=== PATIENT | male | born 2005 | race Caucasian/White ===

== ENCOUNTER 2023-01-12 19:23 | Emergency (ER) | payer OTHER, SELFPAY ==
[2023-01-12 19:29] VITALS: BP 109/62; PULSE 88; RESP 18; TEMP 36.7; O2SAT 98; BMI 19.2
--- NOTE | 2023-01-12 19:34 | ED_ITS ---
HPI - General Adult General Chief complaint: Headache Stated complaint: CONGESTION, HEADACHE, FEVER Time Seen by Provider: 01/12/23 19:27 Source: patient and family Mode of arrival: walk-in Limitations: no limitations History of Present Illness HPI narrative: patient is a 17-year-old male who presents to the emergency department for a three day history of cough, congestion, headache and body aches. Patient states he feels nauseous. He has had a frontal headache for the last three days but in the last hour it has gotten more severe, consistent with previous migraines. He has had no vomiting. He has not had an objective fever. He used Mucinex prior to arrival but has not had any Motrin or Tylenol for the headache. He states typically when he gets a similar headache/migraine, he takes ibuprofen but did not take any prior to coming to the Emergency Room. No sick contacts in the home. He has not had any sputum production, difficulty breathing or diarrhea. Related Data Home Medications Medication Instructions Recorded Confirmed dextroamphetamine-amphetamine 5 mg 5 mg PO DAILY 01/12/23 01/12/23 tablet (Adderall) loratadine 10 mg tablet 10 mg PO DAILY PRN allergic 01/12/23 01/12/23 (Allerclear) symptoms venlafaxine 37.5 mg 37.5 mg PO DAILY 01/12/23 01/12/23 capsule,extended release 24 hr Previous Rx's Medication Instructions Recorded mhyukhfnwjsohtl-nppfrclwihtamrf-TB 10 ml PO Q6H PRN cold symptoms 01/12/23 2 mg-30 mg-10 mg/5 mL oral syrup #200 mL (Bromfed DM) ibuprofen 600 mg tablet 600 mg PO QID PRN pain #12 tabs 01/12/23 promethazine 25 mg tablet 25 mg PO Q6H PRN nausea and 01/12/23 vomiting #12 tabs Allergies Allergy/AdvReac Type Severity Reaction Status Date / Time No Known Drug Allergies Allergy Verified 01/12/23 19:54 Review of Systems ROS Constitutional Reports: chills; Denies: fever Ears, nose, mouth, and throat Reports: nasal congestion; Denies: throat pain Cardiovascular Denies: chest pain Respiratory Reports: cough; Denies: shortness of breath Gastrointestinal Reports: nausea; Denies: vomiting or diarrhea Integumentary/Breast Denies: rash Neurological Reports: headache; Denies: dizziness Endocrine Denies: excessive urination PFSH PFS Social History Smoking status: Never smoker Exam Narrative Exam Narrative: Gen.: Awake, alert, in no distress Head: Normocephalic, atraumatic ENT: Moist mucous membranes, bilateral tympanic membranes clear, moist because membranes with no pharyngeal erythema, no nuchal rigidity or meningismus Respiratory: No respiratory distress, lungs clear bilaterally Cardio: Regular rate and rhythm Extremities: Moves extremities equally Psych: Normal mood and affect Neuro: No focal neuro deficit Skin: Warm, dry, intact Constitutional Vital Signs, click to edit/add: Last Vital Signs Temp 98.1 F 01/12/23 19:29 Pulse 88 01/12/23 19:29 Resp 18 01/12/23 19:29 BP 109/62 01/12/23 19:29 Pulse Ox 98 01/12/23 19:29 O2 Del Method Room Air 01/12/23 19:29 Course Vital Signs Vital signs: Vital Signs Temperature 98.1 F 01/12/23 19:29 Pulse Rate 88 01/12/23 19:29 Respiratory Rate 18 01/12/23 19:29 Blood Pressure 109/62 01/12/23 19:29 Pulse Oximetry 98 01/12/23 19:29 Oxygen Delivery Method Room Air 01/12/23 19:29 Temperature 98.1 F 01/12/23 19:29 Pulse Rate 88 01/12/23 19:29 Respiratory Rate 18 01/12/23 19:29 Blood Pressure 109/62 01/12/23 19:29 Pulse Oximetry 98 01/12/23 19:29 Oxygen Delivery Method Room Air 01/12/23 19:29 Medical Decision Making [facility] Narrative Medical decision making narrative: patient was stable vital signs, headache consistent with previous migraines and no nuchal rigidity on exam. Covid test and influenza screens are negative. Patient was given intramuscular Toradol and Phenergan in the Emergency Room for headache symptoms. He will be discharged home with Bromfed-DM, Zofran, ibuprofen. Follow-up with PCP and return to the Emergency Room symptoms change or worsen. after medication with Toradol, Phenergan and Decadron in the Emergency Room, patient's mother voiced concern of dehydration. Patient was reevaluated by attending physician and a lengthy discussion was had with the patient, mother and attending physician discussing the patient's normal vital signs, benign exam and his unwillingness to eat and drink at home. At this time he does not appear severely dehydrated or in stable and he was encouraged to continue to sip fluids, return to the Emergency Room if symptoms change or worsen. Medical Records Medical records reviewed: Yes I reviewed the patient's medical records Lab Data Lab results reviewed: Yes I reviewed the patient's lab results Labs: Lab Results 01/12/23 Range/Units 19:45 SARS-CoV-2 (PCR) Negative (NEGATIVE) Influenza Type A Ag Negative Influenza Type B Ag Negative Discharge Plan Discharge Chief Complaint: Headache Clinical Impression: URI (upper respiratory infection), Headache Patient Disposition: Home, Self-Care Time of Disposition Decision: 20:30 Condition: Good Mode of Transportation: Private Vehicle Prescriptions / Home Meds: New ibuprofen 600 mg tablet 600 mg PO QID PRN (Reason: pain) Qty: 12 0RF kliquezghwpaarz-[id number] [Bromfed DM] 2-30-10 mg/5 mL syrup 10 ml PO Q6H PRN (Reason: cold symptoms) Qty: 200 0RF promethazine 25 mg tablet 25 mg PO Q6H PRN (Reason: nausea and vomiting) Qty: 12 0RF No Action venlafaxine 37.5 mg capsule,extended release 24hr 37.5 mg PO DAILY dextroamphetamine-amphetamine [Adderall] 5 mg tablet 5 mg PO DAILY Rx Instructions: unsure of dose. loratadine [Allerclear] 10 mg tablet 10 mg PO DAILY PRN (Reason: allergic symptoms) Instructions: Upper Respiratory Infection (ED), Acute Headache (ED) Stand Alone Forms: Portal Instructions Referrals: DEL CORRAL [Primary Care Provider] - 1 week Discharge Date/Time: 01/12/23 20:45
[2023-01-12 20:10] LABS: SARS-CoV-2 Ag NEGATIVE (NEGATIVE)
[2023-01-12 20:11] LABS: Influenza Virus A Antigen Negative; Influenza Virus B Antigen Negative; Internal Control Within Normal Limits
[2023-01-12] MEDS: PROMETHAZINE HCL 25 MG/ML VIAL IM (20:19)
[2023-01-12] MEDS: KETOROLAC TROMETHAMINE 60 MG/2 ML VIAL IM (20:20)
[2023-01-12] MEDS: DEXAMETHASONE SOD PHOS 10 MG/ML VIAL PO (20:31)
[2023-01-14 18:45] LABS: SARS-CoV-2 NAA INVALID (NOT DETECTE)
== END 2023-01-12 20:45 | disposition home or self-care (01) ==
PROVIDERS: Physician Assistant; Emergency Provider Emergency Medicine; PCP Family Medicine
DX: R51.9 Headache, unspecified (principal); J06.9 Acute upper respiratory infection, unspecified; Z79.899 Other long term (current) drug therapy; Z20.822 Contact with and (suspected) exposure to COVID-19
CPT/HCPCS: 87635; 87804; 87811; 96372; 99284; J1100

== ENCOUNTER 2023-03-18 16:12 | Emergency (ER) | payer OTHER, SELFPAY ==
[2023-03-18 16:19] VITALS: BP 108/63; PULSE 86; RESP 18; TEMP 36.8; O2SAT 97; BMI 19.0
--- OUTSIDE RECORDS SUMMARY | 2023-03-18 16:19 | XMS_ITS | CCD ---
Author Name Unknown Address [id number] [place] [address] Organization [facility] Care Team Providers Care Violin Restorer Name Role Phone Silver, Ria Unavailable Unavailable Silver, Ria Unavailable Unavailable UNKNOWN, PCP Unavailable Unavailable Ion Aragon Unavailable DALLAS SALGUERO Attending Unavailable DALLAS SALGUERO Consulting Unavailable DALLAS SALGUERO Admitting Unavailable ELLIS, DR DEL Mayes Primary Care Unavailable LEISA DSOUZA Consulting Unavailable ELLIS, DR DEL Mayes Primary Care Unavailable MARKER, DR SHERWOOD Attending Unavailable MARKER, DR SHERWOOD Consulting Unavailable MARKER, DR SHERWOOD Admitting Unavailable BELEN COCHRAN Consulting Unavailable SANTA, DR BATSHEVA Rae Attending Unavailable SANTA, DR BATSHEVA Rae Consulting Unavailable SANTA, DR BATSHEVA Rae Admitting Unavailable ELLIS, DR DEL Mayes Primary Care Unavailable RAUL ROMERO Consulting Unavailable TREVOR PETERSEN Consulting Unavailable ELLIS, DR DEL Mayes Primary Care Unavailable MARKER, DR SHERWOOD Attending Unavailable MARKER, DR SHERWOOD Admitting Unavailable RON KUMAR Attending Unavailable RON KUMAR Consulting Unavailable RON KUMAR Admitting Unavailable ELLIS, DR DEL Mayes Primary Care Unavailable Kumar, Ron Unavailable Kumar, Ron Unavailable JOSÉ, RON Referring Unavailable SAVANNAH ANDERSEN Attending Unavailable DEL CORRAL Attending Unavailable Allergies Allergy Classification Reported Allergen(s) Allergy Type Date of Onset Reaction(s) Facility (4 sources) Codeine; Translations: [CODEINE] Drug Allergy 06-20-2008 [facility] (1 source) Amoxicillin Drug Allergy 02-16-2022 [facility] (1 source) Sulfonamides (Antibiotic) Drug allergy (disorder) 02-16-2022 [facility] Medications Current Medications Medication Drug Class(es) Dates Sig (Normalized) Sig (Original) Magnesium (2 sources) Start: 07-15-2021 Magnesium 400 MG as directed Orally July, Active omeprazole 20 mg delayed release oral capsule (2 sources) Proton Pump Inhibitor take 1 capsule by mouth once daily Omeprazole 20 MG 1 capsule 30 minutes before morning meal Orally Once a day Active venlafaxine (2 sources) Serotonin and Norepinephrine Reuptake Inhibitor Effexor Active Vitamin B Complex (2 sources) Vitamin B Complex Active vitamin B12 (2 sources) Vitamin B12 Vitamin B 12 Active Completed/Discontinued Medications Medication Drug Class(es) Dates Sig (Normalized) Sig (Original) Acetaminophen (1 source) ACETAMINOPHEN (CHILDREN'S TYLENOL ORAL) Indications: Chronic daily headache , Learning difficulty Take by mouth. 0 Active Comment on above: Take by mouth. cholecalciferol 0.025 mg oral tablet (1 source) Vitamin D cholecalciferol (VITAMIN D3) 1,000 unit tab tablet Take 1 tablet by mouth. 0 Active Comment on above: Take 1 tablet by fritz th. fluticasone (1 source) Corticosteroid FLUTICASONE PROPIONATE (FLONASE NASAL) Indications: Chronic daily headache , Learning difficulty Use in the nose. 0 Active Comment on above: Use in the nose. 30/70 release 24 hr methylphenidate hydrochloride 10 mg extended release oral capsule (5 sources) Central Nervous System Stimulant take 1 capsule by mouth once daily methylphenidate ER (METADATE CD) 10 mg CD capsule Take 10 mg by mouth once daily. 0 Active take 1 capsule by mo [facility] once daily in the morning Metadate CD 10 MG 1 capsule in the morni ng Orally Once a day Active Concerta Active Comment on above: Take 10 mg by mouth once daily. pediatric multivitamin plus minerals with iron chewable (CEROVITE JR) chewable tablet (1 source) take 1 tablet by mouth once daily pediatric multivitamin plus minerals with iron chewable (CEROVITE JR) chewable tablet Indications: Chronic daily headache , Learning difficulty Take 1 tablet by mouth once daily. 0 Active Comment on above: Take 1 tablet by fritz th once daily. Problems Active Problems Problem Classification Problem Date Documented Date Episodic/Chronic Abdominal pain (4 sources) Abdominal pain; Translations: [Unspecified abdominal pain] Onset: 07-15-2021 Resolved: 07-15-2021 Episodic Acute and chronic tonsillitis (1 source) Hypertrophy of adenoids; Translations: [Hypertrophy of adenoids] Onset: 07-23-2008 07-23-2008 Chronic Asthma (1 source) Unspecified asthma, uncomplicated; Translations: [UNSPECIFIED ASTHMA UNCOMPLICATED] Onset: 07-28-2021 Chronic Attention-deficit, conduct, and disruptive behavior disorders (1 source) Attention deficit hyperactivity disorder; Translations: [Attention deficit disorder with hyperactivity] Onset: 05-17-2011 05-17-2011 Chronic Developmental disorders (1 source) Learning difficulties; Translations: [Developmental disorder of scholastic skills, unspecified] Onset: 12-15-2010 12-15-2010 Chronic Fever of unknown origin (4 sources) Fever, unspecified; Translations: [FEVER UNSPECIFIED] Onset: 08-29-2021 Episodic Headache; including migraine (3 sources) Headache; Translations: [Nonintractable episodic headache, unspecified headache type] Onset: 04-07-2009 Episodic Malaise and fatigue (1 source) Chronic fatigue syndrome; Translations: [Chronic fatigue syndrome] Chronic Other upper respiratory disease (1 source) Chronic rhinitis; Translations: [Chronic rhinitis] Chronic Unclassified (2 sources) COUGH, UNSPECIFIED; Translations: [COUGH, UNSPECIFIED] Onset: 02-18-2022 Unclassified (4 sources) CONTACT W/AND (SUSP) EXPOS COVID-19; Translations: [CONTACT W/AND (SUSP) EXPOS COVID-19] Onset: 03-23-2021 Viral infection (1 source) Viral infection, unspecified; Translations: [VIRAL INFECTION UNSPECIFIED] Onset: 02-18-2022 Episodic Viral infection (2 sources) COVID-19; Translations: [Disease caused by 2019-nCoV] Onset: 09-01-2021 Past or Other Problems Problem Classification Problem Date Documented Da te Episodic/Chronic E Codes: Overexertion (1 source) Slipping, tripping and stumbling without falling due to stepping into hole or opening, initial encounter; Translations: [SLIP STUMBL NO FALL STEP HOLE INIT] Onset: 07-28-2021 Episodic Malaise and fatigue (1 source) Other fatigue; Translations: [OTHER FATIGUE] Onset: 03-23-2021 Episodic Other aftercare (1 source) Other snf (current) drug therapy; Translations: [OTH CUSTOMER SERVICE TELLER CURRENT DRUG THERAPY] Onset: 07-28-2021 Episodic Other ear and sense organ disorders (4 sources) Otalgia, left ear; Translations: [OTALGIA LEFT EAR] Onset: 06-01-2021 Episodic Other gastrointestinal disorders (2 sources) Diarrhea, unspecified Onset: 07-15-2021 Resolved: 07-15-2021 Episodic Other injuries and conditions due to external causes (3 sources) Unspecified injury of left ankle, initial encounter; Translations: [UNSPECIFIED INJURY LT ANKLE INITIAL] Onset: 07-27-2021 Episodic Other upper respiratory disease (1 source) Nasal congestion; Translations: [NASAL CONGESTION] Onset: 03-23-2021 Episodic Otitis media and related conditions (1 source) Unspecified perforation of tympanic membrane, left ear; Translations: [UNS PERF TYMPANIC MEMBRANE LT EAR] Onset: 06-02-2021 Episodic Sprains and strains (1 source) Sprain of unspecified ligament of left ankle, initial encounter; Translations: [SPRAIN UNS LIGAMENT LT ANKLE INIT] Onset: 07-28-2021 Episodic Unclassified (1 source) COUGH, UNSPECIFIED; Translations: [COUGH, UNSPECIFIED] Onset: 02-16-2022 Unclassified (1 source) CONTACT W/AND (SUSP) EXPOS COVID-19; Translations: [CONTACT W/AND (SUSP) EXPOS COVID-19] Onset: 03-19-2021 Results Test Name Value Interpretation Reference Range Facility [facility] 05-12-2022 [facility] Office Visit (PARAG ) ALYSSA LALA ([id number]) 1 M Date Time Provider Department 05/12/22 2:00 PM SAVANNAH ANDERSEN During your visit today, we recorded the following information about you: Temperature Pulse Weight Height 97.9 degrees 70/minute 58.5 kg 1.702 m Savannah Andersen MD 05/12/2022 4:16 PM Signed Allergy AND Clinical Immunology ROLLY Gill has requested consultation for recurrent URI. My progress note with assessment and recommendations from today's appointment will be electronically routed to the referring provider. Alyssa Lala is a 17 year old male with ADHD and anxiety, accompanied today by grandmother, mother, and great niece, seen for significant fatigue since young childhood. It has been significant enough to where he could not start high school until the afternoon. If he exerts himself he sleeps for 3 days straight . 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 He frequently suffers from headaches and stomach pains. No family history of sleep disorders. He saw an program strategist in [employer]. He had bloodwork done along with his sister who had similar issues at the time. His IgGs and IgAs were really low. IgG replacement was discussed at one point. He most recently saw Dr. Jose F Guerrero about a year ago. He was told his headaches were migraines. His immune testing was repeated and was within normal range. He has had inhalant skin testing in the past which was negative. He was told that foods may be causing his migraines. His sister's issues have since resolved and does not carry a formal diagnosis for immunodeficiency. Saw local ENT for perforation left tympanic membrane and recurrent sinusitis. He has a history of otitis media with tube placement at age of 1 and also tonsillectomy and adenoidectomy. He received treatment with oral steroids and antibiotics with improvement. CT sinus was done and was normal. He receives antibiotics about 1-2 times per month for ear or sinus infections. Had COVID in August. Denies pneumonia, bacteremia. No hospitalizations for infections. He recent saw a sleep specialist locally who recommended further testing. Has not seen a headache specialist. His psychologist has prescribed him methylphenidate which has helped but still sleeps a lot. Saw local oncology, eval unremarkable. PriorGI evaluation negative. PPV23: 05/19/2002 DTap: 10/13/2015 Current Outpatient Medications on File Prior to Visit Medication Sig Methylphenidate HCl (METADATE CD) 10 mg ORAL CD capsule Take 10 mg by mouth once daily. ACETAMINOPHEN (CHILDREN'S TYLENOL ORAL) Take by mouth. FLUTICASONE PROPIONATE (FLONASE NASAL) Use in the nose. Pediatric Multivitamins-Iron (FLINTSTONES COMPLETE) ORAL chewable tablet Take 1 tablet by mouth once daily. No current facility-administered medications on file prior to visit. ALLERGIES Allergen Reactions Codeine PAST MEDICAL HISTORY Diagnosis Date Ear infection Sinus infection PAST SURGICAL HISTORY Procedure Laterality Date PAST SURGICAL HISTORY OF 07/23/2008 Left Gelfoam myringoplasty. REMOVAL ADENOIDS,PRIMARY,<12 Y/O 2x Adenoidectomy REMOVAL OF TONSILS,<12 Y/O Tonsillectomy No family history on file. Family history of atopy: yes Denies family history of sleep disorders, recurrent infections Several members with diabetes but no other autoimmune diseases Several members with cancers-mostly breast and prostate SOCIAL HISTORY Trying to go to [employer] school Denies tobacco abuse or exposure Review of Systems: Gen: No fevers, chills, night sweats, weight changes. HEENT: No eye itching, watering. No congestion or rhinorrhea. No snoring. No recent sinus infections. Neck: No lymphadenopathy. Resp: No cough, wheezing, dyspnea. CV: No chest pain, palpitations, leg swelling. GI: No reflux, abdominal pain, vomiting, diarrhea, constipation. Musc/Skel: Positive for joint pain. No joint stiffness. Neuro: No headaches. Skin: No lesions, rashes, hives, or eczema. Psych: No depression, anxiety. All other systems reviewed, negative except as above. Physical Exam: Pulse 70 Temp 36.6 ?C (97.9 ?F) Ht 170.2 cm (5' 7 ) Wt 58.5 kg (129 lb) SpO2 100% BMI 20.20 kg/m? GEN - NAD, well appearing, cooperative with exam HEENT - No conjunctival injection, swelling or discharge. TMs clear with no effusion or bulging. Bilateral inferior turbinates hypertrophic and erythematous. MMM. Oropharynx non-erythematous with no tonsillar enlargement or exudates. NECK - supple, no cervical LAD RESP - No increased work of breathing. Clear to auscultation bilaterally, no wheeze or crackles. CV- RRR, no murmurs ABD- Soft, non-distended SKIN- Warm and well perfused, no rashes on exposed skin NEURO- cranial nerves grossly intact Diagnostic Testin (more content not included)... [facility]O DIFFon 02-16-2022 BASO # 0.0 103/ul Normal 0.0-0.1 [facility] Comment on above: Performed By: #### C BC #### [facility] [address] [place] [address] Dr. Jennifer Durant Basophils/100 WBC (Bld) 0.4 % Normal 0.2-2.0 [facility] Comment on above: Performed By: #### C BC #### [facility] [address] [place] [address] Dr. Jennifer Durant EO # 0.0 103/ul Normal 0.0-0.7 [facility] Comment on above: Performed By: #### C BC #### [facility] [address] [place] [address] Dr. Jennifer Durant Eosinophils/100 WBC (Bld) 0.1 % Critically low 0.9-7.0 [facility] Comment on above: Performed By: #### C BC #### [facility] [address] [place] [address] Dr. Jennifer Durant Erythrocyte distribution width (RBC) [Ratio] 11.6 % Normal 11.0-15.0 [facility] Comment on above: Performed By: #### C BC #### [facility] [address] [place] [address] Dr. Jennifer Durant Hematocrit (Bld) [Volume fraction] 39.8 % Critically low 42.0-54.0 [facility] Comment on above: Performed By: #### C BC #### [facility] [address] [place] [address] Dr. Jennifer Durant Hemoglobin (Bld) [Mass/Vol] 14.2 g/dL Normal 14.0-18.0 [facility] Comment on above: Performed By: #### C BC #### [facility] [address] [place] [address] Dr. Jennifer Durant IG # 0.01 10e3/ul Normal 0.00-0.03 [facility] Comment on above: Performed By: #### C BC #### [facility] [address] [place] [address] Dr. Jennifer Durant IG % 0.1 % Normal 0.0-0.5 [facility] Comment on above: Performed By: #### C BC #### [facility] [address] [address] [address] Jennifer Durant LYMPH # 0.8 103/ul Critically low 1.2-3.8 [facility] Comment on above: Performed By: #### C BC #### [facility] [address] [address] [address] Jennifer Durant Lymphocytes/100 WBC (Bld) 7.3 % Critically low 20.5-60.0 [facility] Comment on above: Performed By: #### C BC #### [facility] [address] [place] [address] Dr. Jennifer Durant MANUAL DIFF REQ NO Normal [facility] Comment on above: Performed By: #### C BC #### [facility] [address] [place] [address] Dr. Jennifer Durant MCH (RBC) [Entitic mass] 32.1 pg Normal 25.9-34.0 [facility] Comment on above: Performed By: #### C BC #### [facility] [address] [address] [address] Jennifer Durant MCHC (RBC) [Mass/Vol] 35.7 g/dL Critically high 29.9-35.2 [facility] Comment on above: Performed By: #### C BC #### [facility] [address] [place] [address] Dr. Jennifer Durant MCV (RBC) [Entitic vol] 89.8 fL Normal 80.0-94.0 [facility] Comment on above: Performed By: #### C BC #### [facility] [address] [address] [address] Jennifer Durant MONO # 1.5 103/ul Critically high 0.3-0.8 [facility] Comment on above: Performed By: #### C BC #### [facility] [address] [address] [address] Jennifer Durant Monocytes/100 WBC (Bld) 14.0 % Critically high 1.7-12.0 [facility] Comment on above: Performed By: #### C BC #### [facility] [address] [address] [address] Jennifer Durant NEUT # 8.3 103/ul Critically high 1.4-6.5 [facility] Comment on above: Performed By: #### C BC #### [facility] [address] [address] [address] Jennifer Durant Neutrophils/100 WBC (Bld) 78.1 % Critically high 43.0-75.0 [facility] Comment on above: Performed By: #### C BC #### [facility] [address] [place] [address] Dr. Jennifer Durant Platelet mean volume (Bld) [Entitic vol] 9.8 fL Normal 9.5-13.5 [facility] Comment on above: Performed By: #### C BC #### [facility] [address] [place] [address] Dr. Jennifer Durant PLT 216 103/ul Normal 150-450 [facility] Comment on above: Performed By: #### C BC #### [facility] [address] [address] [address] Jennifer Durant RBC 4.43 106/ul Critically low 4.70-6.10 [facility] Comment on above: Performed By: #### C BC #### [facility] [address] [place] [address] Dr. Jennifer Durant WBC 10.6 103/ul Normal 4.0-11.0 [facility] Comment on above: Performed By: #### C BC #### [facility] [address] [place] [address] Dr. Jennifer Durant [facility]03 SARS-CoV-2 (COVID-19) RNA NUPUR+probe Ql (Unsp spec) Not detected Normal NOT DETECTED [facility] Comment on above: Result Comment: This test is not yet approved or cleared by the [place] FDA. When there are no FDA-approved or cleared tests available, and other criteria are met, FDA can make tests available under an emergency access mechanism called an Emergency Use Authorization (EUA). The EUA for this test is supported by the Omega of Health and Human Service's (HHS's) declaration that circumstances exist to justify the emergency use of in vitro diagnostics for the detection and/or diagnosis of the virus that causes COVID-19. This EUA will remain in effect (meaning this test can be used) for the duration of the COVID-19 declaration justifying emergency of IVDs, unless it is terminated or revoked by FDA (after which the test may no longer be used). When diagnostic testing is negative, the possibility of a false negative should be considered in the context of a patient's recent exposures and the presence of clinical signs and symptoms consistent with SARS-CoV-2. Performed By: #### C VDTB #### [facility] [address] [place] [address] Dr. Jennifer Durant ER URINE PROFILEon 2 Bilirubin Ql (U) Negative Normal NEGATIVE [facility] Comment on above: Performed By: #### E RUR #### [facility] [address] [place] [address] Dr. Jennifer Durant Clarity (U) CLEAR Normal CLEAR [facility] Comment on above: Performed By: #### E RUR #### [facility] [address] [place] [address] Dr. Jennifer Durant Color (U) YELLOW Normal YELLOW [facility] Comment on above: Performed By: #### E RUR #### [facility] [address] [place] [address] Dr. Jennifer Durant ERUAHD A micrscopic examina tion will be performed if indicated. Normal [facility] Comment on above: Performed By: #### E RUR #### [facility] [address] [place] [address] Dr. Jennifer Durant Glucose Ql (U) Negative Normal NEGATIVE [facility] Comment on above: Performed By: #### E RUR #### [facility] [address] [place] [address] Dr. Jennifer Durant Hemoglobin Ql (U) Negative Normal NEGATIVE [facility] Comment on above: Performed By: #### E RUR #### [facility] [address] [place] [address] Dr. Jennifer Durant Ketones Ql (U) 15 mg/dl Abnormal NEGATIVE [facility] Comment on above: Performed By: #### E RUR #### [facility] [address] [place] [address] Dr. Jennifer Durant LEUKOCYTES Negative Normal NEGATIVE [facility] Comment on above: Performed By: #### E RUR #### [facility] [address] [place] [address] Dr. Jennifer Durant Nitrite Ql (U) Negative Normal NEGATIVE [facility] Comment on above: Performed By: #### E RUR #### [facility] [address] [place] [address] Dr. Jennifer Durant pH (U) 6.5 [pH] Normal 5-9 [facility] Comment on above: Performed By: #### E RUR #### [facility] [address] [place] [address] Dr. Jennifer Durant SPEC GRAVITY 1.020 Normal 1.005-<=1.0 25 [facility] Comment on above: Performed By: #### E RUR #### [facility] [address] [place] [address] Dr. Jennifer Durant UA PROTEIN TRACE Normal NEGATIVE/ TRACE [facility] Comment on above: Performed By: #### E RUR #### [facility] [address] [place] [address] Dr. Jennifer Durant UR MICRO IND NOT INDICATED Normal [facility] Comment on above: Performed By: #### E RUR #### [facility] [address] [place] [address] Dr. Jennifer Durant Urobilinogen Qn (U) 1.0 {Filiberto'U}/dL Normal 0.2 - 1.0 [facility] Comment on above: Performed By: #### E RUR #### [facility] [address] [place] [address] Dr. Jennifer Durant GROUP A STREP CULTUREon 02-03 S. pyogenes Ag Ql (Unsp spec) Culture Observations: NEGATIVE FOR GROUP A STREPTOCOCCUS. Normal [facility] Comment on above: Performed By: #### I NFLUAB, RSV #### [facility] [address] [place] [address] Dr. Jennifer Durant INFLUENZA A AND B AGon 02-16 INFLUENZA A AG Negative Normal NEGATIVE SEE COMMENT [facility] Comment on above: Performed By: #### I NFLUAB, RSV #### [facility] [address] [place] [address] Dr. Jennifer Durant INFLUENZA B AG Negative Normal NEGATIVE SEE COMMENT [facility] Comment on above: Performed By: #### I NFLUAB, RSV #### [facility] [address] [place] [address] Dr. Jennifer Durant INTERNAL CONTROLS Within Normal Limits Normal Wi thin Normal Limits [facility] Comment on above: Performed By: #### I NFLUAB, RSV #### [facility] [address] [place] [address] Dr. Jennifer Durant PROF CHEM 8 (BAS METB)on Anion gap [Moles/Vol] 12.1 mmol/L Normal [facility] Comment on above: Performed By: #### B MP #### [facility] [address] [place] [address] Dr. Jennifer Durant Calcium [Mass/Vol] 9.1 mg/dL Normal 8.5-10.1 [facility] Comment on above: Performed By: #### B MP #### [facility] [address] [place] [address] Dr. Jennifer uDrant Chloride [Moles/Vol] 101 mmol/L Normal 98-107 [facility] Comment on above: Performed By: #### B MP #### [facility] [address] [place] [address] Dr. Jennifer Durant CO2 [Moles/Vol] 26.5 mmol/L Normal 21.0-32.0 [facility] Comment on above: Performed By: #### B MP #### [facility] [address] [place] [address] Dr. Jennifer Durant Creatinine [Mass/Vol] 1.03 mg/dL Normal 0.70-1.30 [facility] Comment on above: Performed By: #### B MP #### [facility] [address] [address] [address] Jennifer Durant EGFR-AF NIGERIEN >60 Normal >=60 [facility] Comment on above: Performed By: #### B MP #### [facility] [address] [address] [address] Jennifer Durant EGFR-NON AF NIGERIEN >60 Normal >=60 [facility] Comment on above: Performed By: #### B MP #### [facility] [address] [address] [address] Jennifer Durant Glucose [Mass/Vol] 100 mg/dL Normal 74-106 [facility] Comment on above: Performed By: #### B MP #### [facility] [address] [place] [address] Dr. Jennifer Durant Potassium [Moles/Vol] 3.6 mmol/L Normal 3.5-5.1 [facility] Comment on above: Performed By: #### B MP #### [facility] [address] [address] [address] Jennifer Durant Sodium [Moles/Vol] 136 mmol/L Normal 136-145 [facility] Comment on above: Performed By: #### B MP #### [facility] [address] [place] [address] Dr. Jennifer Durant Urea nitrogen [Mass/Vol] 17.0 mg/dL Normal 6.4-19.3 [facility] Comment on above: Performed By: #### B MP #### [facility] [address] [place] [address] Dr. Jennifer Durant Urea nitrogen/Creatini ne [Mass ratio] 16.5 mg/mg Normal [facility] Comment on above: Performed By: #### B MP #### [facility] [address] [place] [address] Dr. Jennifer Durant RSVon 02-16-2022 RSV AG Negative Normal NEGATIVE [facility] Comment on above: Performed By: #### I NFLUAB, RSV #### [facility] [address] [place] [address] Dr. Jennifer Durant STREPT SCREENon 02-16-2022 STREP SCREEN A Negative Normal NEGATIVE [facility] Comment on above: Performed By: #### I NFLUAB, RSV #### [facility] [address] [place] [address] Dr. Jennifer Durant XR CHEST 1 Von 02-16-2022 XR CHEST 1 V EXAM: XR CHEST 1 V HISTORY: COUGH COMPARISON: None. TECHNIQUE: Chest single view. FINDINGS: Lines/tubes/devices: None. Cardiomediastinum: Cardiac silhouette appears normal in size. Unremarkable mediastinal silhouette. Vasculature: No increased pulmonary vasculature. Lungs/pleura: No consolidation, sizeable effusion, or visible pneumothorax. Bones/soft tissues: Bony thorax appears grossly intact as seen. IMPRESSION: No acute cardiopulmonary findings. Electronically authenticated by: LEISA DSOUZA Date: 2022-02-16 02:42 Normal [facility] CBC AUTO DIFFon 08-29-2021 BASO # 0.0 103/ul Normal 0.0-0.1 [facility] Comment on above: Performed By: #### I NFLUAB, RSV #### [facility] [address] [place] [address] Dr. Jennifer Durant Basophils/100 WBC (Bld) 0.4 % Normal 0.2-2.0 [facility] Comment on above: Performed By: #### I NFLUAB, RSV #### [facility] [address] [place] [address] Dr. Jennifer Durant EO # 0.0 103/ul Normal 0.0-0.7 [facility] Comment on above: Performed By: #### I NFLUAB, RSV #### [facility] [address] [place] [address] Dr. Jennifer Durant Eosinophils/100 WBC (Bld) 0.2 % Critically low 0.9-7.0 [facility] Comment on above: Performed By: #### I NFLUAB, RSV #### [facility] [address] [place] [address] Dr. Jennifer Durant Erythrocyte distribution width (RBC) [Ratio] 11.8 % Normal 11.0-15.0 [facility] Comment on above: Performed By: #### I NFLUAB, RSV #### [facility] [address] [place] [address] Dr. Jennifer Durant Hematocrit (Bld) [Volume fraction] 42.2 % Normal 42.0-54.0 [facility] Comment on above: Performed By: #### I NFLUAB, RSV #### [facility] [address] [place] [address] Dr. Jennifer Durant Hemoglobin (Bld) [Mass/Vol] 14.8 g/dL Normal 14.0-18.0 [facility] Comment on above: Performed By: #### I NFLUAB, RSV #### [facility] [address] [place] [address] Dr. Jennifer Durant IG # 0.02 10e3/ul Normal 0.00-0.03 [facility] Comment on above: Performed By: #### I NFLUAB, RSV #### [facility] [address] [place] [address] Dr. Jennifer Durant IG % 0.4 % Normal 0.0-0.5 [facility] Comment on above: Performed By: #### I NFLUAB, RSV #### [facility] [address] [place] [address] Dr. Jennifer Durant LYMPH # 1.4 103/ul Normal 1.2-3.8 [facility] Comment on above: Performed By: #### I NFLUAB, RSV #### [facility] [address] [place] [address] Dr. Jennifer Durant Lymphocytes/100 WBC (Bld) 27.8 % Normal 20.5-60.0 [facility] Comment on above: Performed By: #### I NFLUAB, RSV #### [facility] [address] [place] [address] Dr. Jennifer Durant MANUAL DIFF REQ NO Normal [facility] Comment on above: Performed By: #### I NFLUAB, RSV #### [facility] [address] [address] [address] Jennifer Durant MCH (RBC) [Entitic mass] 32.6 pg Normal 25.9-34.0 [facility] Comment on above: Performed By: #### I NFLUAB, RSV #### [facility] [address] [place] [address] Dr. Jennifer Durant MCHC (RBC) [Mass/Vol] 35.1 g/dL Normal 29.9-35.2 [facility] Comment on above: Performed By: #### I NFLUAB, RSV #### [facility] [address] [place] [address] Dr. Jennifer Durant MCV (RBC) [Entitic vol] 93.0 fL Normal 80.0-94.0 [facility] Comment on above: Performed By: #### I NFLUAB, RSV #### [facility] [address] [place] [address] Dr. Jennifer Durant MONO # 0.9 103/ul Critically high 0.3-0.8 [facility] Comment on above: Performed By: #### I NFLUAB, RSV #### [facility] [address] [place] [address] Dr. Jennifer Durant Monocytes/100 WBC (Bld) 17.5 % Critically high 1.7-12.0 [facility] Comment on above: Performed By: #### I NFLUAB, RSV #### [facility] [address] [place] [address] Dr. Jennifer Durant NEUT # 2.7 103/ul Normal 1.4-6.5 [facility] Comment on above: Performed By: #### I NFLUAB, RSV #### [facility] [address] [place] [address] Dr. Jennifer Durant Neutrophils/100 WBC (Bld) 53.7 % Normal 43.0-75.0 [facility] Comment on above: Performed By: #### I NFLUAB, RSV #### [facility] [address] [place] [address] Dr. Jennifer Durant Platelet mean volume (Bld) [Entitic vol] 10.7 fL Normal 9.5-13.5 [facility] Comment on above: Performed By: #### I NFLUAB, RSV #### [facility] [address] [address] [address] Jennifer Durant PLT 192 103/ul Normal 150-450 [facility] Comment on above: Performed By: #### I NFLUAB, RSV #### [facility] [address] [address] [address] Jennifer Durant RBC 4.54 106/ul Critically low 4.70-6.10 [facility] Comment on above: Performed By: #### I NFLUAB, RSV #### [facility] [address] [address] [address] Jennifer Durant WBC 5.1 103/ul Normal 4.0-11.0 [facility] Comment on above: Performed By: #### I NFLUAB, RSV #### [facility] [address] [place] [address] Dr. Jennifer Durant Covid-19 PCR (CVDTB)on 08-05 SARS-CoV-2 (COVID-19) RNA NUPUR+probe Ql (Unsp spec) Detected Critically abnormal NOT DETECTED [facility] Comment on above: Result Comment: This test is not yet approved or cleared by the [place] FDA. When there are no FDA-approved or cleared tests available, and other criteria are met, FDA can make tests available under an emergency access mechanism called an Emergency Use Authorization (EUA). The EUA for this test is supported by the [place] of Health and Human Service's declaration that circumstances exist to justify the emergency use of in vitro diagnostics for the detection and/or diagnosis of the virus that causes COVID-19. This EUA will remain in effect for the duration of the COVID-19 declaration justifying emergency of IVDs, unless it is terminated or revoked by the FDA (after which the test may no longer be used). Performed By: #### I NFLUAB, RSV #### [facility] [address] [place] [address] Dr. Jennifer Durant GROUP A STREP CULTUREon 08-05 S. pyogenes Ag Ql (Unsp spec) Culture Observations: NEGATIVE FOR GROUP A STREPTOCOCCUS. Normal [facility] Comment on above: Performed By: #### S SCRN, GRASTCX #### [facility] [address] [place] [address] Dr. Jennifer Durant INFLUENZA A AND B AGon 08-29 INFLUANEGH SEE BELOW Normal [facility] Comment on above: Result Comment: Nega tive for Flu A protein angiten. Infection due to Flu A cannot be ruled out. Flu A angiten in the sample may be below the detection limit of the test. Performed By: #### I NFLUAB, RSV #### [facility] [address] [place] [address] Dr. Jennifer Durant INFLUBNEGH SEE BELOW Normal [facility] Comment on above: Result Comment: Nega tive for Flu B protein antigen. Infection due to Flu B cannot be ruled out. Flu B antigen in the sample may be below the detection limit of the test. Performed By: #### I NFLUAB, RSV #### [facility] [address] [place] [address] Dr. Jennifer Durant INFLUENZA A AG Negative Normal NEGATIVE SEE COMMENT [facility] Comment on above: Performed By: #### I NFLUAB, RSV #### [facility] [address] [place] [address] Dr. Jennifer Durant INFLUENZA B AG Negative Normal NEGATIVE SEE COMMENT [facility] Comment on above: Performed By: #### I NFLUAB, RSV #### [facility] [address] [place] [address] Dr. Jennifer Durant INTERNAL CONTROLS Within Normal Limits Normal Wi thin Normal Limits [facility] Comment on above: Performed By: #### I NFLUAB, RSV #### [facility] [address] [place] [address] Dr. Jennifer Durant MONOon 08-29-2021 Monocytes (Bld) [#/Vol] Negative Normal NEGATIVE [facility] Comment on above: Performed By: #### M JEANNIE #### [facility] [address] [place] [address] Dr. Jennifer Durant PROF 14(COMP METB)on 022 Albumin [Mass/Vol] 4.0 g/dL Normal 3.4-5.0 [facility] Comment on above: Performed By: #### C MP #### [facility] [address] [place] [address] Dr. Jennifer Durant Albumin/Globulin [Mass ratio] 1.3 {ratio} Normal [facility] Comment on above: Performed By: #### C MP #### [facility] [address] [place] [address] Dr. Jennifer Durant ALP [Catalytic activity/Vol] 74 U/L Normal 46-116 [facility] Comment on above: Performed By: #### C MP #### [facility] [address] [place] [address] Dr. Jennifer Durant ALT [Catalytic activity/Vol] 16 U/L Normal 16-63 [facility] Comment on above: Performed By: #### C MP #### [facility] [address] [place] [address] Dr. Jennifer Durant Anion gap [Moles/Vol] 10.0 mmol/L Normal [facility] Comment on above: Performed By: #### C MP #### [facility] [address] [place] [address] Dr. Jennifer Durant AST [Catalytic activity/Vol] 18 U/L Normal 15-37 [facility] Comment on above: Performed By: #### C MP #### [facility] [address] [place] [address] Dr. Jennifer Durant Bilirubin [Mass/Vol] 0.4 mg/dL Normal 0.2-1.0 [facility] Comment on above: Performed By: #### C MP #### [facility] [address] [place] [address] Dr. Jennifer Durant Calcium [Mass/Vol] 8.8 mg/dL Normal 8.5-10.1 [facility] Comment on above: Performed By: #### C MP #### [facility] [address] [place] [address] Dr. Jennifer Durant Chloride [Moles/Vol] 103 mmol/L Normal 98-107 [facility] Comment on above: Performed By: #### C MP #### [facility] [address] [address] [address] Jennifer Durant CO2 [Moles/Vol] 29.1 mmol/L Normal 21.0-32.0 [facility] Comment on above: Performed By: #### C MP #### [facility] [address] [address] [address] Jennifer Durant Creatinine [Mass/Vol] 0.94 mg/dL Normal 0.70-1.30 [facility] Comment on above: Performed By: #### C MP #### [facility] [address] [address] [address] Jennifer Durant EGFR-AF NIGERIEN >60 Normal >=60 [facility] Comment on above: Performed By: #### C MP #### [facility] [address] [place] [address] Dr. Jennifer Durant EGFR-NON AF NIGERIEN >60 Normal >=60 [facility] Comment on above: Performed By: #### C MP #### [facility] [address] [place] [address] Dr. Jennifer Durant Globulin (S) [Mass/Vol] 3.0 g/dL Normal [facility] Comment on above: Performed By: #### C MP #### [facility] [address] [place] [address] Dr. Jennifer Durant Glucose [Mass/Vol] 91 mg/dL Normal 74-106 [facility] Comment on above: Performed By: #### C MP #### [facility] [address] [address] [address] Jennifer Durant Potassium [Moles/Vol] 4.1 mmol/L Normal 3.5-5.1 [facility] Comment on above: Performed By: #### C MP #### [facility] [address] [place] [address] Dr. Jennifer Durant Protein [Mass/Vol] 7.0 g/dL Normal 6.4-8.2 [facility] Comment on above: Performed By: #### C MP #### [facility] [address] [address] [address] Jennifer Durant Sodium [Moles/Vol] 138 mmol/L Normal 136-145 [facility] Comment on above: Performed By: #### C MP #### [facility] [address] [place], [place] [address] Dr. Jennifer Durant Urea nitrogen [Mass/Vol] 13.0 mg/dL Normal 6.4-19.3 [facility] Comment on above: Performed By: #### C MP #### [facility] [address] [address] [address] Jennifer Durant Urea nitrogen/Creatini ne [Mass ratio] 13.8 mg/mg Normal [facility] Comment on above: Performed By: #### C MP #### [facility] [address] [address] [address] Jennifer Durant STREPT SCREENon 08-29-2021 STREP SCREEN A Negative Normal NEGATIVE [facility] Comment on above: Performed By: #### S SCRN, GRASTCX #### [facility] [id number] Jennifer Durant XR CHEST 1 Von 08-29-2021 XR CHEST 1 V EXAM: XR CHEST 1 V COMPARISON: 01/05/2021 CLINICAL INDICATION: Fever. FINDINGS: The cardiomediastinal silhouette is within normal limits. No focal consolidation. No pleural effusion. No pneumothorax. IMPRESSION: No acute cardiopulmonary abnormality. Electronically authenticated by: BELEN COCHRAN Date: 2021-08-29 20:30 Normal [facility] Free T4on 08-06-2021 Free T4 [Mass/Vol] 1.13 ng/dL Normal 0.80-1.80 [facility] [employer] Comment on above: Performed By: #### 2 [id number], [id number], LIP, CATHY, 66612U, [id number], 16682V, [id number] #### [facility] [address] [place] [address] Q - TESTOSTERONE,TOTAL,MALES (ADULT),IMMUNOASAYon 08-06-2021 TESTOSTERONE, TOTAL, MALES (ADULT), [place] 763 ng/dL Normal 250-827 [facility] [employer] Comment on above: Order Comment: [facility] performed at: [employer], [address], [address] [place], [address], Sales Promotion Director: Vicente Dutton MD [facility] Date/Time: [facility] Results Received Date/Time: [facility] Reported Date/Time: Performed By: #### 8 [id number], [id number] #### [facility] [address] [place] [address] Q - THYROID PEROXIDASE TPO A Bon 08-06-2021 THYROID PEROXIDASE ANTIBODIES 1 IU/mL Normal <9 [facility] Comment on above: Order Comment: [facility] performed at: [employer], [address], [address] [place], [address], Sales Promotion Director: Vicente Dutton MD [facility] Date/Time: [facility] Results Received Date/Time: [facility] Reported Date/Time: Performed By: #### 8 [id number], [id number] #### [facility] [address] [place] [address] TSHon 08-06-2021 TSH 1.460 uIU/mL Normal 0.400-4.500 [facility] [employer] Comment on above: Performed By: #### 2 [id number], 79280C, LIP, CATHY, 34860J, 33117, 82832N, 54957E #### [facility] [address] [place] [address] Sigmoidoscopy or colonoscopy [PhenX]on 07-29-2021 [employer] Other MYNOR Antinuclear Antibodieson 07-27-2021 Antinuclear Abs, IFA Negative Normal . [facility] Comment on above: Order Comment: Reaso n for Exam Abdominal pain;Diarrhea Result Comment: Nega tive <1:80 Borderline 1:80 Positive >1:80 ICAP nomenclature: AC-0 For more information about Hep-2 cell patterns use ANApatterns.org, the official website for the International Consensus on Antinuclear Antibody (MYNOR) Patterns (ICAP). Performed at: [address], [place], [place] [id number] Personnel Generalist Manager: Fredy Schwab PhD, Phone: [phone] PERFORMED BY: [place] [address] PATHOLOGIST [employer] INSPECTOR ISMA VALLEJO M.D. Performed By: #### C MICHAEL, MYNOR #### [facility] , #### COVID-19 ASHELY, SOFIANEG, CRP #### [facility] [address] [place] [address] C-Reactive Proteinon 022 C-Reactive Protein 1.1 mg/dL High 0.0-1.0 mg/dL [facility] Other C-Reactive Protein 1.1 mg/dL High 0.0-1.0 [facility] Comment on above: Order Comment: Reaso n for Exam Abdominal pain;Diarrhea Result Comment: PERF ORMED BY: [place] [address] PATHOLOGIST [employer] INSPECTOR ISMA VALLEJO M.D. Performed By: #### C ELIAC, MYNOR #### [facility] , #### COVID-19 ASHELY, SOFIANEG, CRP #### [address] COVID-19 Antigenon 2 COVID-19 Antigen Reason for Exam Abdo sophie pain;Diarrhea Nasal Reason for Exam: Abdominal pain;Diarrhea Healthcare Worker?: N : Nasal Reference Range: Negative Negative results, from patients with symptom onset beyond five days, should be treated as presumptive and confirmation with a molecular assay, if necessary, for patient management, may be performed. Negative results do not rule out COVID-19 and should not be used as the sole basis for treatment or patient management decisions, including infection control decisions. Negative results should be considered in the context of a patient's recent exposures, history and the presence of clinical signs and symptoms consistent with COVID-19. The Ashely SARS Antigen GUILLERMO does not differentiate between SARS-CoV and SARS-CoV-2. This test was developed and its performance characteristic determined by [employer] and validated at [facility]. This test has not been FDA cleared or approved. This test has been authorized by FDA under an Emergency Use Authorization (EUA). This test has been validated in accordance with the FDA's Guidance Document (Policy for Diagnostics Testing in Laboratories Certified to Perform High Complexity Testing under CLIA prior to Emergency Use Authorization for Coronavirus Disease-2019 during the Public Health Emergency) issued on June 06, 2019. This test is only authorized for the duration of time the declaration that circumstances exist justifying the authorization of the emergency use of in vitro diagnostic tests for detection of SARS-CoV-2 virus and/or diagnosis of COVID-19 infection under section 564(b)(1) of the Act, 21 U.S.C. 360bbb-3(b)(1), unless the authorization is terminated or revoked sooner. SARS-CoV+SARS-CoV-2 (COVID-19) Ag [Presence] in Respiratory specimen by Rapid immunoassay Negative for SARS Antigen by GUILLERMO PERFORMED BY: [place] [address] PATHOLOGIST [employer] INSPECTOR ISMA VALLEJO M.D. [facility] Comment on above: Performed By: #### C ELIAC, MYNOR #### [facility] , #### COVID-19 ASHELY, SOFIANEG, CRP #### [address] SARS-CoV-2 (COVID-19) Ab [place] Ql [facility] Other Celiacon 07-27-2021 Celiac 6 0-19 [facility] Other Celiac 2 0-19 [facility] Other Celiac <2 0-5 [facility] Other Celiac Negative Negative [facility] Other Celiac 192 mg/dL 90-386 mg/dL [facility] Other Deamidated Gliadin Abs, IgA 6 Normal 0-19 [facility] Comment on above: Order Comment: Reaso n for Exam Abdominal pain;Diarrhea Result Comment: Nega tive 0 - 19 Weak Positive 20 - 30 Moderate to Strong Positive >30 Performed By: #### C ELIAC, MYNOR #### [facility] , #### COVID-19 ASHELY, SOFIANEG, CRP #### [facility] [address] [place] [address] [place] Deamidated Gliadin Abs, IgG 2 Normal 0-19 [facility] Comment on above: Order Comment: Reaso n for Exam Abdominal pain;Diarrhea Result Comment: Nega tive 0 - 19 Weak Positive 20 - 30 Moderate to Strong Positive >30 Performed By: #### C ELIAC, MYNOR #### [facility] , #### COVID-19 ASHELY, SOFIANEG, CRP #### [facility] [address] [place] [address] Endomysial Antibody IgA Negative Normal Negative [facility] Comment on above: Order Comment: Reaso n for Exam Abdominal pain;Diarrhea Performed By: #### C ELIAC, MYNOR #### [facility] , #### COVID-19 ASHELY, SOFIANEG, CRP #### [facility] [address] [place] [address] [place] Immunoglobulin A, Qn, Serum 192 mg/dL Normal 90-386 [facility] Comment on above: Order Comment: Reaso n for Exam Abdominal pain;Diarrhea Result Comment: Perf ormed at: - [facility] [address] [id number] Personnel Generalist Manager: Fredy Schwab PhD, Phone: [phone] Performed By: #### C ELIAC, MYNOR #### [facility] , #### COVID-19 ASHELY, SOFIANEG, CRP #### [facility] [address] [place] [address] [place] T-Transglutaminas e (tTG) IgA <2 Normal 0-3 [facility] Comment on above: Order Comment: Reaso n for Exam Abdominal pain;Diarrhea Result Comment: Nega tive 0 - 3 Weak Positive 4 - 10 Positive >10 Tissue Transglutaminase (tTG) has been identified as the endomysial antigen. Studies have demonstr- ated that endomysial IgA antibodies have over 99% specificity for gluten sensitive enteropathy. Performed By: #### C MICHAEL, MYNOR #### [facility] , #### COVID-19 ASHELY, SOFIANEG, CRP #### [address] T-Transglutaminas e (tTG) IgG <2 Normal 0-5 [facility] Comment on above: Order Comment: Reaso n for Exam Abdominal pain;Diarrhea Result Comment: Nega tive 0 - 5 Weak Positive 6 - 9 Positive >9 Performed By: #### C MICHAEL, MYNOR #### [facility] , #### COVID-19 ASHELY, SOFIANEG, CRP #### [address] Ashely Ag Negativeon 07-28-19 22 Ashely Ag Negative Negative Normal Negative [facility] Comment on above: Result Comment: This is a duplicate Ashely SARS Antigen (GUILLERMO) result to be used for statistical tracking purpose only. PERFORMED BY: [place] [address] PATHOLOGIST [employer] INSPECTOR ISMA VALLEJO M.D. Performed By: #### C MICHAEL, MYNOR #### [facility] , #### COVID-19 ASHELY, SOFIANEG, CRP #### [address] XR ANKLE LT MIN 3 Von 2021 XR ANKLE LT MIN 3 V XR ANKLE LT MIN 3 V 07/26/2021 11:14 PM EDT CLINICAL INDICATION: Ankle injury COMPARISON: None. TECHNIQUE: 3 views of the left ankle. FINDINGS: The bones are intact. The alignment is anatomic. The joints are maintained. Thel soft tissues are grossly unremarkable. IMPRESSION: No acute osseous abnormality of the left ankle. Electronically authenticated by: RAUL ROMERO Date: 2021-07-27 00:37 Normal [facility] US Abdomen Completeon 2021 US Abdomen Complete FINDINGS: Gallbladder and biliary tree are normal. No echogenic foci or dilatation is present. Common bile duct measures 2 mm in maximal dimension. No ascites is present. The liver is normal in echotexture, without worrisome mass lesions. No ascites is identified. Both kidneys are normal in appearance for this age, without collecting system dilatation or echogenic foci. The right kidney measures 9.2 x 4.8 x 4.0 cm. and the left kidney measures 9.7 x 5.0 x 4.8 cm. The spleen is not enlarged, maximum length approximately 9 cm. The pancreas is normal. Abdominal aorta is without aneurysmal dilatation. IMPRESSION: Normal complete abdominal ultrasound evaluation Report reported and signed by Parminder Burch on 05/20/2021 0942 Normal [facility] XR Abdomen 2 Viewson 022 XR Abdomen 2 Views FINDINGS: Normal volume of stool throughout the colon, reduced volume compared to the prior x-ray one month earlier, April 14, 2021. No mass effect or free air. No biliary or urinary tract stones. Normal lung bases. Unremarkable skeletal structures. IMPRESSION: Normal Report reported and signed by Parminder Burch on 05/13/2021 1502 Normal [facility] Amylaseon 05-12-2021 Amylase [Catalytic activity/Vol] 34 U/L Normal 21-101 [facility] [employer] Comment on above: Order Comment: [employer] Testing performed at: [facility] [address], [address], Sales Promotion Director: Vicente Dutton MD [facility] Date/Time: [id number] [facility] Results Received Date/Time: [id number] [facility] Reported Date/Time: [id number] FASTING: NO Performed By: #### 2 4653E, 05164E, LIP, CATHY, 54953U, 57765, 14308J, 40646A #### [facility] [address] [place] [address] Lipaseon 05-12-2021 Lipase [Catalytic activity/Vol] 26 U/L Normal 7-60 [facility] [employer] Comment on above: Order Comment: [facility] performed at: [facility], [address], [address] [facility], [place], [address], Sales Promotion Director: Vicente Dutton MD [facility] Date/Time: [facility] Results Received Date/Time: [facility] Reported Date/Time: FASTING: NO Performed By: #### 2 4653E, 56774Z, LIP, CATHY, 69024G, 73532, 44311S, 28600Z #### [facility] [address] [place] [address] Q - Diptheria/Tetanus Abon 0 05-12-2021 DIPHTHERIA ANTITOXOID 2.94 IU/mL Normal [facility] Comment on above: Order Comment: [facility] performed at: [facility], [address], [place], [place], , Sales Promotion Director: Clarence Payan M.D.,PhD [facility] Date/Time: [facility] Results Received Date/Time: [facility] Reported Date/Time: FASTING: NO Result Comment: Refe rence Range: 0.10 IU/mL or greater Interpretive Criteria: <0.10 IU/mL Nonprotective Antibody Level > Or = 0.10 IU/mL Protective Antibody Level Antibody levels >= 0.10 IU/mL are considered protective. After a primary series of three properly spaced diphtheria toxoid doses in adults or four doses in infants, a protective level of antitoxin (defined as > or = 0.10 IU of antitoxin/mL) is reached in more than 95% of immunized persons. This test was developed and its analytical performance characteristics have been determined by [facility] [place]. It has not been cleared or approved by the U.S. Food and Drug Administration. This assay has been validated pursuant to the CLIA regulations and is used for clinical purposes. Performed By: #### 2 4653E, 41862X, LIP, CATHY, 31829D, 35381, 98479C, 27118L #### [facility] [address] [place] [address] TETANUS ANTITOXOID 1.16 IU/mL Normal [facility] Comment on above: Order Comment: [facility] performed at: [facility], [facility], [address], [place], [place], , Sales Promotion Director: Clarence Payan M.D.,PhD [facility] Date/Time: [facility] Results Received Date/Time: [facility] Reported Date/Time: FASTING: NO Result Comment: Refe rence range (Healthy Immunized): 0.10 IU/mL or greater Antibody levels of >= 0.10 IU/mL are considered protective. However, tetanus can still occur in some individuals with such antibody levels. These results should not be used to determine the necessity to administer antitoxin when clinically indicated. This test was developed and its analytical performance characteristics have been determined by [facility] [place]. It has not been cleared or approved by the U.S. Food and Drug Administration. This assay has been validated pursuant to the CLIA regulations and is used for clinical purposes. Performed By: #### 2 4653E, 76773Y, LIP, CATHY, 88928N, 83147, 29447M, 56819U #### [facility] [address] [place] [address] Q - IGA,SERUMon 05-12-2021 IMMUNOGLOBULIN A 180 mg/dL Normal 47-310 [facility] Comment on above: Order Comment: [facility] performed at: [facility], [facility], [address] [place] [address], [address] [place] [address], [address], Sales Promotion Director: Vicente Dutton MD [facility] Date/Time: [facility] Results Received Date/Time: [facility] Reported Date/Time: FASTING: NO Performed By: #### 2 4653E, 13254O, LIP, CATHY, 70987P, 66294, 96835T, 88795T #### [facility] [address] [place] [address] Q - IGE,SERUMon 05-12-2021 IMMUNOGLOBULIN E 70 kU/L Normal [facility] [employer] Comment on above: Order Comment: [facility] performed at: [employer], [facility], [address] , [address] [place] [address], [address] [place] [address], Sales Promotion Director: Vicente Dutton MD [facility] Date/Time: [facility] Results Received Date/Time: [facility] Reported Date/Time: FASTING: NO Performed By: #### 2 4653E, 94497H, LIP, CATHY, 13908K, 89780, 18806J, 85182E #### [facility] [address] [place] [address] Q - IGG,SERUMon 05-12-2021 IMMUNOGLOBULIN G 827 mg/dL Normal 600-1640 [facility] [employer] Comment on above: Order Comment: [facility] performed at: [employer], [facility], [address] , [address] [place] [address], [address] [place] [address], Sales Promotion Director: Vicente Dutton MD [facility] Date/Time: [facility] Results Received Date/Time: [facility] Reported Date/Time: FASTING: NO Performed By: #### 2 4653E, 69895V, LIP, CATHY, 38253L, 22779, 65878Y, 89474O #### [facility] [address] [place] [address] Q - IGM,SERUMon 05-12-2021 IMMUNOGLOBULIN M 90 mg/dL Normal 50-300 [facility] [employer] Comment on above: Order Comment: [facility] performed at: [employer], [facility], [address], [address] [place] [address], [address] [place] [address], Sales Promotion Director: Vicente Dutton MD [facility] Date/Time: [facility] Results Received Date/Time: [facility] Reported Date/Time: FASTING: NO Performed By: #### 2 4653E, 85131W, LIP, CATHY, 45323Y, 56422, 79220O, 41788H #### [facility] [address] [place] [address] Q - Strep pneumo Ab 23 serot ypeson 05-12-2021 SEROTYPE 1 (1) 2.5 Normal [facility] Comment on above: Order Comment: [facility] performed at: [facility],, [address] [place] [address], , Sales Promotion Director: Irma Dias MD,PhD,CARRIE [facility] Date/Time: [facility] Results Received Date/Time: [facility] Reported Date/Time: FASTING: NO Performed By: #### 2 4653E, 85737B, LIP, CATHY, 64787V, 69646, 46144O, 62457A #### [facility] [address] [place] [address] SEROTYPE 12 (12F) <0.3 Normal [facility] Comment on above: Order Comment: [facility] performed at: [facility],, [address] [place] [address], , Sales Promotion Director: Irma Dias MD,PhD,CARRIE [facility] Date/Time: [facility] Results Received Date/Time: [facility] Reported Date/Time: FASTING: NO Performed By: #### 2 4653E, 87935C, LIP, CATHY, 49367F, 30953, 53258T, 08891X #### [facility] [address] [place] [address] SEROTYPE 14 (14) 6.7 Normal [facility] Comment on above: Order Comment: [facility] performed at: [facility],, [address] [place] [address], , Sales Promotion Director: Irma Dias MD,PhD,CARRIE [facility] Date/Time: [facility] Results Received Date/Time: [facility] Reported Date/Time: FASTING: NO Performed By: #### 2 4653E, 99862W, LIP, CATHY, 24587O, 51378, 49522U, 99471A #### [facility] [address] [place] [address] SEROTYPE 17 (17F) 9.0 [facility] Comment on above: Order Comment: [facility] performed at: [facility],, [address] [place] [address], , Sales Promotion Director: Irma Dias MD,PhD,CARRIE [facility] Date/Time: [facility] Results Received Date/Time: [facility] Reported Date/Time: FASTING: NO Performed By: #### 2 4653E, 37832M, LIP, CATHY, 37172J, 21806, 74276U, 79521B #### [facility] [address] [place] [address] SEROTYPE 19 (19F) 1.0 [facility] Comment on above: Order Comment: [facility] performed at: [facility],, [address] [place] [address], , Sales Promotion Director: Irma Dias MD,PhD,CARRIE [facility] Date/Time: [facility] Results Received Date/Time: [facility] Reported Date/Time: FASTING: NO Performed By: #### 2 4653E, 34805I, LIP, CATHY, 85564Z, 11363, 95051D, 72396N #### [facility] [address] [place] [address] SEROTYPE 2 (2) 1.8 [facility] Comment on above: Order Comment: [facility] performed at: [facility],, [address] [place] [address], , Sales Promotion Director: Irma Dias MD,PhD,CARRIE [facility] Date/Time: [facility] Results Received Date/Time: [facility] Reported Date/Time: FASTING: NO Performed By: #### 2 4653E, 86711E, LIP, CATHY, 37279C, 89433, 18831W, 39011B #### [facility] [address] [place] [address] SEROTYPE 20 (20) 1.7 [facility] Comment on above: Order Comment: [facility] performed at: [facility],, [address] [place] [address], , Sales Promotion Director: Irma Dias MD,PhD,CARRIE [facility] Date/Time: [facility] Results Received Date/Time: [facility] Reported Date/Time: FASTING: NO Performed By: #### 2 4653E, 31015J, LIP, CATHY, 81496V, 76304, 96012L, 41614M #### [facility] [address] [place] [address] SEROTYPE 22 (22F) 1.1 [facility] Comment on above: Order Comment: [facility] performed at: [facility],, [address] [place] [address], , Sales Promotion Director: Irma Dias MD,PhD,CARRIE [facility] Date/Time: [facility] Results Received Date/Time: [facility] Reported Date/Time: FASTING: NO Performed By: #### 2 4653E, 76347F, LIP, CATHY, 75524O, 78246, 19626I, 70027E #### [facility] [address] [place] [address] SEROTYPE 23 (23F) 0.9 [facility] Comment on above: Order Comment: [facility] performed at: [employer], [facility],, [address] [place] [address], , Sales Promotion Director: Irma Dias MD,PhD,CARRIE [facility] Date/Time: [facility] Results Received Date/Time: [facility] Reported Date/Time: FASTING: NO Performed By: #### 2 4653E, 10175K, LIP, CATHY, 79923P, 90471, 12814V, 32453F #### [facility] [address] [place] [address] SEROTYPE 26 (6B) 3.1 Normal [facility] Comment on above: Order Comment: [facility] performed at: [facility],, [address] [place] [address], , Sales Promotion Director: Irma Dias MD,PhD,CARRIE [facility] Date/Time: [facility] Results Received Date/Time: [facility] Reported Date/Time: FASTING: NO Performed By: #### 2 4653E, 59759D, LIP, CATHY, 82786F, 88875, 85986O, 15102X #### [facility] [address] [place] [address] SEROTYPE 3 (3) 0.8 Normal [facility] [employer] Comment on above: Order Comment: [facility] performed at: [facility],, [address] [place] [address], , Sales Promotion Director: Irma Dias MD,PhD,CARRIE [facility] Date/Time: [facility] Results Received Date/Time: [facility] Reported Date/Time: FASTING: NO Performed By: #### 2 4653E, 50475Z, LIP, CATHY, 83522F, 27564, 82152B, 18427F #### [facility] [address] [place] [address] SEROTYPE 34 (10A) <0.3 Normal [facility] Comment on above: Order Comment: [facility] performed at: [facility],, [address] [place] [address], , Sales Promotion Director: Irma Dias MD,PhD,CARRIE [facility] Date/Time: [facility] Results Received Date/Time: [facility] Reported Date/Time: FASTING: NO Performed By: #### 2 4653E, 92649X, LIP, CATHY, 55194M, 43355, 90092K, 19582A #### [facility] [address] [place] [address] SEROTYPE 4 (4) 1.6 Normal [facility] Comment on above: Order Comment: [facility] performed at: , [facility],, [address] [place] [address], , Sales Promotion Director: Irma Dias MD,PhD,CARRIE [facility] Date/Time: [facility] Results Received Date/Time: [facility] Reported Date/Time: FASTING: NO Performed By: #### 2 4653E, 65435T, LIP, CATHY, 16013S, 00506, 69637M, 45595Z #### [facility] [address] [place] [address] SEROTYPE 43 (11A) 0.3 Normal [facility] Comment on above: Order Comment: [facility] performed at: [facility],, [address] [place] [address], , Sales Promotion Director: Irma Dias MD,PhD,CARRIE [facility] Date/Time: [facility] Received Date/Time: [facility] Reported Date/Time: FASTING: NO Performed By: #### 2 4653E, 80026N, LIP, CATHY, 19851C, 35248, 71704A, 43044D #### [facility] [address] [place] [address] SEROTYPE 5 (5) 4.5 Normal [facility] Comment on above: Order Comment: [facility] performed at: [facility],, [facility] [place], , Sales Promotion Director: Irma Dias MD,PhD,CARRIE [facility] Date/Time: [facility] Received Date/Time: [facility] Reported Date/Time: FASTING: NO Performed By: #### 2 4653E, 48154F, LIP, CATHY, 10145Y, 55543, 30700F, 50157O #### [facility] [address] [place] [address] SEROTYPE 51 (7F) 0.5 [facility] Comment on above: Order Comment: [facility] performed at: [facility],, [facility] [place], , Sales Promotion Director: Irma Dias MD,PhD,CARRIE [facility] Date/Time: [facility] Received Date/Time: [facility] Reported Date/Time: FASTING: NO Performed By: #### 2 4653E, 88185N, LIP, CATHY, 41503F, 00920, 22511X, 67510E #### [facility] [address] [place] [address] SEROTYPE 54 (15B) 0.8 Normal [facility] Comment on above: Order Comment: [facility] performed at: [facility],, [address] [place], [place], , Sales Promotion Director: Irma Dias MD,PhD,CARRIE [facility] Date/Time: [facility] Received Date/Time: [facility] Reported Date/Time: FASTING: NO Performed By: #### 2 4653E, 64965Y, LIP, CATHY, 62469K, 32959, 84001U, 75055L #### [facility] [address] [place] [address] SEROTYPE 56 (18C) 1.4 Normal [facility] Comment on above: Order Comment: [facility] performed at: [facility],, [address] [place] [address], , Sales Promotion Director: Irma Dias MD,PhD,CARRIE [facility] Date/Time: [facility] Results Received Date/Time: [facility] Reported Date/Time: FASTING: NO Performed By: #### 2 4653E, 06735M, LIP, CATHY, 99567D, 26943, 92761T, 04803M #### [facility] [address] [place] [address] SEROTYPE 57 (19A) <0.3 Normal [facility] Comment on above: Order Comment: [facility] performed at: [facility],, [address] [place] [address], , Sales Promotion Director: Irma Dias MD,PhD,CARRIE [facility] Date/Time: [facility] Results Received Date/Time: [facility] Reported Date/Time: FASTING: NO Performed By: #### 2 4653E, 46377C, LIP, CATHY, 83026G, 79384, 62849N, 09720K #### [facility] [address] [place] [address] SEROTYPE 68 (9V) 1.9 Normal [facility] Comment on above: Order Comment: [facility] performed at: [facility],, [address] [place] [address], [place], , Sales Promotion Director: Irma Dias MD,PhD,CARRIE [facility] Date/Time: [facility] Results Received Date/Time: [facility] Reported Date/Time: FASTING: NO Performed By: #### 2 4653E, 74058S, LIP, CATHY, 68444A, 79057, 52501T, 42121O #### [facility] [address] [place] [address] SEROTYPE 70 (33F) 0.5 Normal [facility] Comment on above: Order Comment: [facility] performed at: , [facility],, [address] [place], [place], , Sales Promotion Director: Irma Dias MD,PhD,CARRIE [facility] Date/Time: [facility] Results Received Date/Time: [facility] Reported Date/Time: FASTING: NO Result Comment: Sero logic correlates of protection against pneumococcal disease have not been rigorously established for all patient populations. Published data and expert consensus (including WHO) suggest protection from invasive disease usually occurs at levels >or =0.3-0.50 mcg/mL for healthy children receiving pneumococcal conjugate vaccines. Higher titers may be necessary to protect from non-invasive infection (e.g., pneumonia, otitis, sinusitis). Expert opinion suggests that a cut-off of >= 1.3 mcg/mL may be a more relevant value to assess antibody responses after pneumococcal polysaccharide vaccines or for immunocompromised patients. In addition to antibody quantity, protection also depends on antibody avidity and opsonophagocytic activity. Some experts consider that post-vaccination (4-6 weeks) IgG seroconversion and/or 2- to 4-fold rise in IgG titers for >50% to 70% of vaccine serotypes demonstrates a normal post-vaccine serologic response. Persons with high initial serotype-specific titers may have less robust responses. [facility] uses a multi-analyte immunodetection (MAID) method. The method employs the 20x200 flow cytometric system which measures multiple analytes simultaneously. The FDA standard reference serum 89-S is used as the calibration standard. Results are reported in mcg/mL. This assay detects all of the 23 of the serotypes in the 23-valent polysaccharide vaccine and 12 of the 13 serotypes in the 13-valent conjugate vaccine. This test was developed and its analytical performance characteristics have been determined by [facility]. It has not been cleared or approved by FDA. This assay has been validated pursuant to the CLIA regulations and used for clinical purposes. For additional information, please refer to http://education.[employer]/faq/HGR612 (This link is being provided for informational/ educational purposes only.) Performed By: #### 2 4653E, 44316D, LIP, CATHY, 89050R, 03895, 37649W, 20783L #### [facility] [address] [place] [address] SEROTYPE 8 (8) 4.5 Normal [facility] Comment on above: Order Comment: [facility] performed at: [facility],, [address] [place] [address], , Sales Promotion Director: Irma Dias MD,PhD,CARRIE [facility] Date/Time: [facility] Received Date/Time: [facility] Reported Date/Time: FASTING: NO Performed By: #### 2 4653E, 91397N, LIP, CATHY, 52741M, 02166, 38441L, 40405L #### [facility] [address] [place] [address] SEROTYPE 9 (9N) 2.7 Normal [facility] Comment on above: Order Comment: [facility] performed at: [employer], [facility],, [address] [place] [address], , Sales Promotion Director: Irma Dias MD,PhD,CARRIE [facility] Date/Time: [facility] Received Date/Time: [facility] Reported Date/Time: FASTING: NO Performed By: #### 2 4653E, 68842L, LIP, CATHY, 22344E, 08873, 33900Z, 44867H #### [facility] [address] [place] [address] Complete Blood Counton 04-14 Erythrocyte distribution width (RBC) [Ratio] 11.9 % Normal 11.0-15.0 [facility] Comment on above: Performed By: #### 2 4653E, 95004K, LIP, CATHY, 94374B, 50764, 45943J, 51327L #### [facility] [address] [place] [address] Hematocrit (Bld) [Volume fraction] 44.3 % Normal 38.5-50.0 [facility] Comment on above: Performed By: #### 2 4653E, 84426J, LIP, CATHY, 93721W, 30939, 44704K, 98276E #### [facility] [address] [place] [address] Hemoglobin (Bld) [Mass/Vol] 15.4 g/dL Normal 13.0-17.1 [facility] Comment on above: Performed By: #### 2 4653E, 64050G, LIP, CATHY, 71420V, 80759, 72632Y, 38647S #### [facility] [address] [place] [address] MCH (RBC) [Entitic mass] 32.7 pg Normal 27.0-33.0 [facility] Comment on above: Performed By: #### 2 4653E, 76669D, LIP, CATHY, 56557J, 56138, 20286E, 41433I #### [facility] [address] [place] [address] MCHC (RBC) [Mass/Vol] 34.8 g/dL Normal 32.0-36.0 [facility] Comment on above: Performed By: #### 2 4653E, 18910W, LIP, CATHY, 91025A, 75441, 58241H, 58909F #### [facility] [address] [place] [address] MCV (RBC) [Entitic vol] 94 fL Normal 80-100 [facility] Comment on above: Performed By: #### 2 4653E, 79695A, LIP, CATHY, 14077J, 70053, 44155Y, 03637U #### [facility] [address] [place] [address] Platelet mean volume (Bld) [Entitic vol] 10.60 fL Normal 7.50-12.50 [facility] Comment on above: Performed By: #### 2 4653E, 06217M, LIP, CATHY, 74388C, 74625, 64954M, 27201E #### [facility] [address] [place] [address] Platelets (Bld) [#/Vol] 285 10*3/uL Normal 140-400 [facility] Comment on above: Performed By: #### 2 4653E, 34819D, LIP, CATHY, 44342P, 82708, 21837Y, 22397T #### [facility] [address] [place] [address] RBC (Bld) [#/Vol] 4.71 10*6/uL Normal 4.20-5.80 [facility] Comment on above: Performed By: #### 2 4653E, 93831M, LIP, CATHY, 88310Y, 99954, 73943J, 06672R #### [facility] [address] [place] [address] RDW-SD 41.1 fL Normal 37.0-50.0 [facility] Comment on above: Performed By: #### 2 4653E, 76395H, LIP, CATHY, 03803H, 89516, 72163N, 31981D #### [facility] [address] [place] [address] WBC (Bld) [#/Vol] 6.2 10*3/uL Normal 3.8-11.0 [facility] Comment on above: Performed By: #### 2 4653E, 56694F, LIP, CATHY, 12770N, 75079, 38073Z, 93370M #### [facility] [address] [place] [address] Comprehensive Metabolic Pane antonino 04-14-2021 Albumin [Mass/Vol] 4.9 g/dL Normal 3.6-5.1 [facility] Comment on above: Performed By: #### 2 4653E, 43795N, LIP, CATHY, 63801X, 18621, 94673I, 10918Z #### [facility] [address] [place] [address] Albumin/Globulin [Mass ratio] 3.1 {ratio} High 1.0-2.5 [facility] Comment on above: Performed By: #### 2 4653E, 50750B, LIP, CATHY, 27211Q, 18590, 70908K, 30725H #### [facility] [address] [place] [address] ALP [Catalytic activity/Vol] 73 U/L Normal 40-129 [facility] Comment on above: Performed By: #### 2 4653E, 78401E, LIP, CATHY, 18001L, 73853, 02329G, 20975U #### [facility] [address] [place] [address] ALT [Catalytic activity/Vol] 14 U/L Normal 9-46 [facility] Comment on above: Result Comment: 02/03 Female reference range changed. Performed By: #### 2 4653E, 89941D, LIP, CATHY, 93382D, 31470, 96672L, 20254N #### [facility] [address] [place] [address] Anion gap [Moles/Vol] 17 mmol/L Normal 12-20 [facility] Comment on above: Result Comment: Effe ctive 03/11/2019 reference range changed. Performed By: #### 2 4653E, 56792G, LIP, CATHY, 81433G, 74525, 04703P, 07253P #### [facility] [address] [place] [address] AST [Catalytic activity/Vol] 15 U/L Normal 10-40 [facility] Comment on above: Performed By: #### 2 4653E, 59994U, LIP, CATHY, 40360F, 47545, 07822T, 77911B #### [facility] [address] [place] [address] BUN/CREA 24 Ratio High 6-22 [facility] Comment on above: Performed By: #### 2 4653E, 73016H, LIP, CATHY, 69598N, 47634, 78240V, 26082Z #### [facility] [address] [place] [address] Calcium [Mass/Vol] 9.9 mg/dL Normal 8.6-10.2 [facility] Comment on above: Performed By: #### 2 4653E, 31872Q, LIP, CATHY, 50780R, 89003, 30047Q, 20418Q #### [facility] [address] [place] [address] Chloride [Moles/Vol] 102 mmol/L Normal 98-107 [facility] Comment on above: Performed By: #### 2 4653E, 36524E, LIP, CATHY, 84404P, 02181, 73942B, 33638U #### [facility] [address] [place] [address] CO2 [Moles/Vol] 24 mmol/L Normal 20-31 [facility] Comment on above: Performed By: #### 2 4653E, 96839G, LIP, CATHY, 17068P, 02635, 68382I, 38697Q #### [facility] [address] [place] [address] Creatinine [Mass/Vol] 0.7 mg/dL Normal 0.7-1.4 [facility] Comment on above: Performed By: #### 2 4653E, 62307N, LIP, CATHY, 77900Q, 85827, 15215X, 44228H #### [facility] [address] [place] [address] Globulin (S) [Mass/Vol] 1.6 g/dL Low 1.9-3.7 [facility] Comment on above: Performed By: #### 2 4653E, 02374U, LIP, CATHY, 48929G, 97723, 30902N, 85595B #### [facility] [address] [place] [address] Glucose [Mass/Vol] 93 mg/dL Normal 65-99 [facility] Comment on above: Result Comment: For FASTING Glucose --- ADA reference ranges: Normal 65-99 mg/dl Prediabetes 100-125 Diabetes >/= 126 Performed By: #### 2 4653E, 89824K, LIP, CATHY, 88558A, 07721, 45424V, 97591R #### [facility] [address] [place] [address] Potassium [Moles/Vol] 4.4 mmol/L Normal 3.5-5.5 [facility] Comment on above: Performed By: #### 2 4653E, 20590R, LIP, CATHY, 97416Y, 64082, 46451O, 79059D #### [facility] [address] [place] [address] Protein [Mass/Vol] 6.5 g/dL Normal 6.1-8.1 [facility] [employer] Comment on above: Performed By: #### 2 4653E, 18496S, LIP, CATHY, 76907W, 28106, 94721O, 07258X #### [facility] [address] [place] [address] Sodium [Moles/Vol] 139 mmol/L Normal 135-146 [facility] [employer] Comment on above: Performed By: #### 2 4653E, 58606Y, LIP, CATHY, 69757R, 39942, 42098D, 60183H #### [facility] [address] [place] [address] TBIL <0.3 Normal [facility] Comment on above: Performed By: #### 2 4653E, 98858E, LIP, CATHY, 22547G, 86368, 96471B, 52999G #### [facility] [address] [place] [address] Urea nitrogen [Mass/Vol] 16 mg/dL Normal 7-25 [facility] [employer] Comment on above: Performed By: #### 2 4653E, 96559I, LIP, CATHY, 38846S, 95684, 67591H, 41341K #### [facility] [address] [place] [address] Ferritinon 04-14-2021 FERR 67.1 ng/mL Normal 30.0-400.0 [facility] Comment on above: Performed By: #### 2 4653E, 00654Q, LIP, CATHY, 61273Y, 55337, 94211P, 07912U #### [facility] [address] [place] [address] Free T4on 04-14-2021 Free T4 [Mass/Vol] 0.98 ng/dL Normal 0.80-1.80 [facility] Comment on above: Performed By: #### 2 4653E, 35123W, LIP, CATHY, 58124E, 41254, 54387E, 71479C #### [facility] [address] [place] [address] Infectious Mononucleosison 0 04-14-2021 Monocytes (Bld) [#/Vol] Negative Normal Negative [facility] Comment on above: Performed By: #### 2 4653E, 96445C, LIP, CATHY, 39321X, 51140, 44914G, 01309T #### [facility] [address] [place] [address] Iron Profileon 04-14-2021 %FESAT 23 % Normal 15-60 [facility] Comment on above: Performed By: #### 2 4653E, 65703A, LIP, CATHY, 88117I, 86567, 78651J, 91351I #### [facility] [address] [place] [address] FE 67 ug/dL Normal 50-180 [facility] Comment on above: Result Comment: Refe rence range change 01/20/2017. Prior reference range F 37-145 ug/dL, M 59-158 ug/dL. Performed By: #### 2 4653E, 31058X, LIP, CATHY, 11877I, 29733, 33761L, 04264D #### [facility] [address] [place] [address] TIBC 292 ug/dL Normal 250-425 [facility] Comment on above: Performed By: #### 2 4653E, 91820W, LIP, CATHY, 92053D, 05903, 09313H, 74790I #### [facility] [address] [place] [address] UIBC 225 ug/dL Normal 112-347 [facility] Comment on above: Performed By: #### 2 4653E, 83860W, LIP, CATHY, 43136K, 83811, 44279R, 58269F #### [facility] [address] [place] [address] TSHon 04-14-2021 TSH 0.832 uIU/mL Normal 0.400-4.500 [facility] [employer] Comment on above: Performed By: #### 2 4653E, 77064S, LIP, CATHY, 60586P, 39820, 05354U, 33736R #### [facility] [address] [place] [address] Vitamin D 25-OHon 04-14-2021 VIT D 25 OH 46 ng/ml Normal >29 [facility] [employer] Comment on above: Result Comment: Cassandra min D Status Deficiency <20 ng/mL Insufficiency 20-29 ng/mL Optimal 30-100 ng/mL Possible Toxicity >=150 ng/mL Performed By: #### 2 4653E, 53479R, LIP, CATHY, 77881G, 32401, 36487E, 63661V #### [facility] [address] [place] [address] XR Abdomen 2 Viewson 022 XR Abdomen 2 Views HISTORY: Abdominal pain FINDINGS: Large volume of descending and sigmoid colon stool. No mass effect or free air. No biliary or urinary tract stones. Normal lung bases. IMPRESSION: Descending, sigmoid colon stool. No free air. If symptoms persist following appropriate medical/dietary management, CT Imaging may be of assistance. Report reported and signed by Parminder Burch on 04/14/2021 1221 Normal [facility]-06 SARS-CoV-2 (COVID-19) RNA NUPUR+probe Ql (Unsp spec) Not detected Normal NOT DETECTED [facility] Comment on above: Result Comment: This test is not yet approved or cleared by the [place] FDA. When there are no FDA-approved or cleared tests available, and other criteria are met, FDA can make tests available under an emergency access mechanism called an Emergency Use Authorization (EUA). The EUA for this test is supported by the [place] of Health and Human Service's (HHS's) declaration that circumstances exist to justify the emergency use of in vitro diagnostics for the detection and/or diagnosis of the virus that causes COVID-19. This EUA will remain in effect (meaning this test can be used) for the duration of the COVID-19 declaration justifying emergency of IVDs, unless it is terminated or revoked by FDA (after which the test may no longer be used). When diagnostic testing is negative, the possibility of a false negative should be considered in the context of a patient's recent exposures and the presence of clinical signs and symptoms consistent with SARS-CoV-2. Performed By: #### I NFLUAB, RSV #### [facility] [address] [address] [address] Jennifer Durant STREP PNEUMO IGG AB 23 SEROT YPESon 10-18-2016 SEROTYPE 1 2.1 ug/mL Normal >1.3 [facility] Comment on above: Performed By: #### P NA23 ####[id number] [place] [address] SEROTYPE 10A[34] 1.7 ug/mL Normal >1.3 [facility] Comment on above: Performed By: #### P NA23 ####[id number] [place] [address] SEROTYPE 11A[43] 4.1 ug/mL Normal >1.3 [facility] Comment on above: Performed By: #### P NA23 ####[id number] [place] [address] SEROTYPE 12F 0.5 ug/mL Low >1.3 [facility] Comment on above: Performed By: #### P NA23 ####[id number] [place] [address] SEROTYPE 14 >36.3 Normal >1.3 [facility] Comment on above: Performed By: #### P NA23 ####[id number] [place] [address] SEROTYPE 15B[54] 5.6 ug/mL Normal >1.3 [facility] Comment on above: Performed By: #### P NA23 ####[id number] [place] [address] SEROTYPE 17F >53.5 Normal >1.3 [facility] Comment on above: Performed By: #### P NA23 ####[id number] [place] [address] SEROTYPE 18C[56] 14.6 ug/mL Normal >1.3 [facility] Comment on above: Performed By: #### P NA23 ####[id number] [place] [address] SEROTYPE 19A[57] 3.1 ug/mL Normal >1.3 [facility] Comment on above: Performed By: #### P NA23 ####[id number] [place] [address] SEROTYPE 19F 4.9 ug/mL Normal >1.3 [facility] Comment on above: Performed By: #### P NA23 ####[id number] [place] [address] SEROTYPE 2 4.4 ug/mL Normal >1.3 [facility] Comment on above: Performed By: #### P NA23 ####[id number] [place] [address] SEROTYPE 20 6.5 ug/mL Normal >1.3 [facility] Comment on above: Performed By: #### P NA23 ####[id number] [place] [address] SEROTYPE 22F 10.4 ug/mL Normal >1.3 [facility] Comment on above: Performed By: #### P NA23 ####[id number] [place] [address] SEROTYPE 23F 3.1 ug/mL Normal >1.3 [facility] Comment on above: Performed By: #### P NA23 ####[id number] [place] [address] SEROTYPE 3 4.8 ug/mL Normal >1.3 [facility] Comment on above: Performed By: #### P NA23 ####[id number] [place] [address] SEROTYPE 33F[70] 2.7 ug/mL Normal >1.3 [facility] Comment on above: Result Comment: *Thi s test was developed and its performancecharacteristics determined by [facility]. It has notbeen cleared or approved by the U.S. Food and DrugAdministration. Performed At:[address] [place] [address]ErsnmuxoiBbiana Heath PhD HCLD (ABB)CLIA# [id number] Performed By: #### P NA23 ####[id number] [place] [address] SEROTYPE 4 7.1 ug/mL Normal >1.3 [facility] Comment on above: Performed By: #### P NA23 ####[id number] [place] [address] SEROTYPE 5 43.9 ug/mL Normal >1.3 [facility] Comment on above: Performed By: #### P NA23 ####[id number] [place] [address] SEROTYPE 6B[26] 37.4 ug/mL Normal >1.3 [facility] Comment on above: Performed By: #### P NA23 ####[id number] [place] [address] SEROTYPE 7F[51] 2.4 ug/mL Normal >1.3 [facility] Comment on above: Performed By: #### P NA23 ####[id number] [place] [address] SEROTYPE 8 25.5 ug/mL Normal >1.3 [facility] Comment on above: Performed By: #### P NA23 ####[id number] [place] [address] SEROTYPE 9N 19.1 ug/mL Normal >1.3 [facility] Comment on above: Performed By: #### P NA23 ####[id number] [place] [address] SEROTYPE 9V[68] 13.1 ug/mL Normal >1.3 [facility] Comment on above: Performed By: #### P NA23 ####[id number] [place] [address] CBC AND DIFFERENTIALon 08-10 -2017 % AUTOMATED IMMATURE GRAN 0.0 % Normal 0.0 - 1.0 [facility] Comment on above: Result Comment: Perc ent differential counts (%) should be interpreted in the context of the absolute cell counts (cells/L). Performed By: #### C BCDF ####[facility] [place] [address] % NEUTROPHIL 35.5 % Normal 33.0 - 69.0 [facility] Comment on above: Performed By: #### C BCDF ####[facility] [place] [address] Basophils/100 WBC Auto (Bld) 1.0 % Normal 0.0 - 1.0 [facility] Comment on above: Performed By: #### C BCDF ####[facility] [place] [address] Basophils/100 WBC Auto (Bld) 0.04 x10E9/L Normal 0.00 - 0.10 [facility] Comment on above: Performed By: #### C BCDF ####[facility] [place] [address] Eosinophils 0.07 10*3/uL Normal 0.00 - 0.70 [facility] Comment on above: Performed By: #### C BCDF ####[facility] [place] [address] Eosinophils/100 leukocytes 1.8 % Normal 0.0 - 5.0 [facility] Comment on above: Performed By: #### C BCDF ####[facility] [place] [address] Erythrocyte distribution width Auto Ratio (RBC) 11.7 % Normal 11.5 - 14.5 [facility] Comment on above: Performed By: #### C BCDF ####[facility] [place] [address] Erythrocytes (RBC) 4.32 x10E12/L Low 4.50 - 5.30 [facility] Comment on above: Performed By: #### C BCDF ####[facility] [place] [address] Hematocrit (HCT) 38.2 % Normal 37.0 - 49.0 [facility] Comment on above: Performed By: #### C BCDF ####[facility] [place] [address] Hemoglobin mass conc (Bld) 13.9 g/dL Normal 13.0 - 16.0 [facility] Comment on above: Performed By: #### C BCDF ####[facility] [place] [address] Lymphocytes 1.93 10*3/uL Normal 1.80 - 4.80 [facility] Comment on above: Performed By: #### C BCDF ####[facility] [place] [address] Lymphocytes/100 leukocytes 49.2 % High 28.0 - 48.0 [facility] Comment on above: Performed By: #### C BCDF ####[facility] [place] [address] MCHC mass conc (RBC) 36.4 g/dL Normal 31.0 - 37.0 [facility] Comment on above: Performed By: #### C BCDF ####[facility] [place] [address] MCV 88 fL Normal 78 - 102 [facility] Comment on above: Performed By: #### C BCDF ####[facility] [place] [address] Monocytes 0.49 10*3/uL Normal 0.10 - 1.00 [facility] Comment on above: Performed By: #### C BCDF ####[facility] [place] [address] Monocytes/100 leukocytes 12.5 % High 3.0 - 9.0 [facility] Comment on above: Performed By: #### C BCDF ####[facility] [place] [address] Neutrophils 1.39 10*3/uL Normal 1.20 - 7.70 [facility] Comment on above: Performed By: #### C BCDF ####[facility] [place] [address] Nucleated erythrocytes 0.0 /100 WBC Normal 0.0-0.0 [facility] Comment on above: Performed By: #### C BCDF ####[facility] [place] [address] Platelets 297 10*3/uL Normal 150 - 400 [facility] Comment on above: Performed By: #### C BCDF ####[facility] [place] [address] WBC (Leukocytes) 3.9 10*3/uL Low 4.5 - 13.5 [facility] Comment on above: Performed By: #### C BCDF ####[facility] [place] [address] IMMUNOGLOBULINS (G,A,M)on IgG 655 mg/dL Low 700 - 1600 [facility] Comment on above: Result Comment: MONO CLONAL PROTEINS MAY CAUSE FALSELY LOWRESULTS IN THIS ASSAY. SERUM PROTEINELECTROPHORESIS SHOULD BE DONE THEFIRST TEST TO EVALUATE MONOCLONAL GAMMOPATHY. Performed By: #### I GS ####[facility] [place] [address] IgA 116 mg/dL Normal 70 - 400 [facility] Comment on above: Result Comment: MONO CLONAL PROTEINS MAY CAUSE FALSELY LOWRESULTS IN THIS ASSAY. SERUM PROTEINELECTROPHORESIS SHOULD BE DONE THEFIRST TEST TO EVALUATE MONOCLONAL GAMMOPATHY. Performed By: #### I GS ####[facility] [place] [address] IgM 87 mg/dL Normal 40 - 230 [facility] Comment on above: Result Comment: MONO CLONAL PROTEINS MAY CAUSE FALSELY LOWRESULTS IN THIS ASSAY. SERUM PROTEINELECTROPHORESIS SHOULD BE DONE THEFIRST TEST TO EVALUATE MONOCLONAL GAMMOPATHY. Performed By: #### I GS ####[facility] [place] [address] Vital Signs Date Time Vital Sign Value Performing Clinician Facility 05-12-2022 14:30-0500 Body height 170.2 cm Savannah Andersen MD Work Phone: [facility] 05-12-2022 14:30-0500 Body temperature 97.9 [degF] Savannah Andersen MD Work Phone: [facility] 05-12-2022 14:30-0500 Body weight 58.51 kg Savannah Andersen MD Work Phone: [facility] 05-12-2022 14:30-0500 Heart rate 70 /min Savannah Andersen MD Work Phone: [facility] 05-12-2022 14:30-0500 SaO2% (BldA) [Mass fraction] 100 % Savannah Andersen MD Work Phone: [facility] 07-15-2021 14:30-0400 Body weight 53.07 kg Ion Aragon Other [facility] Other Encounters Encounter Date Encounter Type Care Provider Facility Start: 01-30-2023 End: 01-30-2023 ambulatory DEL CORRAL Not Available Start: 05-12-2022 End: 05-12-2022 ambulatory RON KUMAR Facility:[facility] Start: 05-12-2022 End: 05-12-2022 Patient encounter procedure Savannah Andersen MD Work Phone: [facility] Comment on above: Chronic fatigue synd ariella (Primary Dx); Nonintractable episodic headache, unspecified headache type; Chronic rhinitis Start: 02-16-2022 End: 02-16-2022 ambulatory DALLAS SALGUERO Facility:[facility] Start: 08-29-2021 End: 08-29-[address] DEL CORRAL Facility:[facility] Start: 07-27-2021 End: 07-27-[address] BATSHEVA PRATT Facility:[facility] Start: 07-15-2021 End: 07-15-2021 ambulatory Ion Aragon Other [facility] [employer] Other Start: 07-15-2021 [facility] visit new patient Ion Aragon [facility] Start: 06-01-2021 End: 06-01-2021 ambulatory TREVOR COLON MARIELENAEUNICE Facility:[facility] Start: 03-19-2021 End: 03-19-2021 ambulatory RON KUMAR Facility:[facility] Start: 01-05-2017 Ambulatory Ria Stanley Facility:9 [id number] Start: 10-13-2016 Ambulatory Ria Stanley Facility:U Plan of Treatment Date Care Activity Detail Author Start: 2022 Urine microalbumin profile DTAP,TDAP ,TD (1 - Tdap) [facility] Start: 03-06-2022 DEPRESSION ASSESSMENT DEPRESSION ASS ESSMENT [facility] Start: 2021 HEPATITIS C SCREENING HEPATITIS C SC SHREYA [facility] Start: 2021 HIV SCREENING HIV SCREENING [facility] Start: 2017 PEDS TO ADULT TRANSI TION ANNUAL ASSESSMENT PEDS TO ADULT TRANSITION ANNUAL ASSESSMENT [facility] Start: 2015 PEDS TO ADULT TRANSI TION INITIAL DISCUSSION PEDS TO ADULT TRANSITION INITIAL DISCUSSION [facility] Start: 2014 HPV VACCINE (1 - Mal e 2-dose series) HPV VACCINE (1 - Male 2-dose series) [facility] Start: 2013 MENINGOCOCCAL B: Con bait tier based on risk (1 of 2 - Risk Bexsero 2-dose series) MENINGOCOCCAL B: Consider based on risk (1 of 2 - Risk Bexsero 2-dose series) [facility] Start: 2003 COVID-19 VACCINE (#1) COVID-19 VACCI NE (#1) [facility] Start: 2003 HEPATITIS B (1 of 3 - 3-dose series) HEPATITIS B (1 of 3 - 3-dose series) [facility] Immunizations Immunization Date Immunization Notes Care Provider Deana walker 05-19-2005 pneumococcal polysaccharide vaccine, 23 valent Savannah Andersen MD Work Phone: [facility] Work Phone: Payers Date Payer Category Payer Medicaid [employer] [facility] [id number] 2022-Present [phone] [address] [place] [address] Medicaid [id number] 2022 Medicaid [id number] 2003 Unknown [id number] 2003 Unknown [id number] [id number] 2003 Unknown [id number] 593 2003 Unknown [id number] 593 2003 Unknown [id number] 1259 1967 Unknown [id number] 593 1959 Unknown [id number] Private Health Insurance [id number] Social History Date Type Detail Facility Sex Assigned At [facility] Other Start: 05-12-2022 Tobacco smoking status NHIS Never smoked tobacco [facility] Start: 05-12-2022 Tobacco use and exposure Smokeless tobacco non-user [facility] Start: 2003 Sex Assigned At Not on file [facility] Progress note 05-12-2022 Note Date & Type Note Facility 05-12-2022 Note HNO ID: [id number] Author: Savannah Andersen MD Service: ? Author Type: Physician Type: Progress Notes Filed: 05/12/2022 4:16 PM Note Text: Allergy AND Clinical Immunology ZULEIKA Gill has requested consultation for recurrent URI. My progress note with assessment and recommendations from today's appointment will be electronically routed to the referring provider. Alyssa Lala is a 17 year old male with ADHD and anxiety, accompanied today by grandmother, mother, and great niece, seen for significant fatigue since young childhood. It has been significant enough to where he could not start high school until the afternoon. If he exerts himself he sleeps for 3 days straight . 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 He frequently suffers from headaches and stomach pains. No family history of sleep disorders. He saw an program strategist in [employer]. He had bloodwork done along with his sister who had similar issues at the time. His IgGs and IgAs were really low. IgG replacement was discussed at one point. He most recently saw Dr. Jose F Guerrero about a year ago. He was told his headaches were migraines. His immune testing was repeated and was within normal range. He has had inhalant skin testing in the past which was negative. He was told that foods may be causing his migraines. His sister's issues have since resolved and does not carry a formal diagnosis for immunodeficiency. Saw local ENT for perforation left tympanic membrane and recurrent sinusitis. He has a history of otitis media with tube placement at age of 1 and also tonsillectomy and adenoidectomy. He received treatment with oral steroids and antibiotics with improvement. CT sinus was done and was normal. He receives antibiotics about 1-2 times per month for ear or sinus infections. Had COVID in August. Denies pneumonia, bacteremia. No hospitalizations for infections. He recent saw a sleep specialist locally who recommended further testing. Has not seen a headache specialist. His psychologist has prescribed him methylphenidate which has helped but still sleeps a lot. Saw local oncology, eval unremarkable. PriorGI evaluation negative. PPV23: 05/19/2002 DTap: 10/13/2015 Current Outpatient Medications on File Prior to Visit Medication Sig Methylphenidate HCl (METADATE CD) 10 mg ORAL CD capsule Take 10 mg by mouth once daily. ACETAMINOPHEN (CHILDREN'S TYLENOL ORAL) Take by mouth. FLUTICASONE PROPIONATE (FLONASE NASAL) Use in the nose. Pediatric Multivitamins-Iron (FLINTSTONES COMPLETE) ORAL chewable tablet Take 1 tablet by mouth once daily. No current facility-administered medications on file prior to visit. ALLERGIES Allergen Reactions Codeine PAST MEDICAL HISTORY Diagnosis Date Ear infection Sinus infection PAST SURGICAL HISTORY Procedure Laterality Date PAST SURGICAL HISTORY OF 07/23/2008 Left Gelfoam myringoplasty. REMOVAL ADENOIDS,PRIMARY,<12 Y/O 2x Adenoidectomy REMOVAL OF TONSILS,<12 Y/O Tonsillectomy No family history on file. Family history of atopy: yes Denies family history of sleep disorders, recurrent infections Several members with diabetes but no other autoimmune diseases Several members with cancers-mostly breast and prostate SOCIAL HISTORY Trying to go to [employer] school Denies tobacco abuse or exposure Review of Systems: Gen: No fevers, chills, night sweats, weight changes. HEENT: No eye itching, watering. No congestion or rhinorrhea. No snoring. No recent sinus infections. Neck: No lymphadenopathy. Resp: No cough, wheezing, dyspnea. CV: No chest pain, palpitations, leg swelling. GI: No reflux, abdominal pain, vomiting, diarrhea, constipation. Musc/Skel: Positive for joint pain. No joint stiffness. Neuro: No headaches. Skin: No lesions, rashes, hives, or eczema. Psych: No depression, anxiety. All other systems reviewed, negative except as above. Physical Exam: Pulse 70 Temp 36.6 ?C (97.9 ?F) Ht 170.2 cm (5' 7 ) Wt 58.5 kg (129 lb) SpO2 100% BMI 20.20 kg/m? GEN - NAD, well appearing, cooperative with exam HEENT - No conjunctival injection, swelling or discharge. TMs clear with no effusion or bulging. Bilateral inferior turbinates hypertrophic and erythematous. MMM. Oropharynx non-erythematous with no tonsillar enlargement or exudates. NECK - supple, no cervical LAD RESP - No increased work of breathing. Clear to auscultation bilaterally, no wheeze or crackles. CV- RRR, no murmurs ABD- Soft, non-distended SKIN- Warm and well perfused, no rashes on exposed skin NEURO- cranial nerves grossly intact Diagnostic Testing: OSH records reviewed: 04/06/22 Vitamin D mildly decreased Thyroid studies normal CBC normal 05/19/21 IgA 180 (normal) IgE 70 (normal) IgG 827 (normal) IgM 90 (normal) Strep pneumo, 23 serotypes: 02/25 values >1.3 mcg/mL Tetanus and diptheria tite (more content not included)... [facility] History of Present illness Narrative 05-12-2022 Savannah Andersen MD - 05/12/2022 2:00 PM EST Note Date & Type Note Facility 05-12-2022 History of Presen t illness Narrative Images from the original note were not included. Allergy & Clinical Immunology ZULEIKA Gill has requested consultation for recurrent URI. My progress note with assessment and recommendations from today's appointment will be electronically routed to the referring provider. Alyssa Lala is a 17 year old male with ADHD and anxiety, accompanied today by grandmother, mother, and great niece, seen for significant fatigue since young childhood. It has been significant enough to where he could not start high school until the afternoon. If he exerts himself he sleeps for 3 days straight . 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 He frequently suffers from headaches and stomach pains. No family history of sleep disorders. He saw an program strategist in [employer]. He had bloodwork done along with his sister who had similar issues at the time. His IgGs and IgAs were really low. IgG replacement was discussed at one point. He most recently saw Dr. Jose F Guerrero about a year ago. He was told his headaches were migraines. His immune testing was repeated and was within normal range. He has had inhalant skin testing in the past which was negative. He was told that foods may be causing his migraines. His sister's issues have since resolved and does not carry a formal diagnosis for immunodeficiency. Saw local ENT for perforation left tympanic membrane and recurrent sinusitis. He has a history of otitis media with tube placement at age of 1 and also tonsillectomy and adenoidectomy. He received treatment with oral steroids and antibiotics with improvement. CT sinus was done and was normal. He receives antibiotics about 1-2 times per month for ear or sinus infections. Had COVID in August. Denies pneumonia, bacteremia. No hospitalizations for infections. He recent saw a sleep specialist locally who recommended further testing. Has not seen a headache specialist. His psychologist has prescribed him methylphenidate which has helped but still sleeps a lot. Saw local oncology, eval unremarkable. PriorGI evaluation negative. PPV23: 05/19/2002 DTap: 10/13/2015 Current Outpatient Medications on File Prior to Visit Medication Sig Methylphenidate HCl (METADATE CD) 10 mg ORAL CD capsule Take 10 mg by mouth once daily. ACETAMINOPHEN (CHILDREN'S TYLENOL ORAL) Take by mouth. FLUTICASONE PROPIONATE (FLONASE NASAL) Use in the nose. Pediatric Multivitamins-Iron (FLINTSTONES COMPLETE) ORAL chewable tablet Take 1 tablet by mouth once daily. No current facility-administered medications on file prior to visit. ALLERGIES Allergen Reactions Codeine PAST MEDICAL HISTORY Diagnosis Date Ear infection Sinus infection PAST SURGICAL HISTORY Procedure Laterality Date PAST SURGICAL HISTORY OF 07/23/2008 Left Gelfoam myringoplasty. REMOVAL ADENOIDS,PRIMARY,<12 Y/O 2x Adenoidectomy REMOVAL OF TONSILS,<12 Y/O Tonsillectomy No family history on file. Family history of atopy: yes Denies family history of sleep disorders, recurrent infections Several members with diabetes but no other autoimmune diseases Several members with cancers-mostly breast and prostate SOCIAL HISTORY Trying to go to [employer] school Denies tobacco abuse or exposure Review of Systems: Gen: No fevers, chills, night sweats, weight changes. HEENT: No eye itching, watering. No congestion or rhinorrhea. No snoring. No recent sinus infections. Neck: No lymphadenopathy. Resp: No cough, wheezing, dyspnea. CV: No chest pain, palpitations, leg swelling. GI: No reflux, abdominal pain, vomiting, diarrhea, constipation. Musc/Skel: Positive for joint pain. No joint stiffness. Neuro: No headaches. Skin: No lesions, rashes, hives, or eczema. Psych: No depression, anxiety. All other systems reviewed, negative except as above. Physical Exam: Pulse 70 Temp 36.6 C (97.9 F) Ht 170.2 cm (5' 7 ) Wt 58.5 kg (129 lb) SpO2 100% BMI 20.20 kg/m GEN - NAD, well appearing, cooperative with exam HEENT - No conjunctival injection, swelling or discharge. TMs clear with no effusion or bulging. Bilateral inferior turbinates hypertrophic and erythematous. MMM. Oropharynx non-erythematous with no tonsillar enlargement or exudates. NECK - supple, no cervical LAD RESP - No increased work of breathing. Clear to auscultation bilaterally, no wheeze or crackles. 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 - Immune evaluation about 1 year ago unremarkable - Discussed that while fatigue can be reported in primary immunodeficiency, his degree of fatigue is not typical - Do not feel repeating immune tests at this time would be of benefit - While Alyssa reports some intermittent joint pain, his history is otherwise not suggestive of a rheumatologic condition - Recommend continued evaluation for sleep disorder - [facility] per request - Continue current management of sinusitis; follows with ENT locally Return to clinic: as needed Savannah Andersen MD, PhD Allergy & Clinical Immunology [facility] Medical Decision Making: Level: 3 - Low documented in this encounter [facility] Evaluation note 07-15-2021 Note Date & Type Note Facility 07-15-2021 Evaluation note Encounter Date Diagnosis Assessment Notes July, Abdominal pain (ICD-10 - R10.9) PAIN WILL MOVE RADIATE LOWER IN ABDOMEN. PATIENT STATES THIS HAS BEEN ONGOING FOR ABOUT 6 MONTHS. WE WILL ORDER SOME LABS AT THIS TIME. July, Diarrhea (ICD-10 - R19.7) [facility] Other Clinical Note 04-06-2021 Note Date & Type Note Facility 04-06-2021 Note PROCEDURE: [employer] VCT 64. In the coronal projection, without intravenous contrast, 5 mm contiguous intervals were performed through the paranasal sinuses. FINDINGS: Well developed, well aerated paranasal sinuses. No significant fluid collection or osteomeatal unit compromise. Minimal right anterior maxillary mucosal thickening. Minimal nasal septal deviation. No nasal mass. No significant nasal turbinate edema. Very small bilateral deanna bullosa. Normal intracranial and orbital contents. Normal mastoid air cell and tympanic cavity aeration. IMPRESSION: No evidence of acute sinusitis or osteomeatal unit compromise. Report reported and signed by Parminder Burch on 04/06/2021 [address] [facility] Evaluation note Note Date & Type Note Facility Evaluation note Diagnosis Chronic fatigue syndrome- Primary Nonintractable episodic headache, unspecified headache type Chronic rhinitis documented in this encounter [facility] History general Narrative - Reported Note Date & Type Note Facility History general Narrative - Reported Type Medical History ADHD Surgical History T&A Surgical History Myringotomy bilateral Surgical History Reconstructive ear drum Hospitalization History See past surgical histor y [facility] Other Reason for visit Narrative Note Date & Type Note Facility Reason for visit Narrative PATIENT HERE AT THE REQUEST OF RON KUMAR FOR EVALUATION & TREATMENT OF GENERALIZED ABDOMINAL PAIN, SOMETIMES IMPROVES WITH BOWEL MOVEMENT, WHEN DONE EATING WILL USE THE BATHROOM. NO PREVIOUS SCOPES. [facility] Other Summary Purpose Family History No Family History Records FoundNo Family History Records FoundNo Family History Records FoundNo Family History Records FoundNo Family History Records FoundNo Family History Records Found Advance Directives No Advanced Directives Records FoundNo Advanced Directives Records FoundNo Advanced Directives Records FoundNo Advanced Directives Records FoundNo Advanced Directives Records FoundNo Advanced Directives Records Found Reason for Referral Specialty Diagnoses / Procedures Referred By Emely brown Referred To Contact Neurology Diagnoses Chronic fatigue syndrome Nonintractable episodic headache, unspecified headache type Procedures CONSULT TO NEUROLOGY OFFICE/OUTPATIENT [facility] 60-74 MINUTES Savannah Andersen MD [facility] [place] [address] Referral ID Status Reason Start Date Expiration Date Visits Requested Visits Authorized [id number] Authorized PCP Requested Referral 05/12/2022 05/12/2023 1 1 Additional Source Comments (unrecognized sect ion and content) No Status Records FoundNo Status Records FoundNo Status Records FoundNo Status Records FoundNo Status Records FoundNo Status Records Found INFORMATION SOURCE (unrecogn ized section and content) DATE CREATED AUTHOR 08/29/2017 [facility] DATE CREATED AUTHOR AUTHOR'S ORGANIZ ATION 08/08/2021 [facility] DATE CREATED AUTHOR AUTHOR'S ORGANIZ ATION 08/10/2021 [facility] dical Specialist DATE CREATED AUTHOR AUTHOR'S ORGANIZ ATION 02/24/2022 [facility] DATE CREATED AUTHOR AUTHOR'S ORGANIZ ATION 05/14/2022 [facility] DATE CREATED AUTHOR AUTHOR'S ORGANIZ ATION 01/31/2023 [facility] dical Specialists EPIC Source Comments (unrecognize d section and content) In the event this informatio n is protected by the Federal Confidentiality of Alcohol and Drug Abuse Patient Records regulations: The Federal rules restrict any use of the information to criminally investigate or prosecute any alcohol or drug abuse patient.[facility] Reason for Visit (unrecogniz ed section and content) Reason Comments Consult Care Teams (unrecognized sec tion and content) Violin Restorer Relationship Specialty Start Date End Date Ron Kumar [address] [facility] [place] [place] [address] Referring Family Medicine 02/23/22 Ron Kumar [address] [facility] [place], [facility] [place] [address] Referring 03/11/22 FOR RECORDS PERTAINING TO PATIENTS WHO ARE OR HAVE BEEN ENROLLED IN A CHEMICAL DEPENDENCY/SUBSTANCEABUSE PROGRAM, SOME INFORMATION MAY BE OMITTED. This clinical summary was aggregated from multiple sources. Caution should be exercised in using it in the provision of clinical care. This summary normalizes information from multiple sources, and as a consequence, information in this document may materially change the coding, format and clinical context of patient data. In addition, data may be omitted in some cases. CLINICAL DECISIONS SHOULD BE BASED ON THE PRIMARY CLINICAL RECORDS. [employer] [facility]. provides no warranty or guarantee of the accuracy or completeness of information in this document.
--- NOTE | 2023-03-18 16:33 | ED_ITS ---
HPI - URI/Sore Throat General Chief Complaint: Upper Respiratory Infection Stated Complaint: CONGESTION, COUGH Time Seen by Provider: 03/18/23 16:24 Source: patient Limitations: no limitations History of Present Illness HPI Narrative: 17 year old male presents to the ED for sinus congestion/drainage, cough, body aches, headache, fatigue. Onset was 5 days ago. Denies fever, SOB, emesis, diarrhea. He saw his pcp yesterday and was placed on Z-john. Mother states he tested negative for Covid-19 and influenza yesterday at pcp office. He has also been taking Mucinex, Motrin, and Tylenol. His last dose of Motrin was 0400 this morning. He developed increased ear discomfort today. Reports drainage from the left ear today. Mother is concerned he is dehydrated. Rates his pain 08/13. Related Data Home Medications Medication Instructions Recorded Confirmed dextroamphetamine-amphetamine 5 mg 5 mg PO DAILY 01/12/23 01/12/23 tablet (Adderall) loratadine 10 mg tablet 10 mg PO DAILY PRN allergic 01/12/23 01/12/23 (Allerclear) symptoms venlafaxine 37.5 mg 37.5 mg PO DAILY 01/12/23 01/12/23 capsule,extended release 24 hr Previous Rx's Medication Instructions Recorded yyerlwaqtnwlzcb-uhaocmyuzgstgiz-HB 10 ml PO Q6H PRN cold symptoms 01/12/23 2 mg-30 mg-10 mg/5 mL oral syrup #200 mL (Bromfed DM) ibuprofen 600 mg tablet 600 mg PO QID PRN pain #12 tabs 01/12/23 promethazine 25 mg tablet 25 mg PO Q6H PRN nausea and 01/12/23 vomiting #12 tabs amoxicillin 875 mg-potassium 1 tab PO Q12H 10 days #20 tabs 03/18/23 clavulanate 125 mg tablet lbbnnbsfkj-zmsmldvywdnro-xhxiczsh 1 cap PO Q8H PRN headache, pain #8 03/18/23 50 mg-300 mg-40 mg capsule caps (Fioricet) promethazine 12.5 mg tablet 12.5 mg PO TID PRN nausea and 03/18/23 vomiting #8 tabs Allergies Allergy/AdvReac Type Severity Reaction Status Date / Time No Known Drug Allergies Allergy Verified 01/12/23 19:54 Review of Systems ROS Constitutional Reports: chills and fatigue; Denies: fever Eyes Denies: change in vision Ears, nose, mouth, and throat Reports: throat pain, neck pain, ear pain, ear discharge, nasal discharge and nasal congestion; Denies: throat swelling or difficulty swallowing Cardiovascular Denies: chest pain Respiratory Reports: cough; Denies: shortness of breath Gastrointestinal Denies: abdominal pain, nausea, vomiting or diarrhea Musculoskeletal Reports: muscle cramps Integumentary/Breast Denies: rash or itching Neurological Reports: headache; Denies: weakness in extremities or dizziness [facility] Social History Smoking status: Never smoker Exam Constitutional Vital Signs, click to edit/add: Last Vital Signs Temp 98.2 F 03/18/23 16:19 Pulse 86 03/18/23 16:19 Resp 18 03/18/23 16:19 BP 108/63 03/18/23 16:19 Pulse Ox 97 03/18/23 16:19 Common normals: no apparent distress and oriented x3 General appearance: cooperative and ill appearing [facility] Face and sinus: normal facial exam and face symmetric Nose: external nose normal and nasal discharge External ear: external ears normal Tympanic membrane: TM abnormal TM laterality: bilateral (Bilateral TMs erythematous. Perforation noted to left TM; no drainage at this time. ) Mouth: oral and palatal mucosa normal, lip normal and tongue normal; no drooling and no muffled voice Throat: posterior oropharynx normal and uvula midline Eye Common normals: conjunctivae normal and no scleral icterus Neck & C-Spine Common normals: supple General: trachea midline and lymphadenopathy Chest Chest: symmetrical chest wall rise Respiratory Common normals: normal respiratory effort Effort & inspection: able to speak in complete sentences and symmetric chest movement Auscultation: clear to auscultation bilaterally Cardio Common normals: regular rate and regular rhythm Neuro Common normals: oriented x3 and moves all extremities Sensorium/orientation: awake and alert Course Vital Signs Vital signs: Vital Signs Temperature 98.2 F 03/18/23 16:19 Pulse Rate 86 03/18/23 16:19 Respiratory Rate 18 03/18/23 16:19 Blood Pressure 108/63 03/18/23 16:19 Pulse Oximetry 97 03/18/23 16:19 Temperature 98.2 F 03/18/23 16:19 Pulse Rate 86 03/18/23 16:19 Respiratory Rate 18 03/18/23 16:19 Blood Pressure 108/63 03/18/23 16:19 Pulse Oximetry 97 03/18/23 16:19 MDM - URI/Sore Throat MDM Narrative Medical decision making narrative: His mother requested Phenergan stating that Zofran does not typically work for the patient. The patient was given IV fluids, oral Phenergan, Fioricet, and IV Toradol with improvement in his discomfort. He will be discharged home. A ruptured TM was noted on the left. He is aware to keep the left ear canal dry and to not place anything into the ear. Prescriptions were provided for Phenergan, Augmentin, and Fioricet. Follow up with pcp for a recheck, further evaluation and treatment. Return to the ED for worsening condition. Differential Diagnosis Differential diagnosis: Likely upper respiratory infection, otitis media and viral infection Medical Records Attestation: I reviewed the patient's medical records. Discharge Plan Discharge Chief Complaint: Upper Respiratory Infection Clinical Impression: Rupture of left tympanic membrane, URI (upper respiratory infection), Otitis media Patient Disposition: Home, Self-Care Time of Disposition Decision: 17:42 Condition: Good Mode of Transportation: Private Vehicle Prescriptions / Home Meds: New amoxicillin-pot clavulanate 875-125 mg tablet 1 tab PO Q12H 10 Days Qty: 20 0RF promethazine 12.5 mg tablet 12.5 mg PO TID PRN (Reason: nausea and vomiting) Qty: 8 0RF Rx Instructions: 3 doses during day; last dose no later than 4 hr before bedtime kevyrvdrzf-usfngnmaiebqp-dvcz [Fioricet] 50-300-40 mg capsule 1 cap PO Q8H PRN (Reason: headache, pain) Qty: 8 0RF No Action venlafaxine 37.5 mg capsule,extended release 24hr 37.5 mg PO DAILY dextroamphetamine-amphetamine [Adderall] 5 mg tablet 5 mg PO DAILY Rx Instructions: unsure of dose. loratadine [Allerclear] 10 mg tablet 10 mg PO DAILY PRN (Reason: allergic symptoms) ibuprofen 600 mg tablet 600 mg PO QID PRN (Reason: pain) Qty: 12 0RF [id number]-ulvfoxoxo-JI [Bromfed DM] 2-30-10 mg/5 mL syrup 10 ml PO Q6H PRN (Reason: cold symptoms) Qty: 200 0RF promethazine 25 mg tablet 25 mg PO Q6H PRN (Reason: nausea and vomiting) Qty: 12 0RF Instructions: Ruptured Eardrum (ED), Ear Infection (ED), Upper Respiratory Infection (ED) Additional Instructions: Return to the ER if your condition worsens. Stand Alone Forms: Portal Instructions Referrals: Salome Pardo MD [Physician] - 1 week [place] [Primary Care Provider] - 1 week Discharge Date/Time: 03/18/23 17:54
[2023-03-18] MEDS: 0.9 % SODIUM CHLORIDE 1,000 ML 999 ML IV (16:48)
[2023-03-18] MEDS: PROMETHAZINE HCL 25 MG TABLET PO (16:48)
[2023-03-18] MEDS: KETOROLAC TROMETHAMINE 30 MG/ML VIAL IVP (16:48)
[2023-03-18] MEDS: BUTALB/ACETAMINOPHEN/CAFFEINE 50-325-40MG TABLET 1 TAB PO (17:16)
== END 2023-03-18 17:54 | disposition home or self-care (01) ==
PROVIDERS: Emergency Provider Emergency Medicine; PCP Family Medicine
DX: J06.9 Acute upper respiratory infection, unspecified (principal); H72.92 Unspecified perforation of tympanic membrane, left ear; H66.90 Otitis media, unspecified, unspecified ear; Z79.899 Other long term (current) drug therapy
CPT/HCPCS: 96374; 99284; J1885; Q0169

== ENCOUNTER 2023-10-09 18:42 | Emergency (ER) | payer OTHER, SELFPAY ==
[2023-10-09 18:49] VITALS: BP 133/80; PULSE 97; TEMP 36.9; O2SAT 98; BMI 18.2
[2023-10-09 19:14] LABS: Internal Control Within Normal Limits; Strep A Antigen Screen Negative
[2023-10-09 19:41] VITALS: BP 118/70; PULSE 87; O2SAT 98
--- NOTE | 2023-10-09 19:50 | ED.GENADUL1 ---
HPI HPI - General Adult General Chief complaint: Upper Respiratory Infection Stated complaint: CONGESTION, MIGRAINE, NAUSEA Time Seen by Provider: 10/09/23 19:45 Source: patient Mode of arrival: walk-in Limitations: no limitations History of Present Illness HPI narrative: 18-year-old male presents to the ED for headache and sore throat. He is have a headache for few days and its bilateral frontal. No trauma fever or stiff neck. He gets frequent headaches and has to come to the ER about once every 3 months but he has a headache nearly every day. The sore throat and congestion started this morning. No vomiting or diarrhea. Related Data Home Medications ?Medication ?Instructions ?Recorded ?Confirmed dextroamphetamine-amphetamine 5 mg 5 mg PO DAILY 01/12/23 10/09/23 tablet (Adderall) loratadine 10 mg tablet 10 mg PO DAILY PRN allergic 01/12/23 10/09/23 (Allerclear) symptoms venlafaxine 37.5 mg 37.5 mg PO DAILY 01/12/23 10/09/23 capsule,extended release 24 hr Previous Rx's ?Medication ?Instructions ?Recorded promethazine 25 mg tablet 25 mg PO Q6H PRN nausea and 01/12/23 vomiting #12 tabs [id number]-yddxutbhqfybu-cxozynju 1 cap PO Q8H PRN headache, pain #8 03/18/23 50 mg-300 mg-40 mg capsule caps (Fioricet) promethazine 12.5 mg tablet 12.5 mg PO TID PRN nausea and 03/18/23 vomiting #8 tabs loratadine 5 mg-pseudoephedrine ER 1 tab PO Q12H PRN nasal congestion 10/09/23 120 mg tablet,extended #20 tabs release,12hr (Claritin-D 12 Hour) Allergies Allergy/AdvReac Type Severity Reaction Status Date / Time No Known Drug Allergies Allergy Verified 01/12/23 19:54 Opioid HPI Opioid Management Most Recent Opioid Data: Last Pain Scale 8 10/09/23 20:09 Review of Systems ROS Narrative A ten point review of systems is negative except as noted above. PFSH PFSH Social History Smoking status: Never smoker Exam Narrative Exam Narrative: Nurses note and vital signs reviewed and patient is not hypoxic. General: The patient appears uncomfortable and in no apparent distress. Skin: Warm, dry, no pallor noted. There is no rash noted. Head: Normocephalic, atraumatic; neck supple, no nuchal rigidity Eye: Normal conjunctiva, no drainage Ears, Nose, Mouth, and Throat: oral mucosa is moist. Nares patent. Cardiovascular: Regular Rate and Rhythm Respiratory: Patient is in no distress, no accessory muscle use, lungs are clear to auscultation, no wheezing, rales or rhonchi Back: non-tender GI: Soft and nontender Musculoskeletal: The patient has no evidence of calf tenderness, no pitting edema, symmetrical pulses noted bilaterally Neurological: Awake and alert, upper and lower extremity strength intact Psychiatric: Cooperative Constitutional Vital Signs, click to edit/add: Last Vital Signs Temp 98.5 F 10/09/23 18:49 Pulse 87 10/09/23 19:41 Resp 18 10/09/23 19:41 BP 118/70 10/09/23 19:41 Pulse Ox 98 10/09/23 19:41 O2 Del Method Room Air 10/09/23 19:41 Course Vital Signs Vital signs: Vital Signs Temperature 98.5 F 10/09/23 18:49 Pulse Rate 97 H 10/09/23 18:49 Respiratory Rate 18 10/09/23 18:49 Blood Pressure 133/80 10/09/23 18:49 Pulse Oximetry 98 10/09/23 18:49 Oxygen Delivery Method Room Air 10/09/23 18:49 Temperature 98.5 F 10/09/23 18:49 Pulse Rate 87 10/09/23 19:41 Respiratory Rate 18 10/09/23 19:41 Blood Pressure 118/70 10/09/23 19:41 Pulse Oximetry 98 10/09/23 19:41 Oxygen Delivery Method Room Air 10/09/23 19:41 Medical Decision Making MDM Narrative Medical decision making narrative: The patient was given IV Toradol, Solu-Medrol, and Zofran and IV fluids and he feels much better now. WBC is elevated at 17,000. I have no clinical suspicion of meningitis. He is being discharged home on a decongestant. Treatment diagnosis and follow-up were discussed with the patient. Differential Diagnosis Differential Diagnosis: Migraine headache, viral URI, strep Lab Data Lab results reviewed: Yes I reviewed the patient's lab results Labs: Lab Results 10/09/23 10/09/23 Range/Units 18:55 20:00 WBC 17.6 H (4.0-11.0) 10^3/uL RBC 4.81 (4.70-6.10) 10^6/uL Hgb 15.5 (14.0-18.0) g/dL Hct 44.3 (42.0-54.0) % MCV 92.1 (80.0-94.0) fL MCH 32.2 (25.9-34.0) pg MCHC 35.0 (29.9-35.2) g/dL RDW 11.8 (11.0-15.0) % Plt Count 265 (150-450) 10^3/uL MPV 10.4 (9.5-13.5) fL Neut % (Auto) 85.0 H (43.0-75.0) % Lymph % (Auto) 4.3 L (20.5-60.0) % [place] % (Auto) 8.3 (1.7-12.0) % Eos % (Auto) 0.3 L (0.9-7.0) % Baso % (Auto) 0.3 (0.2-2.0) % Neut # (Auto) 14.9 H (1.4-6.5) 10^3/uL Lymph # (Auto) 0.8 L (1.2-3.8) 10^3/uL [place] # (Auto) 1.5 H (0.3-0.8) 10^3/uL Eos # (Auto) 0.1 (0.0-0.7) 10^3/uL Baso # (Auto) 0.1 (0.0-0.1) 10^3/uL Abs Immat Gran (auto) 0.32 H (0.00-0.03) 10^3/uL Imm/Tot Granulo (auto) 1.8 H (0.0-0.5) % Sodium 137 (136-145) mmol/L Potassium 4.2 (3.5-5.1) mmol/L Chloride 102 (98-107) mmol/L Carbon Dioxide 27.8 (21.0-32.0) mmol/L Anion Gap 11.4 BUN 15.0 (7.0-18.0) mg/dL Creatinine 0.88 (0.70-1.30) mg/dL Est GFR ( Amer) >60 (>=60) Est GFR (Non-Af Amer) >60 (>=60) BUN/Creatinine Ratio 17.0 Glucose 91 (74-106) mg/dL Calcium 9.2 (8.5-10.1) mg/dL Streptococcus Screen Negative Discharge Plan Discharge Stand Alone Forms: Portal Instructions Chief Complaint: Upper Respiratory Infection Clinical Impression: Headache, URI (upper respiratory infection) Patient Disposition: Home, Self-Care Time of Disposition Decision: 20:47 Condition: Good Mode of Transportation: Private Vehicle Prescriptions / Home Meds: New Claritin-D 12 Hour 5-120 mg tablet extended release 12 hr 1 tab PO Q12H PRN (Reason: nasal congestion) Qty: 20 0RF No Action venlafaxine 37.5 mg capsule,extended release 24hr 37.5 mg PO DAILY dextroamphetamine-amphetamine [Adderall] 5 mg tablet 5 mg PO DAILY Rx Instructions: unsure of dose. loratadine [Allerclear] 10 mg tablet 10 mg PO DAILY PRN (Reason: allergic symptoms) promethazine 25 mg tablet 25 mg PO Q6H PRN (Reason: nausea and vomiting) Qty: 12 0RF promethazine 12.5 mg tablet 12.5 mg PO TID PRN (Reason: nausea and vomiting) Qty: 8 0RF Rx Instructions: 3 doses during day; last dose no later than 4 hr before bedtime [id number]-ciuoxmapbcehg-bxqe [Fioricet] 50-300-40 mg capsule 1 cap PO Q8H PRN (Reason: headache, pain) Qty: 8 0RF Print Language: [place] Instructions: Upper Respiratory Infection (ED), Acute Headache (ED) Referrals: [facility] [Primary Care Provider] - 1 week
[2023-10-09] MEDS: METHYLPREDNISOLONE SOD SUCC PF 125 MG/2 ML VIAL IVP (20:08)
[2023-10-09] MEDS: ONDANSETRON PF 4 MG/2 ML VIAL IV (20:08)
[2023-10-09] MEDS: KETOROLAC TROMETHAMINE 30 MG/ML VIAL IVP (20:09)
[2023-10-09] MEDS: 0.9 % SODIUM CHLORIDE 1,000 ML 1000 ML IV (20:09)
[2023-10-09 20:20] LABS: Basophils Absolute Auto 0.1 10^3/uL (0.0-0.1); Basophils Percent Auto 0.3 % (0.2-2.0); Eosinophils Absolute Auto 0.1 10^3/uL (0.0-0.7); Eosinophils Percent Auto 0.3 % (0.9-7.0); Hematocrit 44.3 % (42.0-54.0); Hemoglobin 15.5 g/dL (14.0-18.0); Immature Granulocytes Abs Auto 0.32 10^3/uL (0.00-0.03); Immature Granulocytes Pct Auto 1.8 % (0.0-0.5); Lymphocytes Absolute Auto 0.8 10^3/uL (1.2-3.8); Lymphocytes Percent Auto 4.3 % (20.5-60.0); Mean Corpuscular Hemoglobin 32.2 pg (25.9-34.0); Mean Corpuscular Volume 92.1 fL (80.0-94.0); Mean Platelet Volume 10.4 fL (9.5-13.5); Monocytes Absolute Auto 1.5 10^3/uL (0.3-0.8); Monocytes Percent Auto 8.3 % (1.7-12.0); Neutrophils Absolute Auto 14.9 10^3/uL (1.4-6.5); Platelet Count 265 10^3/uL (150-450); Red Blood Count 4.81 10^6/uL (4.70-6.10); Red Cell Distribution Width 11.8 % (11.0-15.0); White Blood Count 17.6 10^3/uL (4.0-11.0)
[2023-10-09 20:31] LABS: Anion Gap 11.4; Calcium 9.2 mg/dL (8.5-10.1); Carbon Dioxide 27.8 mmol/L (21.0-32.0); Chloride 102 mmol/L (98-107); Estimated GFR (African America >60 (>=60); Estimated GFR (Non-African Ame >60 (>=60); Glucose 91 mg/dL (74-106); Potassium 4.2 mmol/L (3.5-5.1); Sodium 137 mmol/L (136-145)
[2023-10-09] MEDS: GUAIFENESIN 200 MG/DEXTROMETHORPHAN 20 MG 10 ML UNIT DOSE CUP PO (21:06)
[2023-10-09] MEDS: GUAIFENESIN DM 600-30 MG 12 HR TAB 1 TAB PO (21:06)
[2023-10-09 21:08] VITALS: BP 114/79; PULSE 88; O2SAT 99
== END 2023-10-09 21:08 | disposition home or self-care (01) ==
PROVIDERS: Student in an Organized Health Care Education/Training Program; Emergency Provider Emergency Medicine; PCP Family Medicine
DX: R51.9 Headache, unspecified (principal); J06.9 Acute upper respiratory infection, unspecified
CPT/HCPCS: 36415; 80048; 85025; 87070; 87880; 96374; 96375; 99285; J1885; J2405; J2919

== ENCOUNTER 2024-05-22 14:35 | Emergency (ER) | payer OTHER, SELFPAY ==
[2024-05-22 14:39] VITALS: BP 111/66; PULSE 92; TEMP 36.5; O2SAT 97; BMI 18.2
--- OUTSIDE RECORDS SUMMARY | 2024-05-22 14:48 | XMS_ITS | CCD ---
Author Organization [facility] Care Team Providers Care Metal Stamper Name Role Phone Jaden, Ria Unavailable Unavailable Silver, Ria Unavailable Unavailable UNKNOWN, PCP Unavailable Unavailable Ion Aragon Unavailable DALLAS SALGUERO Attending Unavailable DALLAS SALGUERO Consulting Unavailable DALLAS SALGUERO Admitting Unavailable WONDERROGELIO, DR JANINA Mayes Primary Care Unavailable LEISA DSOUZA Consulting Unavailable WONDERROGELIO, DR JANINA Mayes Primary Care Unavailable MARKER, DR SHERWOOD Attending Unavailable MARKER, DR SHERWOOD Consulting Unavailable MARKER, DR SHERWOOD Admitting Unavailable BELEN COCHRAN Consulting Unavailable SANTA, DR BATSHEVA Rae Attending Unavailable SANTA, DR BATSHEVA Rae Consulting Unavailable SANTA, DR BATSHEVA Rae Admitting Unavailable WONDERROGELIO, DR JANINA Mayes Primary Care Unavailable RAUL ROMERO Consulting Unavailable TREVOR PETERSEN Consulting Unavailable WONDERROGELIO, DR JANINA Mayes Primary Care Unavailable MARKER, DR SHERWOOD Attending Unavailable MARKER, DR SHERWOOD Admitting Unavailable AMINA KUMAR Attending Unavailable AMINA KUMAR Consulting Unavailable AMINA KUMAR Admitting Unavailable ELLIS, DR JANINA Mayes Primary Care Unavailable Amina Kumar Unavailable Amina Kumar Unavailable Amina Kumar APRN Unavailable [phone] Skyler Kumar APRNantha Unavailable [phone] Janina Corral MD Unavailable [phone] JOSE BROWNING Attending Unavailable JANINA CORRAL Referring Unavailable AMINA KUMAR Attending Unavailable WONDERJANINA MERCADO Attending Unavailable WONDERLYJANINA Attending Unavailable AMINA KUMAR Attending Unavailable NORM HERNADEZ Attending Unavailable JANINA CORRAL Referring Unavailable JANINA CORRAL Primary Care Unavailable ELLEN HERNAEDZ Attending Unavailable WONDERROGELIO, JANINA Mayes Referring Unavailable WONDERLY, JANINA Mayes Primary Care Unavailable TRAM RODAS Attending Unavailable WONDERLY, JANINA B Referring Unavailable WONDERLY, JANINA B Primary Care Unavailable NORM HERNADEZ Attending Unavailable WONDERLY, JANINA B Referring Unavailable WONDERLY, JANINA Mayes Primary Care Unavailable ELLEN HERNADEZ Attending Unavailable WONDERLY, JANINA Mayes Referring Unavailable WONDERLY, JANINA Mayes Primary Care Unavailable Ellis RODGERS Janina Mayes Primary Care Provider Fay LOBO, Amina Mcdermott Unavailable EMILIA GILBERT Attending Unavailable WONDERLY, JANINA B Referring Unavailable WONDERLY, JANINA B Primary Care Unavailable EMILIA GILBERT E Attending Unavailable WONDERLY, JANINA B Referring Unavailable WONDERLY, JANINA B Primary Care Unavailable KUMAR, JASSON C Attending Unavailable GILBERTEMILIA E Referring Unavailable WONDERLY, JANINA B Primary Care Unavailable KUMAR, JASSON C Referring Unavailable WONDERLY, JANINA B Primary Care Unavailable KUMAR, JASSON C Referring Unavailable WONDERLY, JANINA B Primary Care Unavailable KUMAR, JASSON C Attending Unavailable WONDERLY, JANINA B Referring Unavailable WONDERLY, JANINA B Primary Care Unavailable EMILIA GILBERT Attending Unavailable WONDERLY, JANINA Mayes Referring Unavailable WONDERLY, JANINA Mayes Primary Care Unavailable Shantly MD Janina Mayes Primary Care Provider Allergies Allergy Classification Reported Allergen(s) Allergy Type Date of Onset Reaction(s) Facility (20 sources) Codeine; Translations: [CODEINE] Drug Allergy 06-21-19 09 Agatha klein [facility] (3 sources) Amoxicillin; Translations: [AMOXICILLIN] Drug Allergy 06-02-19 22 [facility] (1 source) Sulfonamides (Antibiotic) Drug allergy (disorder) 02-17-20 [facility] (18 sources) Cephalexin; Translations: [CEPHALEXIN] Drug Allergy 06-02-19 Diarrhea [facility] (15 sources) Doxycycline; Translations: [DOXYCYCLINE HYCLATE] Drug Allergy 06-02-19 Vomiting [facility] (18 sources) levoFLOXacin; Translations: [LEVOFLOXACIN] Drug Allergy 06-02-19 [facility] (15 sources) Sulfonamides (Antibiotic); Translations: [SULFA (SULFONAMIDE ANTIBIOTICS)] Propensity to adverse reactions to drug (disorder) 05-03-19 23 [facility] (18 sources) AMOXICILLIN-POT CLAVULANATE; Translations: [AMOXICILLIN-POT CLAVULANATE] Propensity to adverse reactions to drug (disorder) 06-02-19 Diarrhea [facility] (15 sources) DEXTROAMPHETAMINE-AM PHETAMINE; Translations: [DEXTROAMPHETAMINE-A MPHETAMINE] Propensity to adverse reactions to drug (disorder) 06-02-19 [facility] (16 sources) Amoxicillin Drug Allergy 06-02-19 Rash [facility] (3 sources) Amphetamine / Dextroamphetamine Drug Allergy 06-02-19 [facility] (3 sources) Doxycycline Drug Allergy 06-02-19 [facility] (3 sources) Sulfonamides (Antibiotic) Drug Intolerance 05-03-19 [facility] Medications Current Medications Medication Drug Class(es) Dates Sig (Normalized) Sig (Original) amphetamine aspartate 2.5 mg / amphetamine sulfate 2.5 mg / dextroamphetamine saccharate 2.5 mg / dextroamphetamine sulfate 2.5 mg oral tablet (3 sources) Central Nervous System Stimulant amphetamine-dextroa mphetamine (Adderall) 10 MG tablet 1 (one) time each day at the same time. Active azithromycin 250 mg oral tablet (2 sources) Macrolide Antimicrobial Start: 11-16-2023 End: 11-21-2023 take 2 tablets by mouth once daily, then take 1 tablet by mouth once daily azithromycin (Zithromax) 250 MG tablet Indications: Other non-recurrent acute nonsuppurative otitis media of left ear Take 2 tablets (500 mg) by mouth Daily for 1 day, THEN 1 tablet (250 mg) Daily for 4 days. 6 tablet 1 11/16/2023 11/21/2023 Active Ca, Mg, K, and Na Oxybates (XYWAV PO) (3 sources) Ca, Mg, K, and N a Oxybates (XYWAV PO) Take 0.5 g by mouth. 0.5 gm - ordered through pulmonology Active cholecalciferol 0.025 mg oral tablet (19 sources) Vitamin D cholecalciferol (VITAMIN D3) 1,000 units tablet 1 tablet Active take 1 tablet by mouth in the mo rning cholecalciferol (Vitamin D-3) 125 MCG (5000 UT) tablet Take 5,000 Units by mouth in the morning. Active Comment on above: Take 1 tablet by fritz th. fluticasone (3 sources) Corticosteroid FLUTICASONE PROPIONATE (FLONASE NASAL) Indications: Chronic daily headache , Learning difficulty Use in the nose. 0 Active Comment on above: Use in the nose. ibuprofen 600 mg oral tablet (5 sources) Nonsteroidal Anti-inflammatory Drug Start: take 1 tablet by mouth four times daily for pain ibuprofen 600 MG tablet take 1 tablet by mouth four times a day if needed for pain 01/13/2023 Active Magnesium (2 sources) Start: Magnesium 400 MG as directed Orally July, Active methylphenidate hydrochloride 10 mg oral tablet (20 sources) Central Nervous System Stimulant Start: End: take 1 tablet by mouth in the morning methylphenidate HCl (RITALIN) 10 mg tablet Indications: Attention deficit hyperactivity disorder (ADHD), predominantly inattentive type , Chronic fatigue take 1 tablet by mouth in the morning and 1 tablet by mouth in the afternoon 60 tablet 03/29/2023 02/16/2024 Discontinued Start: 05-18-2022 take 1 tablet by fritz th in the morning methylphenidate HCl (RITALIN) 10 mg tablet Indications: Attention deficit hyperactivity disorder (ADHD), predominantly inattentive type , Chronic fatigue take 1 tablet by mouth in the morning and 1 tablet by mouth in the afternoon 60 tablet 0 05/18/2022 Active take 1 capsule by mo uth once daily methylphenidate ER (METADATE CD) 10 mg CD capsule Take 10 mg by mouth once daily. 0 Active take 1 capsule by mo uth once daily in the morning Metadate CD 10 MG 1 capsule in the morning Orally Once a day Active Concerta Active Comment on above: Take 10 mg by mouth once daily. omeprazole 20 mg delayed release oral capsule (2 sources) Proton Pump Inhibitor take 1 capsule by mouth once daily Omeprazole 20 MG 1 capsule 30 minutes before morning meal Orally Once a day Active ondansetron 4 mg disintegrating oral tablet (6 sources) Serotonin-3 Receptor Antagonist Start: 02-16-20 ondansetron ODT (ZOFRAN ODT) 4 mg disintegrating tablet Indications: Migraine without aura and without status migrainosus, not intractable Dissolve 1 tablet (4 mg total) on tongue every 8 (eight) hours as needed for nausea or vomiting. 30 tablet 1 02/16/2024 Active Start: 02-28-2022 take 1 tablet by fritz th every six hours for nausea ondansetron (ZOFRAN) 4 mg tablet take 1 tablet by mouth every 6 hours if needed for nausea or vomiting 0 02/28/2022 Active promethazine hydrochloride 25 mg oral tablet (4 sources) Phenothiazine Start: 01-13-2023 take 1 tablet by mouth every six hours for nausea and vomiting promethazine (Phenergan) 25 MG tablet take 1 tablet by mouth every 6 hours if needed for nausea and vomiting 01/13/2023 Active End: 2023 take 25 mg rectal route every six hours as needed for nausea and vomiting promethazine (PHENERGAN) 25 mg suppository Insert 1 suppository (25 mg total) into the rectum every 6 (six) hours as needed for nausea or vomiting. 0 2023 Discontinued 24 hr propranolol hydrochloride 80 mg extended release oral capsule (3 sources) beta-Adrenergic Deedee proprano lol XL (Innopran XL) 80 MG 24 hr capsule 2 capsules 1 (one) time each day at the same time. Active rizatriptan 10 mg oral tablet (1 source) Serotonin-1b and Serotonin-1d Receptor Agonist Start: 02-16-20 take 1 tablet by mouth every two hours as needed, then take 2 tablets by mouth every twenty-four hours as needed rizatriptan (MAXALT) 10 mg tablet Indications: Migraine without aura and without status migrainosus, not intractable Take 1 tablet (10 mg total) by mouth as needed for migraine. May repeat in 2 hours if unresolved. Do not exceed 2 doses in 24 hours. 12 tablet 2 02/16/2024 Active Start: 02-16-2024 take 1 tablet by fritz th every two hours as needed, then take 2 tablets by mouth every twenty-four hours as needed rizatriptan (MAXALT) 10 mg tablet Indications: Migraine without aura and without status migrainosus, not intractable Take 1 tablet (10 mg total) by mouth as needed for migraine. May repeat in 2 hours if unresolved. Do not exceed 2 doses in 24 hours. 12 tablet 2 02/16/2024 Active sodium,calcium,mag,pot oxyba te (XYWAV ORAL) (1 source) End: 2023 sodium,calcium,mag,pot oxyba te (XYWAV ORAL) Take by mouth. 0 2023 Discontinued sodium,calcium,mag,pot oxyba te (XYWAV) 0.5 gram/mL soln oral liquid (2 sources) sodium,calcium,m ag,pot oxybate (XYWAV) 0.5 gram/mL soln oral liquid Take 0.6 g by mouth at bedtime and 4 hours after. 0 Active sodium,calcium,mag,pot oxyba te (XYWAV) 0.5 gram/mL solution (13 sources) Start: 2023 sodium,calcium ,mag,pot oxybate (XYWAV) 0.5 gram/mL solution Indications: Idiopathic hypersomnia with long sleep time Take 6 g by mouth once daily at bedtime. 2023 Active Start: 2023 sodium,calcium ,mag,pot oxybate (XYWAV) 0.5 gram/mL solution Indications: Idiopathic hypersomnia with long sleep time Take 6 g by mouth once daily at bedtime. 0 2023 Active 24 hr venlafaxine 37.5 mg extended release oral capsule (20 sources) Serotonin and Norepinephrine Reuptake Inhibitor Start: 09-27-2023 take 1 capsule by mouth once daily venlafaxine XR (EFFEXOR XR) 37.5 mg 24 hr capsule Indications: Generalized anxiety disorder take 1 capsule by mouth once daily 30 capsule 2 09/27/2023 Active Start: 08-01-2023 End: 01-28-2024 take 1 capsule by mouth once daily venlafaxine ER (EFFEXOR XR) 75 mg 24 hr capsule Take 1 capsule by mouth once daily. 30 capsule 5 08/01/2023 01/28/2024 Active Start: 03-29-2023 take 1 capsule by mo [facility] once daily venlafaxine XR (EFFEXOR XR) 37.5 mg 24 hr capsule Indications: Generalized anxiety disorder take 1 capsule by mouth once daily 30 capsule 6 03/29/2023 Active Start: 03-01-2023 take 1 capsule by mo uth once daily venlafaxine XR (EFFEXOR XR) 37.5 mg 24 hr capsule Indications: Generalized anxiety disorder take 1 capsule by mouth once daily 30 capsule 0 03/01/2023 Active Start: 02-28-2022 End: 08-01-2023 venlafaxine XR (Effexor XR) 37.5 MG 24 hr capsule 37.5 mg. 02/28/2022 Active Effexor Active Vitamin B Complex (2 sources) Vitamin B Comple x Active vitamin B12 (2 sources) Vitamin B12 Vitamin B 12 Act meme Completed/Discontinued Medications Medication Drug Class(es) Dates Sig (Normalized) Sig (Original) Acetaminophen (2 sources) End: 07-19-2023 ACETAMINOPHEN (CHILDREN'S TYLENOL ORAL) Indications: Chronic daily headache , Learning difficulty Take by mouth. 0 07/19/2023 Discontinued ACETAMINOPHEN (C HILDREN'S TYLENOL ORAL) Indications: Chronic daily headache , Learning difficulty Take by mouth. 0 Active Comment on above: Take by mouth. pediatric multivitamin plus minerals with iron chewable (CEROVITE JR) chewable tablet (2 sources) End: 07-19-2023 take 1 tablet by mouth once daily pediatric multivitamin plus minerals with iron chewable (CEROVITE JR) chewable tablet Indications: Chronic daily headache , Learning difficulty Take 1 tablet by mouth once daily. 0 07/19/2023 Discontinued take 1 tablet by mouth once vahe y pediatric multivitamin plus minerals with iron chewable [...] Resolved: 07-15-2021 Episodic Acute and chronic tonsillitis (3 sources) Hypertrophy of adenoids; Translations: [Hypertrophy of adenoids] Onset: 07-23-2008 07-23-2008 Chronic Anxiety disorders (18 sources) Generalized anxiety disorder; Translations: [Generalized anxiety disorder] Onset: 10-20-2016 08-30-2022 Chronic Asthma (1 source) Unspecified asthma, uncomplicated; Translations: [UNSPECIFIED ASTHMA UNCOMPLICATED] Onset: 07-28-2021 Chronic Attention-deficit, conduct, and disruptive behavior disorders (17 sources) Attention deficit hyperactivity disorder; Translations: [Attention deficit disorder with hyperactivity] Onset: 05-17-2011 05-17-2011 Chronic Attention-deficit, conduct, and disruptive behavior disorders (3 sources) Attention deficit hyperactivity disorder, predominantly inattentive type; Translations: [Attention-deficit hyperactivity disorder, predominantly inattentive type] Onset: 08-30-2022 08-30-2022 Chronic Attention-deficit, conduct, and disruptive behavior disorders (1 source) Attention-deficit hyperactivity disorder, unspecified type; Translations: [Attention-deficit hyperactivity disorder, unspecified type] Onset: 10-20-2016 Chronic Attention-deficit, conduct, and disruptive behavior disorders (1 source) Attention-deficit hyperactivity disorder, predominantly inattentive type; Translations: [Attention-deficit hyperactivity disorder, predominantly inattentive type] Onset: 10-20-2016 Chronic Developmental disorders (3 sources) Learning difficulties; Translations: [Developmental disorder of scholastic skills, unspecified] Onset: 12-15-2010 12-15-2010 Chronic Fever of unknown origin (4 sources) Fever, unspecified; Translations: [FEVER UNSPECIFIED] Onset: 08-29-2021 Episodic Headache; including migraine (13 sources) Migraine without aura, not refractory ; Translations: [Migraine without aura, not intractable, without status migrainosus] Onset: 08-30-2022 08-08-2023 Chronic Immunity disorders (8 sources) Hypogammaglobulinemi a; 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] Onset: 08-30-2022 08-30-2022 Chronic Malaise and fatigue (19 sources) Chronic fatigue syndrome; Translations: [Chronic fatigue syndrome] Onset: 07-15-2021 Chronic Malaise and fatigue (3 sources) Other fatigue; Translations: [Fatigue] Onset: 03-23-2021 01-10-2024 Episodic Nutritional deficiencies (3 sources) Vitamin D deficiency; Translations: [Vitamin D deficiency, unspecified] Onset: 08-30-2022 08-30-2022 Chronic Other lower respiratory disease (2 sources) Cough; Translations: [Acute cough] 11-16-2023 Episodic Other nervous system disorders (1 source) Sleep-wake schedule disorder, delayed phase type; Translations: [Circadian rhythm sleep disorder, delayed sleep phase type] 12-05-2023 Chronic Other skin disorders (1 source) Generalized hyperhidrosis; Translations: [Generalized hyperhidrosis] Onset: 01-03-2024 Episodic Other upper respiratory disease (1 source) Chronic rhinitis; Translations: [Chronic rhinitis] Chronic Other upper respiratory disease (2 sources) Other specified disorders of nose and nasal sinuses; Translations: [Other disease of nasal cavity and sinuses] 11-16-2023 Episodic Other upper respiratory infections (16 sources) Recurrent sinusitis; Translations: [Chronic sinusitis, unspecified] Onset: 06-03-2021 08-30-2022 Chronic Residual codes; unclassified (1 source) Sleep apnea Onset: 07-03-2023 Chronic Residual codes; unclassified (4 sources) Idiopathic hypersomnia with long sleep time; Translations: [Idiopathic hypersomnia associated with long sleep time] Onset: 07-03-2023 07-03-2023 Chronic Residual codes; unclassified (1 source) Idiopathic hypersomnia with long sleep time; Translations: [Idiopathic hypersomnia with long sleep time] Onset: 2023 Chronic Residual codes; unclassified (9 sources) Daytime somnolence; Translations: [Other hypersomnia] Onset: 08-30-2022 08-30-2022 Chronic Residual codes; unclassified (10 sources) Hypersomnia; Translations: [Hypersomnia, unspecified] Onset: 08-30-2022 08-30-2022 Chronic Residual codes; unclassified (11 sources) Obstructive sleep apnea syndrome; Translations: [Obstructive sleep apnea (adult) (pediatric)] Onset: 11-21-2022 11-21-2022 Chronic Residual codes; unclassified (1 source) Hypersomnia, unspecified; Translations: [Hypersomnia, unspecified] Onset: 11-09-2023 Chronic Residual codes; unclassified (1 source) Other hypersomnia; Translations: [Other hypersomnia] Onset: 11-09-2023 Chronic Unclassified (2 sources) COUGH, UNSPECIFIED; Translations: [...] FALL STEP HOLE INIT] Onset: 07-28-2021 Episodic Headache; including migraine (12 sources) Headache; Translations: [Nonintractable episodic headache, unspecified headache type] Onset: 04-07-2009 Episodic Mood disorders (1 source) Mood disorders Onset: 02-16-2024 02-16-2024 Other acquired deformities (3 sources) Acquired deformity of foot; Translations: [Unspecified acquired deformity of unspecified lower leg] Onset: 08-30-2022 08-30-2022 Episodic Other aftercare (1 source) Other custodial (current) drug therapy; Translations: [OTH WAX BLENDER CURRENT DRUG THERAPY] Onset: 07-28-2021 Episodic Other ear and sense organ disorders (4 sources) Otalgia, left ear; Translations: [OTALGIA LEFT EAR] Onset: 06-01-2021 Episodic Other ear and sense organ disorders (1 source) Ear problem Onset: 06-22-2023 Episodic Other gastrointestinal disorders (2 sources) Diarrhea, unspecified Onset: 07-15-2021 Resolved: 07-15-2021 Episodic Other injuries and conditions due to external causes (3 sources) Unspecified injury of left ankle, initial encounter; Translations: [UNSPECIFIED INJURY LT ANKLE INITIAL] Onset: 07-27-2021 Episodic Other nervous system disorders (1 source) Personal history of other diseases of the nervous system and sense organs; Translations: [Personal history of other diseases of the nervous system and sense organs] Onset: 06-22-2023 Episodic Other nervous system disorders (2 sources) History of perforated tympanic membrane; Translations: [Personal history of other diseases of the nervous system and sense organs] 06-22-2023 Episodic Other skin disorders (1 source) Night sweats; Translations: [Generalized hyperhidrosis] 01-03-2024 Episodic Other upper respiratory disease (1 source) Nasal congestion; Translations: [NASAL CONGESTION] Onset: 03-23-2021 Episodic Otitis media and related conditions (19 sources) Unspecified perforation of tympanic membrane, left ear; Translations: [Acute secretory otitis media] Onset: 06-02-2021 11-16-2023 Episodic Residual codes; unclassified (1 source) Other specified health status; Translations: [Other specified conditions influencing health status] 12-05-2023 Episodic Sprains and strains (1 source) Sprain of unspecified ligament of left ankle, initial encounter; Translations: [SPRAIN UNS LIGAMENT LT ANKLE INIT] Onset: 07-28-2021 Episodic Unclassified (1 source) COUGH, UNSPECIFIED; Translations: [COUGH, UNSPECIFIED] Onset: 02-16-2022 Unclassified (1 source) CONTACT W/AND (SUSP) EXPOS COVID-19; Translations: [CONTACT W/AND (SUSP) EXPOS COVID-19] Onset: 03-19-2021 Results Test Name Value Interpretation Reference Range Facility B. burgdorferi IgG+IgM Qn (S )on 01-24-2024 LYME TOTAL <0.2 Normal <0.9 [facility] Comment on above: Result Comment: Interpretation-------- <0.9 Negative 0.9 - 1.0 Equivocal >1.0 Positive No serological evidence of Borrelia infection.A non-reactive result does not exclude the possibility of Borrelia infection and cannot exclude early infection with B.burgdorferi. If Lyme borreliosis is suspected, a second sample should be collected and tested 2-4 weeks later. Performed By: #### 3 4148-7 #### [facility] ([id number]) [address] [place] [address], [address] [place] [address] #### 62851-1, 13319-9, 03778-4 #### [facility] ([id number]) [address] [place] [address] Lactate (P trevor) [Moles/Vol]o n 01-24-2024 Lactate [Moles/Vol] 0.7 mmol/L Normal 0.4-2.0 [facility] Comment on above: Performed By: #### 3 2133-1 #### [facility] ([id number]) [address] [place] [address] MG/LEMS Evaluation, Son 11-2 38 0.00 nmol/L Normal <=0.02 [facility] Comment on above: Result Comment: NOTE ADDITIONAL INFORMATION This test was developed and its performance characteristics determined by [facility] in a manner consistent with CLIA requirements. This test has not been cleared or approved by the U.S. Food and Drug Administration. Performed By: #### 3 4148-7 #### [facility] ([id number]) [address] [place] [address], [address] [place] [address] #### 23706-5, 58768-7, 98935-1 #### [facility] ([id number]) [address] [place] [address] MG Lambert-Eaton Interpretation See Note Normal [facility] Comment on above: Result Comment: NOTE No informative autoantibodies were detected. A negative result does not exclude the diagnosis of an autoimmune neuromuscular junction disorder. Performed By: #### 3 4148-7 #### [facility] ([id number]) [address] [place] [address], [address] [place] [address] #### 13216-3, 43979-1, 79864-8 #### [facility] ([id number]) [address] [place] [address] P/Q-Type Calcium Channel Ab 0.00 nmol/L Normal <=0.02 [facility] Comment on above: Result Comment: NOTE ADDITIONAL INFORMATION This test was developed and its performance characteristics determined by [facility] in a manner consistent with CLIA requirements. This test has not been cleared or approved by the U.S. Food and Drug Administration. Test Performed by: [address] [address] Guard Rail Installer: Jak Mercedes Ph.D.; CLIA# [id number] Performed By: #### 3 4148-7 #### [facility] ([id number]) [address] [address] [facility], [address] [place] [address] #### 10612-1, 52654-5, 64097-6 #### [facility] ([id number]) [address] [facility] [facility] [place] [address] MR BRAIN W WO CONTon 024 MR BRAIN W WO CONT MR BRAIN W WO CONT MR BRAIN W WO CONT 01/24/2024 7:32 AM INDICATION: Migraine without aura and without status migrainosus, not intractable; Chronic fatigue; Hypersomnia COMPARISON: CT sinuses 04/23/18 TECHNIQUE: Multiplanar multisequence MR images of the brain were obtained with and without intravenous contrast. FINDINGS: No acute intracranial ischemia, mass effect, shift of midline structures, or abnormal extra-axial fluid collection. No acute intracranial hemorrhage or parenchymal enhancing lesions. Brain volume is normal. Ventricular system size and morphology are normal, basal cisterns are patent. Major intracranial flow voids are preserved. Orbits are symmetric. Paranasal sinuses are well-aerated. Mastoid air cells are clear. IMPRESSION: Normal MRI of the brain. IGerard MD have personally reviewed the image(s) and agree with and/or edited the report Finalized by Gerard Dixon MD on 01/24/2024 10:41 AM Normal [facility] Muscle specific receptor tyr osine kinase Ab (S) [Moles/Vol]on 01-24-2024 MuSK Autoantibody, S 0.00 nmol/L Normal 0.00-0.02 [facility] Comment on above: Result Comment: NOTE ADDITIONAL INFORMATION This test was developed using an analyte specific reagent. Its performance characteristics were determined by [facility] in a manner consistent with CLIA requirements. This test has not been cleared or approved by the U.S. Food and Drug Administration. Test Performed by: [facility] - [address] [address] Guard Rail Installer: Jak Mercedes Ph.D.; CLIA# [id number] Performed By: #### 3 4148-7 #### [facility] ([id number]) [id number], [address] [place] [address] #### 84790-8, 31519-5, 14201-0 #### [facility] ([id number]) [address] [place] [address] Pyruvate (Bld) [Moles/Vol]on 01-24-2024 PYRUVIC ACID SEE COMMENTS 024 01:12 PM Normal [facility] Comment on above: Result Comment: NOTE Test Result Flag Unit RefValue Pyruvic Acid, B 0.10 mmol/L 0.08-0.16 Pyruvic Acid, B 0.9 mg/dL 0.7-1.4 ADDITIONAL INFORMATION This test was developed and its performance characteristics determined by [facility] in a manner consistent with CLIA requirements. This test has not been cleared or approved by the U.S. Food and Drug Administration. Test Performed by: [facility] - [address] [address] Guard Rail Installer: Jak Mercedes Ph.D.; CLIA# [id number] Performed By: #### 3 4148-7 #### [facility] ([id number]) [address] [place] [address], [address] [place] [address] #### 92713-1, 60029-9, 03885-3 #### [facility] ([id number]) [address] [facility], [place] [address] Rafael 07-25-2023 EVELYN Telephone (NIQ) SPIKESELVIN Baldemar ([id number]) 1 M Date Time Provider Department 07/25/23 JOSE BROWNING NIQ During your visit today, we recorded the following information about you: Rin Coats 07/25/2023 12:54 PM Signed Pt mother phoned following up on rx for effexor with dose change that was discussed at OV on 07/18. Rx has not been sent to pharmacy [address] in [facility]. Please advise Pt mother phone # [phone] Allergies As of Date: 07/25/2023 Noted Allergy Reaction CODEINE 06/20/2008 Date Reviewed: 07/19/2023 Reviewed by: Jacklyn Elena MA - Fully Assessed Reason for Visit: Medication Question [7098] Prescriptions as of 08/16/2023 - venlafaxine ER (EFFEXOR XR) 75 mg 24 hr capsule Take 1 capsule by mouth once daily. - ibuprofen (MOTRIN) 600 mg tablet Take 1 tablet by mouth four times a day as needed. - ondansetron (ZOFRAN) 4 mg tablet take 1 tablet by mouth every 6 hours if needed for nausea or vomiting - sodium,calcium,mag,pot oxybate (XYWAV) 0.5 gram/mL soln oral liquid Take 0.6 g by mouth at bedtime and 4 hours after. - cholecalciferol (VITAMIN D3) 1,000 unit tab tablet Take 1 tablet by mouth. - methylphenidate ER (METADATE CD) 10 mg CD capsule Take 10 mg by mouth once daily. - FLUTICASONE PROPIONATE (FLONASE NASAL) Use in the nose. Meds Comments as of 05/17/2010: Pt finished an antibiotic about two weeks ago,pt is also taking over the counter allergy medication as needed 05/17/10 Problem List As Of Date 07/25/2023 Noted Resolved HYPERTROPHY ADENOIDS [J35.2] 07/23/2008 Chronic Daily Headache [R51.9] 04/07/2009 Learning difficulty [F81.9] 12/15/2010 Headache [R51] 05/17/2011 ADD (attention deficit disorder with hyperactiv*05/17/2011 Encounter Status:Closed by RIN COATS on 08/16/23 [facility] CNOVon 07-19-2023 CNOV Office Visit (NEADFV ) YRNSELVIN Brown ([id number]) 1 Date Time Provider Department 07/19/23 11:00 AM JOSE BROWNING NEADFV During your visit today, we recorded the following information about you: Temperature Pulse Blood pressure Weight 98.5 degrees 84/minute 128/99 54.9 kg Height 1.727 m Jose Browning MD 08/08/2023 6:50 AM Signed 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 Brain imaging: none as per patient. INITIAL CONSULT - HEADACHE MEDICINE SERVICE DATE: 07/19/2023 Location: [facility] Participants: Patient, mother and Provider Requesting Provider: Member Name Role and Specialty Contact Info Address Comments Janina Corral MD Referring [address] [facility] [address] - Recommendations of care will be communicated by shared medical record. Subjective HPI: Selvin Butler is a 18 year old year old male with a chief complaint of headache. Headache Description: Associated symptoms: Prior Treatments: Fioricet Outpatient Medications as of 07/19/2023 Medication Sig ibuprofen (MOTRIN) 600 mg tablet Take 1 tablet by mouth four times a day as needed. ondansetron (ZOFRAN) 4 mg tablet take 1 tablet by mouth every 6 hours if needed for nausea or vomiting venlafaxine ER (EFFEXOR XR) 37.5 mg 24 hr capsule 37.5 mg. cholecalciferol (VITAMIN D3) 1,000 unit tab tablet Take 1 tablet by mouth. methylphenidate ER (METADATE CD) 10 mg CD capsule Take 10 mg by mouth once daily. FLUTICASONE PROPIONATE (FLONASE NASAL) Use in the nose. No current facility-administered medications on file as of 07/19/2023. Current medications review: Effexor 37.5 mg for ELIAZAR PAST MEDICAL HISTORY Diagnosis Date Ear infection Sinus infection ALLERGIES Allergen Reactions Codeine Chart/data review: Social History Tobacco Use Smoking status: Never Smokeless tobacco: Never No family history on file. Review of systems: GENERAL: no fevers or irritability. HEENT:no nose bleeds or other nasal problems. NECK: Negative for stiffness, lumps or significant neck swelling RESPIRATORY: Negative for cough, wheezing or respiratory distress. CARDIOVASCULAR: Negative for chest pain, syncope, lightheadness or heart racing. GI: Negative for abdominal discomfort, blood in stools or black stools or change in bowel habits : No history of dysuria, frequency or incontinence MUSCULOSKELETAL: Negative for joint pain or swelling, back pain or muscle pain. SKIN: Negative for lesions, rash, and itching. NEURO: See HPI PHYSICAL EXAM: Vitals: BP 128/99 Pulse 84 Temp 36.9 ?C (98.5 ?F) Ht 172.7 cm (5' 8 ) Wt 54.9 kg (121 lb) SpO2 99% BMI 18.40 kg/m? Mental Status: alert, oriented to person, place and time and follows commands. Funduscopic exam: no papilledema, flat disc Cranial Nerves: CNII: visual chao full to confrontation CNIII, IV, : Pupils equal, round and reactive to light, full extraocular movements without nystagmus CN V: Facial sensation intact bilaterally to fine touch CN VII: Facial muscles symmetric and strong CN VIII: Hears finger rub well bilaterally CN IX: Gag Reflex Intact CN X: Palate elevates symmetrically CN XI: Full strength shoulder shrug bilaterally CN XII: Tongue protrusion full and midline Motor Exam: Tone is normal throughout, normal bulk, no muscle atrophy. 5/5 strength throughout, no drift in upper and lower extremities. Reflexes: symmetric bilaterally Sensation: Intact to light touch in upper and lower extremities. Coordination: finger-to- nose intact bilaterally. Gait: Patient's gait is normal. ASSESSMENT: - 75 mg Jose Browning MD [facility] [place] Referring Provider: ELLIS BOSSMAN [[id number]] Allergies As of Date: 07/19/2023 Noted Allergy Reaction CODEINE 06/20/2008 Date Reviewed: 07/19/2023 Reviewed by: Jacklyn Elena MA - Fully Assessed Reason for Visit: New Patient [172] Headaches [3461] Cmt: 2 x 3 headaches wk Primary Visit Diagnosis:Migraine without aura and without status migrainosus, not intractable [G43.009] Order(s):venlafaxine ER (EFFEXOR XR) 75 mg 24 hr capsuleTake 1 capsule by mouth once daily.Disp: 30 capsuleRfl: 5 Prescriptions as of 08/08/2023 - venlafaxine ER (EFFEXOR XR) 75 mg 24 hr capsule Take 1 capsule by mouth once daily. - ibuprofen (MOTRIN) 600 mg tablet Take 1 tablet by mouth four times a day as needed. - ondansetron (ZOFRAN) 4 mg tablet take 1 tablet by mouth every 6 hours if needed for nausea or vomiting - sodium,calcium,mag,pot oxybate (XYWAV) 0.5 gram/mL soln oral liquid Take 0.6 g by mouth at bedtime and 4 hours after (more content not included)... Normal [facility] CBC AUTO DIFFon 02-16-2022 BASO # 0.0 103/ul Normal 0.0-0.1 [facility] Comment on above: Performed By: #### C BC #### [facility] [address] [place], [place] [address] Dr. Jennifer Durant Basophils/100 WBC (Bld) 0.4 % Normal 0.2-2.0 [facility] Comment on above: Performed By: #### C BC #### [facility] [address] [place], [place] [address] Dr. Jennifer Durant EO # 0.0 103/ul Normal 0.0-0.7 [facility] Comment on above: Performed By: #### C BC #### [facility] [address] [place] [address] Dr. Jennifer Durant Eosinophils/100 WBC (Bld) 0.1 % Critically low 0.9-7.0 [facility] Comment on above: Performed By: #### C BC #### [facility] [address] [place] [address] Dr. Jennifer Durant Erythrocyte distribution width (RBC) [Ratio] 11.6 % Normal 11.0-15.0 [facility] Comment on above: Performed By: #### C BC #### [facility] [address] [place] [address] Dr. Jennifer Durant Hematocrit (Bld) [Volume fraction] 39.8 % Critically low 42.0-54.0 [facility] Comment on above: Performed By: #### C BC #### [facility] [address] [place] [address] Dr. Jennifer Durant Hemoglobin (Bld) [Mass/Vol] 14.2 g/dL Normal 14.0-18.0 [facility] Comment on above: Performed By: #### C BC #### [facility] [address] [place] [address] Dr. Jennifer Durant IG # 0.01 10e3/ul Normal 0.00-0.03 [facility] Comment on above: Performed By: #### C BC #### [facility] [address] [place] [address] Dr. Jennifer Durant IG % 0.1 % Normal 0.0-0.5 [facility] Comment on above: Performed By: #### C BC #### [facility] [address] [place] [address] Dr. Jennifer Durant LYMPH # 0.8 103/ul Critically low 1.2-3.8 [facility] Comment on above: Performed By: #### C BC #### [facility] [address] [place] [address] Dr. Jennifer Durant Lymphocytes/100 WBC (Bld) 7.3 % Critically low 20.5-60.0 [facility] Comment on above: Performed By: #### C BC #### [facility] [address] [place] [address] Dr. Jennifer Durant MANUAL DIFF REQ NO Normal [facility] Comment on above: Performed By: #### C BC #### [facility] [address] [place] [address] Dr. Jennifer Durant MCH (RBC) [Entitic mass] 32.1 pg Normal 25.9-34.0 [facility] Comment on above: Performed By: #### C BC #### [facility] [address] [place] [address] Dr. Jennifer Durant MCHC (RBC) [Mass/Vol] 35.7 g/dL Critically high 29.9-35.2 [facility] Comment on above: Performed By: #### C BC #### [facility] [address] [place] [address] Dr. Jennifer Durant MCV (RBC) [Entitic vol] 89.8 fL Normal 80.0-94.0 [facility] Comment on above: Performed By: #### C BC #### [facility] [address] [place] [address] Dr. Jennifer Durant MONO # 1.5 103/ul Critically high 0.3-0.8 [facility] Comment on above: Performed By: #### C BC #### [facility] [address] [place] [address] Dr. Jennifer Durant Monocytes/100 WBC (Bld) 14.0 % Critically high 1.7-12.0 [facility] Comment on above: Performed By: #### C BC #### [facility] [address] [place] [address] Dr. Jennifer Durant NEUT # 8.3 103/ul Critically high 1.4-6.5 [facility] Comment on above: Performed By: #### C BC #### [facility] [address] [place] [address] Dr. Jennifer Durant Neutrophils/100 WBC (Bld) 78.1 % Critically high 43.0-75.0 [facility] Comment on above: Performed By: #### C BC #### [facility] [address] [place] [address] [address] Jennifer Durant Platelet mean volume (Bld) [Entitic vol] 9.8 fL Normal 9.5-13.5 [facility] Comment on above: Performed By: #### C BC #### [facility] [address] [place] [address] [address] Jennifer Durant PLT 216 103/ul Normal 150-450 [facility] Comment on above: Performed By: #### C BC #### [facility] [address] [address] [address] Jennifer Durant RBC 4.43 106/ul Critically low 4.70-6.10 [facility] Comment on above: Performed By: #### C BC #### [facility] [address] [place] [address] Dr. Jennifer Durant WBC 10.6 103/ul Normal 4.0-11.0 [facility] Comment on above: Performed By: #### C BC #### [facility] [address] [place] [address] Dr. Jennifer Durant Covid-19 PCR ([facility])on 02-03 SARS-CoV-2 (COVID-19) RNA NUPUR+probe Ql (Unsp spec) Not detected Normal NOT DETECTED [facility] Comment on above: Result Comment: This test is not yet approved or cleared by the [place] FDA. When there are no FDA-approved or cleared tests available, and other criteria are met, FDA can make tests available under an emergency access mechanism called an Emergency Use Authorization (EUA). The EUA for this test is supported by the [employer] of Health and Human Service's (HHS's) declaration [...] SARS-CoV-2. Performed By: #### C VDTB #### [facility] [address] [place] [address] Dr. Jennifer Durant ER URINE PROFILEon 2 Bilirubin Ql (U) Negative Normal NEGATIVE [facility] Comment on above: Performed By: #### E RUR #### [facility] [address] [place] [address] Dr. Jennifer Durant Clarity (U) CLEAR Normal CLEAR [facility] Comment on above: Performed By: #### E RUR #### [facility] [address] [place] [address] Dr. Jennifer Durant Color (U) YELLOW Normal YELLOW [facility] Comment on above: Performed By: #### E RUR #### [facility] [address] [place] [address] Dr. Jennifer Durant ERUAHD A micrscopic examina tion will be performed if indicated. Normal [facility] Comment on above: Performed By: #### E RUR #### [facility] [address] [place] [address] Dr. Jennifer Durant Glucose Ql (U) Negative Normal NEGATIVE [facility] Comment on above: Performed By: #### E RUR #### [facility] [address] [place] [address] Dr. Jennifer Durant Hemoglobin Ql (U) Negative Normal NEGATIVE [facility] Comment on above: Performed By: #### E RUR #### [facility] [address] [place] [address] Dr. Jennifer Durant Ketones Ql (U) 15 mg/dl Abnormal NEGATIVE [facility] Comment on above: Performed By: #### E RUR #### [facility] [address] [place] [address] Dr. Jennifer Durant LEUKOCYTES Negative Normal NEGATIVE [facility] Comment on above: Performed By: #### E RUR #### [facility] [address] [place] [address] Dr. Jennifer Durant Nitrite Ql (U) Negative Normal NEGATIVE [facility] Comment on above: Performed By: #### E RUR #### [facility] [address] [place] [address] Dr. Jennifer Durant pH (U) 6.5 [pH] Normal 5-9 [facility] Comment on above: Performed By: #### E RUR #### [facility] [address] [place] [address] Dr. Jennifer Durant SPEC GRAVITY 1.020 Normal 1.005-<=1.0 25 [facility] Comment on above: Performed By: #### E RUR #### [facility] [address] [place] [address] Dr. Jennifer Durant UA PROTEIN TRACE Normal NEGATIVE/ TRACE [facility] Comment on above: Performed By: #### E RUR #### [facility] [address] [place] [address] Dr. Jennifer uDrant UR MICRO IND NOT INDICATED Normal [facility] Comment on above: Performed By: #### E RUR #### [facility] [address] [place] [address] Dr. Jennifer Durant Urobilinogen Qn (U) 1.0 {Filiberto'U}/dL Normal 0.2 - 1.0 [facility] Comment on above: Performed By: #### E RUR #### [facility] [address] [place] [address] Dr. Jennifer Durant GROUP A STREP CULTUREon 02-03 S. pyogenes Ag Ql (Unsp spec) Culture Observations: NEGATIVE FOR GROUP A STREPTOCOCCUS. Normal [facility] Comment on above: Performed By: #### I NFLUAB, RSV #### [facility] [address] [place] [address] Dr. Jennifer Durant INFLUENZA A AND B AGon 02-16 INFLUENZA A AG Negative Normal NEGATIVE SEE COMMENT [facility] Comment on above: Performed By: #### I NFLUAB, RSV #### [facility] [address] [place] [address] Dr. Jennifer Durant INFLUENZA B AG Negative Normal NEGATIVE SEE COMMENT [facility] Comment on above: Performed By: #### I NFLUAB, RSV #### [facility] [address] [address] [address] Jennifer Durant INTERNAL CONTROLS Within Normal Limits Normal Wi thin Normal Limits [facility] Comment on above: Performed By: #### I NFLUAB, RSV #### [facility] [address] [address] [address] Jennifer Durant PROF CHEM 8 (BAS METB)on Anion gap [Moles/Vol] 12.1 mmol/L Normal [facility] Comment on above: Performed By: #### B MP #### [facility] [address] [place] [address] Dr. Jennifer Durant Calcium [Mass/Vol] 9.1 mg/dL Normal 8.5-10.1 [facility] Comment on above: Performed By: #### B MP #### [facility] [address] [place] [address] Dr. Jennifer Durant Chloride [Moles/Vol] 101 mmol/L Normal 98-107 [facility] Comment on above: Performed By: #### B MP #### [facility] [address] [address] [address] Jennifer Durant CO2 [Moles/Vol] 26.5 mmol/L Normal 21.0-32.0 [facility] Comment on above: Performed By: #### B MP #### [facility] [address] [address] [address] Jennifer Durant Creatinine [Mass/Vol] 1.03 mg/dL Normal 0.70-1.30 [facility] Comment on above: Performed By: #### B MP #### [facility] [address] [place] [address] Dr. Jennifer Durant EGFR-AF MACANESE >60 Normal >=60 [facility] Comment on above: Performed By: #### B MP #### [facility] [address] [address] [address] Jennifer Durant EGFR-NON AF MACANESE >60 Normal >=60 [facility] Comment on above: Performed By: #### B MP #### [facility] [address] [place] [address] [address] Jennifer Durant Glucose [Mass/Vol] 100 mg/dL Normal 74-106 [facility] Comment on above: Performed By: #### B MP #### [facility] [address] [place] [address] [address] Jennifer Durant Potassium [Moles/Vol] 3.6 mmol/L Normal 3.5-5.1 [facility] Comment on above: Performed By: #### B MP #### [facility] [address] [address] [address] Jennifer Durant Sodium [Moles/Vol] 136 mmol/L Normal 136-145 [facility] Comment on above: Performed By: #### B MP #### [facility] [address] [address] [address] Jennifer Durant Urea nitrogen [Mass/Vol] 17.0 mg/dL Normal 6.4-19.3 [facility] Comment on above: Performed By: #### B MP #### [facility] [address] [place] [address] [address] Jennifer Druant Urea nitrogen/Creatini ne [Mass ratio] 16.5 mg/mg Normal [facility] Comment on above: Performed By: #### B MP #### [facility] [address] [place] [address] [address] Jennifer Durant RSVon 02-16-2022 RSV AG Negative Normal NEGATIVE [facility] Comment on above: Performed By: #### I NFLUAB, RSV #### [facility] [address] [place] [address] [address] Jennifer Durant STREPT SCREENon 02-16-2022 STREP SCREEN A Negative Normal NEGATIVE [facility] Comment on above: Performed By: #### I NFLUAB, RSV #### [facility] [address] [place] [address] Dr. Jennifer Durant XR CHEST 1 Von [...] LEISA DSOUZA Date: 2022-02-16 02:42 Normal [facility] CBC AUTO DIFFon 08-29-2021 BASO # 0.0 103/ul Normal 0.0-0.1 [facility] Comment on above: Performed By: #### I NFLUAB, RSV #### [facility] [address] [place] [address] Dr. Jennifer Durant Basophils/100 WBC (Bld) 0.4 % Normal 0.2-2.0 [facility] Comment on above: Performed By: #### I NFLUAB, RSV #### [facility] [address] [place] [address] Dr. Jennifer Durant EO # 0.0 103/ul Normal 0.0-0.7 [facility] Comment on above: Performed By: #### I NFLUAB, RSV #### [facility] [address] [place] [address] Dr. Jennifer Durant Eosinophils/100 WBC (Bld) 0.2 % Critically low 0.9-7.0 [facility] Comment on above: Performed By: #### I NFLUAB, RSV #### [facility] [address] [place] [address] Dr. Jennifer Durant Erythrocyte distribution width (RBC) [Ratio] 11.8 % Normal 11.0-15.0 [facility] Comment on above: Performed By: #### I NFLUAB, RSV #### [facility] [address] [place] [address] Dr. Jennifer Durant Hematocrit (Bld) [Volume fraction] 42.2 % Normal 42.0-54.0 [facility] Comment on above: Performed By: #### I NFLUAB, RSV #### [facility] [address] [place] [address] [address] Jennifer Durant Hemoglobin (Bld) [Mass/Vol] 14.8 g/dL Normal 14.0-18.0 [facility] Comment on above: Performed By: #### I NFLUAB, RSV #### [facility] [address] [place] [address] Dr. Jennifer Durant IG # 0.02 10e3/ul Normal 0.00-0.03 [facility] Comment on above: Performed By: #### I NFLUAB, RSV #### [facility] [address] [place] [address] Dr. Jennifer Durant IG % 0.4 % Normal 0.0-0.5 [facility] Comment on above: Performed By: #### I NFLUAB, RSV #### [facility] [address] [place] [address] Dr. Jennifer Durant LYMPH # 1.4 103/ul Normal 1.2-3.8 [facility] Comment on above: Performed By: #### I NFLUAB, RSV #### [facility] [address] [place] [address] Dr. Jennifer Durant Lymphocytes/100 WBC (Bld) 27.8 % Normal 20.5-60.0 [facility] Comment on above: Performed By: #### I NFLUAB, RSV #### [facility] [address] [place] [address] Dr. Jennifer Durant MANUAL DIFF REQ NO Normal [facility] Comment on above: Performed By: #### I NFLUAB, RSV #### [facility] [address] [place] [address] Dr. Jennifer Durant MCH (RBC) [Entitic mass] 32.6 pg Normal 25.9-34.0 [facility] Comment on above: Performed By: #### I NFLUAB, RSV #### [facility] [address] [place] [address] Dr. Jennifer Durant MCHC (RBC) [Mass/Vol] 35.1 g/dL Normal 29.9-35.2 [facility] Comment on above: Performed By: #### I NFLUAB, RSV #### [facility] [address] [place] [address] Dr. Jennifer Durant MCV (RBC) [Entitic vol] 93.0 fL Normal 80.0-94.0 [facility] Comment on above: Performed By: #### I NFLUAB, RSV #### [facility] [address] [place] [address] Dr. Jennifer Durant MONO # 0.9 103/ul Critically high 0.3-0.8 [facility] Comment on above: Performed By: #### I NFLUAB, RSV #### [facility] [address] [place] [address] Dr. Jennifer Durant Monocytes/100 WBC (Bld) 17.5 % Critically high 1.7-12.0 [facility] Comment on above: Performed By: #### I NFLUAB, RSV #### [facility] [address] [place] [address] Dr. Jennifer Durant NEUT # 2.7 103/ul Normal 1.4-6.5 [facility] Comment on above: Performed By: #### I NFLUAB, RSV #### [facility] [address] [place] [address] Dr. Jennifer Durant Neutrophils/100 WBC (Bld) 53.7 % Normal 43.0-75.0 [facility] Comment on above: Performed By: #### I NFLUAB, RSV #### [facility] [address] [place] [address] Dr. Jennifer Durant Platelet mean volume (Bld) [Entitic vol] 10.7 fL Normal 9.5-13.5 [facility] Comment on above: Performed By: #### I NFLUAB, RSV #### [facility] [address] [place] [address] Dr. Jennifer Durant PLT 192 103/ul Normal 150-450 [facility] Comment on above: Performed By: #### I NFLUAB, RSV #### [facility] [address] [place] [address] Dr. Jennifer Durant RBC 4.54 106/ul Critically low 4.70-6.10 [facility] Comment on above: Performed By: #### I NFLUAB, RSV #### [facility] [address] [place] [address] Dr. Jennifer Durant WBC 5.1 103/ul Normal 4.0-11.0 [facility] Comment on above: Performed By: #### I NFLUAB, RSV #### [facility] [address] [address] [address] Jennifer Durant Covid-19 PCR ([facility])on 08-05 SARS-CoV-2 (COVID-19) RNA NUPUR+probe Ql (Unsp spec) Detected Critically abnormal NOT DETECTED [facility] Comment on above: Result Comment: This test is not yet approved or cleared by the [place] FDA. When there are no FDA-approved or cleared tests available, and other criteria are met, FDA can make tests available under an emergency access mechanism called an Emergency Use Authorization (EUA). The EUA for this test is supported by the [employer] of Health and Human Service's declaration that [...] Performed By: #### I NFLUAB, RSV #### [facility] [address] [address] [address] Jennifer Durant GROUP A STREP CULTUREon 08-05 S. pyogenes Ag Ql (Unsp spec) Culture Observations: NEGATIVE FOR GROUP A STREPTOCOCCUS. Normal [facility] Comment on above: Performed By: #### S SCRN, GRASTCX #### [facility] [address] [place] [address] Dr. Jennifer Durant INFLUENZA A AND B AGon 08-29 INFLUANEGH SEE BELOW Normal [facility] Comment on above: Result Comment: Nega tive for Flu A protein angiten. Infection due to Flu A cannot be ruled out. Flu A angiten in the sample may be below the detection limit of the test. Performed By: #### I NFLUAB, RSV #### [facility] [address] [place] [address] Dr. Jennifer Durant [facility] SEE BELOW Normal [facility] Comment on above: Result Comment: Nega tive for Flu B protein antigen. Infection due to Flu B cannot be ruled out. Flu B antigen in the sample may be below the detection limit of the test. Performed By: #### I NFLUAB, RSV #### [facility] [address] [place] [address] Dr. Jennifer Durant INFLUENZA A AG Negative Normal NEGATIVE SEE COMMENT [facility] Comment on above: Performed By: #### I NFLUAB, RSV #### [facility] [address] [place] [address] Dr. Jennifer Durant INFLUENZA B AG Negative Normal NEGATIVE SEE COMMENT [facility] Comment on above: Performed By: #### I NFLUAB, RSV #### [facility] [address] [place] [address] Dr. Jennifer Durant INTERNAL CONTROLS Within Normal Limits Normal Wi thin Normal Limits [facility] Comment on above: Performed By: #### I NFLUAB, RSV #### [facility] [address] [place] [address] Dr. Jennifer Durant MONOon 08-29-2021 Monocytes (Bld) [#/Vol] Negative Normal NEGATIVE [facility] Comment on above: Performed By: #### M JEANNIE #### [facility] [address] [place] [address] Dr. Jennifer Durant PROF 14(COMP METB)on 022 Albumin [Mass/Vol] 4.0 g/dL Normal 3.4-5.0 [facility] Comment on above: Performed By: #### C MP #### [facility] [address] [place] [address] Dr. Jennifer Durant Albumin/Globulin [Mass ratio] 1.3 {ratio} Normal [facility] Comment on above: Performed By: #### C MP #### [facility] [address] [place] [address] Dr. Jennifer Durant ALP [Catalytic activity/Vol] 74 U/L Normal 46-116 [facility] Comment on above: Performed By: #### C MP #### [facility] [address] [place] [address] Dr. Jennifer Durant ALT [Catalytic activity/Vol] 16 U/L Normal 16-63 [facility] Comment on above: Performed By: #### C MP #### [facility] [address] [place] [address] Dr. Jennifer Durant Anion gap [Moles/Vol] 10.0 mmol/L Normal [facility] Comment on above: Performed By: #### C MP #### [facility] [address] [place] [address] Dr. Jennifer Durant AST [Catalytic activity/Vol] 18 U/L Normal 15-37 [facility] Comment on above: Performed By: #### C MP #### [facility] [address] [place] [address] Dr. Jennifer Durant Bilirubin [Mass/Vol] 0.4 mg/dL Normal 0.2-1.0 [facility] Comment on above: Performed By: #### C MP #### [facility] [address] [place] [address] Dr. Jennifer Durant Calcium [Mass/Vol] 8.8 mg/dL Normal 8.5-10.1 [facility] Comment on above: Performed By: #### C MP #### [facility] [address] [place] [address] Dr. Jennifer Durant Chloride [Moles/Vol] 103 mmol/L Normal 98-107 [facility] Comment on above: Performed By: #### C MP #### [facility] [address] [place] [address] Dr. Jennifer Durant CO2 [Moles/Vol] 29.1 mmol/L Normal 21.0-32.0 [facility] Comment on above: Performed By: #### C MP #### [facility] [address] [place] [address] Dr. Jennifer Durant Creatinine [Mass/Vol] 0.94 mg/dL Normal 0.70-1.30 [facility] Comment on above: Performed By: #### C MP #### [facility] [address] [address] [address] Jennifer Durant EGFR-AF MACANESE >60 Normal >=60 [facility] Comment on above: Performed By: #### C MP #### [facility] [address] [address] [address] Jennifer Durant EGFR-NON AF MACANESE >60 Normal >=60 [facility] Comment on above: Performed By: #### C MP #### [facility] [address] [address] [address] Jennifer Durant Globulin (S) [Mass/Vol] 3.0 g/dL Normal [facility] Comment on above: Performed By: #### C MP #### [facility] [address] [address] [address] Jennifer Durant Glucose [Mass/Vol] 91 mg/dL Normal 74-106 [facility] Comment on above: Performed By: #### C MP #### [facility] [address] [address] [address] Jennifer Durant Potassium [Moles/Vol] 4.1 mmol/L Normal 3.5-5.1 [facility] Comment on above: Performed By: #### C MP #### [facility] [address] [address] [address] Jennifer Durant Protein [Mass/Vol] 7.0 g/dL Normal 6.4-8.2 [facility] Comment on above: Performed By: #### C MP #### [facility] [address] [address] [address] Jennifer Durant Sodium [Moles/Vol] 138 mmol/L Normal 136-145 [facility] Comment on above: Performed By: #### C MP #### [facility] [address] [address] [address] Jennifer Durant Urea nitrogen [Mass/Vol] 13.0 mg/dL Normal 6.4-19.3 [facility] Comment on above: Performed By: #### C MP #### [facility] [address] [place], [place] [address] Dr. Jennifer Durant Urea nitrogen/Creatini ne [Mass ratio] 13.8 mg/mg Normal [facility] Comment on above: Performed By: #### C MP #### [facility] [address] [place], [place] [address] Dr. Jennifer Durant STREPT SCREENon 08-29-2021 STREP SCREEN A Negative Normal NEGATIVE [facility] Comment on above: Performed By: #### S SCRN, GRASTCX #### [facility] [address] [place], [place] [address] Dr. Jennifer Durant XR CHEST 1 Von 08-29-2021 XR CHEST 1 V EXAM: XR CHEST 1 V COMPARISON: 01/05/2021 CLINICAL INDICATION: Fever. FINDINGS: The cardiomediastinal silhouette is within normal limits. No focal consolidation. No pleural effusion. No pneumothorax. IMPRESSION: No acute cardiopulmonary abnormality. Electronically authenticated by: BELEN COCHRAN Date: 2021-08-29 20:30 Normal [facility] Free T4on 08-06-2021 Free T4 [Mass/Vol] 1.13 ng/dL Normal 0.80-1.80 [facility] Comment on above: Performed By: #### 2 4653E, 52334B, LIP, CATHY, 59865V, 41837, 85380U, 13482C #### [facility] [address] [place] [address] Q - TESTOSTERONE,TOTAL,MALES (ADULT),IMMUNOASAYon 08-06-2021 TESTOSTERONE, TOTAL, MALES (ADULT), [place] 763 ng/dL Normal 250-827 [facility] Comment on above: Order Comment: [facility] performed at: QPT, [employer] [facility], [address] [facility], [address] [place] [address], [place], [address], Tallier: Vicente Dutton MD [facility] Date/Time: [id number] [facility] Results Received Date/Time: [id number] [facility] Reported Date/Time: Performed By: #### 8 [id number], 873 #### [facility] [address] [place] [address] Q - THYROID PEROXIDASE TPO A Bon 08-06-2021 THYROID PEROXIDASE ANTIBODIES 1 IU/mL Normal <9 [facility] Comment on above: Order Comment: [facility] performed at: [facility], [employer] [facility], [address], [address] [place], [address], Tallier: Vicente Dutton MD [facility] Date/Time: [id number] [facility] Results Received Date/Time: [facility] Reported Date/Time: Performed By: #### 8 0994R, 873 #### [facility] [address] [place] [address] TSHon 08-06-2021 TSH 1.460 uIU/mL Normal 0.400-4.500 [facility] Comment on above: Performed By: #### 2 4653E, 37563U, LIP, CATHY, 81803X, 50000, 50016Y, 59976N #### [facility] [address] [place] [address] Sigmoidoscopy or colonoscopy [PhenX]on 07-29-2021 [employer] Other MYNOR Antinuclear Antibodieson 07-27-2021 Antinuclear Abs, IFA Negative Normal . [facility] Comment on above: Order Comment: Reaso n for Exam Abdominal pain;Diarrhea Result Comment: Nega tive <1:80 Borderline 1:80 Positive >1:80 ICAP nomenclature: AC-0 For more information about Hep-2 cell patterns use ANApatterns.org, the official website for the International Consensus on Antinuclear Antibody (MYNOR) Patterns (ICAP). Performed at: - [facility] [address] [id number] Guard Rail Installer: Fredy Schwab PhD, Phone: [phone] PERFORMED BY: [facility] [address] [place] [address] PATHOLOGIST FRAME NAILER ISMA VALLEJO M.D. Performed By: #### C ELIAC, MYNOR #### [facility] , #### COVID-19 ASHELY, SOFIANEG, CRP #### [facility] [address] [id number] [facility] C-Reactive Proteinon 022 C-Reactive Protein 1.1 mg/dL High 0.0-1.0 mg/dL [employer] Other C-Reactive Protein 1.1 mg/dL High 0.0-1.0 [facility] Comment on above: Order Comment: Reaso n for Exam Abdominal pain;Diarrhea Result Comment: PERF ORMED BY: [facility] [address] [facility] [place] [address] PATHOLOGIST FRAME NAILER ISMA VALLEJO M.D. Performed By: #### C ELIAC, MYNOR #### [facility] , #### COVID-19 ASHELY, SOFIANEG, CRP #### [facility] [address] COVID-19 Antigenon 2 COVID-19 Antigen Reason [...] developed and its performance characteristic determined by [employer] and validated at [facility]. This test has not been FDA cleared [...] for SARS Antigen by [employer] PERFORMED BY: [place] [address] PATHOLOGIST FRAME NAILER ISMA VALLEJO M.D. [facility] Comment on above: Performed By: #### C ELIAC, MYNOR #### [facility] , #### COVID-19 ASHELY, SOFIANEG, CRP #### [facility] [address] [place] [address] SARS-CoV-2 (COVID-19) Ab IA Ql [employer] [facility] [employer] Other Celiacon 07-27-2021 Celiac 6 0-19 [facility] [employer] Other Celiac 2 0-19 [employer] [facility] [employer] Other Celiac <2 0-5 [employer] [facility] [employer] Other Celiac Negative Negative [employer] [facility] [employer] Other Celiac 192 mg/dL 90-386 mg/dL [employer] [facility] [employer] Other Deamidated Gliadin Abs, IgA 6 Normal 0-19 [facility] Comment on above: Order Comment: Reaso n for Exam Abdominal pain;Diarrhea Result Comment: Nega tive 0 - 19 Weak Positive 20 - 30 Moderate to Strong Positive >30 Performed By: #### C ELIAC, MYNOR #### [facility] , #### COVID-19 ASHELY, SOFIANEG, CRP #### [facility] [address] Deamidated Gliadin Abs, IgG 2 Normal 0-19 [facility] Comment on above: Order Comment: Reaso n for Exam Abdominal pain;Diarrhea Result Comment: Nega tive 0 - 19 Weak Positive 20 - 30 Moderate to Strong Positive >30 Performed By: #### C ELIAC, MYNOR #### [facility] , #### COVID-19 ASHELY, SOFIANEG, CRP #### [facility] [address] [place] [address] [place] Endomysial Antibody IgA Negative Normal Negative [facility] Comment on above: Order Comment: Reaso n for Exam Abdominal pain;Diarrhea Performed By: #### C ELIAC, MYNOR #### [facility] , #### COVID-19 ASHELY, SOFIANEG, CRP #### [facility] [address] [place] [address] [place] Immunoglobulin A, Qn, Serum 192 mg/dL Normal 90-386 [facility] Comment on above: Order Comment: Reaso n for Exam Abdominal pain;Diarrhea Result Comment: Perf ormed at: - [facility] [place] [address] Guard Rail Installer: Fredy Schwab PhD, Phone: [phone] Performed By: #### C ELIAC, MYNOR #### [facility] , #### COVID-19 ASHELY, SOFIANEG, CRP #### [address] T-Transglutaminas e (tTG) IgA <2 Normal 0-3 [facility] Comment on above: Order Comment: Reaso n for Exam Abdominal pain;Diarrhea Result Comment: Nega tive 0 - 3 Weak Positive 4 - 10 Positive >10 Tissue Transglutaminase (tTG) has been identified as the endomysial antigen. Studies have demonstr- ated that endomysial IgA antibodies have over 99% specificity for gluten sensitive enteropathy. Performed By: #### C ELIAC, MYNOR #### [facility] , #### COVID-19 ASHELY, SOFIANEG, CRP #### [facility] [address] [place] [address] [place] T-Transglutaminas e (tTG) IgG <2 Normal 0-5 [facility] Comment on above: Order Comment: Reaso n for Exam Abdominal pain;Diarrhea Result Comment: Nega tive 0 - 5 Weak Positive 6 - 9 Positive >9 Performed By: #### C ELIAC, MYNOR #### [facility] , #### COVID-19 ASHELY, SOFIANEG, CRP #### [facility] [address] Ashely Ag Negativeon 07-28-19 Ashely Ag Negative Negative Normal Negative [facility] Comment on above: Result Comment: This is a duplicate Ashely SARS Antigen (GUILLERMO) result to be used for statistical tracking purpose only. PERFORMED BY: [place] [address] PATHOLOGIST FRAME NAILER ISMA VALLEJO M.D. Performed By: #### C ELIAC, MYNOR #### [facility] , #### COVID-19 ASHELY, SOFIANEG, CRP #### [facility] [address] XR ANKLE LT MIN 3 Von [...] by: RAUL ROMERO Date: 2021-07-27 00:37 Normal [facility] US Abdomen Completeon 2021 US Abdomen Complete [...] Burch on 05/20/2021 0942 Normal [facility] XR Abdomen 2 Viewson 022 XR Abdomen 2 Views FINDINGS: Normal volume of stool throughout the colon, reduced volume compared to the prior x-ray one month earlier, April 14, 2021. No mass effect or free air. No biliary or urinary tract stones. Normal lung bases. Unremarkable skeletal structures. IMPRESSION: Normal Report reported and signed by Parminder Burch on 05/13/2021 1502 Normal [facility] Amylaseon 05-12-2021 Amylase [Catalytic activity/Vol] 34 U/L Normal 21-101 [facility] Comment on above: Order Comment: [facility] performed at: [facility] [employer] [facility], [address] [place] [address], [address] [place] [address], [address] [place] [address], Tallier: Vicente Dutton MD [facility] Date/Time: [id number] [facility] Results Received Date/Time: [facility] Reported Date/Time: FASTING: NO Performed By: #### 2 4653E, 97681M, LIP, CATHY, 70549P, 87117, 50047U, 05659F #### [facility] [address] [place] [address] Lipaseon 05-12-2021 Lipase [Catalytic activity/Vol] 26 U/L Normal 7-60 [facility] Comment on above: Order Comment: [facility] performed at: [employer] [facility], [address] [place] [address], [phone], Tallier: Vicente Dutton MD [facility] Date/Time: [id number] [facility] Received Date/Time: [facility] Reported Date/Time: FASTING: NO Performed By: #### 2 4653E, 39537N, LIP, CATHY, 02531K, 91072, 20893D, 54539Z #### [facility] [address] [place] [address] Q - Diptheria/Tetanus Abon 0 05-12-2021 DIPHTHERIA ANTITOXOID 2.94 IU/mL Normal [facility] Comment on above: Order Comment: [facility] performed at: [facility], [address], [place], [place], , Tallier: Clarence Payan M.D.,PhD [facility] Date/Time: [facility] [...] analytical performance characteristics have been determined by [employer] [place], [place]. It has not been cleared or approved by the U.S. Food and Drug Administration. This assay has been validated pursuant to the CLIA regulations and is used for clinical purposes. Performed By: #### 2 4653E, 52831M, LIP, CATHY, 57174U, 18313, 79776M, 95324B #### [facility] [address] [place] [address] TETANUS ANTITOXOID 1.16 IU/mL Normal [facility] Comment on above: Order Comment: [facility] performed at: [facility], [address], [place], [place], , Tallier: Clarence Payan M.D.,PhD [facility] Date/Time: [id number] [facility] Results Received Date/Time: [facility] Reported Date/Time: [...] analytical performance characteristics have been determined by [employer] [facility], [place], [place]. It has not been cleared or approved by the U.S. Food and Drug Administration. This assay has been validated pursuant to the CLIA regulations and is used for clinical purposes. Performed By: #### 2 4653E, 39984J, LIP, CATHY, 14421A, 86773, 46671K, 23632B #### [facility] [address] [place] [address] Q - IGA,SERUMon 05-12-2021 IMMUNOGLOBULIN A 180 mg/dL Normal 47-310 [facility] Comment on above: Order Comment: [facility] performed at: [employer] [facility], [address] [place] [address], [address] [place] [address], [address] [place] [address], Tallier: Vicente Dutton MD [facility] Date/Time: [facility] Results Received Date/Time: [facility] Reported Date/Time: FASTING: NO Performed By: #### 2 4653E, 03406P, LIP, CATHY, 35084V, 83449, 96583M, 75156V #### [facility] [address] [place] [address] Q - IGE,SERUMon 05-12-2021 IMMUNOGLOBULIN E 70 kU/L Normal [facility] Comment on above: Order Comment: [facility] performed at: [employer] [facility], [address] [place] [address], [address] [place] [address], [address] [place] [address], Tallier: Vicente Dutton MD [facility] Date/Time: [facility] Results Received Date/Time: [facility] Reported Date/Time: FASTING: NO Performed By: #### 2 4653E, 33794O, LIP, CATHY, 89415D, 71766, 84469D, 51152M #### [facility] [address] [place] [address] Q - IGG,SERUMon 05-12-2021 IMMUNOGLOBULIN G 827 mg/dL Normal 600-1640 [facility] Comment on above: Order Comment: [facility] performed at: [employer] [facility], [address], [address] [place] [address], [phone], Tallier: Vicente Dutton MD [facility] Date/Time: [facility] Results Received Date/Time: [facility] Reported Date/Time: FASTING: NO Performed By: #### 2 4653E, 84388M, LIP, CATHY, 91913U, 10355, 09176F, 17425A #### [facility] [address] [place] [address] Q - IGM,SERUMon 05-12-2021 IMMUNOGLOBULIN M 90 mg/dL Normal 50-300 [facility] Comment on above: Order Comment: [facility] performed at: [employer] [facility], [address], [address] [place] [address], [phone], Tallier: Vicente Dutton MD [facility] Date/Time: [facility] Results Received Date/Time: [facility] Reported Date/Time: FASTING: NO Performed By: #### 2 4653E, 14394W, LIP, CATHY, 27646S, 48167, 53037G, 54981P #### [facility] [address] [place] [address] Q - Strep pneumo Ab 23 serot ypeson 05-12-2021 SEROTYPE 1 (1) 2.5 Normal [facility] Specialist Comment on above: Order Comment: [facility] Testing performed at: [employer] [employer],, [address] [place], [address], Tallier: Irma Dias MD,PhD,CARRIE [facility] Collection Date/Time: [facility] Results Received Date/Time: [facility] Reported Date/Time: FASTING: NO Performed By: #### 2 4653E, 74813V, LIP, CATHY, 57790F, 95478, 64727R, 18682X #### [facility] [address] [place] [address] SEROTYPE 12 (12F) <0.[address] [facility] Comment on above: Order Comment: [facility] performed at: [employer], [employer],, [address] [place] [address], , Tallier: Irma Dias MD,PhD,CARRIE [facility] Collection Date/Time: [facility] Results Received Date/Time: [facility] Reported Date/Time: FASTING: NO Performed By: #### 2 4653E, 99813I, LIP, CATHY, 89303B, 90452, 26658B, 51683M #### [facility] [address] [place] [address] SEROTYPE 14 (14) 6.7 [facility] Comment on above: Order Comment: [facility] performed at: [employer], [employer],, [address] [place] [address], , Tallier: Irma Dias MD,PhD,CARRIE [facility] Collection Date/Time: [facility] Results Received Date/Time: [facility] Reported Date/Time: FASTING: NO Performed By: #### 2 4653E, 08280V, LIP, CATHY, 09455D, 09925, 09165P, 05035Y #### [facility] [address] [place] [address] SEROTYPE 17 (17F) 9.[address] [facility] Comment on above: Order Comment: [facility] performed at: [employer], [employer],, [address] [place], [place], , Tallier: Irma Dias MD,PhD,CARRIE [facility] Collection Date/Time: [facility] Results Received Date/Time: [facility] Reported Date/Time: FASTING: NO Performed By: #### 2 4653E, 79346D, LIP, CATHY, 63360I, 99509, 84938Q, 42683P #### [facility] [address] [place] [address] SEROTYPE 19 (19F) 1.[address] [facility] Comment on above: Order Comment: [facility] performed at: [employer], [employer],, [address] [place] [address], , Tallier: Irma Dias MD,PhD,CARRIE [facility] Collection Date/Time: [facility] Results Received Date/Time: [facility] Reported Date/Time: FASTING: NO Performed By: #### 2 4653E, 20041N, LIP, CATHY, 05820Y, 42949, 28046N, 48056O #### [facility] [address] [place] [address] SEROTYPE 2 (2) 1.8 Normal [facility] Comment on above: Order Comment: [facility] Testing performed at: [employer],, [address] [place], [place], , Tallier: Irma Dias MD,PhD,CARRIE [facility] Collection Date/Time: [facility] Results Received Date/Time: [facility] Reported Date/Time: FASTING: NO Performed By: #### 2 4653E, 40516N, LIP, CATHY, 74886R, 84799, 84847T, 47381U #### [facility] [address] [place] [address] SEROTYPE 20 (20) 1.7 [facility] Comment on above: Order Comment: [facility] performed at: [employer] [facility],, [facility] [place], , Tallier: Irma Dias MD,PhD,CARRIE [facility] Collection Date/Time: [facility] Results Received Date/Time: [facility] Reported Date/Time: FASTING: NO Performed By: #### 2 4653E, 75357R, LIP, CATHY, 95344D, 46629, 75678Y, 47226Y #### [facility] [address] [place] [address] SEROTYPE 22 (22F) 1.1 [facility] Comment on above: Order Comment: [facility] Testing performed at: [employer] [facility],, [address] [place], [place] [address], , Tallier: Irma Dias MD,PhD,CARRIE [facility] Collection Date/Time: [facility] Results Received Date/Time: [facility] Reported Date/Time: FASTING: NO Performed By: #### 2 4653E, 24648G, LIP, CATHY, 72765O, 14045, 11179A, 63530X #### [facility] [address] [place] [address] SEROTYPE 23 (23F) 0.9 [facility] Comment on above: Order Comment: [facility] performed at: [employer],, [address] [place], [place], , Tallier: Irma Dias MD,PhD,CARRIE [facility] Collection Date/Time: [facility] Results Received Date/Time: [facility] Reported Date/Time: FASTING: NO Performed By: #### 2 4653E, 27929V, LIP, CATHY, 25703X, 25567, 17417M, 86411C #### [facility] [address] [place] [address] SEROTYPE 26 (6B) 3.1 Normal [facility] Comment on above: Order Comment: [facility] performed at: [employer] [facility],, [address] [place] [address], , Tallier: Irma Dias MD,PhD,CARRIE [facility] Collection Date/Time: [facility] Results Received Date/Time: [facility] Reported Date/Time: FASTING: NO Performed By: #### 2 4653E, 54907Q, LIP, CATHY, 95109R, 98400, 31873E, 39598X #### [facility] [address] [place] [address] SEROTYPE 3 (3) 0.8 Normal [facility] Comment on above: Order Comment: [facility] Testing performed at: [employer],, [address] [place] [address], , Tallier: Irma Dias MD,PhD,CARRIE [facility] Collection Date/Time: [facility] Results Received Date/Time: [facility] Reported Date/Time: FASTING: NO Performed By: #### 2 4653E, 93684V, LIP, CATHY, 81747O, 27426, 55776B, 95203V #### [facility] [address] [place] [address] SEROTYPE 34 (10A) <0.[address] [facility] Comment on above: Order Comment: [facility] performed at: [employer],, [address] [place] [address], , Tallier: Irma Dias MD,PhD,CARRIE [facility] Collection Date/Time: [facility] Results Received Date/Time: [facility] Reported Date/Time: FASTING: NO Performed By: #### 2 4653E, 74768H, LIP, CATHY, 27407A, 17201, 06965V, 18768Q #### [facility] [address] [place] [address] SEROTYPE 4 (4) 1.6 Normal [facility] Specialist Comment on above: Order Comment: [facility] Testing performed at: [employer] [facility],, [address] [place] [address], , Tallier: Irma Dias MD,PhD,CARRIE [facility] Collection Date/Time: [facility] Results Received Date/Time: [facility] Reported Date/Time: FASTING: NO Performed By: #### 2 4653E, 23889P, LIP, CATHY, 05506L, 25306, 05988H, 16628N #### [facility] [address] [place] [address] SEROTYPE 43 (11A) 0.[address] [facility] Comment on above: Order Comment: [facility] performed at: [employer],, [address] [place] [address], , Tallier: Irma Dias MD,PhD,CARRIE [facility] Collection Date/Time: [facility] Results Received Date/Time: [facility] Reported Date/Time: FASTING: NO Performed By: #### 2 4653E, 44880W, LIP, CATHY, 35137Q, 32505, 39161Q, 33041A #### [facility] [address] [place] [address] SEROTYPE 5 (5) 4.5 Normal [facility] Community Specialist Comment on above: Order Comment: [facility] performed at: [employer],, [address] [place] [address], [address], Tallier: Irma Dias MD,PhD,CARRIE [facility] Collection Date/Time: [facility] Results Received Date/Time: [facility] Reported Date/Time: FASTING: NO Performed By: #### 2 4653E, 83442C, LIP, CATHY, 55564A, 99260, 03031Z, 32014Z #### [facility] Default [address] [place] [address] SEROTYPE 51 (7F) 0.5 Normal [facility] Comment on above: Order Comment: [facility] Testing performed at: [employer] [facility],, [address] [place] [address], , Tallier: Irma Dias MD,PhD,CARRIE [facility] Collection Date/Time: [facility] Results Received Date/Time: [facility] Reported Date/Time: FASTING: NO Performed By: #### 2 4653E, 10025P, LIP, CATHY, 81400I, 93498, 89378Z, 92375K #### [facility] Default [address] [place] [address] SEROTYPE 54 (15B) 0.[address] [facility] Comment on above: Order Comment: [facility] Testing performed at: [employer] [facility],, [address] [place] [address], , Tallier: Irma Dias MD,PhD,CARRIE [facility] Collection Date/Time: [facility] Results Received Date/Time: [facility] Reported Date/Time: FASTING: NO Performed By: #### 2 4653E, 75642P, LIP, CATHY, 28215O, 83294, 29647Q, 23732T #### [facility] Default [address] [place] [address] SEROTYPE 56 (18C) 1.[address] [facility] Comment on above: Order Comment: [facility] performed at: [employer] [facility],, [address] [place] [address], , Tallier: Irma Dias MD,PhD,CARRIE [facility] Collection Date/Time: [facility] Results Received Date/Time: [facility] Reported Date/Time: FASTING: NO Performed By: #### 2 4653E, 54253U, LIP, CATHY, 50389R, 09944, 28015K, 11289Z #### [facility] [address] [place] [address] SEROTYPE 57 (19A) <0.[address] [facility] Comment on above: Order Comment: [facility] performed at: [employer] [facility],, [address] [place] [address], , Tallier: Irma Dias MD,PhD,CARRIE [facility] Collection Date/Time: [facility] Results Received Date/Time: [facility] Reported Date/Time: FASTING: NO Performed By: #### 2 4653E, 96577Y, LIP, CATHY, 42580P, 50894, 38393C, 16087H #### [facility] Default [address] [place] [address] SEROTYPE 68 (9V) 1.9 Normal [facility] Comment on above: Order Comment: [facility] Testing performed at: [employer] [facility],, [address] [place] [address], , Tallier: Irma Dias MD,PhD,CARRIE [facility] Collection Date/Time: [facility] Results Received Date/Time: [facility] Reported Date/Time: FASTING: NO Performed By: #### 2 4653E, 86493D, LIP, CATHY, 87909K, 85884, 76823K, 90921G #### [facility] Default [address] [place] [address] SEROTYPE 70 (33F) 0.5 Normal [facility] Comment on above: Order Comment: [employer] Testing performed at: , [employer],, [address] [place], [address], Tallier: Irma Dias MD,PhD,CARRIE [facility] Collection Date/Time: [id number] [facility] Results Received Date/Time: [id number] [facility] Reported Date/Time: [id number] FASTING: NO Result Comment: [employer] correlates [...] serotype-specific titers may have less robust responses. [employer] uses a multi-analyte immunodetection (MAID) method. The method employs the Oneto[employer]etext flow cytometric system which measures multiple analytes [...] analytical performance characteristics have been determined by [employer]. It has not been cleared or approved by FDA. This assay has been validated pursuant to the CLIA regulations and used for clinical purposes. For additional information, please refer to http://education.[employer]/faq/EEN564 (This link is being provided for informational/ educational purposes only.) Performed By: #### 2 4653E, 37167U, LIP, CATHY, 12408X, 88142, 56209U, 94106D #### [facility] [address] [place] [address] SEROTYPE 8 (8) 4.5 Normal [facility] Comment on above: Order Comment: [facility] performed at: [employer] [facility],, [address] [place] [address], , Tallier: Irma Dias MD,PhD,CARRIE [facility] Collection Date/Time: [facility] Results Received Date/Time: [facility] Reported Date/Time: FASTING: NO Performed By: #### 2 4653E, 72596I, LIP, CATHY, 13148A, 61583, 33389B, 73035M #### [facility] Default [address] [place] [address] SEROTYPE 9 (9N) 2.7 Normal [facility] Comment on above: Order Comment: [facility] performed at: [employer] [facility],, [address] [place] [address], , Tallier: Irma Dias MD,PhD,CARRIE [facility] Collection Date/Time: [facility] Results Received Date/Time: [facility] Reported Date/Time: FASTING: NO Performed By: #### 2 4653E, 82788Q, LIP, CATHY, 99314W, 25457, 77871O, 18213Z #### [facility] Default [address] [place] [address] Complete Blood Counton 04-14 Erythrocyte distribution width (RBC) [Ratio] 11.9 % Normal 11.0-15.0 [facility] Specialist Comment on above: Performed By: #### 2 4653E, 80460G, LIP, CATHY, 06481R, 30604, 57700O, 67631P #### [facility] Default [address] [place] [address] Hematocrit (Bld) [Volume fraction] 44.3 % Normal 38.5-50.0 [facility] Specialist Comment on above: Performed By: #### 2 4653E, 15445L, LIP, CATHY, 52456M, 12514, 74271K, 58262C #### [facility] Default [address] [place] [address] Hemoglobin (Bld) [Mass/Vol] 15.4 g/dL Normal 13.0-17.1 [facility] Specialist Comment on above: Performed By: #### 2 4653E, 70937T, LIP, CATHY, 20877F, 66366, 14617I, 78119O #### [facility] [address] [place] [address] MCH (RBC) [Entitic mass] 32.7 pg Normal 27.0-33.0 [facility] Specialist Comment on above: Performed By: #### 2 4653E, 19036W, LIP, CATHY, 67837X, 83145, 78414Q, 91413Z #### [facility] Default [address] [place] [address] MCHC (RBC) [Mass/Vol] 34.8 g/dL Normal 32.0-36.0 [facility] Specialist Comment on above: Performed By: #### 2 4653E, 53817W, LIP, CATHY, 55222R, 71630, 81043Y, 61250G #### [facility] Default [address] [place] [address] MCV (RBC) [Entitic vol] 94 fL Normal 80-100 [facility] Specialist Comment on above: Performed By: #### 2 4653E, 05248C, LIP, CATHY, 94806V, 90041, 04316K, 85259R #### [facility] Default [address] [place] [address] Platelet mean volume (Bld) [Entitic vol] 10.60 fL Normal 7.50-12.50 [facility] Specialist Comment on above: Performed By: #### 2 4653E, 90444S, LIP, CATHY, 33055Z, 16889, 90709Z, 55077S #### [facility] Default [address] [place] [address] Platelets (Bld) [#/Vol] 285 10*3/uL Normal 140-400 [facility] Comment on above: Performed By: #### 2 4653E, 49542D, LIP, CATHY, 12545B, 58721, 16959M, 82575E #### [facility] Default [address] [place] [address] RBC (Bld) [#/Vol] 4.71 10*6/uL Normal 4.20-5.80 [facility] Comment on above: Performed By: #### 2 4653E, 22095V, LIP, CATHY, 53630J, 97359, 64141H, 32576F #### [facility] [address] [place] [address] RDW-SD 41.1 fL Normal 37.0-50.0 [facility] Comment on above: Performed By: #### 2 4653E, 55042K, LIP, CATHY, 18107A, 18484, 85861N, 18910D #### [facility] Default [address] [place] [address] WBC (Bld) [#/Vol] 6.2 10*3/uL Normal 3.8-11.0 [facility] Comment on above: Performed By: #### 2 4653E, 91286R, LIP, CATHY, 20029W, 29429, 90721T, 41586U #### [facility] [address] [place] [address] Comprehensive Metabolic Pane antonino 04-14-2021 Albumin [Mass/Vol] 4.9 g/dL Normal 3.6-5.1 [facility] Specialist Comment on above: Performed By: #### 2 4653E, 09659I, LIP, CATHY, 84686Z, 17074, 32815U, 68407J #### [facility] Default [address] [place] [address] Albumin/Globulin [Mass ratio] 3.1 {ratio} High 1.0-2.5 [facility] Specialist Comment on above: Performed By: #### 2 4653E, 61244S, LIP, CATHY, 68044U, 43887, 81031B, 82499L #### [facility] Default [address] [place] [address] ALP [Catalytic activity/Vol] 73 U/L Normal 40-129 [facility] Specialist Comment on above: Performed By: #### 2 4653E, 06689T, LIP, CATHY, 82080M, 59625, 85056N, 65330B #### [facility] [address] [place] [address] ALT [Catalytic activity/Vol] 14 U/L Normal 9-46 [facility] Specialist Comment on above: Result Comment: 02/03 Female reference range changed. Performed By: #### 2 4653E, 90631W, LIP, CATHY, 11680W, 89824, 75912J, 60465G #### [facility] [address] [place] [address] Anion gap [Moles/Vol] 17 mmol/L Normal 12-20 [facility] Specialist Comment on above: Result Comment: Effe ctive 03/11/2019 reference range changed. Performed By: #### 2 4653E, 83633D, LIP, CATHY, 53515J, 02705, 49279L, 52147S #### [facility] Default [address] [place] [address] AST [Catalytic activity/Vol] 15 U/L Normal 10-40 [facility] Specialist Comment on above: Performed By: #### 2 4653E, 06332L, LIP, CATHY, 95402P, 69113, 59827S, 42407F #### [facility] Default [address] [place] [address] BUN/CREA 24 Ratio High 6-22 [facility] Specialist Comment on above: Performed By: #### 2 4653E, 06024A, LIP, CATHY, 71004W, 48150, 99766I, 60675I #### [facility] [address] [place] [address] Calcium [Mass/Vol] 9.9 mg/dL Normal 8.6-10.2 [facility] Specialist Comment on above: Performed By: #### 2 4653E, 78624U, LIP, CATHY, 67536E, 93824, 75427F, 54312T #### [facility] Default [address] [place] [address] Chloride [Moles/Vol] 102 mmol/L Normal 98-107 [facility] Comment on above: Performed By: #### 2 4653E, 63369F, LIP, CATHY, 58043I, 43208, 51273D, 87973T #### [facility] Default [address] [place] [address] CO2 [Moles/Vol] 24 mmol/L Normal 20-31 [facility] Specialist Comment on above: Performed By: #### 2 4653E, 25751T, LIP, CATHY, 01228T, 45278, 00990G, 23514V #### [facility] Default [address] [place] [address] Creatinine [Mass/Vol] 0.7 mg/dL Normal 0.7-1.4 [facility] Specialist Comment on above: Performed By: #### 2 4653E, 44417I, LIP, CATHY, 08306I, 42672, 50829N, 19677Z #### [facility] Default [address] [place] [address] Globulin (S) [Mass/Vol] 1.6 g/dL Low 1.9-3.7 [facility] Specialist Comment on above: Performed By: #### 2 4653E, 78700H, LIP, CATHY, 57658V, 25495, 02441Z, 46588N #### [facility] Default [address] [place] [address] Glucose [Mass/Vol] 93 mg/dL Normal 65-99 [facility] Specialist Comment on above: Result Comment: For FASTING Glucose --- ADA reference ranges: Normal 65-99 mg/dl Prediabetes 100-125 Diabetes >/= 126 Performed By: #### 2 4653E, 62870X, LIP, CATHY, 42545L, 76739, 98080W, 00430B #### [facility] Default [address] [place] [address] Potassium [Moles/Vol] 4.4 mmol/L Normal 3.5-5.5 [facility] Specialist Comment on above: Performed By: #### 2 4653E, 55196X, LIP, CATHY, 31650G, 34990, 91827A, 99676L #### [facility] Default [address] [place] [address] Protein [Mass/Vol] 6.5 g/dL Normal 6.1-8.1 [facility] Comment on above: Performed By: #### 2 4653E, 31380O, LIP, CATHY, 49405N, 38357, 73998N, 36950R #### [facility] Default [address] [place] [address] Sodium [Moles/Vol] 139 mmol/L Normal 135-146 [facility] Specialist Comment on above: Performed By: #### 2 4653E, 17053K, LIP, CATHY, 11908K, 01027, 83195J, 51446F #### [facility] Default [address] [place] [address] TBIL <0.3 Normal [facility] Specialist Comment on above: Performed By: #### 2 4653E, 26608B, LIP, CATHY, 82078N, 57489, 63728S, 91850D #### [facility] Default [address] [place] [address] Urea nitrogen [Mass/Vol] 16 mg/dL Normal 7-25 [facility] Specialist Comment on above: Performed By: #### 2 4653E, 61166E, LIP, CATHY, 74966E, 32741, 74769K, 00728Y #### [facility] Default [address] [place] [address] Ferritinon 04-14-2021 FERR 67.1 ng/mL Normal 30.0-400.0 [facility] Specialist Comment on above: Performed By: #### 2 4653E, 19981D, LIP, CATHY, 95247V, 59383, 73628C, 88496M #### [facility] Default [address] [place] [address] Free T4on 04-14-2021 Free T4 [Mass/Vol] 0.98 ng/dL Normal 0.80-1.80 [facility] Specialist Comment on above: Performed By: #### 2 4653E, 50844K, LIP, CATHY, 35610E, 30188, 63979I, 10194N #### [facility] Default [address] [place] [address] Infectious Mononucleosison 0 04-14-2021 Monocytes (Bld) [#/Vol] Negative Normal Negative [facility] Specialist Comment on above: Performed By: #### 2 4653E, 14033F, LIP, CATHY, 96573I, 08552, 65910O, 82567C #### [facility] Default [address] [place] [address] Iron Profileon 04-14-2021 %FESAT 23 % Normal 15-60 [facility] Comment on above: Performed By: #### 2 4653E, 77423X, LIP, CATHY, 13284J, 76217, 65364P, 15480F #### [facility] Default [address] [place] [address] FE 67 ug/dL Normal 50-180 [facility] Specialist Comment on above: Result Comment: Refe rence range change 01/20/2017. Prior reference range F 37-145 ug/dL, M 59-158 ug/dL. Performed By: #### 2 4653E, 26468Z, LIP, CATHY, 73619W, 03021, 12082S, 55275C #### [facility] Default [address] [place] [address] TIBC 292 ug/dL Normal 250-425 [facility] Comment on above: Performed By: #### 2 4653E, 90376J, LIP, CATHY, 55038E, 74768, 00336W, 72147X #### [facility] Default [address] [place] [address] UIBC 225 ug/dL Normal 112-347 [facility] Comment on above: Performed By: #### 2 4653E, 10148E, LIP, CATHY, 39383K, 20092, 20838X, 37739L #### [facility] Default [address] [place] [address] TSHon 04-14-2021 TSH 0.832 uIU/mL Normal 0.400-4.500 [facility] Community Specialist Comment on above: Performed By: #### 2 4653E, 71393X, LIP, CATHY, 00425C, 98221, 87927U, 12196U #### [facility] Default [address] [place] [address] Vitamin D 25-OHon 04-14-2021 VIT D 25 OH 46 ng/ml Normal >29 [facility] Specialist Comment on above: Result Comment: Cassandra min D Status Deficiency <20 ng/mL Insufficiency 20-29 ng/mL Optimal 30-100 ng/mL Possible Toxicity >=150 ng/mL Performed By: #### 2 4653E, 95695O, LIP, CATHY, 34876C, 61451, 64481C, 42899X #### [facility] Default [address] [place] [address] XR Abdomen 2 Viewson 022 XR Abdomen [...] Burch on 04/14/2021 1221 Normal [facility] Covid-19 PCR (CVDTBH)on 03-06 SARS-CoV-2 (COVID-19) RNA NUPUR+probe Ql (Unsp spec) Not detected Normal NOT DETECTED [facility] Comment on above: Result Comment: This test is not yet approved or cleared by the [place] FDA. When there are no FDA-approved or cleared tests available, and other criteria are met, FDA can make tests available under an emergency access mechanism called an Emergency Use Authorization (EUA). The EUA for this test is supported by the [employer] of Health and Human Service's (HHS's) declaration [...] Performed By: #### I NFLUAB, RSV #### [facility] [address] [place], [place] [address] Dr. Jennfier Durant STREP PNEUMO IGG AB 23 SEROT YPESon 10-18-2016 SEROTYPE 1 2.1 ug/mL Normal >1.3 [facility] Comment on above: Performed By: #### P NA23 ####[id number] [place] [address] SEROTYPE 10A[34] 1.7 ug/mL Normal >1.3 [facility] Comment on above: Performed By: #### P NA23 ####[id number] [place] [address] SEROTYPE 11A[43] 4.1 ug/mL Normal >1.3 [facility] Comment on above: Performed By: #### P NA23 ####[id number] [place] [address] SEROTYPE 12F 0.5 ug/mL Low >1.3 [facility] Comment on above: Performed By: #### P NA23 ####[id number] [place] [address] SEROTYPE 14 >36.3 Normal >1.3 [facility] Comment on above: Performed By: #### P NA23 ####[id number] [place] [address] SEROTYPE 15B[54] 5.6 ug/mL Normal >1.3 [facility] Comment on above: Performed By: #### P NA23 ####[id number] [place] [address] SEROTYPE 17F >53.5 Normal >1.3 [facility] Comment on above: Performed By: #### P NA23 ####[id number] [place] [address] SEROTYPE 18C[56] 14.6 ug/mL Normal >1.3 [facility] Comment on above: Performed By: #### P NA23 ####[id number] [place] [address] SEROTYPE 19A[57] 3.1 ug/mL Normal >1.3 [facility] Comment on above: Performed By: #### P NA23 ####[id number] [place] [address] SEROTYPE 19F 4.9 ug/mL Normal >1.3 [facility] Comment on above: Performed By: #### P NA23 ####[id number] [place] [address] SEROTYPE 2 4.4 ug/mL Normal >1.3 [facility] Comment on above: Performed By: #### P NA23 ####[id number] [place] [address] SEROTYPE 20 6.5 ug/mL Normal >1.3 [facility] Comment on above: Performed By: #### P NA23 ####[id number] [place] [address] SEROTYPE 22F 10.4 ug/mL Normal >1.3 [facility] Comment on above: Performed By: #### P NA23 ####[id number] [place] [address] SEROTYPE 23F 3.1 ug/mL Normal >1.3 [facility] Comment on above: Performed By: #### P NA23 ####[id number] [place] [address] SEROTYPE 3 4.8 ug/mL Normal >1.3 [facility] Comment on above: Performed By: #### P NA23 ####[id number] [place] [address] SEROTYPE 33F[70] 2.7 ug/mL Normal >1.3 [facility] Comment on above: Result Comment: *Thi s test was developed and its performancecharacteristics determined by [email or web address]. It has notbeen cleared or approved by the U.S. Food and DrugAdministration. Performed At:[facility] [id number] [place] [address]LonxquedBibiana Heath PhD HCLD (ABB)CLIA# [id number] Performed By: #### P NA23 ####[id number] [place] [address] SEROTYPE 4 7.1 ug/mL Normal >1.3 [facility] Comment on above: Performed By: #### P NA23 ####[id number] [place] [address] SEROTYPE 5 43.9 ug/mL Normal >1.3 [facility] Comment on above: Performed By: #### P NA23 ####[id number] [place] [address] SEROTYPE 6B[26] 37.4 ug/mL Normal >1.3 [facility] Comment on above: Performed By: #### P NA23 ####[id number] [place] [address] SEROTYPE 7F[51] 2.4 ug/mL Normal >1.3 [facility] Comment on above: Performed By: #### P NA23 ####[id number] [place] [address] SEROTYPE 8 25.5 ug/mL Normal >1.3 [facility] Comment on above: Performed By: #### P NA23 ####[id number] [place] [address] SEROTYPE 9N 19.1 ug/mL Normal >1.3 [facility] Comment on above: Performed By: #### P NA23 ####[id number] [place] [address] SEROTYPE 9V[68] 13.1 ug/mL Normal >1.3 [facility] Comment on above: Performed By: #### P NA23 ####[id number] [place] [address] CBC AND DIFFERENTIALon 10-13 % AUTOMATED IMMATURE GRAN 0.0 % Normal 0.0 - 1.0 [facility] Comment on above: Result Comment: Perc ent differential counts (%) should be interpreted in the context of the absolute cell counts (cells/L). Performed By: #### C BCDF ####[facility] [place] [address] % NEUTROPHIL 35.5 % Normal 33.0 - 69.0 [facility] Comment on above: Performed By: #### C BCDF ####[facility] [place] [address] Basophils/100 WBC Auto (Bld) 1.0 % Normal 0.0 - 1.0 [facility] Comment on above: Performed By: #### C BCDF ####[facility] [place] [address] Basophils/100 WBC Auto (Bld) 0.04 x10E9/L Normal 0.00 - 0.10 [facility] Comment on above: Performed By: #### C BCDF ####[facility] [place] [address] Eosinophils 0.07 10*3/uL Normal 0.00 - 0.70 [facility] Comment on above: Performed By: #### C BCDF ####[facility] [place] [address] Eosinophils/100 leukocytes 1.8 % Normal 0.0 - 5.0 [facility] Comment on above: Performed By: #### C BCDF ####[facility] [place] [address] Erythrocyte distribution width Auto Ratio (RBC) 11.7 % Normal 11.5 - 14.5 [facility] Comment on above: Performed By: #### C BCDF ####[facility] [place] [address] Erythrocytes (RBC) 4.32 x10E12/L Low 4.50 - 5.30 [facility] Comment on above: Performed By: #### C BCDF ####[facility] [place] [address] Hematocrit (HCT) 38.2 % Normal 37.0 - 49.0 [facility] Comment on above: Performed By: #### C BCDF ####[facility] [place] [address] Hemoglobin mass conc (Bld) 13.9 g/dL Normal 13.0 - 16.0 [facility] Comment on above: Performed By: #### C BCDF ####[facility] [place] [address] Lymphocytes 1.93 10*3/uL Normal 1.80 - 4.80 [facility] Comment on above: Performed By: #### C BCDF ####[facility] [place] [address] Lymphocytes/100 leukocytes 49.2 % High 28.0 - 48.0 [facility] Comment on above: Performed By: #### C BCDF ####[facility] [place] [address] MCHC mass conc (RBC) 36.4 g/dL Normal 31.0 - 37.0 [facility] Comment on above: Performed By: #### C BCDF ####[facility] [place] [address] MCV 88 fL Normal 78 - 102 [facility] Comment on above: Performed By: #### C BCDF ####[facility] [place] [address] Monocytes 0.49 10*3/uL Normal 0.10 - 1.00 [facility] Comment on above: Performed By: #### C BCDF ####[facility] [place] [address] Monocytes/100 leukocytes 12.5 % High 3.0 - 9.0 [facility] Comment on above: Performed By: #### C BCDF ####[facility] [place] [address] Neutrophils 1.39 10*3/uL Normal 1.20 - 7.70 [facility] Comment on above: Performed By: #### C BCDF ####[facility] [place] [address] Nucleated erythrocytes 0.0 /100 WBC Normal 0.0-0.0 [facility] Comment on above: Performed By: #### C BCDF ####[facility] [place] [address] Platelets 297 10*3/uL Normal 150 - 400 [facility] Comment on above: Performed By: #### C BCDF ####[facility] [place] [address] WBC (Leukocytes) 3.9 10*3/uL Low 4.5 - 13.5 [facility] Comment on above: Performed By: #### C BCDF ####[facility] [place] [address] IMMUNOGLOBULINS (G,A,M)on IgG 655 mg/dL Low 700 - 1600 [facility] Comment on above: Result Comment: MONO CLONAL PROTEINS MAY CAUSE FALSELY LOWRESULTS IN THIS ASSAY. SERUM PROTEINELECTROPHORESIS SHOULD BE DONE THEFIRST TEST TO EVALUATE MONOCLONAL GAMMOPATHY. Performed By: #### I GS ####[facility] [place] [address] IgA 116 mg/dL Normal 70 - 400 [facility] Comment on above: Result Comment: MONO CLONAL PROTEINS MAY CAUSE FALSELY LOWRESULTS IN THIS ASSAY. SERUM PROTEINELECTROPHORESIS SHOULD BE DONE THEFIRST TEST TO EVALUATE MONOCLONAL GAMMOPATHY. Performed By: #### I GS ####[facility] [place] [address] IgM 87 mg/dL Normal 40 - 230 [facility] Comment on above: Result Comment: MONO CLONAL PROTEINS MAY CAUSE FALSELY LOWRESULTS IN THIS ASSAY. SERUM PROTEINELECTROPHORESIS SHOULD BE DONE THEFIRST TEST TO EVALUATE MONOCLONAL GAMMOPATHY. Performed By: #### I GS ####[facility] [place] [address] Vital Signs Date Time Vital Sign Value Performing Clinician Facility 02-16-2024 10:32-0500 Body height 172.7 cm Jasson Kumar PA-C Work Phone: [facility] 02-16-2024 10:32-0500 Body mass index (BMI) [Ratio] 18.34 kg/m2 Jasson Kumar PA-C Work Phone: [facility] 02-16-2024 10:32-0500 Body weight 54.7 kg Jasson Kumar PA-C Work Phone: [facility] 02-16-2024 10:32-0500 Diastolic blood pressure 72 mm[Hg] Jasson Kumar PA-C Work Phone: [facility] 02-16-2024 10:32-0500 Heart rate 65 /min Jasson Kumar PA-C Work Phone: [facility] 02-16-2024 10:32-0500 Systolic blood pressure 128 mm[Hg] Jasson Kumar PA-C Work Phone: [facility] 01-03-2024 14:05-0400 Body height 172.7 cm Jasson Kumar PA-C Work Phone: [facility] 01-03-2024 14:05-0400 Body mass index (BMI) [Ratio] 18.09 kg/m2 Jasson Kumar PA-C Work Phone: [facility] 01-03-2024 14:05-0400 Body weight 53.98 kg Jasson Kumar PA-C Work Phone: [facility] 01-03-2024 14:05-0400 Diastolic blood pressure 68 mm[Hg] Jasson Kumar PA-C Work Phone: [facility] 01-03-2024 14:05-0400 Heart rate 89 /min Jasson Kumar PA-C Work Phone: [facility] 01-03-2024 14:05-0400 Systolic blood pressure 127 mm[Hg] Jasson Kumar PA-C Work Phone: [facility] 12-04-2023 15:08-0400 Body height 172.7 cm Ellen Hernadez MD Work Phone: [facility] 12-04-2023 15:08-0400 Body mass index (BMI) [Ratio] 18.05 kg/m2 Ellen Hernadez MD Work Phone: [facility] 12-04-2023 15:08-0400 Body weight 53.84 kg Ellen Hernadez MD Work Phone: [facility] 12-04-2023 15:08-0400 Diastolic blood pressure 65 mm[Hg] Ellen Hernadez MD Work Phone: [facility] 12-04-2023 15:08-0400 Heart rate 76 /min Ellen Hernadez MD Work Phone: [facility] 12-04-2023 15:08-0400 SaO2% (BldA) [Mass fraction] 99 % Ellen Hernadez MD Work Phone: [facility] 12-04-2023 15:08-0400 Systolic blood pressure 122 mm[Hg] Ellen Hernadez MD Work Phone: [facility] 11-16-2023 13:12-0400 Body mass index (BMI) [Ratio] 18.43 kg/m2 Amina Kumar ACUTE CARE PHYSICIAN Work Phone: [facility] 11-16-2023 13:12-0400 Body weight 54.98 kg Amina Fay ACUTE CARE PHYSICIAN Work Phone: [facility] 11-16-2023 13:12-0400 Diastolic blood pressure 62 mm[Hg] Amina Kumar ACUTE CARE PHYSICIAN Work Phone: [facility] 11-16-2023 13:12-0400 Heart rate 72 /min Amina Kumar ACUTE CARE PHYSICIAN Work Phone: [facility] 11-16-2023 13:12-0400 Systolic blood pressure 100 mm[Hg] Amina Kumar ACUTE CARE PHYSICIAN Work Phone: [facility] 08-10-2023 14:04-0400 Body height 170.2 cm Norm Hernadez MD PhD Work Phone: [facility] 08-10-2023 14:04-0400 Body mass index (BMI) [Ratio] 18.48 kg/m2 Norm Hernadez MD PhD Work Phone: [facility] 08-10-2023 14:04-0400 Body weight 53.52 kg Norm Hernadez MD PhD Work Phone: [facility] 07-19-2023 10:44-0400 Body height 172.7 cm Jose Browning MD Work Phone: [facility] 07-19-2023 10:44-0400 Body mass index (BMI) [Ratio] 18.4 kg/m2 Jose Browning MD Work Phone: [facility] 07-19-2023 10:44-0400 Body temperature 98.49 [degF] Jose Browning MD Work Phone: [facility] 07-19-2023 10:44-0400 Body weight 54.88 kg Jose Browning MD Work Phone: [facility] 07-19-2023 10:44-0400 Diastolic blood pressure 99 mm[Hg] Jose Browning MD Work Phone: [facility] 07-19-2023 10:44-0400 Heart rate 84 /min Jose Browning MD Work Phone: [facility] 07-19-2023 10:44-0400 SaO2% (BldA) [Mass fraction] 99 % Jose Browning MD Work Phone: [facility] 07-19-2023 10:44-0400 Systolic blood pressure 128 mm[Hg] Jose Browning MD Work Phone: [facility] 07-03-2023 16:08-0400 Body height 170.2 cm Ellen Hernadez MD Work Phone: [facility] 07-03-2023 16:08-0400 Body mass index (BMI) [Ratio] 18.51 kg/m2 Ellen Hernadez MD Work Phone: [facility] 07-03-2023 16:08-0400 Body weight 53.62 kg Ellen Hernadez MD Work Phone: [facility] 07-03-2023 16:08-0400 Diastolic blood pressure 67 mm[Hg] Ellen Herndaez MD Work Phone: [facility] 07-03-2023 16:08-0400 Heart rate 78 /min Ellen Hernadez MD Work Phone: [facility] 07-03-2023 16:08-0400 SaO2% (BldA) [Mass fraction] 99 % Ellen Hernadez MD Work Phone: [facility] 07-03-2023 16:08-0400 Systolic blood pressure 112 mm[Hg] Ellen Hernadez MD Work Phone: [facility] 06-22-2023 14:02-0400 Body height 170.2 cm Norm Hernadez MD PhD Work Phone: [facility] 06-22-2023 14:02-0400 Body mass index (BMI) [Ratio] 18.64 kg/m2 Norm Hernadez MD PhD Work Phone: [facility] 06-22-2023 14:02-0400 Body weight 53.98 kg Norm Hernadez MD PhD Work Phone: [facility] 2023 08:32-0500 Body height 170.2 cm Tram Rodas MD Work Phone: [facility] 2023 08:32-0500 Body mass index (BMI) [Ratio] 18.81 kg/m2 Tram Rodas MD Work Phone: [facility] 2023 08:32-0500 Body weight 54.48 kg Tram Rodas MD Work Phone: [facility] 2023 08:32-0500 Diastolic blood pressure 65 mm[Hg] Tram Rodas MD Work Phone: [facility] 2023 08:32-0500 Heart rate 98 /min Tram Rodas MD Work Phone: [facility] 2023 08:32-0500 SaO2% (BldA) [Mass fraction] 99 % Tram Rodas MD Work Phone: [facility] 2023 08:32-0500 Systolic blood pressure 136 mm[Hg] Tram Rodas MD Work Phone: [facility] 05-12-2022 14:30-0500 Body height 170.2 cm Savannah Nixon MD Work Phone: [facility] 05-12-2022 14:30-0500 Body temperature 97.9 [degF] Savannah Nixon MD Work Phone: [facility] 05-12-2022 14:30-0500 Body weight 58.51 kg Savannah Nixon MD Work Phone: [facility] 05-12-2022 14:30-0500 Heart rate 70 /min Savannah Nixon MD Work Phone: [facility] 05-12-2022 14:30-0500 SaO2% (BldA) [Mass fraction] 100 % Savannah Nixon MD Work Phone: [facility] 07-15-2021 14:30-0400 Body weight 53.07 kg Ion Aragon Other [employer] Other Encounters Encounter Date Encounter Type Care Provider Facility Start: 02-16-2024 End: 02-16-2024 Office outpatient visit 15 minutes Jasson Kumar PA-C Work Phone: [facility] Comment on above: Migraine without aur a and without status migrainosus, not intractable (Primary Dx) Start: 02-16-2024 End: 02-16-[address] [facility] Start: 01-24-2024 End: 01-24-[address] [facility] Start: 01-03-2024 End: 01-03-2024 Office outpatient new 60 minutes Emilia Gilbert [employer] HEATER-NEUROSURGICAL NURSE Work Phone: [facility] Comment on above: Migraine without aur a and without status migrainosus, not intractable (Primary Dx); Attention deficit hyperactivity disorder (ADHD), unspecified ADHD type; Generalized anxiety disorder; Chronic fatigue; Hypersomnia; Excessive daytime sleepiness; Night sweats Start: 01-03-2024 End: 01-03-2024 ambulatory JASSON David KUMAR [facility] Start: 12-05-2023 End: 12-05-2023 Telephone encounter Ashley [facility] Start: 12-04-2023 End: 12-04-2023 Office outpatient visit 25 minutes Ellen Hernadez MD Work Phone: [facility] Comment on above: Intolerance of joseph nuous positive airway pressure (CPAP) ventilation (Primary Dx); Idiopathic hypersomnia with long sleep time; Obstructive sleep apnea; Delayed sleep phase syndrome Start: 12-04-2023 End: 12-04-2023 ambulatory ELLEN HERNADEZ [facility] Start: 11-16-2023 End: 11-16-2023 Bamboo flowsheet Amina Kumar ACUTE CARE PHYSICIAN Work Phone: [facility] Start: 11-16-2023 End: 11-16-2023 Bamboo flowsheet Amina Kumar ACUTE CARE PHYSICIAN Work Phone: [facility] Start: 11-16-2023 End: 11-16-2023 Office outpatient visit 15 minutes Amina Kumar NP Work Phone: [facility] Comment on above: Other non-recurrent acute nonsuppurative otitis media of left ear (Primary Dx); Sinus pressure; Acute cough Start: 11-16-2023 End: 11-16-2023 ambulatory AMINA KUMAR Not Available Start: 11-10-2023 End: 11-13-2023 Telephone encounter Meme Bunch [facility] Comment on above: NEW PATIENT REFERRAL Start: 11-09-2023 End: 11-09-2023 [address] [place] [facility] Start: 10-10-2023 End: 10-10-2023 ambulatory JANINA CORRAL Not Available Start: 09-27-2023 End: 09-27-2023 ambulatory EMILIA GILBERT [facility] Start: 08-10-2023 End: 08-10-2023 Office outpatient visit 15 minutes Norm Hernadez MD PhD Work Phone: [facility] Comment on above: Hx of perforation of tympanic membrane (Primary Dx) Start: 08-10-2023 End: 08-10-2023 ambulatory [facility] Start: 07-25-2023 Telephone encounter Jose haque MD Work Phone: Neurology Comment on above: Medication Question Start: 07-19-2023 End: 07-19-2023 Patient encounter procedure Jose Browning MD Work Phone: Neurology Comment on above: Migraine without aur a and without status migrainosus, not intractable (Primary Dx) Start: 07-19-2023 End: 07-19-2023 ambulatory JOSE BROWNING Facility:[facility] Start: 07-03-2023 End: 07-03-2023 ambulatory [facility] Start: 07-03-2023 End: 07-03-2023 Office outpatient visit 15 minutes Ellen Hernadez MD Work Phone: [facility] Comment on above: 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); Obstructive sleep apnea Start: 07-03-2023 End: 07-03-2023 Telephone encounter [facility] Start: 06-22-2023 End: 06-22-2023 Office outpatient visit 15 minutes Norm Hernadez MD PhD Work Phone: [facility] Comment on above: History of perforati on of tympanic membrane (Primary Dx); Perforation of left tympanic membrane Start: 06-22-2023 End: 06-22-2023 ambulatory [facility] Start: 06-21-2023 End: 06-26-2023 Telephone encounter [facility] Start: 05-16-2023 Documentation procedure Tram Rodas MD [facility] Start: 03-29-2023 End: 03-29-2023 ambulatory EMILIA De La Torre [facility] Start: 03-23-2023 Telephone encounter Lucille BURCIAGA [facility] Start: 2023 End: 2023 Office outpatient visit 25 minutes Tram Rodas MD Work Phone: [facility] Comment on above: 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); Obstructive sleep apnea; Ear infection Start: 2023 End: 2023 ambulatory TRAM RODAS [facility] Start: 03-17-2023 End: 03-17-2023 ambulatory AMINA KUMAR Not Available Start: 01-30-2023 End: 01-30-2023 ambulatory JANINA CORRAL Not Available Start: 05-12-2022 End: 05-12-2022 Patient encounter procedure Savannah Nixon MD Work Phone: Allergy Comment on above: Chronic fatigue synd ariella (Primary Dx); Nonintractable episodic headache, unspecified headache type; Chronic rhinitis Start: 02-16-2022 End: 02-16-2022 ambulatory DALLAS SALGUERO Facility:[facility] Start: 08-29-2021 End: 08-29-[address] JANINA CORRAL Facility:[facility] Start: 07-27-2021 End: 07-27-[address] BATSHEVA PRATT Facility:[facility] Start: 07-15-2021 End: 07-15-2021 ambulatory Ion Aragon Other [employer] Other Start: 07-15-2021 [facility] visit new patient Ion Aragon [facility] G[facility] Start: 06-01-2021 End: 06-01-2021 ambulatory TREVOR PETERSEN Facility:[facility] Start: 03-19-2021 End: 03-19-2021 ambulatory AMINA KUMAR Facility:[facility] Start: 01-05-2017 Ambulatory Ria Stanley Facility:9 [id number] Start: 10-13-2016 Ambulatory Ria Stanley Facility:[facility] Procedures Date Procedure Procedure Detail Performing Clinician Start: 02-16-2024 Follow-up visit Follow-up JASSON KUMAR Start: 02-16-2024 Adult depression screening assessment Jasson Kumar PA-C Work Phone: Start: 07-03-2023 Follow-up visit Follow-up ELLEN HERNADEZ Plan of Treatment Date Care Activity Detail Author Start: 10-12-2025 DTaP,Tdap and Td Vaccines (3 - Td or Tdap) DTaP,Tdap and Td Vaccines (3 - Td or Tdap) [facility] Start: 10-12-2025 Urine microalbumin profile DTaP,Tdap,Td Vaccine (3 - Td or Tdap) [facility] Start: 02-15-2025 Adult BMI Screening Adult BMI Screen ing [facility] Start: 02-15-2025 Depression Screening Depression Scre ening [facility] Start: 02-15-2025 Tobacco Screening Tobacco Screening [facility] Start: 01-02-2025 Adult BMI Screening Adult BMI Screen ing [facility] Start: 01-02-2025 Tobacco Screening Tobacco Screening [facility] Start: 12-03-2024 Adult BMI Screening Adult BMI Screen ing [facility] Start: 12-03-2024 Tobacco Screening Tobacco Screening [facility] Start: 09-26-2024 Adult BMI Screening Adult BMI Screen ing [facility] Start: 08-09-2024 Tobacco Screening Tobacco Screening [facility] Start: 07-17-2024 End: 07-17-2024 Patient encounter procedure 07/17/2024 10:30 AM EDT [facility] [address] [facility] [place] [address] Jasson Kumar PA-C [address] [facility] [place] [address] [facility] Start: 07-02-2024 Adult BMI Screening Adult BMI Screen ing [facility] Start: 07-02-2024 Tobacco Screening Tobacco Screening [facility] Start: 07-01-2024 End: 07-01-2024 Patient encounter procedure 07/01/2024 2:30 PM EDT Office Visit [facility] [address] [place] [address] Ellen Hernadez MD [address] [place] [address] [facility] Start: 06-21-2024 Adult BMI Screening Adult BMI Screen ing [facility] Start: 06-21-2024 Tobacco Screening Tobacco Screening [facility] Start: 03-29-2024 Adult BMI Screening Adult BMI Screen ing [facility] Start: 2024 Adult BMI Screening Adult BMI Screen ing [facility] Start: 2024 Tobacco Screening Tobacco Screening [facility] Start: 02-16-2024 End: 02-16-2024 Patient encounter procedure 02/16/2024 10:30 AM EST Office Visit [facility] [address] [facility] [place] [address] Jasson Kumar PA-C [address] [facility], [address] [place] [address] [facility] Start: 01-24-2024 End: 01-24-2024 Patient encounter procedure 01/24/2024 7:45 AM EST Appointment [facility] - MRI Imaging [address] [place] [phone] [facility] - MRI Imaging Start: 01-11-2024 Influenza vaccination Influenza Vacc ine (#1) [facility] Comment on above: Postponed from 11/04 (Patient Refused) Start: 01-03-2024 End: 01-02-2025 MR Brain WO and W contrast IV MR brain with and without contrast Imaging Routine Migraine without aura and without status migrainosus, not intractable Chronic fatigue Hypersomnia Expected: 01/03/2024, Expires: 01/02/2025 [facility] Comment on above: Expected: 01/03/2024 , Expires: 01/02/2025 Start: 12-04-2023 End: 12-04-2023 Patient encounter procedure 12/04/2023 3:00 PM EDT Office Visit [facility] [address] [place] [phone] Ellen Hernadez MD [address] [facility] [address] [place] [address] [facility] Start: 11-16-2023 End: 11-16-2023 Patient encounter procedure 11/16/2023 1:00 PM EDT Office Visit [facility] [address] [place] [address] Amina Kumar NP [address] [place], [place] [id number] Arrived [facility] Comment on above: Arrived Start: 11-05-2023 Influenza vaccination [facility] Start: 09-13-2023 End: 09-13-2023 Follow-up encounter 09/13/2023 4:00 PM EDT [facility] [address] [place] [address] [place] [id number] [place] [address] [facility] Comment on above: VV Follow Up Start: 08-10-2023 End: 08-10-2023 Patient encounter procedure 08/10/2023 2:00 PM EDT Office Visit [facility] [address] [place] [address] Norm Hernadez MD PhD [address] [facility] [address] [place] [address] [facility] Start: 07-03-2023 End: 07-03-2023 Patient encounter procedure 07/03/2023 2:00 PM EDT Office Visit [facility] [address] [place] [phone] Ellen Hernadez MD [address] [facility] [address] [place] [address] [facility] Start: 06-22-2023 End: 06-22-2023 Patient encounter procedure 06/22/2023 2:00 PM EDT Office Visit [facility] [address] [place] [phone] Norm Hernadez MD PhD [address] [facility] [address] [place] [address] [facility] Start: 03-06-2023 Behavioral Health Screening Behavioral Health Screening [facility] Start: 11-04-2022 Covid-19 Vaccine ( season) Covid-19 Vaccine ( season) [facility] Start: 11-04-2022 Influenza vaccination Influenza Vacc ine [facility] Start: 2022 Hepatitis B Vaccine (1 of 3 - 19+ 3-dose series) Hepatitis B Vaccine (1 of 3 - 19+ 3-dose series) [facility] Start: 2022 Urine microalbumin profile DTAP,TDAP,TD (1 - Tdap) [facility] Start: 03-06-2022 DEPRESSION ASSESSMENT DEPRESSION ASS ESSMENT [facility] Start: 2021 Adult BMI Follow Up Plan Adult BMI Follow Up Plan [facility] Start: 2021 HEPATITIS C SCREENING HEPATITIS C [facility] Start: 2021 Hepatitis C screening Hepatitis C [facility] Start: 2021 HIV SCREENING HIV SCREENING [facility] Start: 2021 HIV screening HIV Screening [facility] Start: 2019 Meningococcal B Vacc ine: Consider Based On Risk (1 of 2 - Patient Seeks Protection) Meningococcal B Vaccine: Consider Based On Risk (1 of 2 - Patient Seeks Protection) [facility] Start: 2018 HPV Vaccine (1 - Mal e 3-dose series) HPV Vaccine (1 - Male 3-dose series) [facility] Start: 2017 PEDS TO ADULT TRANSI TION ANNUAL ASSESSMENT PEDS TO ADULT TRANSITION ANNUAL ASSESSMENT [facility] Start: 2015 Depression Screening Depression Scre araceli [facility] Start: 2015 PEDS TO ADULT TRANSI TION INITIAL DISCUSSION PEDS TO ADULT TRANSITION INITIAL DISCUSSION [facility] Start: 2014 HPV VACCINE (1 - Mal e 2-dose series) HPV VACCINE (1 - Male 2-dose series) [facility] Start: 2013 MENINGOCOCCAL B: Consider based on risk (1 of 2 - Risk Bexsero 2-dose series) MENINGOCOCCAL B: Consider based on risk (1 of 2 - Risk Bexsero 2-dose series) [facility] Start: 2003 COVID-19 VACCINE (#1) COVID-19 VACCI NE (#1) [facility] Start: 2003 HEPATITIS B (1 of 3 - 3-dose series) HEPATITIS B (1 of 3 - 3-dose series) [facility] End: 01-02-2025 Lactate [Moles/volume] in Serum or Plasma Lactate Lab Routine Chronic fatigue 1 Occurrences starting 01/03/2024 until 01/02/2025 [employer] [facility] Comment on above: 1 Occurrences starti ng 01/03/2024 until 01/02/2025 End: 01-02-2025 Lyme Total Lyme Total Lab Routine Generalized anxiety disorder Chronic fatigue Hypersomnia Excessive daytime sleepiness 1 Occurrences starting 01/03/2024 until 01/02/2025 [employer] Work Phone: Comment on above: 1 Occurrences starti ng 01/03/2024 until 01/02/2025 End: 01-02-2025 MG/LEMS Evaluation, S MG/LEMS Evaluation, S Lab Routine Chronic fatigue 1 Occurrences starting 01/03/2024 until 01/02/2025 [employer] [facility] Comment on above: 1 Occurrences starti ng 01/03/2024 until 01/02/2025 End: 01-02-2025 MuSK Autoantibody, S MuSK Autoantibody, S Lab Routine Chronic fatigue 1 Occurrences starting 01/03/2024 until 01/02/2025 [facility] Comment on above: 1 Occurrences starti ng 01/03/2024 until 01/02/2025 End: 01-02-2025 Pyruvic acid Pyruvic acid Lab Routine Chronic fatigue 1 Occurrences starting 01/03/2024 until 01/02/2025 [facility] Comment on above: 1 Occurrences starti ng 01/03/2024 until 01/02/2025 Peña Shaylai david Immunizations Immunization Date Immunization Notes Care Provider Fa cili 12-03-2021 influenza, injectabl e, quadrivalent, preservative free Amina Kumar ACUTE CARE PHYSICIAN Work Phone: [facility] 12-03-2021 influenza virus vacc ine, unspecified formulation Tram Rodas MD Work Phone: [facility] 05-31-2021 pneumococcal polysaccharide vaccine, 23 valent Amina Kumar ACUTE CARE PHYSICIAN Work Phone: [facility] 12-25-2020 influenza, injectabl e, quadrivalent, contains preservative Amina Kumar ACUTE CARE PHYSICIAN Work Phone: [facility] 11-05-2020 meningococcal polysaccharide (groups A, C, Y and W-135) diphtheria toxoid conjugate vaccine (MCV4P) Amina Kumar ACUTE CARE PHYSICIAN Work Phone: [facility] 01-22-2020 influenza, injectabl e, quadrivalent, contains preservative Amina Kumar ACUTE CARE PHYSICIAN Work Phone: [facility] 03-14-2019 influenza, injectabl e, quadrivalent, preservative free Amina Kumar ACUTE CARE PHYSICIAN Work Phone: [facility] 11-16-2017 influenza, injectabl e, quadrivalent, preservative free Amina Kumar ACUTE CARE PHYSICIAN Work Phone: [facility] 11-25-2016 influenza, injectabl e, quadrivalent, preservative free Amina Kumar ACUTE CARE PHYSICIAN Work Phone: [facility] 04-14-2016 pneumococcal polysaccharide vaccine, 23 valent Amina Kumar ACUTE CARE PHYSICIAN Work Phone: [facility] 10-13-2015 meningococcal polysaccharide (groups A, C, Y and W-135) diphtheria toxoid conjugate vaccine (MCV4P) Amina Kumar ACUTE CARE PHYSICIAN Work Phone: [facility] 10-13-2015 meningococcal polysaccharide vaccine (MPSV4) Amina Kumar ACUTE CARE PHYSICIAN Work Phone: [facility] 10-13-2015 tetanus toxoid, redu jordana diphtheria toxoid, and acellular pertussis vaccine, adsorbed Amina Kumar ACUTE CARE PHYSICIAN Work Phone: [facility] 11-28-2014 seasonal influenza, intradermal, preservative free Amina Kumar ACUTE CARE PHYSICIAN Work Phone: [facility] 09-16-2008 Diphtheria, tetanus toxoids and acellular pertussis vaccine, and poliovirus vaccine, inactivated Amina Kumar ACUTE CARE PHYSICIAN Work Phone: [facility] 09-16-2008 measles, mumps and rubella virus vaccine Amina Kumar ACUTE CARE PHYSICIAN Work Phone: [facility] 05-19-2005 pneumococcal polysaccharide vaccine, 23 valent Savannah Nixon MD Work Phone: [facility] Work Phone: Payers Date Payer Category Payer Medicaid HMO [employer] [id number] 2019 Medicaid [id number] 2019 Medicaid [id number] 2003 Unknown [id number] 2.16.840.1.230659.3.579.2. 593 2003 Unknown [id number] 2.16.840.1.733105.3.579.2. 593 2003 Unknown [id number] 2.16.840.1.176894.3.579.2. 593 2003 Unknown [id number] 2.16.840.1.549549.3.579.2. 593 2003 Unknown [id number] 2.16.840.1.149130.3.579.2. 1259 2003 Unknown [id number] 2.16.840.1.999896.3.579.2. 1259 2003 Unknown [id number] 2.16.840.1.257360.3.579.2. 1259 2003 Unknown [id number] 2.16.840.1.388509.3.579.2. 1259 2003 Unknown [id number] 2.16.840.1.974066.3.579.2. 128 2003 Unknown [id number] 2.16.840.1.081059.3.579.2. 1285 2003 Unknown [id number] 2.16.840.1.609224.3.579.2. 128 2003 Unknown [id number] 2.16.840.1.365138.3.579.2. 1285 2003 Unknown [id number] 2.16.840.1.741401.3.579.2. 1285 2003 Unknown [id number] 2.16.840.1.975998.3.579.2. 1285 2003 Unknown [id number] 2.16.840.1.642205.3.579.2. 1285 2003 Unknown [id number] 2.16.840.1.584959.3.579.2. 1285 2003 Unknown [id number] 2.16.840.1.141278.3.579.2. 1286 2003 Unknown [id number] 2.16.840.1.115404.3.579.2. 1286 2003 Unknown [id number] 2.16.840.1.359542.3.579.2. 1286 2003 Unknown [id number] 2.16.840.1.121000.3.579.2. 1286 1967 Unknown [id number] 2.16.840.1.112490.3.579.2. 593 1959 Unknown [id number] 2.16.840.1.134123.19 Private Health Insurance [id number] Social History Date Type Detail Facility Start: 04-16-2020 End: 07-19-2023 Sex Assigned At [facility] [employer] User [place] Other Start: 05-03-2022 End: 05-12-2022 Tobacco smoking status TNIS Never smoked tobacco [facility] Start: 05-03-2022 End: 05-12-2022 Tobacco use and exposure Smokeless tobacco non-user [facility] Start: 2005 Sex Assigned At Not on file C [facility] Start: 04-16-2020 End: 07-19-2023 History of Social function [facility] Start: 11-16-2023 Alcoholic beverage intake Current drinker of alcohol (finding) [facility] How often to you hav e a drink containing alcohol? Monthly or less [facility] How many standard drinks containing alcohol do you have on a typical day? 1 or 2 [facility] How often do you hav e 6 or more drinks on 1 occasion? Never [facility] Childcare Unknown [facility] Start: 01-03-2024 End: 02-16-2024 Alcoholic beverage intake Lifetime non-drinker (finding) [facility] Start: 10-09-2014 Sex Male (finding) [facility] Clinical Notes 04-06-2021 to 02-16-2024 Jasson Kumar PA-C - 02/16/2024 10:30 AM Kris Kumar PA-C - 01/03/2024 2:00 PM EDTTelephone Encounter - Ashley Muñoz RN - 12/05/2023 8:51 AM EDTPatient Instructions Note Date & Type Note Facility 02-16-2024 History of Presen t illness Narrative [facility] Office Note 02/15/2024 2:49 PM Patient info: Selvin Butler is a 18 y.o. male Account No.: [id number] Acct: : 2005 PCP: Janina Corral MD Chief Complaint: Patient, 18 year old male, presents today for follow up Neurological evaluation regarding headaches. Last seen in the office on 01/03/24 Selvin is present in the office today with his mother. Interval Hx: Labs 01/24/24: Lactate and Pyruvic Acid were normal, Lyme was (-), Myasthenia Gravis Panel with MuSK autoantibody was (-)/normal Brain MRI with and without contrast was completed on 01/24/24. It was normal. Migraines have calmed down to 1 per week on average. (+) associated nausea Current preventative TREVINO/migraine medication: Preventative med/s previously tried include: Preventative med/s not indicated include: Current abortive/symptomatic relief TREVINO/migraine medication: otc analgesics Abortive/Symptomatic relief med/s previously tried include: Abortive/Symptomatic relief med/s not indicated include: Previous Studies: 02/07/14: CT Head without contrast - Normal Prior Hx: Initial Consultation 01/03/24 Selvin complains of always being tired. If he overdoes it/overexerts himself one day, he will reportedly sleep for the following 3 days and wake up with a migrainous TREVINO. Onset of sxs was during Kindergarten (age 5-6). Selvin also follows with Sleep Medicine. 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 Placed on Xywav. Headache Hx: Onset of headaches was as a child. Headache Characteristics: - Current Frequency: every other day - Timing: onset varies - Duration: at least a few hours - Location: bi-frontotemporal - Quality: pressure and pounding - Intensity: ranges from 6-10/10 - Aura: (-) - Associated sxs.: some photophobia, nausea/vomiting - Autonomic sxs.: No associated lacrimation, asymmetric pupil dilation/constriction, scleral injection, ptosis, lateralized nasal congestion, or lateralized forehead sweating - Complicated sxs.: No associated loss of consciousness, confusional episodes/delirium, dysarthria, aphasia, paresthesias, or focal/lateralized weakness Contributing Factors: (-) hx of significant head injury/trauma: (-) hx of DRY HEAT CABINET ATTENDANT infection: (-) hx of stroke or cerebrovascular malformation: (-) hx of intracranial mass/tumor/cyst/malformation: (+) hx of anxiety/depression/mood disorder: hx anxiety Caffeine Consumption: - 2 cans Mt. Dew daily Dizziness with neck flexion/extension: with flexion he feels cloudy Difficulty with gait or recurrent falls: none Selvin does not wear corrective eye lenses. Past Medical Hx: See EMR Social Hx: Tobacco: none ETOH: none Illicit substances: none Family Hx: Mother: --- Father: --- Siblings: Immunodeficiency Surgical Hx: See EMR Allergies: See EMR Review of Systems: Constitutional: Negative for fever, chills, sweats, or unintentional weight loss Eyes: Negative HENT: Negative Cardiovascular: Negative for chest pain and palpitations Respiratory: Negative for cough and shortness of breath Gastrointestinal: Negative for nausea, vomiting, abdominal pain and diarrhea Genitourinary: Negative for dysuria, urgency, frequency, or hematuria Musculoskeletal: Negative for myalgias or joint swelling Skin: Negative for skin rash Neurological: - as noted in the HPI Psychiatric/Behavioral: - anxiety, ADHD Endocrine: Negative Hem/Onc: Negative Allergy/immunology: Negative The remainder of ROS is negative Vitals: BP: 128/72 HR: 65 Weight: 54.7 kg Physical Exam: General: well groomed, appears stated age Neurological Exam: The patient is awake, alert, and attentive Speech and language are normal Normal affect, with normal orientation and cognition EOMI, PERRL, No gross visual field deficits Face is symmetric, Tongue protrudes midline Palate rises symmetrically with uvula midline Shoulder shrug is strong bilaterally Nose to finger testing is without dysmetria Upper Extremity Drift is (-) Fine motor skills are mildly reduced in the left hand Tremor: (-) Sensation is somewhat reduced along the left forearm, otherwise is intact and symmetric in the extremities bilaterally DTR's are 2+ throughout Kumar's sign (-) bilaterally Strength throughout the Upper Extremities is 5/5 Strength throughout the Lower Extremities is 5/5 Muscle Tone throughout the extremities is normal Romberg is (-) Gait is steady with normal base, normal stride and bilateral arm swing ASSESSMENT: Selvin is a 18 year old right hand dominant male with a hx of anxiety, ADHD, immunodeficiency, GERI, and 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 PLAN: Rizatriptan 10 mg +/- Zofran ODT 4 mg for abortive/symptomatic migraine relief Continue to follow up with Sleep Medicine as scheduled TREVINO log is recommended Identification and avoidance of personal TREVINO/migraine triggers discussed Trying to stay on a regular sleep and eating schedule, staying well hydrated, and working on stress management to help reduce TREVINO/migraine frequency discussed Follow up in the office in 4-6 months Electronically Signed by: Jasson Kumar PA-C 02/16/24 1057 documented in this encounter [employer] 01-03-2024 History of Presen t illness Narrative [facility] Office Note 01/02/2024 2:23 PM Patient info: Selvin Butler is a 18 y.o. male Account No.: [id number] Acct: : 2005 PCP: Janina Corral MD Chief Complaint: Patient, 18 year old male, presents today for initial Neurological evaluation regarding headaches. Referred by Emilia Gilbert APRN-BERHANE Selvin is present in the office today with his mother. HPI: Selvin complains of always being tired. If he overdoes it/overexerts himself one day, he will reportedly sleep for the following 3 days and wake up with a migrainous TREVINO. Onset of sxs was during Kindergarten (age 5-6). Selvin also follows with Sleep Medicine. 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 Placed on Xywav. Headache Hx: Onset of headaches was as a child. Headache Characteristics: - Current Frequency: every other day - Timing: onset varies - Duration: at least a few hours - Location: bi-frontotemporal - Quality: pressure and pounding - Intensity: ranges from 6-10/10 - Aura: (-) - Associated sxs.: some photophobia, nausea/vomiting - Autonomic sxs.: No associated lacrimation, asymmetric pupil dilation/constriction, scleral injection, ptosis, lateralized nasal congestion, or lateralized forehead sweating - Complicated sxs.: No associated loss of consciousness, confusional episodes/delirium, dysarthria, aphasia, paresthesias, or focal/lateralized weakness Contributing Factors: (-) hx of significant head injury/trauma: (-) hx of DRY HEAT CABINET ATTENDANT infection: (-) hx of stroke or cerebrovascular malformation: (-) hx of intracranial mass/tumor/cyst/malformation: (+) hx of anxiety/depression/mood disorder: hx anxiety Caffeine Consumption: - 2 cans Mt. Dew daily Dizziness with neck flexion/extension: with flexion he feels cloudy Difficulty with gait or recurrent falls: none Selvin does not wear corrective eye lenses. Current preventative TREVINO/migraine medication: Preventative med/s previously tried include: Preventative med/s not indicated include: Current abortive/symptomatic relief TREVINO/migraine medication: otc analgesics Abortive/Symptomatic relief med/s previously tried include: Abortive/Symptomatic relief med/s not indicated include: Previous Studies: 02/07/14: CT Head without contrast - Normal Past Medical Hx: See EMR Social Hx: Tobacco: none ETOH: none Illicit substances: none Family Hx: Mother: --- Father: --- Siblings: Immunodeficiency Surgical Hx: See EMR Allergies: See EMR Review of Systems: Constitutional: Negative for fever, chills, sweats, or unintentional weight loss Eyes: Negative HENT: Negative Cardiovascular: Negative for chest pain and palpitations Respiratory: Negative for cough and shortness of breath Gastrointestinal: Negative for nausea, vomiting, abdominal pain and diarrhea Genitourinary: Negative for dysuria, urgency, frequency, or hematuria Musculoskeletal: Negative for myalgias or joint swelling Skin: Negative for skin rash Neurological: - as noted in the HPI Psychiatric/Behavioral: - anxiety, ADHD Endocrine: Negative Hem/Onc: Negative Allergy/immunology: Negative The remainder of ROS is negative Vitals: BP: 127/68 HR: 89 Weight: 54 kg Physical Exam: General: well groomed, appears stated age Neurological Exam: The patient is awake, alert, and attentive Speech and language are normal Normal affect, with normal orientation and cognition EOMI, PERRL, No gross visual field deficits Face is symmetric, Tongue protrudes midline Palate rises symmetrically with uvula midline Shoulder shrug is strong bilaterally Nose to finger testing is without dysmetria Upper Extremity Drift is (-) Fine motor skills are mildly reduced in the left hand Tremor: (-) Sensation is somewhat reduced along the left forearm, otherwise is intact and symmetric in the extremities bilaterally DTR's are 2+ throughout Kumar's sign (-) bilaterally Strength throughout the Upper Extremities is 5/5 Strength throughout the Lower Extremities is 5/5 Muscle Tone throughout the extremities is normal Romberg is (-) Gait is steady with normal base, normal stride and bilateral arm swing ASSESSMENT: Selvin is a 18 year old right hand dominant male with a hx of anxiety, ADHD, immunodeficiency, GERI, and 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 PLAN: Will order a Brain MRI with and without contrast to assess for intracranial pathology, including potential chiari malformation Labs: Lactate, Pyruvic Acid, Lyme, Myasthenia Gravis Panel with MuSK autoantibody Follow up in the office in 6-8 weeks Electronically Signed by: Jasson Kumar PA-C 01/10/24906 documented in this encounter [facility] 12-05-2023 Miscellaneous Notes Faxed updated Xywav Rx form to [facility]2023 Telephone encounter Note Faxed updated X[facility]wav [facility] 12-04-2023 History of Presen t illness Narrative Images from the original note were not included. [address] [place] [address] Patient: Selvin Butler Date of : 2005 Encounter Date: 12/04/2023 History of Present Illness: The patient is a 18 y.o. male, is here for follow up of GERI and IH. He is here today unaccompanied. He reports that he continues to do well with xywav but has noticed that it typically wears off by about 4 hours. Mask interface: nasal (removes without remembering) [] Epistaxis [] Aerophagia [] Pressure intolerance [] Skin irritation [] Mask leak BT- 10pm (quiet and dark, fan on, no bed partner, no pets) ELIS- < 15 minutes WASO- 2a, back to sleep 15 min, 70% of nights WT- 9a Naps- none Stimulant: Ritalin - not everyday (05/10), in afternoon typically, not after 4pm Xywav - 9:30p, every night; no side effects, 6g at bedtime Cleaning machine / cleaning supplies = soap and water Nocturnal behaviors / RLS = denies cataplexy Drowsy driving = denies Physical Exam: BP 122/65 Pulse 76 Ht 172.7 cm (5' 8 ) Wt 53.8 kg (118 lb 11.2 oz) SpO2 99% BMI 18.05 kg/m General Appearance - Awake, alert, oriented, in no acute distress Compliance data: 05/03/2022 12:00 PM 12/27/2022 1:00 PM 01/31/2023 2:00 PM 2023 8:00 AM 12/04/2023 3:00 PM [place] Sleepiness Scale Sitting and Reading 0 2 2 1 2 Watching TV 3 2 2 1 2 Sitting inactive in a public place (theater, meeting) 0 0 0 0 0 As a passenger in a car for an hour without a break 0 3 3 2 1 Lying down in the afternoon to rest 3 2 2 2 2 Sitting and talking to someone 0 0 0 0 0 Sitting quietly after lunch (without alcohol) 3 2 0 1 0 In a car, while stopped for a few minutes in traffic 0 1 0 0 0 Total 9 12 9 7 7 Assessment: 1. 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 Obstructive sleep apnea (3% AHI 6.4 min O2 89%, PSG 07/26/2022) currently on auto PAP 4-11 cm of water with excellent benefit and suboptimal compliance 3. Anxiety, currently on Effexor 4. Nonsmoker Plan: 1. Sample mask today (n20). Discussed the importance of regular usage 2. Xywav, work up to 4.5 mg and 4.5mg. Patient has been educated on potential for misuse and abuse of this medication. [facility] reviewed, no concerns. 3. Follow up in 6 months Ellen Hernadez MD Pulmonary and Sleep Medicine [facility] Past Medical, Family, and Social History Update: The following portions of the patient's history were reviewed and updated as appropriate: allergies, current medications, past family history, past medical history, past social history, past surgical history and problem list. Past Medical History: Diagnosis Date ADHD Anxiety History of immunodeficiency Past Surgical History: Procedure Laterality Date ADENOIDECTOMY OTHER SURGICAL HISTORY hole in eardrum TONSILLECTOMY TYMPANOSTOMY TUBE PLACEMENT Family History Problem Relation Age of Onset Snoring Father Immunodeficiency Sister Narcolepsy Neg Hx Current Outpatient Medications Medication Sig Dispense Refill cholecalciferol (VITAMIN D3) 1,000 units tablet 1 tablet methylphenidate HCl (RITALIN) 10 mg tablet take 1 tablet by mouth in the morning and 1 tablet by mouth in the afternoon 60 tablet 0 sodium,calcium,mag,pot oxybate (XYWAV) 0.5 gram/mL solution Take 6 g by mouth once daily at bedtime. venlafaxine XR (EFFEXOR XR) 37.5 mg 24 hr capsule take 1 capsule by mouth once daily 30 capsule 2 No current facility-administered medications for this visit. (All medications reviewed and updated by provider since last office visit or hospitalization) Allergies: Amoxicillin-pot clavulanate, Cephalexin, Dextroamphetamine-amphetamine, Doxycycline hyclate, Levofloxacin, Sulfa (sulfonamide antibiotics), Amoxicillin, and Codeine Tobacco History: Social History Tobacco Use Smoking Status Never Smokeless Tobacco Never (If patient a smoker, smoking cessation counseling offered) Social History: Social History Substance and Sexual Activity Alcohol Use None documented in this encounter [facility] 12-04-2023 Instructions Ellen Hernadez MD - 12/04/2023 3:00 PM EDT 1. Sample mask today 2. Xywav, work up to 4.5 mg and 4.5mg 3. Follow up in 6 months documented in this encounter [facility] 11-16-2023 History of Presen t illness Narrative Images from the original note were not included. Selvin Butler is a 18 y.o. male presents with chief complaint of Cough and Nasal Congestion HPI: Cough Pertinent negatives include no chest pain, chills, fever, rash, rhinorrhea, sore throat, shortness of breath or wheezing. Ear pain: no ear pain but feels popping to left ear. Patient presents to the office today with acute concerns. Symptoms first started yesterday. He denies fever, body aches or chills. Denies headaches but admits sinus pressure. Denies ear pain but feels like his left ear is popping. Denies drainage to ear. Admits nasal congestion. Denies sore throat. No chest pain or dizziness. He is coughing that is dry per patient. No SOB or wheezing. No abd pain, no NVD. Appetite is unchanged. Drinking fluids. Sleeping well at night. Not currently taking anything OTC for symptoms. Denies being around others who are sick. SUBJECTIVE: MEDICATIONS: Current Outpatient Medications Medication Instructions amphetamine-dextroamphetamine (Adderall) 10 MG tablet Every 24 hours azithromycin (Zithromax) 250 MG tablet Take 2 tablets (500 mg) by mouth Daily for 1 day, THEN 1 tablet (250 mg) Daily for 4 days. Ca, Mg, K, and Na Oxybates (XYWAV PO) 0.5 g, Oral, 0.5 gm - ordered through pulmonology cholecalciferol (VITAMIN D-3) 5,000 Units, Oral, Daily ibuprofen 600 MG tablet take 1 tablet by mouth four times a day if needed for pain ondansetron (Zofran) 4 MG tablet take 1 tablet by mouth every 6 hours if needed for nausea or vomiting promethazine (Phenergan) 25 MG tablet take 1 tablet by mouth every 6 hours if needed for nausea and vomiting propranolol XL (Innopran XL) 80 MG 24 hr capsule 2 capsules, Every 24 hours venlafaxine XR (EFFEXOR XR) 37.5 mg ALLERGIES: Allergies Allergen Reactions Amoxicillin-Pot Clavulanate Diarrhea Amphetamine-Dextroamphetamine Other Reaction(s): extreme depression Other reaction(s): extreme depression Cephalexin Diarrhea Doxycycline Other Reaction(s): Vomiting Levofloxacin Other Reaction(s): joint pain Other reaction(s): joint pain Sulfa Antibiotics Amoxicillin Rash Codeine Rash Other Reaction(s): n/v History: History reviewed. No pertinent past medical history. Past Surgical History: Procedure Laterality Date ADENOIDECTOMY COLONOSCOPY 07/29/2021 TONSILLECTOMY TYMPANOSTOMY TUBE PLACEMENT Family History Problem Relation Name Age of Onset Migraines Mother Hypertension Father Hyperlipidemia Father Gout Father Heart disease Paternal Grandfather Stroke Paternal Grandfather Diabetes Paternal Grandfather Social History Socioeconomic History Marital status: Unmarried Spouse name: Not on file Number of children: Not on file Years of education: Not on file Highest education level: Not on file Occupational History Not on file Tobacco Use Smoking status: Never Smokeless tobacco: Never Vaping Use Vaping status: Never Used Substance and Sexual Activity Alcohol use: Yes Drug use: Not on file Sexual activity: Not on file Other Topics Concern Not on file Social History Narrative Not on file Social Determinants of Health Financial Resource Strain: Not on file Food Insecurity: No Food Insecurity (05/03/2022) Received from [employer] [facility], [employer] [facility], [facility] [employer] [facility] Hunger Screening Within the past 12 months we worried whether our food would run out before we got money to buy more.: Never True Within the past 12 months the food we bought just didn't last and we didn't have money to get more.: Never True Transportation Needs: Not on file Physical Activity: Not on file Stress: Not on file Social Connections: Not on file Intimate Partner Violence: Not on file Housing Stability: Not on file REVIEW OF SYMPTOMS: Review of Systems Constitutional: Negative for appetite change, chills, fatigue and fever. HENT: Positive for congestion. Negative for rhinorrhea, sinus pressure, sinus pain and sore throat. Ear pain: no ear pain but feels popping to left ear. Respiratory: Positive for cough. Negative for shortness of breath and wheezing. Cardiovascular: Negative for chest pain and palpitations. Gastrointestinal: Negative for abdominal pain, constipation, diarrhea, nausea and vomiting. Musculoskeletal: Negative. Skin: Negative for color change, rash and wound. Psychiatric/Behavioral: Negative. OBJECTIVE: 04/15/2022 12:00 PM 05/26/2022 12:00 PM 11/21/2022 12:33 PM 01/30/2023 3:21 PM 03/17/2023 1:30 PM 10/10/2023 2:07 PM 11/16/2023 1:12 PM Vitals BMI 18.76 kg/m2 19.04 kg/m2 18.34 kg/m2 18.73 kg/m2 18.43 kg/m2 BSA (m2) 1.64 m2 1.65 m2 1.62 m2 1.64 m2 1.62 m2 Systolic 104 112 108 118 108 120 100 Diastolic 54 72 72 78 62 70 62 Heart Rate 72 100 84 84 72 Temp 98.2 F 98.5 F 97.8 F Height (in) 5' 8 5' 8 Weight (lb) 123.4 125.2 120.6 123.2 121.2 Visit Report Report Report Report Report Physical Exam Constitutional: General: He is not in acute distress. Appearance: Normal appearance. He is ill-appearing (mildly). HENT: Right Ear: Tympanic membrane, ear canal and external ear normal. Left Ear: External ear normal. Ears: Comments: Difficult to see TM to left ear due to wax but erythema noted with tenderness when inserting otoscope Nose: Congestion present. No rhinorrhea. Right Sinus: Maxillary sinus tenderness present. No frontal sinus tenderness. Left Sinus: Maxillary sinus tenderness present. No frontal sinus tenderness. Mouth/Throat: Pharynx: Oropharynx is clear. No posterior oropharyngeal erythema. Eyes: Extraocular Movements: Extraocular movements intact. Conjunctiva/sclera: Conjunctivae normal. Pupils: Pupils are equal, round, and reactive to light. Neck: Vascular: No carotid bruit. Cardiovascular: Rate and Rhythm: Normal rate and regular rhythm. Heart sounds: No murmur heard. Pulmonary: Effort: No respiratory distress. Breath sounds: Normal breath sounds. No wheezing, rhonchi or rales. Comments: No cough on exam. Abdominal: General: Bowel sounds are normal. There is no distension. Palpations: Abdomen is soft. Tenderness: There is no abdominal tenderness. Musculoskeletal: Cervical back: Normal range of motion and neck supple. No tenderness. Lymphadenopathy: Cervical: No cervical adenopathy. Skin: General: Skin is warm and dry. Coloration: Skin is not pale. Findings: No erythema or rash. Neurological: Mental Status: He is alert. Psychiatric: Mood and Affect: Mood normal. Behavior: Behavior normal. ASSESSMENT AND PLAN: Assessment/Plan Diagnoses and all orders for this visit: Other non-recurrent acute nonsuppurative otitis media of left ear - azithromycin (Zithromax) 250 MG tablet; Take 2 tablets (500 mg) by mouth Daily for 1 day, THEN 1 tablet (250 mg) Daily for 4 days. -Advised patient to take antibiotic with food to avoid GI upset and encouraged fluids. Follow up if not improving. Sinus pressure -Recommend Flonase nasal spray OTC, 1 spray to each nare twice a day or 2 sprays to each nare once a day. Educated patient on importance of not overusing medication as it can cause rebound symptoms. PVU. -May take OTC claritin or zyrtec. Acute cough -May take OTC cough syrup such as Robitussin or Delsym. Encourage throat lozagenes and warm fluids like warm tea with honey. Follow up in about 10 days (around 11/26/2023) for ear recheck. documented in this encounter [facility] 11-10-2023 Miscellaneous Notes First Attempt Made from [employer]- Left Voicemail New patient referral received. Dx:Attention deficit hyperactivity disorder (ADHD), unspecified ADHD type [F90.9] Generalized anxiety disorder [F41.1] Chronic fatigue [R53.82] Hypersomnia [G47.10] Excessive daytime sleepiness [G47.19] Chronic daily headache [R51.9]/ Referred by:JOCELINE Camacho Referred to: Providers patient can see in clinic (Make sure if ADDY is listed the patient has not seen a Neurologist before): Please contact patient to schedule from referral, Thanks! PLEASE REVIEW PLAN OVER THE PHONE AND ADVISE PATIENT TO BRING UPDATED INSURANCE INFORMATION TO THEIR NEW PATIENT APPOINTMENT 2nd attempt: Left message for patient documented in this encounter [facility] 11-10-2023 Telephone encounter Note First Attempt Made from Abida Arreaga Voicemail New patient referral received. Dx:Attention deficit hyperactivity disorder (ADHD), unspecified ADHD type [F90.9] Generalized anxiety disorder [F41.1] Chronic fatigue [R53.82] Hypersomnia [G47.10] Excessive daytime sleepiness [G47.19] Chronic daily headache [R51.9]/ Referred by:JOCELINE Camacho Referred to: Providers patient can see in clinic (Make sure if ADDY is listed the patient has not seen a Neurologist before): Please contact patient to schedule from referral, Thanks! PLEASE REVIEW PLAN OVER THE PHONE AND ADVISE PATIENT TO BRING UPDATED INSURANCE INFORMATION TO THEIR NEW PATIENT APPOINTMENT [facility] 11-10-2023 Telephone encounter Note 2nd attempt: Left message for patient [facility] 08-10-2023 History of Presen t illness Narrative Summary: History of perforation [facility] [address] [id number] SUBJECTIVE: Patient ID ([id number]): Selvin Butler is a 18 y.o. male presents today for review of hearing test after being seen and evaluated for presumed tympanic membrane perforation. Chief Complaint Patient presents with Recheck Ears HPI: Selvin is seen in follow-up after having had an audiogram. He was previously seen and evaluated for presumed tympanic membrane perforation. The most recent audiogram shows normal hearing in both ears. HISTORY: Past Medical History: Diagnosis Date ADHD Anxiety History of immunodeficiency Past Surgical History: Procedure Laterality Date ADENOIDECTOMY OTHER SURGICAL HISTORY hole in eardrum TONSILLECTOMY TYMPANOSTOMY TUBE PLACEMENT Family History Problem Relation Age of Onset Snoring Father Immunodeficiency Sister Narcolepsy Neg Hx Social History Socioeconomic History Marital status: Single Spouse name: Not on file Number of children: Not on file Years of education: Not on file Highest education level: Not on file Occupational History Not on file Tobacco Use Smoking status: Never Smokeless tobacco: Never Substance and Sexual Activity Alcohol use: Not on file Drug use: Not on file Sexual activity: Not on file Other Topics Concern Not on file Social History Narrative Not on file Social Determinants of Health Financial Resource Strain: Not on file Food Insecurity: No Food Insecurity (05/03/2022) Hunger Screening Food Insecurity - Worry: Never True Food Insecurity - Inability: Never True Transportation Needs: Not on file Physical Activity: Not on file Stress: Not on file Social Connections: Not on file Interpersonal Safety: Not on file Housing Instability: Not on file Allergies Allergen Reactions Amoxicillin-Pot Clavulanate Diarrhea Cephalexin Diarrhea Dextroamphetamine-Amphetamine Other reaction(s): extreme depression Doxycycline Hyclate Vomiting Levofloxacin Other reaction(s): joint pain Sulfa (Sulfonamide Antibiotics) Amoxicillin Rash Codeine Rash Current Outpatient Medications Medication Sig Dispense Refill cholecalciferol (VITAMIN D3) 1,000 units tablet 1 tablet methylphenidate HCl (RITALIN) 10 mg tablet take 1 tablet by mouth in the morning and 1 tablet by mouth in the afternoon 60 tablet 0 sodium,calcium,mag,pot oxybate (XYWAV) 0.5 gram/mL solution Take 6 g by mouth once daily at bedtime. venlafaxine XR (EFFEXOR XR) 37.5 mg 24 hr capsule take 1 capsule by mouth once daily 30 capsule 6 No current facility-administered medications for this visit. REVIEW OF SYSTEMS: Review of Systems Constitutional: Negative for chills and fever. HENT: Negative for congestion, ear discharge, ear pain, postnasal drip, sinus pressure, sinus pain and sore throat. Eyes: Negative for redness. Respiratory: Negative for shortness of breath. Cardiovascular: Negative for chest pain. Gastrointestinal: Negative for nausea and vomiting. Musculoskeletal: Negative for neck pain. Skin: Negative for rash. Neurological: Negative for dizziness and headaches. Psychiatric/Behavioral: Negative for confusion. Data Reviewed: PHYSICAL EXAMINATION: Ht 170.2 cm (5' 7 ) Wt 53.5 kg (118 lb) BMI 18.48 kg/m Constitutional: Healthy, alert, cooperative, and in no distress and normal ablility to communicate . Voice normal quality. Head/Face: Normocephalic, without obvious abnormality, salivary glands normal, atraumatic, sinuses nontender, and facial nerve intact Eyes: No gross abnormalities., EOMI, no nystagmus, and no lid ptosis Ear: RIGHT: hearing normal, external ear normal, canal normal, and TM normal without fluid or infection LEFT: hearing normal, external ear normal, canal normal, and TM normal without fluid or infection Nose: External nose appears normal, septum midline, normal mucosa, no nasal polyps or masses, and turbinate hypertrophy Oral: normal teeth, normal lips, normal gums, normal hard palate, normal anterior tongue, and oral mucosa moist Oropharynx: normal-appearing mucosa, no pharyngitis, no exudate, tonsils surgically absent, and normal soft palate and uvula Nasopharynx: Deferred. Hypopharynx: Deferred. Larynx: Deferred. TMJ: no pain, crepitus, or trismus Neck:normal, supple, no adenopathy, thyroid normal in size, no nodules or tenderness, no neck masses palpable, and carotids normal Heart: Regular rate Respiration: No stridor, Normal respiratory effort. Neurologic: Grossly normal Alert Oriented X 3 Affect normal Cranial nerves 2 -12 grossly intact Microscopic Evaluation of the Ear(s): Pre Op Diagnosis: History of perforation Post Op Diagnosis: Same Procedure: Microscopic evaluation of ears Clinician: Norm Hernadez MD PhD Anesthesia: None Complications: none Procedure note: Patient was placed in a seated/supine position. Small amount of cerumen and distal canals bilaterally. Procedure was successful. Post operative instructions were given. ASSESSMENT/PLAN: Follow-up audiogram Normal hearing test No evidence of perforation Plan: Pro ear. Follow-up in 6 months for cerumen management. Provider Statement: Wilfrido HERNADEZ MD PhD personally performed the services described in the documentation as described by the above named scribe in my presence. It is both accurate and complete at the time of final signature. Norm Hernadez MD, PhD Counseling: The following elements of medical decision making were considered during this visit: History and physical and audiogram. The patient was counseled regarding prognosis, risks and benefits of treatment options, impressions, importance of compliance with treatment and risk factor reductions. The patient verbalized understanding and agreement to the plan. Please note that parts of this chart were generated using voice recognition [employer] dictation software. Although every effort was made to ensure the accuracy of this automated destination coordinator, some errors in destination coordinator may have occurred. documented in this encounter [facility] 07-25-2023 Telephone encounter Note Pt mother phoned following up on rx for effexor with dose change that was discussed at OV on 07/18. Rx has not been sent to pharmacy [facility] in [facility]. Please advise Pt mother phone # [phone] [facility] 07-25-2023 Miscellaneous Notes Pt mother phoned following up on rx for effexor with dose change that was discussed at OV on 07/18. Rx has not been sent to pharmacy [facility] in [facility]. Please advise Pt mother phone # [phone] documented in this encounter [facility] 07-19-2023 Note HNO ID: [id number] Author: JOSE BROWNING MD Service: ? Author Type: Physician Type: Progress Notes Filed: 08/08/2023 06:50 Note Text: 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 Brain imaging: none as per patient. INITIAL CONSULT - HEADACHE MEDICINE SERVICE DATE: 07/19/2023 Location: [facility] Participants: Patient, mother and Provider Requesting Provider: Member Name Role and Specialty Contact Info Address Comments Janina Corral MD Referring [phone] [facility] [id number] - Recommendations of care will be communicated by shared medical record. Subjective HPI: Selvin Butler is a 18 year old year old male with a chief complaint of headache. Headache Description: Associated symptoms: Prior Treatments: Fioricet Outpatient Medications as of 07/19/2023 Medication Sig ibuprofen (MOTRIN) 600 mg tablet Take 1 tablet by mouth four times a day as needed. ondansetron (ZOFRAN) 4 mg tablet take 1 tablet by mouth every 6 hours if needed for nausea or vomiting venlafaxine ER (EFFEXOR XR) 37.5 mg 24 hr capsule 37.5 mg. cholecalciferol (VITAMIN D3) 1,000 unit tab tablet Take 1 tablet by mouth. methylphenidate ER (METADATE CD) 10 mg CD capsule Take 10 mg by mouth once daily. FLUTICASONE PROPIONATE (FLONASE NASAL) Use in the nose. No current facility-administered medications on file as of 07/19/2023. Current medications review: Effexor 37.5 mg for ELIAZAR PAST MEDICAL HISTORY Diagnosis Date Ear infection Sinus infection ALLERGIES Allergen Reactions Codeine Chart/data review: Social History Tobacco Use Smoking status: Never Smokeless tobacco: Never No family history on file. Review of systems: GENERAL: no fevers or irritability. HEENT:no nose bleeds or other nasal problems. NECK: Negative for stiffness, lumps or significant neck swelling RESPIRATORY: Negative for cough, wheezing or respiratory distress. CARDIOVASCULAR: Negative for chest pain, syncope, lightheadness or heart racing. GI: Negative for abdominal discomfort, blood in stools or black stools or change in bowel habits : No history of dysuria, frequency or incontinence MUSCULOSKELETAL: Negative for joint pain or swelling, back pain or muscle pain. SKIN: Negative for lesions, rash, and itching. NEURO: See HPI PHYSICAL EXAM: Vitals: BP 128/99 Pulse 84 Temp 36.9 ?C (98.5 ?F) Ht 172.7 cm (5' 8 ) Wt 54.9 kg (121 lb) SpO2 99% BMI 18.40 kg/m? Mental Status: alert, oriented to person, place and time and follows commands. Funduscopic exam: no papilledema, flat disc Cranial Nerves: CNII: visual chao full to confrontation CNIII, IV, : Pupils equal, round and reactive to light, full extraocular movements without nystagmus CN V: Facial sensation intact bilaterally to fine touch CN VII: Facial muscles symmetric and strong CN VIII: Hears finger rub well bilaterally CN IX: Gag Reflex Intact CN X: Palate elevates symmetrically CN XI: Full strength shoulder shrug bilaterally CN XII: Tongue protrusion full and midline Motor Exam: Tone is normal throughout, normal bulk, no muscle atrophy. 5/5 strength throughout, no drift in upper and lower extremities. Reflexes: symmetric bilaterally Sensation: Intact to light touch in upper and lower extremities. Coordination: finger-to- nose intact bilaterally. Gait: Patient's gait is normal. 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 Brain imaging: none as per patient. INITIAL CONSULT - HEADACHE MEDICINE SERVICE DATE: 07/19/2023 Location: [facility] Participants: Patient, mother and Provider Requesting Provider: Member Name Role and Specialty Contact Info Address Comments Janina Corral MD Referring [phone] [facility] [id number] - Recommendations of care will be communicated by shared medical record. Subjective HPI: Selvin Butler is a 18 year old year old male with a chief complaint of headache. Headache Description: Associated symptoms: Prior Treatments: [facility] Outpatient Medications as of 07/19/2023 Medication Sig ibuprofen (MOTRIN) 600 mg tablet Take 1 tablet by mouth four times a day as needed. ondansetron (ZOFRAN) 4 mg tablet take 1 tablet by mouth every 6 hours if needed for nausea or vomiting venlafaxine ER (EFFEXOR XR) 37.5 mg 24 hr capsule 37.5 mg. cholecalciferol (VITAMIN D3) 1,000 unit tab tablet Take 1 tablet by mouth. methylphenidate ER (METADATE CD) 10 mg CD capsule Take 10 mg by mouth once daily. FLUTICASONE PROPIONATE (FLONASE NASAL) Use in the nose. No current facility-administered medications on file as of 07/19/2023. Current medications review: Effexor 37.5 mg for ELIAZAR PAST MEDICAL HISTORY Diagnosis Date Ear infection Sinus infection ALLERGIES Allergen Reactions Codeine Chart/data review: Social History Tobacco Use Smoking status: Never Smokeless tobacco: Never No family history on file. Review of systems: GENERAL: no fevers or irritability. HEENT:no nose bleeds or other nasal problems. NECK: Negative for stiffness, lumps or significant neck swelling RESPIRATORY: Negative for cough, wheezing or respiratory distress. CARDIOVASCULAR: Negative for chest pain, syncope, lightheadness or heart racing. GI: Negative for abdominal discomfort, blood in stools or black stools or change in bowel habits : No history of dysuria, frequency or incontinence MUSCULOSKELETAL: Negative for joint pain or swelling, back pain or muscle pain. SKIN: Negative for lesions, rash, and itching. NEURO: See HPI PHYSICAL EXAM: Vitals: BP 128/99 Pulse 84 Temp 36.9 C (98.5 F) Ht 172.7 cm (5' 8 ) Wt 54.9 kg (121 lb) SpO2 99% BMI 18.40 kg/m Mental Status: alert, oriented to person, place and time and follows commands. Funduscopic exam: no papilledema, flat disc Cranial Nerves: CNII: visual chao full to confrontation CNIII, IV, : Pupils equal, round and reactive to light, full extraocular movements without nystagmus CN V: Facial sensation intact bilaterally to fine touch CN VII: Facial muscles symmetric and strong CN VIII: Hears finger rub well bilaterally CN IX: Gag Reflex Intact CN X: Palate elevates symmetrically CN XI: Full strength shoulder shrug bilaterally CN XII: Tongue protrusion full and midline Motor Exam: Tone is normal throughout, normal bulk, no muscle atrophy. 5/5 strength throughout, no drift in upper and lower extremities. Reflexes: symmetric bilaterally Sensation: Intact to light touch in upper and lower extremities. Coordination: finger-to- nose intact bilaterally. Gait: Patient's gait is normal. ASSESSMENT: - 75 mg Jose Browning MD [facility] [place] documented in this encounter [facility] 07-03-2023 Instructions Ellen Hernadez MD - 07/03/2023 4:00 PM EDT 1. Continue methylphenidate and Xywav 2. Continue PAP therapy as much as possible 3. Discussed cataplexy 4. Follow up in 4 months documented in this encounter [facility] 07-03-2023 Miscellaneous Notes Pediatric Psychiatrist called patient and left voicemail, patient was to have an appointment with KW on 07/03/2023 but called to cancel. Patient needs to be seen today for his refills. Pediatric Psychiatrist also called patient's mother/HIPAA, Dian, and left voicemail for her in regard to this patient's appointment and refill of Xywav. Asked that they contact our office as soon as possible. Per KW, patient needs to be seen today. Called and spoke with mom, Dian, she said she would call Selvin and he would be on his way to be seen today at 4 pm. documented in this encounter [facility] 07-03-2023 Telephone encounter Note Pediatric Psychiatrist called patient and left voicemail, patient was to have an appointment with KW on 07/03/2023 but called to cancel. Patient needs to be seen today for his refills. Pediatric Psychiatrist also called patient's mother/HIPAA, Dian, and left voicemail for her in regard to this patient's appointment and refill of Xywav. Asked that they contact our office as soon as possible. Per KW, patient needs to be seen today. [facility] 07-03-2023 Telephone encounter Note Called and spoke with mom, Dian, she said she would call Selvin and he would be on his way to be seen today at 4 pm. T [facility] 07-03-2023 History of Presen t illness Narrative Images from the original note were not included. [address] [place] [address] Patient: Selvin Butler Date of : 2005 Encounter Date: 07/03/2023 History of Present Illness: The patient is a 18 y.o. male, is here for follow up of Idiopathic hypersomnia. Mask interface: nasal [] Epistaxis [] Aerophagia [] Pressure intolerance [] Skin irritation [] Mask leak BT- 10:30pm (quiet and dark, fan on, no bed partner, no pets) ELIS- < 15 minutes WASO-4:30a, back to sleep quickly WT- 10:30-noon Naps- none Shop day: 1-2x a week BT- 3-4a (quiet and dark, fan on, no bed partner, no pets) ELIS- < 15 minutes WASO- none WT- 2-3p Naps- none Stimulant: Ritalin - not everyday (05/10), in afternoon typically, not after 4pm Xywav - 10:30p, a couple times a week will take at 3-4a; no side effects, 6g at bedtime Cleaning machine / cleaning supplies = soap and water Nocturnal behaviors / RLS = denies cataplexy Drowsy driving = none Review of Systems: Review of Systems Physical Exam: BP 112/67 Pulse 78 Ht 170.2 cm (5' 7 ) Wt 53.6 kg (118 lb 3.2 oz) SpO2 99% BMI 18.51 kg/m General Appearance - Awake, alert, oriented, in no acute distress 05/03/2022 12:00 PM 12/27/2022 1:00 PM 01/31/2023 2:00 PM 2023 8:00 AM [place] Sleepiness Scale Sitting and Reading 0 2 2 1 Watching TV 3 2 2 1 Sitting inactive in a public place (theater, meeting) 0 0 0 0 As a passenger in a car for an hour without a break 0 3 3 2 Lying down in the afternoon to rest 3 2 2 2 Sitting and talking to someone 0 0 0 0 Sitting quietly after lunch (without alcohol) 3 2 0 1 In a car, while stopped for a few minutes in traffic 0 1 0 0 Total 9 12 9 7 Assessment: 1. 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 Obstructive sleep apnea (3% AHI 6.4 min O2 89%, PSG 07/26/2022) currently on auto PAP 4-11 cm of water with excellent benefit and suboptimal compliance 3. Anxiety, currently on Effexor 4. Nonsmoker Plan: 1. Continue methylphenidate and Xywav. OARRS reviewed. 2. Continue PAP therapy as much as possible 3. Discussed cataplexy 4. Follow up in 4 months Ellen Hernadez MD Pulmonary and Sleep Medicine [facility] Past Medical, Family, and Social History Update: The following portions of the patient's history were reviewed and updated as appropriate: allergies, current medications, past family history, past medical history, past social history, past surgical history and problem list. Past Medical History: Diagnosis Date ADHD Anxiety History of immunodeficiency Past Surgical History: Procedure Laterality Date ADENOIDECTOMY OTHER SURGICAL HISTORY hole in eardrum TONSILLECTOMY TYMPANOSTOMY TUBE PLACEMENT Family History Problem Relation Age of Onset Snoring Father Immunodeficiency Sister Narcolepsy Neg Hx Current Outpatient Medications Medication Sig Dispense Refill cholecalciferol (VITAMIN D3) 1,000 units tablet 1 tablet methylphenidate HCl (RITALIN) 10 mg tablet take 1 tablet by mouth in the morning and 1 tablet by mouth in the afternoon 60 tablet 0 sodium,calcium,mag,pot oxybate (XYWAV) 0.5 gram/mL solution Take 6 g by mouth once daily at bedtime. venlafaxine XR (EFFEXOR XR) 37.5 mg 24 hr capsule take 1 capsule by mouth once daily 30 capsule 6 No current facility-administered medications for this visit. (All medications reviewed and updated by provider since last office visit or hospitalization) Allergies: Amoxicillin-pot clavulanate, Cephalexin, Dextroamphetamine-amphetamine, Doxycycline hyclate, Levofloxacin, Sulfa (sulfonamide antibiotics), Amoxicillin, and Codeine Tobacco History: Social History Tobacco Use Smoking Status Never Smokeless Tobacco Never (If patient a smoker, smoking cessation counseling offered) Social History: Social History Substance and Sexual Activity Alcohol Use None documented in this encounter [facility] 06-22-2023 History of Presen t illness Narrative Summary: History of tympanic membrane perforation left ear [facility] [address] [place] [address] SUBJECTIVE: Patient ID ([id number]): Selvin Butler is a 18 y.o. male presents today for evaluation of tympanic membrane perforation left ear. Chief Complaint Patient presents with Ear Problem HPI: Selvin is seen Has been previously seen and evaluated. He was 1st seen in ENT in 2019 and was found have a left tympanic membrane perforation. He was treated with ear drops and did not returned for follow-up and re-evaluation. He was seen in urgent care for sinus issues and was found to have persistent tympanic membrane perforation on the left. He does not complain of any hearing loss any drainage at this time, no aural pressure fullness ringing or vertigo. HISTORY: Past Medical History: Diagnosis Date ADHD Anxiety History of immunodeficiency Past Surgical History: Procedure Laterality Date ADENOIDECTOMY OTHER SURGICAL HISTORY hole in eardrum TONSILLECTOMY TYMPANOSTOMY TUBE PLACEMENT Family History Problem Relation Age of Onset Snoring Father Immunodeficiency Sister Narcolepsy Neg Hx Social History Socioeconomic History Marital status: Single Spouse name: Not on file Number of children: Not on file Years of education: Not on file Highest education level: Not on file Occupational History Not on file Tobacco Use Smoking status: Never Smokeless tobacco: Never Substance and Sexual Activity Alcohol use: Not on file Drug use: Not on file Sexual activity: Not on file Other Topics Concern Not on file Social History Narrative Not on file Social Determinants of Health Financial Resource Strain: Not on file Food Insecurity: No Food Insecurity (05/03/2022) Hunger Screening Food Insecurity - Worry: Never True Food Insecurity - Inability: Never True Transportation Needs: Not on file Physical Activity: Not on file Stress: Not on file Social Connections: Not on file Interpersonal Safety: Not on file Housing Instability: Not on file Allergies Allergen Reactions Amoxicillin-Pot Clavulanate Diarrhea Cephalexin Diarrhea Dextroamphetamine-Amphetamine Other reaction(s): extreme depression Doxycycline Hyclate Vomiting Levofloxacin Other reaction(s): joint pain Sulfa (Sulfonamide Antibiotics) Amoxicillin Rash Codeine Rash Current Outpatient Medications Medication Sig Dispense Refill cholecalciferol (VITAMIN D3) 1,000 units tablet 1 tablet methylphenidate HCl (RITALIN) 10 mg tablet take 1 tablet by mouth in the morning and 1 tablet by mouth in the afternoon 60 tablet 0 sodium,calcium,mag,pot oxybate (XYWAV) 0.5 gram/mL solution Take 6 g by mouth once daily at bedtime. venlafaxine XR (EFFEXOR XR) 37.5 mg 24 hr capsule take 1 capsule by mouth once daily 30 capsule 6 No current facility-administered medications for this visit. REVIEW OF SYSTEMS: Review of Systems Constitutional: Negative for fever. HENT: Negative for congestion, ear discharge, ear pain, hearing loss and sore throat. Eyes: Negative for redness. Respiratory: Negative for shortness of breath. Cardiovascular: Negative for chest pain. Gastrointestinal: Negative for nausea and vomiting. Skin: Negative for rash. Neurological: Positive for dizziness and headaches. Psychiatric/Behavioral: Negative for confusion. Data Reviewed: PHYSICAL EXAMINATION: Ht 170.2 cm (5' 7 ) Wt 54 kg (119 lb) BMI 18.64 kg/m Constitutional: Healthy, alert, cooperative, and in no distress and normal ablility to communicate . Voice normal quality. Head/Face: Normocephalic, without obvious abnormality, salivary glands normal, atraumatic, sinuses nontender, and facial nerve intact Eyes: No gross abnormalities., EOMI, no nystagmus, no lid ptosis, and Canal is cerumen containing Ear: RIGHT: hearing normal, external ear normal, canal normal, and tympanic membrane . The canal is cerumen containing LEFT: hearing normal, external ear normal, canal normal, TM abnormal due to a linear area of crusty exudate beginning at the superior aspect of the tympanic membrane anteriorly and extending down to a monomeric area., and The canal is cerumen containing. Nose: External nose appears normal, septum midline, normal mucosa, normal turbinates, no nasal polyps or masses, and Mucosal membranes are moderately dry. Oral: normal teeth, normal lips, normal gums, normal hard palate, normal anterior tongue, and oral mucosa moist Oropharynx: normal-appearing mucosa, no pharyngitis, no exudate, tonsils surgically absent, and normal soft palate and uvula Nasopharynx: Deferred. Hypopharynx: deferred. Larynx: deferred. TMJ: no pain, crepitus, or trismus Neck:normal, supple, no adenopathy, thyroid normal in size, no nodules or tenderness, no neck masses palpable, and carotids normal Heart: Regular rate Respiration: No stridor, Normal respiratory effort. Neurologic: Grossly normal Alert Oriented X 3 Affect normal Cranial nerves 2 -12 grossly intact Microscopic Evaluation of the Ear(s): Pre Op Diagnosis: History of tympanic membrane perforation Post Op Diagnosis: Same Procedure: Microscopic evaluation of Clinician: Jennifer Palacios PA-C Anesthesia: Complications: none Procedure note: Patient was placed in a seated/supine position. Monomeric area anteriorly inferiorly in the left tympanic membrane Procedure was successful. Post operative instructions were given. ASSESSMENT/PLAN: History of tympanic membrane perforation. Plan: 1. Hearing evaluation. 2. Follow-up in ENT pending hearing test. Provider Statement: I NORM HERNADEZ MD PhD personally performed the services described in the documentation as described by the above named scribe in my presence. It is both accurate and complete at the time of final signature. Norm Hernadez MD, PhD Counseling: The following elements of medical decision making were considered during this visit: History and physical. The patient was counseled regarding prognosis, risks and benefits of treatment options, impressions, importance of compliance with treatment and risk factor reductions. The patient verbalized understanding and agreement to the plan. Please note that parts of this chart were generated using voice recognition [employer] dictation software. Although every effort was made to ensure the accuracy of this automated destination coordinator, some errors in destination coordinator may have occurred. documented in this encounter [facility] [employer] [facility] 06-21-2023 Miscellaneous Notes Images from the original note were not included. Received refill request for Xymav for patient, please send refill to [phone] Gali can you confirm that he's taking the medication? Pediatric Psychiatrist called patient and spoke with patient's mother/HIPAA, Dian, who confirmed patient is still taking Xywav. I will sign for 1 month Form faxed documented in this encounter [facility] 06-21-2023 Telephone encounter Note Images from the original note were not included. Received refill request for Xymav for patient, please send refill to [phone] [facility] 06-21-2023 Telephone encounter Note Gali can you confirm that he's taking the medication? [facility] Work Phone: 06-21-2023 Telephone encounter Note Pediatric Psychiatrist called patient and spoke with patient's mother/HIPAADian, who confirmed patient is still taking Xywav. [facility] 06-21-2023 Telephone encounter Note I will sign for 1 month [facility] 06-21-2023 Telephone encounter Note Form faxed [facility] 05-16-2023 History of Presen t illness Narrative Images from the original note were not included. Received refill request from patient's pharmacy for Xywav. He has one refill remaining from [facility] per OARRS though. Deferred. documented in this encounter [facility] 03-23-2023 Miscellaneous Notes Lamar a pharmacist with [facility] left a message stating patient has started taking Fioricet. She states when taking Fiorcet with Xywav is can cause excessive drowsiness. Lamar is asking for Dr. Rodas' approval. Phone number: [phone] option 3 option 4 Advise him to use a non-opioid / barbiturate for headaches. Understandably could increase risk for respiratory depression in conjunction with Xywav. I don't see that it has been filled on his OARRS? Ok to dispense Xywav. Pediatric Psychiatrist called patient and left voicemail for patient informing him of EM's message advising him to use a non-opioid / barbiturate for headaches. Understandably could increase risk for respiratory depression in conjunction with Xywav. Asked patient to call us back if he has any other questions. Pediatric Psychiatrist called [facility] and informed the pharmacist Peace of EM's approval to dispense Xywav, Peace verbalized understanding and stated that the medication would be dispensed to the patient. documented in this encounter [facility] 03-23-2023 Telephone encounter Note Lamar a pharmacist with [facility] left a message stating patient has started taking Fioricet. She states when taking Fiorcet with Xywav is can cause excessive drowsiness. Lamar is asking for Dr. Rodas' approval. Phone number: [phone] option 3 option 4 [facility] 03-23-2023 Telephone encounter Note Advise him to use a non-opioid / barbiturate for headaches. Understandably could increase risk for respiratory depression in conjunction with Xywav. I don't see that it has been filled on his OARRS? Ok to dispense Xywav. [facility] 03-23-2023 Telephone encounter Note Pediatric Psychiatrist called patient and left voicemail for patient informing him of EM's message advising him to use a non-opioid / barbiturate for headaches. Understandably could increase risk for respiratory depression in conjunction with Xywav. Asked patient to call us back if he has any other questions. Pediatric Psychiatrist called [facility] and informed the pharmacist Peace of EM's approval to dispense Xywav, Peace verbalized understanding and stated that the medication would be dispensed to the patient. [facility] 2023 History of Presen t illness Narrative Images from the original note were not included. INTERVAL HISTORY: Selvin [facility] for follow up on 2023. He is a 18 y.o. male followed at the [facility] for GERI, IH. At the time of the last visit in Jan 2023, the plan was resume PAP therapy as tolerated and start Xywav. He is accompanied by mother. Additional Interval History: He is tolerating CPAP with addition of Xywav. There were some days he didn't use it due to dealing with double ear infection and ruptured ear drum. He has a nasal mask, without a chinstrap. He also delayed starting Xywav due to being sick, but now needs a refill. He was waking up after 4 hours on 3 and 4.5 grams but with increase to 6 grams he will sleep until 7-8a. He is going to bed at 12a. He falls asleep immediately after taking Xywav. He is not taking Phenergan. He was advised not to combine with alcohol. He has not had parasomnias. He will go back to sleep 2 hours after awakening, with a final awakening of 11a-1p however this is improved from 5a prior to CPAP / Xywav. 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 [place] Sleepiness Scale: 05/03/2022 12:00 PM 12/27/2022 1:00 PM 01/31/2023 2:00 PM 2023 8:00 AM [place] Sleepiness Scale Sitting and Reading 0 2 2 1 Watching TV 3 2 2 1 Sitting inactive in a public place (theater, meeting) 0 0 0 0 As a passenger in a car for an hour without a break 0 3 3 2 Lying down in the afternoon to rest 3 2 2 2 Sitting and talking to someone 0 0 0 0 Sitting quietly after lunch (without alcohol) 3 2 0 1 In a car, while stopped for a few minutes in traffic 0 1 0 0 Total 9 12 9 7 PAST MEDICAL HISTORY: Patient Active Problem List Diagnosis Attention deficit hyperactivity disorder Generalized anxiety disorder Perforation of left tympanic membrane Sinusitis Chronic fatigue Past Medical History: Diagnosis Date ADHD Anxiety History of immunodeficiency Past Surgical History: Procedure Laterality Date ADENOIDECTOMY OTHER SURGICAL HISTORY hole in eardrum TONSILLECTOMY TYMPANOSTOMY TUBE PLACEMENT ALLERGIES: Allergies Allergen Reactions Amoxicillin-Pot Clavulanate Diarrhea Cephalexin Diarrhea Dextroamphetamine-Amphetamine Other reaction(s): extreme depression Doxycycline Hyclate Vomiting Levofloxacin Other reaction(s): joint pain Sulfa (Sulfonamide Antibiotics) Amoxicillin Rash Codeine Rash MEDICATIONS: Current Outpatient Medications on File Prior to Visit Medication Sig Dispense Refill cholecalciferol (VITAMIN D3) 1,000 units tablet 1 tablet methylphenidate HCl (RITALIN) 10 mg tablet take 1 tablet by mouth in the morning and 1 tablet by mouth in the afternoon 60 tablet 0 sodium,calcium,mag,pot oxybate (XYWAV ORAL) Take by mouth. venlafaxine XR (EFFEXOR XR) 37.5 mg 24 hr capsule take 1 capsule by mouth once daily 30 capsule 0 promethazine (PHENERGAN) 25 mg suppository Insert 1 suppository (25 mg total) into the rectum every 6 (six) hours as needed for nausea or vomiting. (Patient not taking: Reported on 2023) No current facility-administered medications on file prior to visit. FAMILY HISTORY: Family History Problem Relation Age of Onset Snoring Father Immunodeficiency Sister Narcolepsy Neg Hx SOCIAL HISTORY: Social History Socioeconomic History Marital status: Single Spouse name: Not on file Number of children: Not on file Years of education: Not on file Highest education level: Not on file Occupational History Not on file Tobacco Use Smoking status: Never Smokeless tobacco: Never Substance and Sexual Activity Alcohol use: Not on file Drug use: Not on file Sexual activity: Not on file Other Topics Concern Not on file Social History Narrative Not on file Social Determinants of Health Financial Resource Strain: Not on file Food Insecurity: No Food Insecurity (05/03/2022) Hunger Screening Food Insecurity - Worry: Never True Food Insecurity - Inability: Never True Transportation Needs: Not on file Physical Activity: Not on file Stress: Not on file Social Connections: Not on file Interpersonal Safety: Not on file REVIEW OF SYSTEMS: Cardiovascular and pulmonary systems negative. PHYSICAL EXAMINATION: BP 136/65 Pulse 98 Ht 170.2 cm (5' 7 ) Wt 54.5 kg (120 lb 1.6 oz) SpO2 99% BMI 18.81 kg/m General appearance: no acute distress. Eyes: no conjunctival erythema, no scleral icterus. Ears, Nose, Mouth and Throat: external ears unremarkable, external nose unremarkable Neck: trachea position midline. Respiratory: respiratory effort normal Musculoskeletal: normal gait and station. Extremities: No c/c/e. Skin: No rash/ lesions/ulcers/ induration/subcutaneous nodules in visible regions. Neurologic: CN II-XII grossly intact. Mental Status: Cognitive: Alert and oriented x 3. Insight good. Judgment good. DATA: Lab Results Component Value Date WBC 6.0 04/06/2022 HGB 14.4 04/06/2022 HCT 42.1 04/06/2022 MCV 94 04/06/2022 PLT 294 04/06/2022 Lab Results Component Value Date FERRITIN 37 01/19/2016 Chemistry Component Value Date/Time K 4.0 04/06/2022 1148 CL 104 04/06/2022 1148 CO2 29 04/06/2022 1148 BUN 11 04/06/2022 1148 CREATININE 1.01 04/06/2022 1148 GLU 96 04/06/2022 1148 Component Value Date/Time CALCIUM 9.7 04/06/2022 1148 ALKPHOS 69 04/06/2022 1148 AST 15 04/06/2022 1148 ALT 10 04/06/2022 1148 Lab Results Component Value Date TSH 1.87 04/06/2022 Pain Management Panel Latest Ref Rng & Units 07/27/2022 Pain Management Panel Barbiturate Screen, Ur Negative^Negative Negative Benzodiazepine Screen, Urine Negative^Negative Negative ASSESSMENT: Mr. Butler is a 18 y.o. male with medical problems as above, followed at [facility] for: Obstructive sleep apnea (3% AHI=6, Min O2=89%) currently treated with nasal CPAP 4-11 cm of water (with recent limited compliance due to ear issues) Hypersomnia, potentially also related to delayed sleep phase type and GERI vs idiopathic, currently treated with Xywav 6g nightly and Ritalin (for alternate indication) ADHD on Ritalin IR 10mg PRN cattle shows Anxiety on Effexor S/p tonsillectomy RECOMMENDATIONS: I reviewed his download. I commended his improved compliance with he attributed to Xywav. His compliance has been somewhat limited due to resolving ear issues. I encouraged him to use his current machine at his current setting all night every night. Ideally he would not take Xywav without using his CPAP. He has had marked improvement with CPAP use and Xywav. He was waking up too early with lower dose Xywav but will sleep until 7-8a at max 6g dosing. Will have him continue current therapy for now, before reassessing if we should try divided dosing instead especially if he continues to improve his CPAP use. He may wish to more regularly take his Ritalin. I encouraged regular follow up with his primary care physician and other specialists for preventative and otherwise indicated health screening as well as management of comorbid medical conditions. I advise maintenance of a normal body weight, and support annual flu and COVID vaccination. Call if problems/questions arise prior to follow up Follow up in 3 month(s) with sleep MD EDUCATION: Risks of untreated obstructive sleep apnea were reviewed. Driving precautions were reviewed. I advised the patient not to drive if sleepy, and to car repairer pullman if sleepiness occurs while driving. Above plan as discussed with the patient who acknowledged understanding and agreement. Tram Rodas MD [facility] [address] [place] [address] documented in this encounter [facility] 2023 Instructions Tram Rodas MD - 2023 8:30 AM EST documented in this encounter [facility] 05-12-2022 History of Presen t illness Narrative Images from the original note were not included. Allergy & Clinical Immunology ZULEIKA Gill has requested consultation for recurrent URI. My progress note with assessment and recommendations from today's appointment will be electronically routed to the referring provider. Selvin Butler is a 17 year old male with [...] history of sleep disorders. 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 - Immune evaluation about 1 year ago unremarkable - Discussed that while fatigue can be reported in primary immunodeficiency, his degree of fatigue is not typical - Do not feel repeating immune tests at this time would be of benefit - While Selvin reports some intermittent joint pain, his history is otherwise not suggestive of a rheumatologic condition - Recommend continued evaluation for sleep disorder - [facility] - Continue current management of sinusitis; follows with ENT locally Return to clinic: as needed Savannah Nixon MD, PhD Allergy & Clinical Immunology [facility] Medical Decision Making: Level: 3 - Low documented in this encounter [facility] 07-15-2021 Evaluation note Encounter Date Diagnosis Assessment Notes July, Abdominal pain (ICD-10 - R10.9) PAIN WILL MOVE RADIATE LOWER IN ABDOMEN. PATIENT STATES THIS HAS BEEN ONGOING FOR ABOUT 6 MONTHS. WE WILL ORDER SOME LABS AT THIS TIME. July, Diarrhea (ICD-10 - R19.7) [employer] Other 02-01-2022 NotePROCEDURE: [place] VCT 64. In the coronal projection, without [...] and signed by Parminder Burch on 04/06/2021 [id number]ist[facility]* Diagnosis Chronic fatigue syndrome- Primary Nonintractable episodic headache, unspecified headache type Chronic rhinitis [facility] Migraine without aura and without status migrainosus, not intractable- Primary Migraine without aura, without mention of intractable migraine without mention of status migrainosus [facility] Diagnosis Other non-recurrent acute nonsuppurative otitis media of left ear- Primary Sinus pressure Other diseases of nasal cavity and sinuses Acute cough documented in this encounter [facility] HealthcareEvaluation [facility]* Diagnosis History of perforation of tympanic membrane- Primary Perforation of left tympanic membrane documented in this encounter [facility]* Diagnosis Idiopathic hypersomnia with long sleep time- Primary Obstructive sleep apnea Obstructive sleep apnea (adult) (pediatric) documented in this encounter [facility]* Diagnosis Idiopathic hypersomnia with long sleep time- Primary Obstructive sleep apnea Obstructive sleep apnea (adult) (pediatric) Ear infection Unspecified otitis media documented in this encounter [facility]* Diagnosis Hx of perforation of tympanic membrane- Primary documented in this encounter [facility]* Diagnosis Intolerance of continuous positive airway pressure (CPAP) ventilation- Primary Idiopathic hypersomnia with long sleep time Obstructive sleep apnea Obstructive sleep apnea (adult) (pediatric) 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, delayed sleep phase type [facility] Diagnosis Migraine without aura and without status migrainosus, not intractable- Primary Attention deficit hyperactivity disorder (ADHD), unspecified ADHD type Generalized anxiety disorder Chronic fatigue Other malaise and fatigue Hypersomnia Hypersomnia, unspecified Excessive daytime sleepiness Night sweats Generalized hyperhidrosis [facility] Diagnosis Migraine without aura and without status migrainosus, not intractable- Primary [facility] N[facility]ative - Reported* Type Description Date Medical History ADHD Surgical History T&A Surgical History Myringotomy bilateral Surgical History Reconstructive ear drum Hospitalization History See past surgical histor y [employer] Other InstructionsNot on filedocumented in this encounter [facility] filedocumented in this encounter [facility] on filedocumented in this encounter [facility]ructionsNot on filedocumented in this encounter [facility]ructionsNot on filedocumented in this encounter [facility]ructionsNot on filedocumented in this encounter [facility]ructionsNot on filedocumented in this encounter [facility]InstructionsNot on filedocumented in this encounter [facility] SystemReason for visit NarrativePATIENT HERE AT THE REQUEST OF AMINA KUMAR FOR EVALUATION & TREATMENT OF GENERALIZED ABDOMINAL PAIN, SOMETIMES IMPROVES WITH BOWEL MOVEMENT, WHEN DONE EATING WILL USE THE BATHROOM. NO PREVIOUS SCOPES.[employer] Other Summary Purpose Family History No Family [...] Referral Specialty Diagnoses / Procedures Referred By Contac t Referred To Contact Diagnoses History of perforation of tympanic membrane Procedures Hearing Evaluation (Audiology) Norm Hernadez MD PhD [address] [address] Referral ID Status Reason Start Date Expiration Date V isits Requested Visits Authorized [id number] Pending Review 06/22/2023 06/21/2024 1 1 Specialty Diagnoses / Procedures Referred By Emely brown Referred To Contact Neurology Diagnoses Chronic fatigue syndrome Nonintractable episodic headache, unspecified headache type Procedures CONSULT TO NEUROLOGY OFFICE/OUTPATIENT [facility] 60-74 MINUTES Savannah Nixon MD [address] [place] [address] Referral ID Status Reason Start Date Expiration Date Visits Requested Visits Authorized [id number] Authorized PCP Requested Referral 05/12/2022 05/12/2023 1 1 Additional Source Comments (unrecognized sect ion and content) No Status Records FoundNo Status Records FoundNo Status Records FoundNo Status Records FoundNo Status Records FoundNo Status Records FoundNo Status Records FoundNo Status Records FoundNo Status Records Found INFORMATION SOURCE (unrecogn ized section and content) DATE CREATED AUTHOR 08/29/2017 [facility] DATE CREATED AUTHOR AUTHOR'S ORGANIZ ATION 08/08/2021 [facility] DATE CREATED AUTHOR AUTHOR'S ORGANIZ ATION 08/10/2021 [facility]ical Specialist DATE CREATED AUTHOR AUTHOR'S ORGANIZ ATION 02/24/2022 [facility] DATE CREATED AUTHOR AUTHOR'S ORGANIZ ATION 08/09/2023 [facility] DATE CREATED AUTHOR AUTHOR'S ORGANIZ ATION 08/17/2023 [facility] DATE CREATED AUTHOR AUTHOR'S ORGANIZ ATION 11/18/2023 [facility] dical Specialists [facility] DATE CREATED AUTHOR AUTHOR'S ORGANIZ ATION 12/05/2023 [facility] DATE CREATED AUTHOR AUTHOR'S ORGANIZ ATION 02/19/2024 [facility] Source Comments (unrecognize d section and content) In the event this informatio n is protected by the Federal Confidentiality of Alcohol and Drug Abuse Patient Records regulations: The Federal rules restrict any use of the information to criminally investigate or prosecute any alcohol or drug abuse patient.[facility] Center[facility] the event this information is protected by the Federal Confidentiality of Alcohol and Drug Abuse Patient Records regulations: The Federal rules restrict any use of the information to criminally investigate or prosecute any alcohol or drug abuse patient.[facility] Center[facility] the event this information is protected by the Federal Confidentiality of Alcohol and Drug Abuse Patient Records regulations: The Federal rules restrict any use of the information to criminally investigate or prosecute any alcohol or drug abuse patient.[facility] Reason for Visit (unrecogniz ed section and content) Reason Comments Consult Reason Comments New Patient Headaches 2 x 3 headaches wk Reason Comments Medication Question Reason Comments Cough Nasal Congestion Reason Comments Ear Problem Reason Comments Sleep Apnea DME: [place] Idiopathic hypersomnia with long sleep t mg On Xywav Follow-up Previous EM patient Reason Comments Idiopathic hypersomnia with long sleep t mg Xywav Patient Reason Comments Recheck Ears Reason Comments Follow-up Idiopathic hypersomn ia with long sleep time Reason Onset Date Comments NEW PATIENT REFERRAL 11/10/2023 Reason Comments Fatigue Patient is here toda y as a new patient Chronic fatigue; Hypersomnia; Excessive daytime sleepiness Specialty Diagnoses / Procedures Referred By Emely brown Referred To Contact Neurology Diagnoses Attention deficit hyperactivity disorder (ADHD), unspecified ADHD type Generalized anxiety disorder Chronic fatigue Hypersomnia Excessive daytime sleepiness Chronic daily headache Emilia Gilbert, LEADITE HEATER-NEUROSURGICAL NURSE [address] [place] [address] Phone: tel: fax: [facility] [address] [place] [address] Phone: tel: fax: Referral ID Status Reason Start Date Expiration Date Visits Requested Visits Authorized [id number] Pending Review Specialty Services Required 11/09/2023 11/08/2024 1 1 Reason Comments Follow-up Patient is here toda y for follow up on DX: Migraine without aura and without status migrainosus, not intractable Care Teams (unrecognized sec tion and content) Metal Stamper Relationship Specialty Start Date End Date Amina Kumar [address] [place] [address] Referring Family Medicine 02/23/22 Amina Kumar [address] [place] [address] Referring 03/11/22 Metal Stamper Relationship Specialty Start Date End Date Amina Kumar APRN Referring Family Medicine 02/23/22 Amina Kumar APRN Referring 03/11/22 Janina Corral MD [address] [place], [place] [id number] Referring Family Medicine 02/09/23 Metal Stamper Relationship Specialty Start Date End Date Amina Kumar APRN Referring Family Medicine 02/23/22 Amina Kumar APRN Referring 03/11/22 Janina Corral MD [address] [facility] [place] [address] Referring Family Medicine 02/09/23 Metal Stamper Relationship Specialty Start Date End Date Janina Corral MD [address] [facility] [place] [address] PCP - General Family Medicine 07/12/22 Amina Kumar, ACUTE CARE PHYSICIAN [address] [place] [address] PCP - [facility] 06/05/23 Metal Stamper Relationship Specialty Start Date End Date Janina Corral MD [address] [place] [address] PCP - General Family Medicine 07/12/22 Amina Kumar, ACUTE CARE PHYSICIAN [address] [place] [address] PCP - [facility] 06/05/23 Metal Stamper Relationship Specialty Start Date End Date Janina Corral MD [address] [facility] [place] [address] PCP - General 08/30/13 Metal Stamper Relationship Specialty Start Date End Date Janina Corral MD [address] [facility] [place] [address] PCP - General 08/30/13 Metal Stamper Relationship Specialty Start Date End Date Janina Corral MD [address] [facility] [place] [address] PCP - General 08/30/13 Metal Stamper Relationship Specialty Start Date End Date Janina Corral MD [address] [facility] [place] [address] PCP - General 08/30/13 Metal Stamper Relationship Specialty Start Date End Date Janina Corral MD [address] [place] [address] PCP - General 08/30/13 Metal Stamper Relationship Specialty Start Date End Date Janina Corral MD [address] [facility] [place] [address] PCP - General 08/30/13 Metal Stamper Relationship Specialty Start Date End Date Janina Corral MD [address] [facility] [place] [address] PCP - General 08/30/13 Metal Stamper Relationship Specialty Start Date End Date Janina Corral MD [address] [facility] [place] [address] PCP - General 08/30/13 Metal Stamper Relationship Specialty Start Date End Date Janina Corral MD [address] [facility] [place] [address] PCP - General 08/30/13 Metal Stamper Relationship Specialty Start Date End Date Janina Corral MD [address] [facility] [place] [address] PCP - General 08/30/13 FOR RECORDS PERTAINING TO PATIENTS WHO ARE [...] BE BASED ON THE PRIMARY CLINICAL RECORDS. [facility] [employer] [facility]. provides no warranty or guarantee of the accuracy or completeness of information in this document.
[2024-05-22] MEDS: ADACEL DIPH,PERTUSS(ACELL),TET VAC/PF 0.5 ML ADULT SYRINGE IM (15:21)
--- NOTE | 2024-05-22 15:33 | ED.GENADUL1 ---
HPI HPI - General Adult General Chief complaint: Wound/Laceration Stated complaint: L HAND LACERATION Time Seen by Provider: 05/22/24 14:36 Mode of arrival: walk-in History of Present Illness HPI narrative: Patient presents to ED complaining of hand laceration. 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 He has normal full range of motion no tendon involvement full strength normal distal pulses and sensation and cap refill. Patient states his tetanus shot is not up-to-date. Patient said it then hit his knee but he said that his knee is fine he does not have any pain in his knee or break to the skin. No loss of consciousness. His hand has been soaking in the ED room. No other complaints at this time Related Data Home Medications ?Medication ?Instructions ?Recorded ?Confirmed loratadine 10 mg tablet 10 mg PO DAILY PRN allergic 01/12/23 05/22/24 (Allerclear) symptoms venlafaxine 37.5 mg 37.5 mg PO DAILY 01/12/23 05/22/24 capsule,extended release 24 hr sodium, calcium, magnesium, 0.5 g PO DAILY 05/22/24 05/22/24 potassium oxybates 0.5 gram/mL oral soln (Xywav) Previous Rx's ?Medication ?Instructions ?Recorded promethazine 25 mg tablet 25 mg PO Q6H PRN nausea and 01/12/23 vomiting #12 tabs roevajddgg-tqgcfbnzmseqw-znjettxn 1 cap PO Q8H PRN headache, pain #8 03/18/23 50 mg-300 mg-40 mg capsule caps (Fioricet) loratadine 5 mg-pseudoephedrine ER 1 tab PO Q12H PRN nasal congestion 10/09/23 120 mg tablet,extended #20 tabs release,12hr (Claritin-D 12 Hour) Allergies Allergy/AdvReac Type Severity Reaction Status Date / Time No Known Drug Allergies Allergy Verified 01/12/23 19:54 Opioid HPI Opioid Management Most Recent Opioid Data: Last Pain Scale 8 10/09/23 20:09 10/09/23 Review of Systems ROS Status of ROS 10 or more systems reviewed and unremarkable except as noted in history and below PFSH PFSH Social History Smoking status: Never smoker Little interest or pleasure in doing things: not at all Feeling down, depressed, or hopeless: not at all Exam Narrative Exam Narrative: General: alert, no acute distress Cardiovascular: regular rate and rhythm, normal peripheral perfusion. Respiratory: Lungs CTA, respirations non labored. Extremities: 1.5 cm laceration across the left PIP joint on the index finger and 1 cm laceration to the medial aspect of the middle finger near the PIP joint on the left. Normal range of motion normal cap refill tendon function intact strength intact Neurological: oriented x 4, LOC appropriate for age. Constitutional Vital Signs, click to edit/add: Last Vital Signs Temp 97.7 F 05/22/24 14:39 Pulse 92 H 05/22/24 14:39 Resp 18 05/22/24 14:39 BP 111/66 05/22/24 14:39 Pulse Ox 97 05/22/24 14:39 Course Vital Signs Vital signs: Vital Signs Temperature 97.7 F 05/22/24 14:39 Pulse Rate 92 H 05/22/24 14:39 Respiratory Rate 18 05/22/24 14:39 Blood Pressure 111/66 05/22/24 14:39 Pulse Oximetry 97 05/22/24 14:39 Temperature 97.7 F 05/22/24 14:39 Pulse Rate 92 H 05/22/24 14:39 Respiratory Rate 18 05/22/24 14:39 Blood Pressure 111/66 05/22/24 14:39 Pulse Oximetry 97 05/22/24 14:39 Medical Decision Making MDM Narrative Medical decision making narrative: Lacerations were repaired without any difficulty. Patient tolerated well. Patient was placed in a splint on both fingers just to prevent him bending too much because both lacerations were over the knuckle. Watch for signs of infection and return if anything worsens. Follow-up with family doctor or return to ED in about 7 days for suture removal. Tetanus shot was updated. Patient and family comfortable with care plan for home. Differential Diagnosis Differential Diagnosis: Last patient contusion fracture Discharge Plan Discharge Chief Complaint: Wound/Laceration Clinical Impression: Laceration Patient Disposition: Home, Self-Care Time of Disposition Decision: 15:16 Condition: Good Mode of Transportation: Private Vehicle Prescriptions / Home Meds: No Action venlafaxine 37.5 mg capsule,extended release 24hr 37.5 mg PO DAILY loratadine [Allerclear] 10 mg tablet 10 mg PO DAILY PRN (Reason: allergic symptoms) promethazine 25 mg tablet 25 mg PO Q6H PRN (Reason: nausea and vomiting) Qty: 12 0RF Claritin-D 12 Hour 5-120 mg tablet extended release 12 hr 1 tab PO Q12H PRN (Reason: nasal congestion) Qty: 20 0RF Xywav 0.5 gram/mL solution 0.5 g PO DAILY fspijnpnfp-cxqthujaeggmt-zdno [Fioricet] 50-300-40 mg capsule 1 cap PO Q8H PRN (Reason: headache, pain) Qty: 8 0RF Print Language: Swedish Referrals: DLE CORRAL [Primary Care Provider] - 1 week Procedures ED Laceration Laceration Laceration 1: Site: other (Left index finger at PIP joint) Side (if applicable): left Size (cm): 1.5 Description: linear Depth: simple, single layer Anesthetic used: with epi Anesthesia technique: local infiltration Amount (ml): 1 Pre-repair: irrigated extensively and deep structures intact Skin layer closed with: other (Prolene) Size (cm): 5-0 Number of sutures: 3 Technique: simple, interrupted Additional comments: 1 cm laceration repaired in the left middle finger at the PIP joint. 2 sutures placed. 5-0 Prolene simple interrupted. Patient tolerated well
== END 2024-05-22 15:51 | disposition home or self-care (01) ==
PROVIDERS: Emergency Provider Emergency Medicine; PCP Family Medicine
DX: S61.211A Laceration without foreign body of left index finger without damage to nail, initial encounter (principal); S61.213A Laceration without foreign body of left middle finger without damage to nail, initial encounter; W29.8XXA Contact with other powered hand tools and household machinery, initial encounter; Z23 Encounter for immunization
CPT/HCPCS: 12001; 90471; 90715; 99284

== ENCOUNTER 2024-12-16 17:59 | Emergency (ER) | payer OTHER, SELFPAY ==
[2024-12-16 18:05] VITALS: BP 112/62; PULSE 75; TEMP 36.8; O2SAT 98; BMI 19.8
--- OUTSIDE RECORDS SUMMARY | 2024-12-16 18:05 | XMS_ITS | Clinical Summary ---
Author Organization [facility] Address [address] [place] [address] Care Team Providers Care Dredge Worker Name Role Phone Janina Joiner MD Primary Care Provider [phone] Amina Aponte [employer] Unavailable [phone] Allergies Active Allergy Reactions Criticality Noted Date Comments Amoxicillin Rash Low 06/01/2021 Amoxicillin-Pot Clavulanate Diarrhea 06/02/19 Amphetamine-Dextroamphetami ne 06/01/2021 Other Reaction(s): extreme depression Other reaction(s): extreme depression Cephalexin Diarrhea 06/01/2021 Codeine Rash Low 06/20/2008 Other Reaction(s): n/v Doxycycline 06/01/2021 Other Reaction(s): Vomiting Levofloxacin 06/01/2021 Other Reaction(s): joint pain Other reaction(s): joint pain Sulfa Antibiotics 05/03/2022 Medications cholecalciferol (Vitamin D-3) 125 MCG (5000 UT) tablet Take 5,000 Units by mouth in the morning. Active ibuprofen 600 MG tablet take 1 tablet by mouth four times a day if needed for pain 3 Active ondansetron (Zofran) 4 MG tablet take 1 tablet by mouth every 6 hours if needed for nausea or vomiting Active promethazine (Phenergan) 25 MG tablet take 1 tablet by mouth every 6 hours if needed for nausea and vomiting 3 Active propranolol XL (Innopran XL) 80 MG 24 hr capsule 2 capsules 1 (one) time each day at the same time. Active Ca, Mg, K, and Na Oxybates (XYWAV PO) Take 0.5 g by mouth. 0.5 gm - ordered through pulmonology Active venlafaxine XR (Effexor XR) 37.5 MG 24 hr capsuleIndicati ons:Generalized anxiety disorder Take 1 capsule (37.5 mg) by mouth Daily 90 capsule 3 5 10/12/19 26 Active Active Problems Problem Noted Date Diagnosed Date GERI (obstructive sleep apnea) 11/21/2022 ADHD (attention deficit hype ractivity disorder), inattentive type 08/30/2022 Acquired deformity of foot 08/30/2022 Recurrent sinusitis 08/30/2022 Chronic fatigue 08/30/2022 Excessive daytime sleepiness 08/30/2022 Generalized anxiety disorder 08/30/2022 Hypersomnia 08/30/2022 Hypogammaglobulinemia 08/30/2022 Migraine headache 08/30/2022 Vitamin D insufficiency 08/30/2022 Encounters Date Type Department Care Team Description 10/16/2024 Refill [facility] [address] [place] [address] Janina Joiner MD Generalized anxiety disorder (Primary Dx) 10/10/2024 8:30 AM EDT Office Visit [facility] [address] [place] [address] Amina Aponte NP Acute cough (Primary Dx); Sinus pressure; Acute non-recurrent maxillary sinusitis; Generalized anxiety disorder 10/10/2024 Bamboo flowsheet [facility] [address] [place] [address] Amina Aponte NP 10/10/2024 Travel from Last 3 Months Immunizations Immunization Administration Dates Next Due DTaP / IPV 09/16/2008 Influenza, injectable, quadrivalent 12/25/2020,1 03/23/2019 Influenza, injectable, quadr ivalent, preservative free 12/03/2021,03/14/2019,11/16/2017,11/25 Influenza, seasonal, intrade rmal, preservative free 11/28/2014 MMR 09/16/2008 Meningococcal MCV4P 11/05/2020,10/13/2015 Meningococcal MPSV4 10/13/2015 Pneumococcal Polysaccharide PPSV23 05/31/2021,,05/19/2005 Tdap 05/22/2024,10/13/2015 Family History Medical History Relation Name Comments Gout Father Hyperlipidemia Father Hypertension Father Migraines Mother Diabetes Paternal Grandfather Heart disease Paternal Grandfather Stroke Paternal Grandfather Relation Name Status Comments Father Alive Mother Alive Paternal Grandfather Social History Tobacco Use Types Packs/Day Years Used Date Smoking Tobacco: Never Smokeless Tobacco: Never Tobacco Cessation:Counseling Given: Not Answered Alcohol Use Standard Drinks/Week Comments Yes 0 (1 standard drink = 0.6 oz pur e alcohol) AUDIT-C Answer Date Recorded Q1: How often do you have a drink containing alc ohol? Monthly or less 01/30/2023 Q2: How many drinks containi ng alcohol do you have on a typical day when you are drinking? 1 or 2 01/30/2023 Q3: How often do you have si x or more drinks on one occasion? Never 01/30/2023 Sex and Gender Information Value Date Recorded Sex Assigned at Not on file Legal Sex Male 6:33 PM EDT Gender Identity Not on file Sexual Orientation Not on file Last Filed Vital Signs Vital Sign Reading Time Taken Comments Blood Pressure 112/80 10/10/2024 8:43 AM EDT Pulse 84 10/10/2024 8:43 AM EDT Temperature 36.6 C (97.8 F) 03/17/2023 1:30 PM EST Respiratory Rate - - Oxygen Saturation - - Inhaled Oxygen Concentration - - Weight 58.5 kg (129 lb) 10/10/2024 8:43 AM EDT Height 172.7 cm (5' 8 ) 05/26/2022 12:00 PM EDT Body Mass Index 19.61 05/26/2022 12:00 PM EDT Plan of Treatment Health Maintenance Due Date Last Done Comments Influenza Vaccine (#1) 2024 2, 12/25/2020, 01/22/2020, Additional history exists Procedures Procedure Name Priority Date/Time Associated Diagnosis Comments STATUS COVID-19/FLU Routine 10/10/2024 9 :15 AM EDT Acute cough Sinus pressure from Last 3 Months Results * STATUS COVID-19/FLU (10/10/2024 9:15 AM EDT) FLU A negative FLU B negative SARS COV 2 RNA negative Nasopharyngeal 10/10/2024 9: 15 AM EDT Amina Aponte NP POINT OF CARE TEST ENTER/E DIT ORDERABLES Final Result from Last 3 Months Insurance [employer] Care Teams Dredge Worker Relationship Specialty Start Date End Date Janina Joiner MD PCP - General Family Medicine 07/12/22 Amina Aponte NP [address] [place] [address] PCP - [facility] 06/05/23
--- OUTSIDE RECORDS SUMMARY | 2024-12-16 18:05 | XMS_ITS | Encounter Summary ---
Author Organization [facility] tem Address [facility]-[id number] [address] [place] [address] Care Team Providers Care Liability Claims Manager Name Role Phone Janina Joiner MD Primary Care Provider Jorge A mendoza Encounter Details Date Type Department Care Team (Late st Contact Info) Description 07/07/2021 Abstract [facility] - Medical Oncology [address] [place] [id number] Bhargav Neal MD [address] [place] [address] [address] [place] [address] Social History Tobacco Use Types Packs/Day Years Used Date Smoking Tobacco: Never Smokeless Tobacco: Never Childcare Answer Date Recorded Childcare Unknown 08/15/2018 Employment Answer Date Recorded Employment Unknown 08/15/2018 Purpose - Life Answer Date Recorded Purpose and direction in life Unknown Sex and Gender Information Value Date Recorded Sex Assigned at Not on file Legal Sex Male 12:01 PM EDT Gender Identity Not on file Sexual Orientation Not on file COVID-19 Exposure Response Date Recorded In the last 10 days, have yo u been in contact with someone who was confirmed or suspected to have Coronavirus/COVID-19? No / Unsure 06/23/2021 2:13 PM EDT documented as of this encounter Plan of Treatment Not on file documented as of this encounter Procedures Procedure Name Priority Date/Time Associated Diagnosis Comments MULTIPLE LABS Routine 05/12/2021 documented in this encounter Results * Multiple labs (05/12/2021) 05/12/2021 us Not In System Ref Prov [facility] Final Res ult documented in this encounter Visit Diagnoses Not on filedocumented in this encounter Care Teams Liability Claims Manager Relationship Specialty Start Date End Date Wonderly, Janina Mayes MD PCP - General 08/30/13 documented as of this encounter
--- OUTSIDE RECORDS SUMMARY | 2024-12-16 18:05 | XMS_ITS | Patient Health Record ---
Author Organization [facility] [place] Address [address] [place] [address] Support Name Relationship Address Phone Dian Rosariodawsonstephanie Emergency Contact Unknown Maykel Butler Guarantor Unknown [phone] Reason For Referral No Information Medications Medication SIG (Take, Route, Frequency, Duration) Notes Start Date End Date Status Gabapentin 250 mg/5 ml 3 milliliter(s) TID; Duration: 30 days Take 3 milliliters 3 times a day 11/15/2013 Active Motrin Childrens 100 mg/5 ml 2 suspension BID Active Flonase 50 mcg/inh spray PRN Active Tylenol Childrens 160 mg/5 ml suspension Q4H Active Methylphenidate HCl 10 mg 1 tablet DAILY Active Claritin PRN Active Plan Of Treatment No Information Insurance Providers Payer Name Payer Address Payer Phone Subscriber Number Group Number Insured Name Patient Relationship to Insured Coverage Start Date Coverage End Date [employer] [address] [address] [place], [place] [id number] Maykel Meade Child - Insured has Financial Responsibility 4 Medical (General) History Surgical History Surgery Date(Month/Year) History of tonsillectomy History of adenoidectomy History of ear surgery
--- OUTSIDE RECORDS SUMMARY | 2024-12-16 18:05 | XMS_ITS | Encounter Summary ---
Author Organization [facility] tem Address [facility] [facility]-[id number] [address] [place] [address] Care Team Providers Care Warm In Name Role Phone Janina Joiner MD Primary Care Provider Jorge A mendoza Encounter Details Date Type Department Care Team (Late st Contact Info) Description 06/16/2021 Orders Only [facility] [address] [place] [address] External, Scanning Provider Social History Tobacco Use Types Packs/Day Years [...] suspected to have Coronavirus/COVID-19? No / Unsure 06/03/2021 2:41 PM EDT documented as of this encounter Plan of Treatment Not on file documented as of this encounter Procedures Procedure Name Priority Date/Time Associated Diagnosis Comments CT SINUSES WO CONT Routine 04/06/2021 documented in this encounter Results * CT sinuses without contrast (04/06/2021) Anatomical Region Laterality Modality Neuro, Face, Neuro Covera N/A Comput ed Tomography us Scanning Provider External IMG CT ORDERABLES Fin al Result documented in this encounter Visit Diagnoses Not on filedocumented in this encounter Care Teams Warm In Relationship Specialty Start Date End Date Wonderly, Janina Mayes MD PCP - General 08/30/13 documented as of this encounter
--- OUTSIDE RECORDS SUMMARY | 2024-12-16 18:05 | XMS_ITS | Clinical Summary ---
Author Organization [facility] Address [address] [phone] Phone Care Team Providers Care Network Programmer Name Role Phone Unavailable Primary Care Provider Unavailabl e Social History Tobacco Use Types Packs/Day Years Used Date Smoking Tobacco: Never Assessed Sex and Gender Information Value Date Recorded Sex Assigned at Not on file Legal Sex Male 2:57 PM EST Gender Identity Not on file Sexual Orientation Not on file Plan of Treatment Not on file
--- OUTSIDE RECORDS SUMMARY | 2024-12-16 18:05 | XMS_ITS | Encounter Summary ---
Author Organization [employer] [facility] tem Address [facility]-[id number] [address] [place] [address] Care Team Providers Care Supplier Diversity Director Name Role Phone Janina Joiner MD Primary Care Provider Jorge A mendoza Encounter Details Date Type Department Care Team (Late st Contact Info) Description 07/19/2021 Orders Only [facility] [address] [place] [address] Darlin Agosto CMA Perforation of left tympanic membrane Social History Tobacco Use Types Packs/Day Years [...] suspected to have Coronavirus/COVID-19? No / Unsure 07/15/2021 11:02 AM EDT documented as of this encounter Plan of Treatment Not on file documented as of this encounter Procedures Procedure Name Priority Date/Time Associated Diagnosis Comments HEARING EVALUATION (AUDIOLOGY) Routine 07/19/2021 Perforation of left tympanic membrane TYMPANOMETRY (AUDIOLOGY) Routine 07/19/2021 documented in this encounter Results * Tympanometry (Audiology) (07/19/2021) us Scanning Provider External AUDIOLOGY SERVICES OR DERABLES Edited Result - Final MANUALLY TRANSCRIBED RESULTS * Hearing Evaluation (Audiology) (07/19/2021) us Jennifer Palacios PA-C ENT ORDERABLES Final Resu lt Performing Organization Address City/[facility]/ZIP Co de Phone Number MANUALLY TRANSCRIBED RESULTS documented in this encounter Visit Diagnoses Diagnosis Perforation of left tympanic membrane documented in this encounter Care Teams Supplier Diversity Director Relationship Specialty Start Date End Date Rhys, Janina Mayes MD PCP - General 08/30/13 documented as of this encounter
--- OUTSIDE RECORDS SUMMARY | 2024-12-16 18:05 | XMS_ITS | Encounter Summary ---
Author Organization [facility] [employer] [facility] tem Address [id number] [address] [place] [address] Care Team Providers Care Lead Investigator Name Role Phone Janina Joiner MD Primary Care Provider Jorge A mendoza Encounter Details Date Type Department Care Team (Late st Contact Info) Description 05/17/2024 Telephone [facility] Pul[facility]/Sleep Medicine [address] [place] [address] Ashley Muñoz RN Social History Tobacco Use Types Packs/Day Years Used Date Smoking Tobacco: Never Smokeless Tobacco: Never Alcohol Use Standard Drinks/Week Comments Never 0 (1 standard drink = 0.6 oz pur e alcohol) PHQ-2 Answer Date Recorded Total Score 0 02/16/2024 Childcare Answer Date Recorded Childcare Unknown 08/15/2018 Employment Answer Date Recorded Employment Unknown 08/15/2018 Hunger Screening Answer Date Recorded Within the past 12 months we worried whether our food would run out before we got money to buy more. Never True 02/16/2024 Within the past 12 months th e food we bought just didn't last and we didn't have money to get more. Never True 02/16/2024 Purpose - Life Answer Date Recorded Purpose and direction in life Unknown Sex and Gender Information Value Date Recorded Sex Assigned at Not on file Legal Sex Male 12:01 PM EDT Gender Identity Not on file Sexual Orientation Not on file documented as of this encounter Miscellaneous Notes * Telephone Encounter - Ashley Muñoz RN - 05/17/2024 8:33 AM EDT Requested PA be submitted for dose increase Xywav. documented in this encounter Plan of Treatment Not on file documented as of this encounter Visit Diagnoses Not on filedocumented in this encounter Additional Health Concerns Assessment Noted Time PHQ-9 Depression Total Score: 0 02/16/20 24 10:35 AM EST documented as of this encounter Care Teams Lead Investigator Relationship Specialty Start Date End Date Wonderly, Janina Mayes MD PCP - General 08/30/13 documented as of this encounter
--- OUTSIDE RECORDS SUMMARY | 2024-12-16 18:05 | XMS_ITS | Encounter Summary ---
Author Organization [facility] Address [facility]-[id number] [address] [place] [address] Care Team Providers Care Angledozer Operator Name Role Phone Janina Joiner MD Primary Care Provider Jorge A mendoza Encounter Details Date Type Department Care Team (Late st Contact Info) Description 01/25/2023 Telephone [facility] Pul[facility]/Sleep Medicine [address] [facility] [address] [place] [phone] Lucille Leone LPN Social History Tobacco Use Types Packs/Day Years Used Date Smoking Tobacco: Never Smokeless Tobacco: Never Childcare Answer Date Recorded Childcare Unknown 08/15/2018 Employment Answer Date Recorded Employment Unknown 08/15/2018 Hunger Screening Answer Date Recorded Within the past 12 months we worried whether our food would run out before we got money to buy more. Never True 05/03/2022 Within the past 12 months th e food we bought just didn't last and we didn't have money to get more. Never True 05/03/2022 Purpose - Life Answer Date Recorded Purpose and direction in life Unknown Sex and Gender Information Value Date Recorded Sex Assigned at Not on file Legal Sex Male 12:01 PM EDT Gender Identity Not on file Sexual Orientation Not on file documented as of this encounter Miscellaneous Notes * Telephone Encounter - Lucille Leone LPN - 01/25/2023 3:29 PM EST Francisca obando pharmacist from [facility] pharmacy is asking for a call back regarding the patients xywav script. Phone number for pharmacy is [phone] option 3 then option 4 * Telephone Encounter - JADE Mayorga - 01/25/2023 3:29 PM EST Amandeep the pharmacist from [facility] pharmacy stated that he had some questions/concerns for the provider about what the patient had reported to them and some possible contradictions: Patient is currently taking Promethazine PRN for nausea and vomiting Amandeep stated that Xywav with can decrease respiration which with PAP therapy can decrease it more Patient also reported to them that he drinks alcohol and Amandeep stated taht the patient should not bedrinking allcohol while on this medication Please review/adivse Phone number for pharmacy is [phone] option 3 then option 4 * Telephone Encounter - Tram Guillory MD - 01/25/2023 3:29 PM EST I am not aware of a contraindication with Phenergan and Xywav, but interaction tray checker suggests they shouldn't be taken together as can increase levels of the other. Phenergan was not on his medication list here. If not safe to be on both, agreed he should work with his prescriber to find an alternative antiemetic. CPAP does not cause respiratory suppression. I think what was meant to be said was that GERI is a sleep related breathing disorder and Xywav is a respiratory suppressant. Ideally, we avoid Xywav in untreated GERI due to this. His GERI is borderline / mild, and the intent is that he would use Xywav in combination with CPAP not without it. Agreed, he should not drink and take Xywav. I will try to reach out to pharmacist, and have above recommendations relayed to patient. We can always have him wait to start it until our 01/31 appt. * Telephone Encounter - Tram Guillory MD - 01/25/2023 3:29 PM EST I discussed with her. They will ship. documented in this encounter Plan of Treatment Not on file documented as of this encounter Visit Diagnoses Not on filedocumented in this encounter Care Teams Angledozer Operator Relationship Specialty Start Date End Date Wonderly, Janina Mayes MD PCP - General 08/30/13 documented as of this encounter
--- OUTSIDE RECORDS SUMMARY | 2024-12-16 18:05 | XMS_ITS | Clinical Summary ---
Author Organization [facility] Address [address] [place] [address], [address] [place] [address] Care Team Providers Care Automotive Refinisher Name Role Phone Janina Joiner MD Primary Care Provider [phone] Allergies No known active allergies Medications No known medications Active Problems No known active problems Social History Tobacco Use Types Packs/Day Years Used Date Smoking Tobacco: Never Assessed Sex and Gender Information Value Date Recorded Sex Assigned at Not on file Legal Sex Male 9:22 AM EST Gender Identity Not on file Sexual Orientation Not on file Last Filed Vital Signs Vital Sign Reading Time Taken Comments Blood Pressure - - Pulse 88 06/04/2014 12:51 PM EDT Temperature - - Respiratory Rate - - Oxygen Saturation - - Inhaled Oxygen Concentration - - Weight 29 kg (63 lb 14.9 oz) 06/04/2014 12:51 PM EDT Height 136 cm (4' 5.54 ) 06/04/2014 12:51 PM EDT Body Mass Index 15.68 06/04/2014 12:51 PM EDT Plan of Treatment Not on file Insurance [employer] Care Teams Automotive Refinisher Relationship Specialty Start Date End Date Janina Joiner MD PCP - General 05/29/14
--- OUTSIDE RECORDS SUMMARY | 2024-12-16 18:05 | XMS_ITS | Encounter Summary ---
Author Organization [facility] [employer] tem Address [facility]-[id number] [address] [place] [address] Care Team Providers Care Billet Cutter Name Role Phone Janina Joiner MD Primary Care Provider Jorge A mendoza Encounter Details Date Type Department Care Team (Late st Contact Info) Description 02/08/2023 Telephone [facility] Pul[facility]/Sleep Medicine [address] [facility] [place] [phone] Lucille Leone LPN Social History Tobacco Use [...] Telephone Encounter - Lucille Leone LPN - 02/08/2023 12:09 PM EST Marlin from [facility] left a message asking for a xywav refill. Phone number for [facility] [phone] option 3 option 4 * Telephone Encounter - JADE Mayorga - 02/08/2023 12:09 PM EST Recordings Librarian spoke with Dian HIPAA/mother, patient has not started medication yet, Dian stated that sheinformed the pharmacy that they had not started the medication due to patient being sick and still waiting on him to finish his antibiotic prior to starting xywav. documented in this encounter Plan of Treatment Not on file documented as of this encounter Visit Diagnoses Not on filedocumented in this encounter Care Teams Billet Cutter Relationship Specialty Start Date End Date Wonderly, Janina Mayes MD PCP - General 08/30/13 documented as of this encounter
--- OUTSIDE RECORDS SUMMARY | 2024-12-16 18:05 | XMS_ITS | Encounter Summary ---
Author Organization [facility] tem Address [facility][id number] [address] [place] [address] Care Team Providers Care Sustainability Project Manager Name Role Phone Janina Joiner MD Primary Care Provider Jorge A mendoza Encounter Details Date Type Department Care Team ([facility] st Contact Info) Description 07/17/2023 Orders Only [facility] [address] [place] [phone] External, Scanning Provider Social History Tobacco Use [...] on file documented as of this encounter Plan of Treatment Not on file documented as of this encounter Procedures Procedure Name Priority Date/Time Associated Diagnosis Comments HEARING EVALUATION (AUDIOLOGY) Routine 07/04/2023 documented in this encounter Results * Hearing Evaluation (Audiology) (07/04/2023) us Scanning Provider External ENT ORDERABLES Final Result MANUALLY TRANSCRIBED RESULTS documented in this encounter Visit Diagnoses Not on filedocumented in this encounter Care Teams Sustainability Project Manager Relationship Specialty Start Date End Date Wonderly, Janina Mayes MD PCP - General 08/30/13 documented as of this encounter
--- OUTSIDE RECORDS SUMMARY | 2024-12-16 18:06 | XMS_ITS | CCD ---
Author Organization [facility] Care Team Providers Care Manufacturing Weaver Name Role Phone Silver, Ria Unavailable Unavailable Silver, Ria Unavailable Unavailable UNKNOWN, PCP Unavailable Unavailable Ion Aragon Unavailable DALLAS SALGUERO Attending Unavailable DALLAS SALGUERO Consulting Unavailable DALLAS SALGUERO Admitting Unavailable ELLIS, DR JANINA Mayes Primary Care Unavailable LEISA DSOUZA Consulting Unavailable ELLIS, DR JANINA Mayes Primary Care Unavailable MARKER, DR SHERWOOD Attending Unavailable MARKER, DR SHERWOOD Consulting Unavailable MARKER, DR SHERWOOD Admitting Unavailable BELEN COCHRAN Consulting Unavailable SANTA, DR BATSHEVA Rae Attending Unavailable SANTA, DR BATSHEVA Rae Consulting Unavailable SANTA, DR BATSHEVA Rae Admitting Unavailable ELLIS, DR JANINA Mayes Primary Care Unavailable RAUL ROMERO Consulting Unavailable TREVOR PETERSEN Consulting Unavailable WONDERROGELIO, DR JANINA Mayes Primary Care Unavailable MARKER, DR SHERWOOD Attending Unavailable MARKER, DR SHERWOOD Admitting Unavailable AMINA KUMAR Attending Unavailable AMINA KUMAR Consulting Unavailable AMINA KUMAR Admitting Unavailable ELLIS, DR JANINA Mayes Primary Care Unavailable Fay, Amina Unavailable Fay, Amina Unavailable Fay SMASHER, Amina Unavailable Fay SMASHER, Amina Unavailable Janina Corral MD Unavailable [phone] JOSE BROWNING Attending Unavailable WONDERJANINA IRWIN Referring Unavailable NORM HERNADEZ Attending Unavailable WONDERLY, JANINA Mayes Referring Unavailable WONDERLY, JANINA B Primary Care Unavailable ELLEN HERNADEZ Attending Unavailable WONDERLY, JANINA Mayes Referring Unavailable WONDERLY, JANINA Mayes Primary Care Unavailable TRAM RODAS Attending Unavailable WONDERLY, JANINA Mayes Referring Unavailable WONDERLY, JANINA B Primary Care Unavailable NORM HERNADEZ Attending Unavailable WONDERLY, JANINA B Referring Unavailable WONDERLY, JANINA Mayes Primary Care Unavailable ELLEN HERNADEZ Attending Unavailable WONDERLY, JANINA Mayes Referring Unavailable WONDERLY, JANINA Mayes Primary Care Unavailable Ellis RODGERS Janina Sugey Primary Care Provider Amina Kumar NP Unavailable EMILIA GARNICA Attending Unavailable WONDERLY, JANINA B Referring Unavailable WONDERLY, JANINA B Primary Care Unavailable EMILIA GARNICA Attending Unavailable WONDERLY, JANINA B Referring Unavailable WONDERLY, JANINA B Primary Care Unavailable KUMAR, JASSON C Attending Unavailable EMILIA GARNICA E Referring Unavailable WONDERLY, JANINA B Primary Care Unavailable KUMAR, JASSON C Referring Unavailable WONDERLY, JANINA B Primary Care Unavailable KUMAR, JASSON C Referring Unavailable WONDERLY, JANINA B Primary Care Unavailable PAULETTE, JASSON C Attending Unavailable WONDERLY, JANINA B Referring Unavailable WONDERLY, JANINA Mayes Primary Care Unavailable EMILIA GARNICA Attending Unavailable WONDERLY, JANINA Mayes Referring Unavailable WONDERLY, JANINA Mayes Primary Care Unavailable Janina Corral MD Primary Care Provider Janina Corral MD Primary Care Provider Janina Corral MD Primary Care Provider Janina Corral MD Primary Care Provider AMINA KUMAR Attending Unavailable AMINA KUMAR Attending Unavailable AMINA KUMAR Attending Unavailable Janina Corral MD Primary Care Provider Allergies Allergy Classification Reported Allergen(s) Allergy Type Date of Onset Reaction(s) Facility (20 sources) Codeine; Translations: [CODEINE] Drug Allergy 06-21-19 09 hives, Rash [facility] (3 sources) Amoxicillin; Translations: [AMOXICILLIN] Drug Allergy 06-02-19 22 [facility] Repository (1 source) Sulfonamides (Antibiotic) Drug allergy (disorder) 02-17-20 [facility] (20 sources) Cephalexin; Translations: [CEPHALEXIN] Drug Allergy 06-02-19 Diarrhea [facility] Repository (17 sources) Doxycycline; Translations: [DOXYCYCLINE HYCLATE] Drug Allergy 06-02-19 Vomiting [facility] Rep[facility] (20 sources) levoFLOXacin; Translations: [LEVOFLOXACIN] Drug Allergy 06-02-19 [facility] Repository (17 sources) Sulfonamides (Antibiotic); Translations: [SULFA (SULFONAMIDE ANTIBIOTICS)] Propensity to adverse reactions to drug (disorder) 05-03-19 [facility] Repository (20 sources) AMOXICILLIN-POT CLAVULANATE; Translations: [AMOXICILLIN-POT CLAVULANATE] Propensity to adverse reactions to drug (disorder) 06-02-19 Diarrhea [facility] (17 sources) DEXTROAMPHETAMINE-AM PHETAMINE; Translations: [DEXTROAMPHETAMINE-A MPHETAMINE] Propensity to adverse reactions to drug (disorder) 06-02-19 [facility] Repository (20 sources) Amoxicillin Drug Allergy 06-02-19 Rash [facility] (10 sources) Amphetamine / Dextroamphetamine Drug Allergy 06-02-19 [facility] (10 sources) Doxycycline Drug Allergy 06-02-19 [facility] (10 sources) Sulfonamides (Antibiotic) Drug Intolerance 05-03-19 [facility] Medications Current Medications Medication Drug Class(es) Dates Sig (Normalized) Sig (Original) azithromycin 250 mg oral tablet (4 sources) Macrolide Antimicrobial Start: 10-10-2024 End: 10-15-2024 take 2 tablets by mouth once daily, then take 1 tablet by mouth once daily azithromycin (Zithromax) 250 MG tablet Indications: Acute non-recurrent maxillary sinusitis Take 2 tablets (500 mg) by mouth Daily for 1 day, THEN 1 tablet (250 mg) Daily for 4 days. 6 tablet 1 10/10/2024 10/15/2024 Active Start: 11-16-2023 End: 11-21-2023 take 2 tablets [...] Mg, K, and Na Oxybates (XYWAV PO) (10 sources) Ca, Mg, K, and N a Oxybates (XYWAV PO) Take 0.5 g by mouth. 0.5 gm - ordered through pulmonology Active cholecalciferol 0.125 mg oral tablet (20 sources) Vitamin D take 1 tablet by mouth in the morning cholecalciferol (Vitamin D-3) 125 MCG (5000 UT) tablet Take 5,000 Units by mouth in the morning. Active cholecalciferol (VITAMIN D3) 1,000 units tablet 1 tablet Active Comment on above: Take 1 tablet by fritz th. fluticasone (3 sources) Corticosteroid FLUTICASONE PROPIONATE (FLONASE NASAL) Indications: Chronic daily headache , Learning difficulty Use in the nose. 0 Active Comment on above: Use in the nose. ibuprofen 600 mg oral tablet (12 sources) Nonsteroidal Anti-inflammatory Drug Start: take 1 [...] Active ondansetron 4 mg disintegrating oral tablet (15 sources) Serotonin-3 Receptor Antagonist Start: 02-16-20 ondansetron [...] Active promethazine hydrochloride 25 mg oral tablet (11 sources) Phenothiazine Start: 01-13-2023 take 1 tablet [...] hydrochloride 80 mg extended release oral capsule (10 sources) beta-Adrenergic Deedee proprano lol XL (Innopran XL) 80 MG 24 hr capsule 2 capsules 1 (one) time each day at the same time. Active rizatriptan 10 mg oral tablet (3 sources) Serotonin-1b and Serotonin-1d Receptor Agonist Start: 02-16-20 [...] 24 hours. 12 tablet 2 02/16/2024 Active sodium,calcium,mag,po t oxybate (XYWAV ORAL) (1 source) End: 03-21-19 24 sodium,calcium,mag, pot oxybate (XYWAV ORAL) Take by mouth. 0 2023 Discontinued sodium,calcium,mag,po t oxybate (XYWAV) 0.5 gram/mL soln oral liquid (2 sources) sodium,calcium,m ag, pot oxybate (XYWAV) 0.5 gram/mL soln oral liquid Take 0.6 g by mouth at bedtime and 4 hours after. 0 Active sodium,calcium,mag,po t oxybate (XYWAV) 0.5 gram/mL solution (15 sources) Start: 03-21-19 sodium,calcium,mag, pot oxybate (XYWAV) 0.5 gram/mL solution Indications: Idiopathic [...] sources) Serotonin and Norepinephrine Reuptake Inhibitor Start: 10-16-2024 End: 10-11-2025 take 1 capsule by mouth once daily venlafaxine XR (Effexor XR) 37.5 MG 24 hr capsule Indications: Generalized anxiety disorder Take 1 capsule (37.5 mg) by mouth Daily 90 capsule 3 10/16/2024 10/11/2025 Active Start: 04-01-2024 take 1 capsule by mo ut once daily in the morning venlafaxine XR (EFFEXOR XR) 37.5 mg 24 hr capsule Indications: Generalized anxiety disorder Take 1 capsule (37.5 mg total) by mouth every morning. 30 capsule 2 04/01/2024 Active Start: 09-27-2023 take 1 capsule by mo uth once [...] Active Start: 03-29-2023 take 1 capsule by [facility] once daily venlafaxine XR (EFFEXOR XR) 37.5 [...] capsule 0 03/01/2023 Active Start: 02-28-2022 End: 10-16-2024 venlafaxine XR (Effexor XR) 37.5 MG 24 hr capsule 37.5 mg. 02/28/2022 10/16/2024 Discontinued (Reorder) Effexor Active Vitamin B Complex (2 sources) [...] Active Comment on above: Take by mouth. amphetamine aspartate 2.5 mg / amphetamine sulfate 2.5 mg / dextroamphetamine saccharate 2.5 mg / dextroamphetamine sulfate 2.5 mg oral tablet (9 sources) Central Nervous System Stimulant End: 10-11-19 amphetamine-dextroam phetamine (Adderall) 10 MG tablet 1 (one) time each day at the same time. 10/10/2024 Discontinued pediatric multivitamin plus minerals with iron chewable (CEROVITE JR) chewable tablet (2 sources) End: 07-19-19 24 take 1 tablet by mouth once daily [...] on above: Take 1 tablet by fritz once daily. Problems Active Problems Problem Classification Problem Date Documented Date Episodic/Chronic Abdominal pain (4 sources) Abdominal pain; Translations: [Unspecified abdominal pain] Onset: 07-15-2021 Resolved: 07-15-2021 Episodic Acute and chronic tonsillitis (3 sources) Hypertrophy of adenoids; Translations: [Hypertrophy of adenoids] Onset: 07-23-2008 07-23-2008 Chronic Anxiety disorders (20 sources) Generalized anxiety disorder; Translations: [Generalized anxiety disorder] Onset: 10-20-2016 08-30-2022 Chronic Asthma (1 source) Unspecified asthma, uncomplicated; Translations: [UNSPECIFIED ASTHMA UNCOMPLICATED] Onset: 07-28-2021 Chronic Attention-deficit, conduct, and disruptive behavior disorders (19 sources) Attention deficit hyperactivity disorder; Translations: [Attention deficit disorder with hyperactivity] Onset: 05-17-2011 05-17-2011 Chronic Attention-deficit, conduct, and disruptive behavior disorders (10 sources) Attention deficit hyperactivity disorder, predominantly inattentive [...] UNSPECIFIED] Onset: 08-29-2021 Episodic Headache; including migraine (20 sources) Migraine without aura, not refractory ; Translations: [Migraine without aura, not intractable, without status migrainosus] Onset: 08-30-2022 08-08-2023 Chronic Immunity disorders (17 sources) Hypogammaglobulinemi a; 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] Onset: 08-30-2022 3 Chronic Malaise and fatigue (20 sources) Chronic fatigue syndrome; Translations: [Chronic fatigue syndrome] Onset: 07-15-2021 Chronic Malaise and fatigue (3 sources) Other fatigue; Translations: [Fatigue] Onset: 03-23-2021 01-10-2024 Episodic Nutritional deficiencies (10 sources) Vitamin D deficiency; Translations: [Vitamin D deficiency, unspecified] Onset: 08-30-2022 08-30-2022 Chronic Open wounds of extremities (2 sources) Laceration of left index finger; Translations: [Laceration without foreign body of left index finger without damage to nail, subsequent encounter] 05-30-2024 Episodic Other aftercare (2 sources) Removal of sutures done; Translations: [Encounter for removal of sutures] 05-30-2024 Episodic Other lower respiratory disease (2 sources) Cough; Translations: [Acute cough] 11-16-2023 Episodic Other lower respiratory disease (2 sources) Cough; Translations: [Acute cough] 10-10-2024 Episodic Other nervous system disorders (1 source) Sleep-wake schedule disorder, delayed phase type; Translations: [Circadian rhythm sleep disorder, delayed sleep phase type] 12-05-2023 Chronic Other skin disorders (1 source) Generalized hyperhidrosis; Translations: [Generalized hyperhidrosis] Onset: 01-03-2024 Episodic Other upper respiratory disease (1 source) Chronic rhinitis; Translations: [Chronic rhinitis] Chronic Other upper respiratory disease (4 sources) Other specified disorders of nose and nasal sinuses; Translations: [Other disease of nasal cavity and sinuses] 11-16-2023 Episodic Other upper respiratory infections (20 sources) Recurrent sinusitis; Translations: [Chronic sinusitis, unspecified] Onset: 06-03-2021 08-30-2022 Chronic Other upper respiratory infections (2 sources) Acute maxillary sinusitis; Translations: [Acute maxillary sinusitis, unspecified] 10-10-2024 Episodic Residual codes; unclassified (1 source) Sleep apnea Onset: 07-03-2023 Chronic Residual codes; unclassified (4 sources) Idiopathic hypersomnia with long sleep time; Translations: [Idiopathic hypersomnia associated with long sleep time] Onset: 07-03-2023 07-03-2023 Chronic Residual codes; unclassified (1 source) Idiopathic hypersomnia with long sleep time; Translations: [Idiopathic hypersomnia with long sleep time] Onset: 2023 Chronic Residual codes; unclassified (18 sources) Daytime somnolence; Translations: [Other hypersomnia] Onset: 08-30-2022 08-30-2022 Chronic Residual codes; unclassified (19 sources) Hypersomnia; Translations: [Hypersomnia, unspecified] Onset: 08-30-2022 08-30-2022 Chronic Residual codes; unclassified (20 sources) Obstructive sleep apnea syndrome; Translations: [Obstructive [...] INIT] Onset: 07-28-2021 Episodic Headache; including migraine (14 sources) Headache; Translations: [Nonintractable episodic headache, unspecified headache type] Onset: 04-07-2009 Episodic Mood disorders (3 sources) Mood disorders Onset: 02-16-2024 02-16-2024 Other acquired deformities (10 sources) Acquired deformity of foot; Translations: [Unspecified acquired deformity of unspecified lower leg] Onset: 08-30-2022 3 Episodic Other aftercare (1 source) Other shelter (current) drug therapy; Translations: [OTH LABOR SERVICE REPRESENTATIVE CURRENT DRUG THERAPY] Onset: 07-28-2021 Episodic Other [...] 03-23-2021 Episodic Otitis media and related conditions (20 sources) Unspecified perforation of tympanic membrane, left [...] Test Name Value Interpretation Reference Range Facility Laboratory - Microbiology an d Antimicrobial susceptibilityon 10-10-2024 SARS-CoV-2 (COVID-19) RNA NUPUR+probe Ql (Unsp spec) Negative [facility] No Panel Informationon 10-10 FLU A Negative [facility] FLU B Negative [facility] Interpretation and review of laboratory results Normal [facility] No Panel Informationon 05-30 Amina Kumar NP 05/30/2024 2:55 PM Suture Removal Date/Time: 05/30/2024 2:46 PM Performed by: Aimna Kumar NP Authorized by: Amina Kumar NP Consent: Consent obtained: Verbal Consent given by: Patient Risks, benefits, and alternatives were discussed: yes Risks discussed: Bleeding, pain and wound separation Alternatives discussed: No treatment [place] protocol: Procedure explained and questions answered to patient or proxy's satisfaction: yes Relevant documents present and verified: yes Test results available: yes Patient identity confirmed: Verbally with patient Location: Location: Upper extremity Upper extremity location: left middle and index finger. Procedure details: Wound appearance: No signs of infection Number of sutures removed: 5 (3 to index finger and 2 to middle finger) Post-procedure details: Post-removal: Antibiotic ointment applied and Band-Aid applied Procedure completion: Tolerated Comments: Minimal bleeding from middle finger, likely from scab. Abx ointment and bandaid applied. Discussed with patient if bleeding worsens to go to the ER but no wound separation noted on exam. [facility] B. burgdorferi IgG+IgM Qn (S )on 01-24-2024 LYME TOTAL <0.2 Normal <0.9 [facility] Comment on above: Result Comment: Interpretation-------- <0.9 Negative 0.9 - 1.0 Equivocal >1.0 Positive No serological evidence of Borrelia infection.A non-reactive result does not exclude the possibility of Borrelia infection and cannot exclude early infection with B.burgdorferi. If Lyme borreliosis is suspected, a second sample should be collected and tested 2-4 weeks later. Performed By: #### 3 4148-7 #### [facility] ([id number]) [address] [place] [address], [address] [address] #### 59294-0, 52044-9, 40908-7 #### [facility] ([id number]) [address] [place] [address] Lactate (P trevor) [Moles/Vol]o n 01-24-2024 Lactate [Moles/Vol] 0.7 mmol/L Normal 0.4-2.0 [facility] Comment on above: Performed By: #### 3 2133-1 #### [facility] ([id number]) [address] [place] [address] MG/LEMS Evaluation, Son 01-05 8338 0.00 nmol/L Normal <=0.02 [facility] Comment on above: Result Comment: NOTE ADDITIONAL INFORMATION This test was developed and its performance characteristics determined by [facility] in a manner consistent with CLIA requirements. This test has not been cleared or approved by the U.S. Food and Drug Administration. Performed By: #### 3 4148-7 #### [facility] ([id number]) [address] [place] [address], [address] [address] #### 51800-7, 99305-3, 64742-9 #### [facility] ([id number]) [address] [place] [address] MG Lambert-Eaton Interpretation See Note Normal [facility] Comment on above: Result Comment: NOTE No informative autoantibodies were detected. A negative result does not exclude the diagnosis of an autoimmune neuromuscular junction disorder. Performed By: #### 3 4148-7 #### [facility] ([id number]) [address] [place] [address], [address] [place] [address] #### 70952-1, 05660-7, 11222-1 #### [facility] ([id number]) [address] [place] [address] P/Q-Type Calcium Channel Ab 0.00 nmol/L Normal <=0.02 [facility] Comment on above: Result Comment: NOTE ADDITIONAL INFORMATION This test was developed and its performance characteristics determined by [facility] in a manner consistent with CLIA requirements. This test has not been cleared or approved by the U.S. Food and Drug Administration. Test Performed by: [address] [address] Palliative Care Physician: Jak Mercedes Ph.D.; CLIA# [id number] Performed By: #### 3 4148-7 #### [facility] ([id number]) [address] [place] [address], [address] [place] [address] #### 03576-9, 89018-2, 87288-4 #### [facility] ([id number]) [address] [place] [address]52 MR BRAIN W WO CONTon 024 MR [...] clear. IMPRESSION: Normal MRI of the brain. Gerard Anna MD have personally reviewed the image(s) and agree with and/or edited the report Finalized by Gerard Dixon MD on 01/24/2024 10:41 AM Normal [facility] Muscle specific receptor tyr osine kinase Ab (S) [Moles/Vol]on 01-24-2024 MuSK Autoantibody, S 0.00 nmol/L Normal 0.00-0.02 [facility] Comment on above: Result Comment: NOTE ADDITIONAL INFORMATION This test was developed using an analyte specific reagent. Its performance characteristics were determined by [facility] in a manner consistent with CLIA requirements. This test has not been cleared or approved by the U.S. Food and Drug Administration. Test Performed by: [facility] [place] [address] Palliative Care Physician: Jak Mercedes Ph.D.; CLIA# [id number] Performed By: #### 3 4148-7 #### [facility] ([id number]) [address] [place] [address], [address] [place] [address] #### 47731-4, 32628-7, 88980-5 #### [facility] ([id number]) [address] [place] [address], [place] [address] Pyruvate (Bld) [Moles/Vol]on 01-24-2024 PYRUVIC ACID SEE COMMENTS 024 01:12 PM Normal [facility] Comment on above: Result Comment: NOTE Test Result Flag Unit RefValue Pyruvic Acid, B 0.10 mmol/L 0.08-0.16 Pyruvic Acid, B 0.9 mg/dL 0.7-1.4 ADDITIONAL INFORMATION This test was developed and its performance characteristics determined by [facility] in a manner consistent with CLIA requirements. This test has not been cleared or approved by the U.S. Food and Drug Administration. Test Performed by: [facility] - [facility] [address] [place] [address] Palliative Care Physician: Jak Mercedes Ph.D.; CLIA# [id number] Performed By: #### 3 4148-7 #### [facility] ([id number]) [address] [place] [address], [address] [place] [address] #### 47731-5, 55750-7, 86674-6 #### [facility] ([id number]) [address] [place] [address], [place] [address] Rafael 07-25-2023 CNPN Telephone (NIQ) SELVIN LALA ([id number]) 1 Date Time Provider Department 07/25/23 JOSE BROWNING NIJonna During your visit today, we recorded the following information about you: Rin Coats 07/25/2023 12:54 PM Signed Pt mother phoned following up on rx for effexor with dose change that was discussed at OV on 07/18. Rx has not been sent to pharmacy [facility] in [facility]. Please advise Pt mother phone # [phone] Allergies As of Date: 07/25/2023 Noted Allergy Reaction CODEINE 06/20/2008 Date Reviewed: 07/19/2023 Reviewed by: Jacklyn Elena MA - Fully Assessed Reason for Visit: Medication Question [8238] Prescriptions as of 08/16/2023 - venlafaxine ER [...] Encounter Status:Closed by RIN COATS on 08/16/23 [facility] LISAOVon 07-19-2023 CNOV Office Visit (NEADFV ) SELVIN LALA ([id number]) 1 M Date Time Provider Department 07/19/23 11:00 AM JOSE BROWNING During your visit today, we recorded the [...] - HEADACHE MEDICINE SERVICE DATE: 07/19/2023 Location: [facility] Participants: Patient, mother and Provider Requesting Provider: Member Name Role and Specialty Contact Info Address Comments Janina Corral MD Referring [address] [facility] [address] - Recommendations of care will be communicated by shared medical record. Subjective HPI: Selvin Lala is a 18 year old year old male with a chief complaint of headache. Headache Description: Associated symptoms: Prior Treatments: [facility] Outpatient Medications as of 07/19/2023 Medication [...] ASSESSMENT: - 75 mg Jose Browning MD [facility] Neurological [place] Referring Provider: JANINA CORRAL [[id number]] Allergies As of Date: 07/19/2023 Noted Allergy [...] hours after (more content not included)... Normal [facility] CBC AUTO DIFFon 02-16-2022 BASO # 0.0 103/ul Normal 0.0-0.1 [facility] Comment on above: Performed By: #### C BC #### [facility] [address] [address] [address] Jennifer Durant Basophils/100 WBC (Bld) 0.4 % Normal 0.2-2.0 [facility] Comment on above: Performed By: #### C BC #### [facility] [address] [place] [address] Dr. Jennifer Durant EO # 0.0 103/ul Normal 0.0-0.7 [facility] Comment on above: Performed By: #### C BC #### [facility] [address] [place] [address] Dr. Jennifer Durant Eosinophils/100 WBC (Bld) 0.1 % Critically low 0.9-7.0 [facility] Comment on above: Performed By: #### C BC #### [facility] [address] [place] [address] Dr. Jennifer Durant Erythrocyte distribution width (RBC) [Ratio] 11.6 % Normal 11.0-15.0 [facility] Comment on above: Performed By: #### C BC #### [facility] [address] [place] [address] Dr. Jennifer Durant Hematocrit (Bld) [Volume fraction] 39.8 % Critically low 42.0-54.0 [facility] Comment on above: Performed By: #### C BC #### [facility] [address] [place] [address] Dr. Jennifer Durant Hemoglobin (Bld) [Mass/Vol] 14.2 g/dL Normal 14.0-18.0 [facility] Comment on above: Performed By: #### C BC #### [facility] [address] [place] [address] Dr. Jennifer Durant IG # 0.01 10e3/ul Normal 0.00-0.03 [facility] Comment on above: Performed By: #### C BC #### [facility] [address] [place] [address] Dr. Jennifer Durant IG % 0.1 % Normal 0.0-0.5 [facility] Comment on above: Performed By: #### C BC #### [facility] [address] [place] [address] Dr. Jennifer Durant LYMPH # 0.8 103/ul Critically low 1.2-3.8 [facility] Comment on above: Performed By: #### C BC #### [facility] [address] [place] [address] Dr. Jennifer Durant Lymphocytes/100 WBC (Bld) 7.3 % Critically low 20.5-60.0 [facility] Comment on above: Performed By: #### C BC #### [facility] [address] [place] [address] Dr. Jennifer Durant MANUAL DIFF REQ NO Normal [facility] Comment on above: Performed By: #### C BC #### [facility] [address] [place] [address] Dr. Jennifer Durant MCH (RBC) [Entitic mass] 32.1 pg Normal 25.9-34.0 [facility] Comment on above: Performed By: #### C BC #### [facility] [address] [place] [address] Dr. Jennifer Durant MCHC (RBC) [Mass/Vol] 35.7 g/dL Critically high 29.9-35.2 [facility] Comment on above: Performed By: #### C BC #### [facility] [address] [place] [address] Dr. Jennifer Durant MCV (RBC) [Entitic vol] 89.8 fL Normal 80.0-94.0 [facility] Comment on above: Performed By: #### C BC #### [facility] [address] [place] [address] Dr. Jennifer Durant MONO # 1.5 103/ul Critically high 0.3-0.8 [facility] Comment on above: Performed By: #### C BC #### [facility] [address] [place] [address] Dr. Jennifer Durant Monocytes/100 WBC (Bld) 14.0 % Critically high 1.7-12.0 [facility] Comment on above: Performed By: #### C BC #### [facility] [address] [place] [address] Dr. Jennifer Durant NEUT # 8.3 103/ul Critically high 1.4-6.5 [facility] Comment on above: Performed By: #### C BC #### [facility] [address] [place] [address] Dr. Jennifer Durant Neutrophils/100 WBC (Bld) 78.1 % Critically high 43.0-75.0 [facility] Comment on above: Performed By: #### C BC #### [facility] [address] [place] [address] Dr. Jennifer Durant Platelet mean volume (Bld) [Entitic vol] 9.8 fL Normal 9.5-13.5 [facility] Comment on above: Performed By: #### C BC #### [facility] [address] [place] [address] Dr. Jennifer Durant PLT 216 103/ul Normal 150-450 [facility] Comment on above: Performed By: #### C BC #### [facility] [address] [place] [address] Dr. Jennifer Durant RBC 4.43 106/ul Critically low 4.70-6.10 [facility] Comment on above: Performed By: #### C BC #### [facility] [address] [place] [address] Dr. Jennifer Durant WBC 10.6 103/ul Normal 4.0-11.0 [facility] Comment on above: Performed By: #### C BC #### [facility] [address] [place] [address] Dr. Jennifer Durant Covid-19 PCR (CVDTBH)on 02-03 SARS-CoV-2 (COVID-19) RNA NUPUR+probe Ql (Unsp spec) Not detected Normal NOT DETECTED [facility] Comment on above: Result Comment: This test is not yet approved or cleared by the [place] FDA. When there are no FDA-approved or cleared tests available, and other criteria are met, FDA can make tests available under an emergency access mechanism called an Emergency Use Authorization (EUA). The EUA for this test is supported by the [place] of Health and Human Service's (HHS's) declaration [...] consistent with SARS-CoV-2. Performed By: #### C VDTBH #### [facility] [address] [place] [address] Dr. Jennifer Durant ER URINE PROFILEon 2 Bilirubin Ql (U) Negative Normal NEGATIVE [facility] Comment on above: Performed By: #### E RUR #### [facility] [address] [place] [address] Dr. Jennifer Durant Clarity (U) CLEAR Normal CLEAR [facility] Comment on above: Performed By: #### E RUR #### [facility] [address] [place] [address] Dr. Jennifer Durant Color (U) YELLOW Normal YELLOW [facility] Comment on above: Performed By: #### E RUR #### [facility] [address] [place] [address] Dr. Jennifer Durant ERUAHD A micrscopic examina tion will be performed if indicated. Normal [facility] Comment on above: Performed By: #### E RUR #### [facility] [address] [place] [address] Dr. Jennifer Durant Glucose Ql (U) Negative Normal NEGATIVE [facility] Comment on above: Performed By: #### E RUR #### [facility] [address] [place] [address] Dr. Jennifer Durant Hemoglobin Ql (U) Negative Normal NEGATIVE [facility] Comment on above: Performed By: #### E RUR #### [facility] [address] [address] [address] Jennifer Durant Ketones Ql (U) 15 mg/dl Abnormal NEGATIVE [facility] Comment on above: Performed By: #### E RUR #### [facility] [address] [place] [address] Dr. Jennifer Durant LEUKOCYTES Negative Normal NEGATIVE [facility] Comment on above: Performed By: #### E RUR #### [facility] [address] [place] [address] Dr. Jennifer Durant Nitrite Ql (U) Negative Normal NEGATIVE [facility] Comment on above: Performed By: #### E RUR #### [facility] [address] [place] [address] Dr. Jennifer Durant pH (U) 6.5 [pH] Normal 5-9 [facility] Comment on above: Performed By: #### E RUR #### [facility] [address] [place] [address] Dr. Jennifer Durant SPEC GRAVITY 1.020 Normal 1.005-<=1. 025 [facility] Comment on above: Performed By: #### E RUR #### [facility] [address] [place] [address] Dr. Jennifer Durant UA PROTEIN TRACE Normal NEGATIVE/ TRACE [facility] Comment on above: Performed By: #### E RUR #### [facility] [address] [place] [address] Dr. Jennifer Durant UR MICRO IND NOT INDICATED Normal [facility] Comment on above: Performed By: #### E RUR #### [facility] [address] [place] [address] Dr. Jennifer Durant Urobilinogen Qn (U) 1.0 {Filiberto'U}/dL Normal 0.2 - 1.0 [facility] Comment on above: Performed By: #### E RUR #### [facility] [address] [place] [address] Dr. Jennifer Durant GROUP A STREP CULTUREon 02-03 S. pyogenes Ag Ql (Unsp spec) Culture Observations: NEGATIVE FOR GROUP A STREPTOCOCCUS. Normal [facility] Comment on above: Performed By: #### I NFLUAB, RSV #### [facility] [address] [place] [address] Dr. Jennifer Durant INFLUENZA A AND B AGon 02-16 INFLUENZA A AG Negative Normal NEGATIVE SEE COMMENT [facility] Comment on above: Performed By: #### I NOÉLUAB, RSV #### [facility] [address] [place] [address] Dr. Jennifer Durant INFLUENZA B AG Negative Normal NEGATIVE SEE COMMENT [facility] Comment on above: Performed By: #### I NFLUAB, RSV #### [facility] [address] [place] [address] Dr. Jennifer Durant INTERNAL CONTROLS Within Normal Limits Normal Wi thin Normal Limits [facility] Comment on above: Performed By: #### I NFLUAB, RSV #### [facility] [address] [place] [address] Dr. Jennifer Durant PROF CHEM 8 (BAS METB)on Anion gap [Moles/Vol] 12.1 mmol/L Normal [facility] Comment on above: Performed By: #### B MP #### [facility] [address] [place] [address] Dr. Jennifer Durant Calcium [Mass/Vol] 9.1 mg/dL Normal 8.5-10.1 [facility] Comment on above: Performed By: #### B MP #### [facility] [address] [place] [address] Dr. Jennifer Durant Chloride [Moles/Vol] 101 mmol/L Normal 98-107 [facility] Comment on above: Performed By: #### B MP #### [facility] [address] [address] [address] Jennifer Durant CO2 [Moles/Vol] 26.5 mmol/L Normal 21.0-32.0 [facility] Comment on above: Performed By: #### B MP #### [facility] [address] [address] [address] Jennifer Durant Creatinine [Mass/Vol] 1.03 mg/dL Normal 0.70-1.30 [facility] Comment on above: Performed By: #### B MP #### [facility] [address] [address] [address] Jennifer Durant EGFR-AF CITIZ[place] >60 Normal >=60 [facility] Comment on above: Performed By: #### B MP #### [facility] [address] [place] [address] Dr. Jennifer Durant EGFR-NON AF CITIZEN OF [place] >60 Normal >=60 [facility] Comment on above: Performed By: #### B MP #### [facility] [address] [address] [address] Jennifer Durant Glucose [Mass/Vol] 100 mg/dL Normal 74-106 [facility] Comment on above: Performed By: #### B MP #### [facility] [address] [address] [address] Jennifer Durant Potassium [Moles/Vol] 3.6 mmol/L Normal 3.5-5.1 [facility] Comment on above: Performed By: #### B MP #### [facility] [address] [address] [address] Jennifer Durant Sodium [Moles/Vol] 136 mmol/L Normal 136-145 [facility] Comment on above: Performed By: #### B MP #### [facility] [address] [address] [address] Jennifer Durant Urea nitrogen [Mass/Vol] 17.0 mg/dL Normal 6.4-19.3 [facility] Comment on above: Performed By: #### B MP #### [facility] [address] [address] [address] Jennifer Durant Urea nitrogen/Creatinin e [Mass ratio] 16.5 mg/mg Normal [facility] Comment on above: Performed By: #### B MP #### [facility] [address] [place] [address] Dr. Jennifer Durant RSVon 02-16-2022 RSV AG Negative Normal NEGATIVE [facility] Comment on above: Performed By: #### I NFLUAB, RSV #### [facility] [address] [place] [address] Dr. Jennifer Durant STREPT SCREENon 02-16-2022 STREP SCREEN A Negative Normal NEGATIVE [facility] Comment on above: Performed By: #### I NFLUAB, RSV #### [facility] [address] [place] [address] Dr. Jennifer Durant XR CHEST 1 Von [...] LEISA DSOUZA Date: 2022-02-16 02:42 Normal [facility] CBC AUTO DIFFon 08-29-2021 BASO # 0.0 103/ul Normal 0.0-0.1 [facility] Comment on above: Performed By: #### I NFLUAB, RSV #### [facility] [address] [place] [address] Dr. Jennifer Durant Basophils/100 WBC (Bld) 0.4 % Normal 0.2-2.0 [facility] Comment on above: Performed By: #### I NFLUAB, RSV #### [facility] [address] [place] [address] Dr. Jennifer Durant EO # 0.0 103/ul Normal 0.0-0.7 [facility] Comment on above: Performed By: #### I NFLUAB, RSV #### [facility] [address] [place] [address] Dr. Jennifer Durant Eosinophils/100 WBC (Bld) 0.2 % Critically low 0.9-7.0 [facility] Comment on above: Performed By: #### I NFLUAB, RSV #### [facility] [address] [place] [address] Dr. Jennifer Durant Erythrocyte distribution width (RBC) [Ratio] 11.8 % Normal 11.0-15.0 [facility] Comment on above: Performed By: #### I NFLUAB, RSV #### [facility] [address] [place] [address] Dr. Jennifer Durant Hematocrit (Bld) [Volume fraction] 42.2 % Normal 42.0-54.0 [facility] Comment on above: Performed By: #### I NFLUAB, RSV #### [facility] [address] [place] [address] Dr. Jennifer Durant Hemoglobin (Bld) [Mass/Vol] 14.8 g/dL Normal 14.0-18.0 [facility] Comment on above: Performed By: #### I NFLUAB, RSV #### [facility] [address] [place] [address] Dr. Jennifer Durant IG # 0.02 10e3/ul Normal 0.00-0.03 [facility] Comment on above: Performed By: #### I NFLUAB, RSV #### [facility] [address] [place] [address] Dr. Jennifer Durant IG % 0.4 % Normal 0.0-0.5 [facility] Comment on above: Performed By: #### I NFLUAB, RSV #### [facility] [address] [place] [address] Dr. Jennifer Durant LYMPH # 1.4 103/ul Normal 1.2-3.8 [facility] Comment on above: Performed By: #### I NFLUAB, RSV #### [facility] [address] [place] [address] Dr. Jennifer Durant Lymphocytes/100 WBC (Bld) 27.8 % Normal 20.5-60.0 [facility] Comment on above: Performed By: #### I NFLUAB, RSV #### [facility] [address] [place] [address] Dr. Jennifer Durant MANUAL DIFF REQ NO Normal [facility] Comment on above: Performed By: #### I NFLUAB, RSV #### [facility] [address] [place] [address] Dr. Jennifer Durant MCH (RBC) [Entitic mass] 32.6 pg Normal 25.9-34.0 [facility] Comment on above: Performed By: #### I NFLUAB, RSV #### [facility] [address] [place] [address] Dr. Jennifer Durant MCHC (RBC) [Mass/Vol] 35.1 g/dL Normal 29.9-35.2 [facility] Comment on above: Performed By: #### I NFLUAB, RSV #### [facility] [address] [place] [address] Dr. Jennifer Durant MCV (RBC) [Entitic vol] 93.0 fL Normal 80.0-94.0 [facility] Comment on above: Performed By: #### I NFLUAB, RSV #### [facility] [address] [place] [address] Dr. Jennifer Durant MONO # 0.9 103/ul Critically high 0.3-0.8 [facility] Comment on above: Performed By: #### I NFLUAB, RSV #### [facility] [address] [place] [address] Dr. Jennifer Durant Monocytes/100 WBC (Bld) 17.5 % Critically high 1.7-12.0 [facility] Comment on above: Performed By: #### I NFLUAB, RSV #### [facility] [address] [place] [address] Dr. Jennifer Durant NEUT # 2.7 103/ul Normal 1.4-6.5 [facility] Comment on above: Performed By: #### I NFLUAB, RSV #### [facility] [address] [place] [address] Dr. Jennifer Durant Neutrophils/100 WBC (Bld) 53.7 % Normal 43.0-75.0 [facility] Comment on above: Performed By: #### I NFLUAB, RSV #### [facility] [address] [place] [address] Dr. Jennifer Durant Platelet mean volume (Bld) [Entitic vol] 10.7 fL Normal 9.5-13.5 [facility] Comment on above: Performed By: #### I NFLUAB, RSV #### [facility] [address] [place] [address] Dr. Jennifer Durant PLT 192 103/ul Normal 150-450 [facility] Comment on above: Performed By: #### I NFLUAB, RSV #### [facility] [address] [place] [address] Dr. Jennifer Durant RBC 4.54 106/ul Critically low 4.70-6.10 [facility] Comment on above: Performed By: #### I NFLUAB, RSV #### [facility] [address] [place] [address] Dr. Jennifer Durant WBC 5.1 103/ul Normal 4.0-11.0 [facility] Comment on above: Performed By: #### I NFLUAB, RSV #### [facility] [address] [place] [address] Dr. Jennifer Durant Covid-19 PCR ([facility])on 08-05 SARS-CoV-2 (COVID-19) RNA NUPUR+probe Ql (Unsp spec) Detected Critically abnormal NOT DETECTED [facility] Comment on above: Result Comment: This test is not yet approved or cleared by the [place] FDA. When there are no FDA-approved or cleared tests available, and other criteria are met, FDA can make tests available under an emergency access mechanism called an Emergency Use Authorization (EUA). The EUA for this test is supported by the [place] of Health and Human Service's declaration that [...] Performed By: #### I NFLUAB, RSV #### [facility] [address] [place] [address] Dr. Jennifer Durant GROUP A STREP CULTUREon 08-05 S. pyogenes Ag Ql (Unsp spec) Culture Observations: NEGATIVE FOR GROUP A STREPTOCOCCUS. Normal [facility] Comment on above: Performed By: #### S SCRN, GRASTCX #### [facility] [address] [place] [address] Dr. Jennifer Durant INFLUENZA A AND B AGon 08-29 INFLUANEGH SEE BELOW Normal [facility] Comment on above: Result Comment: Nega tive for Flu A protein angiten. Infection due to Flu A cannot be ruled out. Flu A angiten in the sample may be below the detection limit of the test. Performed By: #### I NFLUAB, RSV #### [facility] [address] [place] [address] Dr. Jennifer Durant INFLUBNEGH SEE BELOW Normal [facility] Comment on above: Result Comment: Nega tive for Flu B protein antigen. Infection due to Flu B cannot be ruled out. Flu B antigen in the sample may be below the detection limit of the test. Performed By: #### I NFLUAB, RSV #### [facility] [address] [place] [address] Dr. Jennifer Durant INFLUENZA A AG Negative Normal NEGATIVE SEE COMMENT [facility] Comment on above: Performed By: #### I NFLUAB, RSV #### [facility] [address] [place] [address] Dr. Jennifer Durant INFLUENZA B AG Negative Normal NEGATIVE SEE COMMENT [facility] Comment on above: Performed By: #### I NFLUAB, RSV #### [facility] [address] [place] [address] Dr. Jennifer Durant INTERNAL CONTROLS Within Normal Limits Normal Wi thin Normal Limits [facility] Comment on above: Performed By: #### I NFLUAB, RSV #### [facility] [address] [place] [address] Dr. Jennifer Durant MONOon 08-29-2021 Monocytes (Bld) [#/Vol] Negative Normal NEGATIVE [facility] Comment on above: Performed By: #### M JEANNIE #### [facility] [address] [place] [address] Dr. Jennifer Durant PROF 14(COMP METB)on 022 Albumin [Mass/Vol] 4.0 g/dL Normal 3.4-5.0 [facility] Comment on above: Performed By: #### C MP #### [facility] [address] [place] [address] Dr. Jennifer Durant Albumin/Globulin [Mass ratio] 1.3 {ratio} Normal [facility] Comment on above: Performed By: #### C MP #### [facility] [address] [place] [address] Dr. Jennifer Durant ALP [Catalytic activity/Vol] 74 U/L Normal 46-116 [facility] Comment on above: Performed By: #### C MP #### [facility] [address] [place] [address] Dr. Jennifer Durant ALT [Catalytic activity/Vol] 16 U/L Normal 16-63 [facility] Comment on above: Performed By: #### C MP #### [facility] [address] [place] [address] Dr. Jennifer Durant Anion gap [Moles/Vol] 10.0 mmol/L Normal [facility] Comment on above: Performed By: #### C MP #### [facility] [address] [place] [address] Dr. Jennifer Durant AST [Catalytic activity/Vol] 18 U/L Normal 15-37 [facility] Comment on above: Performed By: #### C MP #### [facility] [address] [place] [address] Dr. Jennifer Durant Bilirubin [Mass/Vol] 0.4 mg/dL Normal 0.2-1.0 [facility] Comment on above: Performed By: #### C MP #### [facility] [address] [place] [address] Dr. Jennifer Durant Calcium [Mass/Vol] 8.8 mg/dL Normal 8.5-10.1 [facility] Comment on above: Performed By: #### C MP #### [facility] [address] [place] [address] Dr. Jennifer Durant Chloride [Moles/Vol] 103 mmol/L Normal 98-107 [facility] Comment on above: Performed By: #### C MP #### [facility] [address] [place] [address] Dr. Jennifer Durant CO2 [Moles/Vol] 29.1 mmol/L Normal 21.0-32.0 [facility] Comment on above: Performed By: #### C MP #### [facility] [address] [place] [address] Dr. Jennifer Durant Creatinine [Mass/Vol] 0.94 mg/dL Normal 0.70-1.30 [facility] Comment on above: Performed By: #### C MP #### [facility] [address] [place] [address] Dr. Jennifer Durant EGFR-AF CITIZ[place] OF [place] >60 Normal >=60 [facility] Comment on above: Performed By: #### C MP #### [facility] [address] [place] [address] Dr. Jennifer Durant EGFR-NON AF CITIZEN OF [place] >60 Normal >=60 [facility] Comment on above: Performed By: #### C MP #### [facility] [address] [place] [address] Dr. Jennifer Durant Globulin (S) [Mass/Vol] 3.0 g/dL Normal [facility] Comment on above: Performed By: #### C MP #### [facility] [address] [place] [address] Dr. Jennifer Durant Glucose [Mass/Vol] 91 mg/dL Normal 74-106 [facility] Comment on above: Performed By: #### C MP #### [facility] [address] [place] [address] Dr. Jennifer Durant Potassium [Moles/Vol] 4.1 mmol/L Normal 3.5-5.1 [facility] Comment on above: Performed By: #### C MP #### [facility] [address], [place] [address] Dr. Jennifer Durant Protein [Mass/Vol] 7.0 g/dL Normal 6.4-8.2 [facility] Comment on above: Performed By: #### C MP #### [facility] [address], [place] [address] Dr. Jennifer Durant Sodium [Moles/Vol] 138 mmol/L Normal 136-145 [facility] Comment on above: Performed By: #### C MP #### [facility] [address], [place] [address] Dr. Jennifer Durant Urea nitrogen [Mass/Vol] 13.0 mg/dL Normal 6.4-19.3 [facility] Comment on above: Performed By: #### C MP #### [facility] [address], [place] [address] Dr. Jennifer Durant Urea nitrogen/Creatinin e [Mass ratio] 13.8 mg/mg Normal [facility] Comment on above: Performed By: #### C MP #### [facility] [address], [place] [address] Dr. Jennifer Durant STREPT SCREENon 08-29-2021 STREP SCREEN A Negative Normal NEGATIVE [facility] Comment on above: Performed By: #### S SCRN, GRASTCX #### [facility] [address], [place] [address] Dr. Jennifer Durant XR CHEST 1 Von 08-29-2021 XR CHEST 1 V EXAM: XR CHEST 1 V COMPARISON: 01/05/2021 CLINICAL INDICATION: Fever. FINDINGS: The cardiomediastinal silhouette is within normal limits. No focal consolidation. No pleural effusion. No pneumothorax. IMPRESSION: No acute cardiopulmonary abnormality. Electronically authenticated by: BELEN COCHRAN Date: 2021-08-29 20:30 Normal [facility] Free T4on 08-06-2021 Free T4 [Mass/Vol] 1.13 ng/dL Normal 0.80-1.80 Jolie lutz [place] [employer] Comment on above: Performed By: #### 2 [id number], [id number], LIP, CATHY, 04649U, 33424, 68164T, 67115C #### [facility] [address] [place] [address] Q - TESTOSTERONE,TOTAL,MALES (ADULT),IMMUNOASAYon 08-06-2021 TESTOSTERONE, TOTAL, MALES (ADULT), [place] 763 ng/dL Normal 250-827 [facility] [employer] Operator Comment on above: Order Comment: [facility] performed at: [employer], [employer] [facility], [address] [place] [address], [address] [place] [address], [address] [place] [address], Wash Driller: Vicente Dutton MD [facility] Collection Date/Time: [facility] Results Received Date/Time: [facility] Reported Date/Time: Performed By: #### 8 0994R, 873 #### [facility] [address] [place] [address] Q - THYROID PEROXIDASE TPO A Bon 08-06-2021 THYROID PEROXIDASE ANTIBODIES 1 IU/mL Normal <9 [facility] [employer] Operator Comment on above: Order Comment: [facility] performed at: [employer], [employer] [facility], [facility], [address] [place] [address], [address] [place] [address], Wash Driller: Vicente Dutton MD [facility] Collection Date/Time: [facility] Results Received Date/Time: [facility] Reported Date/Time: Performed By: #### 8 0994R, 873 #### [facility] [address] [place] [address] TSHon 08-06-2021 TSH 1.460 uIU/mL Normal 0.400-4.50 0 [facility] [employer] Operator Comment on above: Performed By: #### 2 4653E, 56670T, LIP, CATHY, 14255K, 19885, 12900Q, 94062G #### [facility] [address] [place] [address] Sigmoidoscopy or colonoscopy [PhenX]on 07-29-2021 [facility] Other MYNOR Antinuclear Antibodieson 07-27-2021 Antinuclear Abs, IFA Negative Normal . [facility] Comment on above: Order Comment: Reaso n for Exam Abdominal pain;Diarrhea Result Comment: Nega tive <1:80 Borderline 1:80 Positive >1:80 ICAP nomenclature: AC-0 For more information about Hep-2 cell patterns use ANApatterns.org, the official website for the International Consensus on Antinuclear Antibody (MYNOR) Patterns (ICAP). Performed at: [facility] Lab[address] [id number] Palliative Care Physician: Fredy Schwab PhD, Phone: [phone] PERFORMED BY: [place] [address] PATHOLOGIST CHILLER TECHNICIAN ISMA VALLEJO M.D. Performed By: #### C RIAAC, MYNOR #### [facility] , #### COVID-19 ASHELY, SOFIANEG, CRP #### [facility] [address] [place] [address] C-Reactive Proteinon 022 C-Reactive Protein 1.1 mg/dL High 0.0-1.0 mg/dL [facility] Other C-Reactive Protein 1.1 mg/dL High 0.0-1.0 [facility] Comment on above: Order Comment: Reaso n for Exam Abdominal pain;Diarrhea Result Comment: PERF ORMED BY: [place] [address] PATHOLOGIST CHILLER TECHNICIAN ISMA VALLEJO M.D. Performed By: #### C ELIAC, MYNOR #### [facility] , #### COVID-19 ASHELY, SOFIANEG, CRP #### [facility] [address] [place] [address] COVID-19 Antigenon 2 COVID-19 Antigen Reason for [...] developed and its performance characteristic determined by [employer] and validated at [facility]. This test has not been FDA cleared [...] for SARS Antigen by [employer] PERFORMED BY: [place] [address] PATHOLOGIST CHILLER TECHNICIAN ISMA VALLEJO M.D. [facility] Comment on above: Performed By: #### C MICHAEL MYNOR #### [facility] , #### COVID-19 HOLLIS LUND CRP #### [address] SARS-CoV-2 (COVID-19) Ab [place] Ql [facility] Other Celiacon 07-27-2021 Celiac 6 0-19 [facility] Other Celiac 2 0-19 [facility] Other Celiac <2 0-5 [facility] Other Celiac Negative Negative [facility] Other Celiac 192 mg/dL 90-386 mg/dL [facility] Other Deamidated Gliadin Abs, IgA 6 Normal 0-19 [facility] Comment on above: Order Comment: Reaso n for Exam Abdominal pain;Diarrhea Result Comment: Nega tive 0 - 19 Weak Positive 20 - 30 Moderate to Strong Positive >30 Performed By: #### C ELIAC, MYNOR #### [facility] , #### COVID-19 ASHELY, SOFIANEG, CRP #### [facility] [address] [place] [address] [place] Deamidated Gliadin Abs, IgG 2 Normal 0-19 [facility] Comment on above: Order Comment: Reaso n for Exam Abdominal pain;Diarrhea Result Comment: Nega tive 0 - 19 Weak Positive 20 - 30 Moderate to Strong Positive >30 Performed By: #### C ELIAC, MYNOR #### [facility] , #### COVID-19 ASHELY, SOFIANEG, CRP #### [facility] [address] [place] [id number] [place] Endomysial Antibody IgA Negative Normal Negative [facility] Comment on above: Order Comment: Reaso n for Exam Abdominal pain;Diarrhea Performed By: #### C ELIAC, MYNOR #### [facility] , #### COVID-19 ASHELY, SOFIANEG, CRP #### [facility] [address] [place] [address] [place] Immunoglobulin A, Qn, Serum 192 mg/dL Normal 90-386 [facility] Comment on above: Order Comment: Reaso n for Exam Abdominal pain;Diarrhea Result Comment: Perf ormed at: - [facility] [address] [id number] Palliative Care Physician: Fredy Schwab PhD, Phone: [phone] Performed By: #### C ELIAC, MYNOR #### [facility] , #### COVID-19 ASHELY, SOFIANEG, CRP #### [facility] [address] [place] [address] T-Transglutaminase (tTG) IgA <2 Normal 0-3 [facility] Comment on above: Order Comment: Reaso n [...] , #### COVID-19 ASHELY, SOFIANEG, CRP #### [address] T-Transglutaminase (tTG) IgG <2 Normal 0-5 [facility] Comment on above: Order Comment: Reaso n for Exam Abdominal pain;Diarrhea Result Comment: Nega tive 0 - 5 Weak Positive 6 - 9 Positive >9 Performed By: #### C ELIAC, MYNOR #### [facility] , #### COVID-19 ASHELY, SOFIANEG, CRP #### [address] Ashely Ag Negativeon 07-28-19 22 Ashely Ag Negative Negative Normal Negative [facility] Comment on above: Result Comment: This is a duplicate Ashely SARS Antigen (GUILLERMO) result to be used for statistical tracking purpose only. PERFORMED BY: [place] [address] PATHOLOGIST CHILLER TECHNICIAN ISMA VALLEJO M.D. Performed By: #### C ELIAC, MYNOR #### [facility] , #### COVID-19 ASHELY, SOFIANEG, CRP #### [facility] [address] [place] [address] [place] XR ANKLE LT MIN 3 Von 2021 [...] RAUL ROMERO Date: 2021-07-27 00:37 Normal [facility] US Abdomen Completeon 2021 US Abdomen [...] by Parminder Burch on 05/20/2021 0942 Normal [facility] [employer] Operator XR Abdomen 2 Viewson 022 XR Abdomen 2 Views FINDINGS: Normal volume of stool throughout the colon, reduced volume compared to the prior x-ray one month earlier, April 14, 2021. No mass effect or free air. No biliary or urinary tract stones. Normal lung bases. Unremarkable skeletal structures. IMPRESSION: Normal Report reported and signed by Parminder Burch on 05/13/2021 1502 Normal [facility] [employer] Operator Amylaseon 05-12-2021 Amylase [Catalytic activity/Vol] 34 U/L Normal 21-101 [facility] [employer] Operator Comment on above: Order Comment: [facility] performed at: [employer] [employer], [address] [place] [address], [address] [place] [address], [address], Wash Driller: Vicente Dutton MD [facility] Collection Date/Time: [id number] [facility] Results Received Date/Time: [id number] [facility] Reported Date/Time: [id number] FASTING: NO Performed By: #### 2 4653E, 48463K, LIP, CATHY, 82913D, 99217, 94018D, 83661K #### [facility] [address] [place] [address] Lipaseon 05-12-2021 Lipase [Catalytic activity/Vol] 26 U/L Normal 7-60 [facility] [employer] Operator Comment on above: Order Comment: [facility] performed at: [facility], [employer] [facility], [address], [address] [place], [address], Wash Driller: Vicente Dutton MD [facility] Collection Date/Time: [facility] Results Received Date/Time: [facility] Reported Date/Time: FASTING: NO Performed By: #### 2 4653E, 80883B, LIP, CATHY, 53538E, 48032, 12886M, 78958Z #### [facility] [address] [place] [address] Q - Diptheria/Tetanus Abon 0 05-12-2021 DIPHTHERIA ANTITOXOID 2.94 IU/mL Normal [facility] Comment on above: Order Comment: [facility] performed at: [facility], [employer], [address], [place], [place], , Wash Driller: Clarence Payan M.D.,PhD [facility] Collection Date/Time: [facility] [...] analytical performance characteristics have been determined by [employer] [place], [place]. It has not been cleared or approved by the U.S. Food and Drug Administration. This assay has been validated pursuant to the CLIA regulations and is used for clinical purposes. Performed By: #### 2 4653E, 19105M, LIP, CATHY, 36617B, 89233, 59771R, 74988N #### [facility] [address] [place] [address] TETANUS ANTITOXOID 1.16 IU/mL Normal [facility] Comment on above: Order Comment: [facility] performed at: [facility], [employer], [address], [place], [place], , Wash Driller: Clarence Payan M.D.,PhD [facility] Collection Date/Time: [facility] [...] analytical performance characteristics have been determined by [employer] [place], [place]. It has not been cleared or approved by the U.S. Food and Drug Administration. This assay has been validated pursuant to the CLIA regulations and is used for clinical purposes. Performed By: #### 2 4653E, 95428O, LIP, CATHY, 45931Z, 66658, 23446V, 51166J #### [facility] Default [address] [place] [address] Q - IGA,SERUMon 05-12-2021 IMMUNOGLOBULIN A 180 mg/dL Normal 47-310 [facility] Comment on above: Order Comment: [facility] performed at: [facility], [employer] [facility], [address] [facility], [address] [place] [address], [place], [address], Wash Driller: Vicente Dutton MD [facility] Collection Date/Time: [facility] Results Received Date/Time: [facility] Reported Date/Time: FASTING: NO Performed By: #### 2 4653E, 31031X, LIP, CATHY, 49001Y, 22549, 85626F, 91849N #### [facility] Default [address] [place] [address] Q - IGE,SERUMon 05-12-2021 IMMUNOGLOBULIN E 70 kU/L Normal [facility] Comment on above: Order Comment: [facility] performed at: [employer] [facility], [address] , [address] [place] [address], [address] [place] [address], Wash Driller: Vicente Dutton MD [facility] Collection Date/Time: [facility] Results Received Date/Time: [facility] Reported Date/Time: FASTING: NO Performed By: #### 2 4653E, 72150D, LIP, CATHY, 22425Z, 13228, 19337R, 70325K #### [facility] Default [address] [place] [address] Q - IGG,SERUMon 05-12-2021 IMMUNOGLOBULIN G 827 mg/dL Normal 600-1640 [facility] [employer] Operator Comment on above: Order Comment: [facility] performed at: [employer] [facility], [address] , [address] [place] [address], [address] [place] [address], Wash Driller: Vicente Dutton MD [facility] Date/Time: [id number] [facility] Results Received Date/Time: [facility] Reported Date/Time: FASTING: NO Performed By: #### 2 4653E, 60191F, LIP, CATHY, 46938U, 03933, 19626Q, 39514W #### [facility] Default [address] [place] [address] Q - IGM,SERUMon 05-12-2021 IMMUNOGLOBULIN M 90 mg/dL Normal 50-300 [facility] [employer] Operator Comment on above: Order Comment: [facility] performed at: [employer] [facility], [address] , [address] [place] [address], [address] [place] [address], Wash Driller: Vicente Dutton MD [facility] Collection Date/Time: [facility] Results Received Date/Time: [facility] Reported Date/Time: FASTING: NO Performed By: #### 2 4653E, 73104Z, LIP, CATHY, 90756G, 16310, 61743P, 86203V #### [facility] [address] [place] [address] Q - Strep pneumo Ab 23 serot ypeson 05-12-2021 SEROTYPE 1 (1) 2.5 Normal [facility] Comment on above: Order Comment: [facility] performed at: [facility],, [address] [place] [address], , Wash Driller: Irma Dias MD,PhD,CARRIE [facility] Collection Date/Time: [facility] Results Received Date/Time: [facility] Reported Date/Time: FASTING: NO Performed By: #### 2 4653E, 26247T, LIP, CATHY, 01716Y, 23520, 66711W, 74849J #### [facility] [address] [place] [address] SEROTYPE 12 (12F) <0.3 Normal [facility] Comment on above: Order Comment: [facility] performed at: [facility],, [address] [place] [address], , Wash Driller: Irma Dias MD,PhD,CARRIE [facility] Collection Date/Time: [facility] Results Received Date/Time: [facility] Reported Date/Time: FASTING: NO Performed By: #### 2 4653E, 87105J, LIP, CATHY, 15443F, 37626, 94796A, 03249M #### [facility] Default [address] [place] [address] SEROTYPE 14 (14) 6.7 Normal [facility] Comment on above: Order Comment: [facility] performed at: [employer], [employer],, [address] [place] [address], , Wash Driller: Irma Dias MD,PhD,CARRIE [facility] Date/Time: [facility] Results Received Date/Time: [facility] Reported Date/Time: FASTING: NO Performed By: #### 2 4653E, 81838U, LIP, CATHY, 31994N, 43714, 89189X, 33957R #### [facility] [address] [place] [address] SEROTYPE 17 (17F) 9.0 [facility] Comment on above: Order Comment: [facility] performed at: [employer], [employer],, [address] [place] [address], , Wash Driller: Irma Dias MD,PhD,CARRIE [facility] Collection Date/Time: [facility] Results Received Date/Time: [facility] Reported Date/Time: FASTING: NO Performed By: #### 2 4653E, 13242K, LIP, CATHY, 80370O, 29740, 53036O, 59039Y #### [facility] [address] [place] [address] SEROTYPE 19 (19F) 1.0 [facility] Comment on above: Order Comment: [facility] performed at: [employer], [employer],, [address] [place] [address], , Wash Driller: Irma Dias MD,PhD,CARRIE [facility] Collection Date/Time: [facility] Results Received Date/Time: [facility] Reported Date/Time: FASTING: NO Performed By: #### 2 4653E, 01760D, LIP, CATHY, 45601D, 92037, 11724S, 88182A #### [facility] Default [address] [place] [address] SEROTYPE 2 (2) 1.8 Normal [facility] Comment on above: Order Comment: [facility] performed at: [facility], [employer],, [address] [place] [address], , Wash Driller: Irma Dias MD,PhD,CARRIE [facility] Collection Date/Time: [facility] Results Received Date/Time: [facility] Reported Date/Time: FASTING: NO Performed By: #### 2 4653E, 93891W, LIP, CATHY, 57605A, 43434, 51552P, 14854M #### [facility] Default [address] [place] [address] SEROTYPE 20 (20) 1.7 Normal [facility] Comment on above: Order Comment: [facility] performed at: [facility], [employer],, [address] [place] [address], , Wash Driller: Irma Dias MD,PhD,CARRIE [facility] Collection Date/Time: [facility] Results Received Date/Time: [facility] Reported Date/Time: FASTING: NO Performed By: #### 2 4653E, 70183N, LIP, CATHY, 31362D, 21531, 78655E, 18921Y #### [facility] [address] [place] [address] SEROTYPE 22 (22F) 1.1 Normal [facility] Comment on above: Order Comment: [facility] performed at: [facility], [employer],, [address] [place] [address], , Wash Driller: Irma Dias MD,PhD,CARRIE [facility] Collection Date/Time: [facility] Results Received Date/Time: [facility] Reported Date/Time: FASTING: NO Performed By: #### 2 4653E, 30403F, LIP, CATHY, 40672V, 53439, 60366N, 44516N #### [facility] Default [address] [place] [address] SEROTYPE 23 (23F) 0.9 Normal [facility] Comment on above: Order Comment: [facility] performed at: [facility], [employer],, [address] [place] [address], , Wash Driller: Irma Dias MD,PhD,CARRIE [facility] Collection Date/Time: [facility] Results Received Date/Time: [facility] Reported Date/Time: FASTING: NO Performed By: #### 2 4653E, 20260J, LIP, CATHY, 54654T, 51067, 03110G, 23152F #### [facility] Default [address] [place] [address] SEROTYPE 26 (6B) 3.1 Normal [facility] Comment on above: Order Comment: [facility] performed at: [facility], [employer],, [address] [place] [address], , Wash Driller: Irma Dias MD,PhD,CARRIE [facility] Collection Date/Time: [facility] Results Received Date/Time: [facility] Reported Date/Time: FASTING: NO Performed By: #### 2 4653E, 73133D, LIP, CATHY, 73439O, 95648, 95384G, 01619T #### [facility] Default [address] [place] [address] SEROTYPE 3 (3) 0.8 Normal [facility] Specialist Comment on above: Order Comment: [facility] performed at: [facility], [employer],, [address] [place], [place] [address], , Wash Driller: Irma Dias MD,PhD,CARRIE [facility] Collection Date/Time: [facility] Results Received Date/Time: [facility] Reported Date/Time: FASTING: NO Performed By: #### 2 4653E, 35466J, LIP, CATHY, 40025Z, 10336, 91766C, 44250V #### [facility] Default [address] [place] [address] SEROTYPE 34 (10A) <0.3 Normal [facility] Comment on above: Order Comment: [facility] performed at: [facility],, [address] [place] [address], , Wash Driller: Irma Dias MD,PhD,CARRIE [facility] Collection Date/Time: [facility] Results Received Date/Time: [facility] Reported Date/Time: FASTING: NO Performed By: #### 2 4653E, 61345B, LIP, CATHY, 18416F, 81440, 29032D, 40898T #### [facility] Default [address] [place] [address] SEROTYPE 4 (4) 1.6 Normal [facility] Special[facility] Comment on above: Order Comment: [facility] performed at: [facility],, [address] [place] [address], , Wash Driller: Irma Dias MD,PhD,CARRIE [facility] Collection Date/Time: [facility] Results Received Date/Time: [facility] Reported Date/Time: FASTING: NO Performed By: #### 2 4653E, 65893I, LIP, CATHY, 52768I, 53655, 78564O, 78596F #### [facility] Default [address] [place] [address] SEROTYPE 43 (11A) 0.3 Normal [facility] Specialist Comment on above: Order Comment: [facility] performed at: [facility],, [address] [place] [address], , Wash Driller: Irma Dias MD,PhD,CARRIE [facility] Collection Date/Time: [facility] Results Received Date/Time: [facility] Reported Date/Time: FASTING: NO Performed By: #### 2 4653E, 83098L, LIP, CATHY, 78012E, 32251, 10149Q, 31509Y #### [facility] Default [address] [place] [address] SEROTYPE 5 (5) 4.5 Normal [facility] Special[facility] Comment on above: Order Comment: [facility] performed at: [facility],, [address] [place] [address], , Wash Driller: Irma Dias MD,PhD,CARRIE [facility] Collection Date/Time: [facility] Results Received Date/Time: [facility] Reported Date/Time: FASTING: NO Performed By: #### 2 4653E, 38076I, LIP, CATHY, 88648I, 48886, 38991U, 03351A #### [facility] [address] [place] [address] SEROTYPE 51 (7F) 0.5 [facility] Comment on above: Order Comment: [facility] performed at: [facility],, [address] [place] [address], , Wash Driller: Irma Dias MD,PhD,CARRIE [facility] Collection Date/Time: [facility] Results Received Date/Time: [facility] Reported Date/Time: FASTING: NO Performed By: #### 2 4653E, 56117G, LIP, CATHY, 85158M, 92612, 23846G, 73668P #### [facility] Default [address] [place] [address] SEROTYPE 54 (15B) 0.8 Normal [facility] Comment on above: Order Comment: [facility] performed at: [facility], [employer],, [facility] [place], , Wash Driller: Irma Dias MD,PhD,CARRIE [facility] Collection Date/Time: [facility] Results Received Date/Time: [facility] Reported Date/Time: FASTING: NO Performed By: #### 2 4653E, 18485F, LIP, CATHY, 73863E, 68040, 30491C, 35893R #### [facility] Default [address] [place] [address] SEROTYPE 56 (18C) 1.4 Normal [facility] Comment on above: Order Comment: [facility] performed at: [facility], [employer],, [address] [place] [address], , Wash Driller: Irma Dias MD,PhD,CARRIE [facility] Collection Date/Time: [facility] Results Received Date/Time: [facility] Reported Date/Time: FASTING: NO Performed By: #### 2 4653E, 22179R, LIP, CATHY, 52508A, 39694, 65512C, 09100I #### [facility] Default [address] [place] [address] SEROTYPE 57 (19A) <0.3 [facility] Comment on above: Order Comment: [facility] performed at: [facility], [employer],, [facility] [place], , Wash Driller: Irma Dias MD,PhD,CARRIE [facility] Collection Date/Time: [facility] Results Received Date/Time: [facility] Reported Date/Time: FASTING: NO Performed By: #### 2 4653E, 47519P, LIP, CATHY, 33333D, 00636, 64778E, 53219W #### [facility] Default [address] [place] [address] SEROTYPE 68 (9V) 1.9 Normal [facility] Comment on above: Order Comment: [facility] performed at: [facility],, [address] [place], [place], , Wash Driller: Irma Dias MD,PhD,CARRIE [facility] Collection Date/Time: [facility] Results Received Date/Time: [facility] Reported Date/Time: FASTING: NO Performed By: #### 2 4653E, 77088V, LIP, CATHY, 26375N, 92269, 51538C, 50277H #### [facility] Default [address] [place] [address] SEROTYPE 70 (33F) 0.5 Normal [facility] Comment on above: Order Comment: [facility] performed at: [facility],, [address] [place], [place], , Wash Driller: Irma Dias MD,PhD,CARRIE [facility] Collection Date/Time: [facility] [...] serotype-specific titers may have less robust responses. [employer] uses a multi-analyte immunodetection (MAID) method. The method employs the [employer] flow cytometric system which measures multiple analytes [...] analytical performance characteristics have been determined by [employer]. It has not been cleared or approved by FDA. This assay has been validated pursuant to the CLIA regulations and used for clinical purposes. For additional information, please refer to http://education.[employer]/faq/TWB991 (This link is being provided for informational/ educational purposes only.) Performed By: #### 2 4653E, 98094J, LIP, CATHY, 86066K, 88500, 98930N, 17841H #### [facility] Default [address] [place] [address] SEROTYPE 8 (8) 4.5 Normal [facility] [employer] Operator Comment on above: Order Comment: [facility] performed at: [facility],, [address] [place] [address], [address], Wash Driller: Irma Dias MD,PhD,CARRIE [facility] Date/Time: [id number] [facility] Results Received Date/Time: [id number] [facility] Reported Date/Time: [id number] FASTING: NO Performed By: #### 2 4653E, 49307D, LIP, CATHY, 43906D, 64904, 28190D, 25735Z #### [facility] Default [address] [place] [address] SEROTYPE 9 (9N) 2.7 Normal [facility] [employer] Operator Comment on above: Order Comment: [facility] performed at: [facility],, [address] [place], [address], Wash Driller: Irma Dias MD,PhD,CARRIE [facility] Date/Time: [id number] [facility] Results Received Date/Time: [id number] [facility] Reported Date/Time: [id number] FASTING: NO Performed By: #### 2 4653E, 13204D, LIP, CATHY, 84272K, 34489, 75679Y, 56775H #### [facility] Default [address] [place] [address] Complete Blood Counton 04-14 Erythrocyte distribution width (RBC) [Ratio] 11.9 % Normal 11.0-15.0 [facility] Comment on above: Performed By: #### 2 4653E, 08713O, LIP, CATHY, 45210M, 87070, 33373J, 97368H #### [facility] [address] [place] [address] Hematocrit (Bld) [Volume fraction] 44.3 % Normal 38.5-50.0 [facility] Comment on above: Performed By: #### 2 4653E, 01061W, LIP, CATHY, 98643X, 59168, 38956L, 19715J #### [facility] [address] [place] [address] Hemoglobin (Bld) [Mass/Vol] 15.4 g/dL Normal 13.0-17.1 [facility] Comment on above: Performed By: #### 2 4653E, 06878O, LIP, CATHY, 86450P, 32027, 18365W, 01702G #### [facility] [address] [place] [address] MCH (RBC) [Entitic mass] 32.7 pg Normal 27.0-33.0 [facility] Comment on above: Performed By: #### 2 4653E, 75029T, LIP, CATHY, 53122E, 08958, 82640A, 78228W #### [facility] [address] [place] [address] MCHC (RBC) [Mass/Vol] 34.8 g/dL Normal 32.0-36.0 [facility] Comment on above: Performed By: #### 2 4653E, 58141I, LIP, CATHY, 21610P, 84412, 02980G, 22056D #### [facility] [address] [place] [address] MCV (RBC) [Entitic vol] 94 fL Normal 80-100 [facility] Comment on above: Performed By: #### 2 4653E, 52370R, LIP, CATHY, 77592E, 33374, 50226J, 44718L #### [facility] [address] [place] [address] Platelet mean volume (Bld) [Entitic vol] 10.60 fL Normal 7.50-12.50 [facility] Comment on above: Performed By: #### 2 4653E, 43949B, LIP, CATHY, 61892W, 92307, 93135I, 61244N #### [facility] [address] [place] [address] Platelets (Bld) [#/Vol] 285 10*3/uL Normal 140-400 [facility] Comment on above: Performed By: #### 2 4653E, 75632U, LIP, CATHY, 45416B, 26417, 04664D, 04869E #### [facility] [address] [place] [address] RBC (Bld) [#/Vol] 4.71 10*6/uL Normal 4.20-5.80 [facility] Comment on above: Performed By: #### 2 4653E, 43707Q, LIP, CATHY, 44532B, 93006, 71136R, 15092L #### [facility] [address] [place] [address] RDW-SD 41.1 fL Normal 37.0-50.0 [facility] Comment on above: Performed By: #### 2 4653E, 86284V, LIP, CATHY, 49175A, 85872, 66744P, 47546K #### [facility] [address] [place] [address] WBC (Bld) [#/Vol] 6.2 10*3/uL Normal 3.8-11.0 [facility] Comment on above: Performed By: #### 2 4653E, 12874F, LIP, CATHY, 91768R, 15867, 46843A, 01856J #### [facility] [address] [place] [address] Comprehensive Metabolic Pane antonino 04-14-2021 Albumin [Mass/Vol] 4.9 g/dL Normal 3.6-5.1 [facility] Comment on above: Performed By: #### 2 4653E, 66714L, LIP, CATHY, 10094B, 67166, 91557I, 91747L #### [facility] [address] [place] [address] Albumin/Globulin [Mass ratio] 3.1 {ratio} High 1.0-2.5 [facility] Comment on above: Performed By: #### 2 4653E, 92007G, LIP, CATHY, 30912J, 01233, 50112H, 02082C #### [facility] [address] [place] [address] ALP [Catalytic activity/Vol] 73 U/L Normal 40-129 [facility] Comment on above: Performed By: #### 2 4653E, 27593S, LIP, CATHY, 58250P, 62761, 18839I, 76375J #### [facility] [address] [place] [address] ALT [Catalytic activity/Vol] 14 U/L Normal 9-46 [facility] Comment on above: Result Comment: 02/03 Female reference range changed. Performed By: #### 2 4653E, 67582J, LIP, CATHY, 25836W, 10180, 27811W, 59120V #### [facility] [address] [place] [address] Anion gap [Moles/Vol] 17 mmol/L Normal 12-20 [facility] Comment on above: Result Comment: Effe ctive 03/11/2019 reference range changed. Performed By: #### 2 4653E, 69695Y, LIP, CATHY, 14919L, 03332, 84786D, 43054C #### [facility] [address] [place] [address] AST [Catalytic activity/Vol] 15 U/L Normal 10-40 [facility] Comment on above: Performed By: #### 2 4653E, 67943K, LIP, CATHY, 28443T, 61902, 38034K, 81313O #### [facility] [address] [place] [address] BUN/CREA 24 Ratio High 6-22 [facility] Comment on above: Performed By: #### 2 4653E, 71399L, LIP, CATHY, 96319K, 13079, 33254B, 74976J #### [facility] [address] [place] [address] Calcium [Mass/Vol] 9.9 mg/dL Normal 8.6-10.2 [facility] Comment on above: Performed By: #### 2 4653E, 59662V, LIP, CATHY, 99978U, 38301, 85315D, 70923K #### [facility] [address] [place] [address] Chloride [Moles/Vol] 102 mmol/L Normal 98-107 [facility] Comment on above: Performed By: #### 2 4653E, 28991P, LIP, CATHY, 44965K, 70320, 55243P, 94305R #### [facility] [address] [place] [address] CO2 [Moles/Vol] 24 mmol/L Normal 20-31 [facility] Comment on above: Performed By: #### 2 4653E, 53164J, LIP, CATHY, 36820K, 19322, 86189L, 67210B #### [facility] [address] [place] [address] Creatinine [Mass/Vol] 0.7 mg/dL Normal 0.7-1.4 [facility] Comment on above: Performed By: #### 2 4653E, 73024C, LIP, CATHY, 57044O, 09428, 85575V, 78566M #### [facility] [address] [place] [address] Globulin (S) [Mass/Vol] 1.6 g/dL Low 1.9-3.7 [facility] Comment on above: Performed By: #### 2 4653E, 15783T, LIP, CATHY, 94482M, 63203, 19007T, 91760I #### [facility] [address] [place] [address] Glucose [Mass/Vol] 93 mg/dL Normal 65-99 [place] [facility] [place] [employer] Comment on above: Result Comment: For FASTING Glucose --- ADA reference ranges: Normal 65-99 mg/dl Prediabetes 100-125 Diabetes >/= 126 Performed By: #### 2 4653E, 16060I, LIP, CATHY, 99764M, 01923, 20434C, 76262G #### [facility] [address] [place] [address] Potassium [Moles/Vol] 4.4 mmol/L Normal 3.5-5.5 [facility] [employer] Comment on above: Performed By: #### 2 4653E, 05739N, LIP, CATHY, 18899N, 94259, 37084R, 97108L #### [facility] [address] [place] [address] Protein [Mass/Vol] 6.5 g/dL Normal 6.1-8.1 [facility] [place] [employer] Comment on above: Performed By: #### 2 4653E, 49543L, LIP, CATHY, 94994C, 08610, 51160I, 90943I #### [facility] [address] [place] [address] Sodium [Moles/Vol] 139 mmol/L Normal 135-146 [facility] [place] [employer] Comment on above: Performed By: #### 2 4653E, 40378A, LIP, CATHY, 59981R, 88414, 23826J, 96166I #### [facility] [address] [place] [address] TBIL <0.3 Normal [facility] [employer] Comment on above: Performed By: #### 2 4653E, 28499N, LIP, CATHY, 27219S, 65261, 43219B, 57904G #### [facility] [address] [place] [address] Urea nitrogen [Mass/Vol] 16 mg/dL Normal 7-25 [facility] [employer] Comment on above: Performed By: #### 2 4653E, 84185R, LIP, CATHY, 95330S, 77955, 62819D, 70565Y #### [facility] [address] [place] [address] Ferritinon 04-14-2021 FERR 67.1 ng/mL Normal 30.0-400.0 [facility] Comment on above: Performed By: #### 2 4653E, 35704S, LIP, CATHY, 13194L, 54973, 35408F, 24020L #### [facility] [address] [place] [address] Free T4on 04-14-2021 Free T4 [Mass/Vol] 0.98 ng/dL Normal 0.80-1.80 [facility] Comment on above: Performed By: #### 2 4653E, 37155X, LIP, CATHY, 31857L, 71134, 08664F, 72978F #### [facility] [address] [place] [address] Infectious Mononucleosison 0 04-14-2021 Monocytes (Bld) [#/Vol] Negative Normal Negative [facility] Comment on above: Performed By: #### 2 4653E, 62141M, LIP, CATHY, 36315L, 12577, 59027B, 83221Z #### [facility] [address] [place] [address] Iron Profileon 04-14-2021 %FESAT 23 % Normal 15-60 [facility] Comment on above: Performed By: #### 2 4653E, 95880M, LIP, CATHY, 83739F, 66625, 99746T, 86628A #### [facility] [address] [place] [address] FE 67 ug/dL Normal 50-180 [facility] Comment on above: Result Comment: Refe rence range change 01/20/2017. Prior reference range F 37-145 ug/dL, M 59-158 ug/dL. Performed By: #### 2 4653E, 18311V, LIP, CATHY, 73045P, 23703, 79249D, 60288Q #### [facility] [address] [place] [address] TIBC 292 ug/dL Normal 250-425 [facility] Comment on above: Performed By: #### 2 4653E, 51329S, LIP, CATHY, 52796R, 75330, 21868V, 73094Y #### [facility] [address] [place] [address] UIBC 225 ug/dL Normal 112-347 [facility] [employer] Comment on above: Performed By: #### 2 4653E, 48954F, LIP, CATHY, 85825J, 51970, 07248R, 41508Z #### [facility] [address] [place] [address] TSHon 04-14-2021 TSH 0.832 uIU/mL Normal 0.400-4.50 0 [facility] Comment on above: Performed By: #### 2 4653E, 02483G, LIP, CATHY, 71446R, 90775, 17565O, 03340S #### [facility] [address] [place] [address] Vitamin D 25-OHon 04-14-2021 VIT D 25 OH 46 ng/ml Normal >29 [facility] Comment on above: Result Comment: Cassandra min D Status Deficiency <20 ng/mL Insufficiency 20-29 ng/mL Optimal 30-100 ng/mL Possible Toxicity >=150 ng/mL Performed By: #### 2 4653E, 46487O, LIP, CATHY, 49003H, 85052, 24207H, 99885B #### [facility] [address] [place] [address] XR Abdomen 2 Viewson 022 XR Abdomen 2 Views HISTORY: Abdominal p ain FINDINGS: Large volume of descending and sigmoid colon stool. No mass effect or free air. No biliary or urinary tract stones. Normal lung bases. IMPRESSION: Descending, sigmoid colon stool. No free air. If symptoms persist following appropriate medical/dietary management, CT Imaging may be of assistance. Report reported and signed by Parminder Burch on 04/14/2021 1221 Normal [facility] Covid-19 PCR (CVDTBH)on 03-06 SARS-CoV-2 (COVID-19) RNA NUPUR+probe Ql (Unsp spec) Not detected Normal NOT DETECTED [facility] Comment on above: Result Comment: This test is not yet approved or cleared by the [place] FDA. When there are no FDA-approved or cleared tests available, and other criteria are met, FDA can make tests available under an emergency access mechanism called an Emergency Use Authorization (EUA). The EUA for this test is supported by the Craft Manager of Health and Human Service's (HHS's) declaration [...] Performed By: #### I NFLUAB, RSV #### [facility] [address] [place] [address] Dr. Jennifer Durant STREP PNEUMO IGG AB 23 SEROT YPESon 10-18-2016 SEROTYPE 1 2.1 ug/mL Normal >1.3 [facility] Comment on above: Performed By: #### P NA23 ####[id number] [place] [address] SEROTYPE 10A[34] 1.7 ug/mL Normal >1.3 [facility] Comment on above: Performed By: #### P NA23 ####[id number] [place] [address] SEROTYPE 11A[43] 4.1 ug/mL Normal >1.3 [facility] Comment on above: Performed By: #### P NA23 ####[id number] [place] [address] SEROTYPE 12F 0.5 ug/mL Low >1.3 [facility] Comment on above: Performed By: #### P NA23 ####[id number] [place] [address] SEROTYPE 14 >36.3 Normal >1.3 [facility] Comment on above: Performed By: #### P NA23 ####[id number] [place] [address] SEROTYPE 15B[54] 5.6 ug/mL Normal >1.3 [facility] Comment on above: Performed By: #### P NA23 ####[id number] [place] [address] SEROTYPE 17F >53.5 Normal >1.3 [facility] Comment on above: Performed By: #### P NA23 ####[id number] [place] [address] SEROTYPE 18C[56] 14.6 ug/mL Normal >1.3 [facility] Comment on above: Performed By: #### P NA23 ####[id number] [place] [address] SEROTYPE 19A[57] 3.1 ug/mL Normal >1.3 [facility] Comment on above: Performed By: #### P NA23 ####[id number] [place] [address] SEROTYPE 19F 4.9 ug/mL Normal >1.3 [facility] Comment on above: Performed By: #### P NA23 ####[id number] [place] [address] SEROTYPE 2 4.4 ug/mL Normal >1.3 [facility] Comment on above: Performed By: #### P NA23 ####[id number] [place] [address] SEROTYPE 20 6.5 ug/mL Normal >1.3 [facility] Comment on above: Performed By: #### P NA23 ####[id number] [place] [address] SEROTYPE 22F 10.4 ug/mL Normal >1.3 [facility] Comment on above: Performed By: #### P NA23 ####[id number] [place] [address] SEROTYPE 23F 3.1 ug/mL Normal >1.3 [facility] Comment on above: Performed By: #### P NA23 ####[id number] [place] [address] SEROTYPE 3 4.8 ug/mL Normal >1.3 [facility] Comment on above: Performed By: #### P NA23 ####[id number] [place] [address] SEROTYPE 33F[70] 2.7 ug/mL Normal >1.3 [facility] Comment on above: Result Comment: *Thi s test was developed and its performancecharacteristics determined by [employer]. It has notbeen cleared or approved by the U.S. Food and DrugAdministration. Performed At:[employer] [place] [address]SpfiyufgBibiana Heath PhD HCLD (ABB)CLIA# [id number] Performed By: #### P NA23 ####[id number] [place] [address] SEROTYPE 4 7.1 ug/mL Normal >1.3 [facility] Comment on above: Performed By: #### P NA23 ####[id number] [place] [address] SEROTYPE 5 43.9 ug/mL Normal >1.3 [facility] Comment on above: Performed By: #### P NA23 ####[id number] [place] [address] SEROTYPE 6B[26] 37.4 ug/mL Normal >1.3 [facility] Comment on above: Performed By: #### P NA23 ####[id number] [place] [address] SEROTYPE 7F[51] 2.4 ug/mL Normal >1.3 [facility] Comment on above: Performed By: #### P NA23 ####[id number] [place] [address] SEROTYPE 8 25.5 ug/mL Normal >1.3 [facility] Comment on above: Performed By: #### P NA23 ####[id number] [place] [address] SEROTYPE 9N 19.1 ug/mL Normal >1.3 [facility] Comment on above: Performed By: #### P NA23 ####[id number] [place] [address] SEROTYPE 9V[68] 13.1 ug/mL Normal >1.3 [facility] Comment on above: Performed By: #### P NA23 ####[id number] [place] [address] CBC AND DIFFERENTIALon 10-13 % AUTOMATED IMMATURE GRAN 0.0 % Normal 0.0 - 1.0 [facility] Comment on above: Result Comment: Perc ent differential counts (%) should be interpreted in the context of the absolute cell counts (cells/L). Performed By: #### C BCDF ####[facility] [place] [address] % NEUTROPHIL 35.5 % Normal 33.0 - 69.0 [facility] Comment on above: Performed By: #### C BCDF ####[facility] [place] [address] Basophils/100 WBC Auto (Bld) 1.0 % Normal 0.0 - 1.0 [facility] Comment on above: Performed By: #### C BCDF ####[facility] [place] [address] Basophils/100 WBC Auto (Bld) 0.04 x10E9/L Normal 0.00 - 0.10 [facility] Comment on above: Performed By: #### C BCDF ####[facility] [place] [address] Eosinophils 0.07 10*3/uL Normal 0.00 - 0.70 [facility] Comment on above: Performed By: #### C BCDF ####[facility] [place] [address] Eosinophils/100 leukocytes 1.8 % Normal 0.0 - 5.0 [facility] Comment on above: Performed By: #### C BCDF ####[facility] [place] [address] Erythrocyte distribution width Auto Ratio (RBC) 11.7 % Normal 11.5 - 14.5 [facility] Comment on above: Performed By: #### C BCDF ####[facility] [place] [address] Erythrocytes (RBC) 4.32 x10E12/L Low 4.50 - 5.30 [facility] Comment on above: Performed By: #### C BCDF ####[facility] [place] [address] Hematocrit (HCT) 38.2 % Normal 37.0 - 49.0 [facility] Comment on above: Performed By: #### C BCDF ####[facility] [place] [address] Hemoglobin mass conc (Bld) 13.9 g/dL Normal 13.0 - 16.0 [facility] Comment on above: Performed By: #### C BCDF ####[facility] [place] [address] Lymphocytes 1.93 10*3/uL Normal 1.80 - 4.80 [facility] Comment on above: Performed By: #### C BCDF ####[facility] [place] [address] Lymphocytes/100 leukocytes 49.2 % High 28.0 - 48.0 [facility] Comment on above: Performed By: #### C BCDF ####[facility] [place] [address] MCHC mass conc (RBC) 36.4 g/dL Normal 31.0 - 37.0 [facility] Comment on above: Performed By: #### C BCDF ####[facility] [place] [address] MCV 88 fL Normal 78 - 102 [facility] Comment on above: Performed By: #### C BCDF ####[facility] [place] [address] Monocytes 0.49 10*3/uL Normal 0.10 - 1.00 [facility] Comment on above: Performed By: #### C BCDF ####[facility] [place] [address] Monocytes/100 leukocytes 12.5 % High 3.0 - 9.0 [facility] Comment on above: Performed By: #### C BCDF ####[facility] [place] [address] Neutrophils 1.39 10*3/uL Normal 1.20 - 7.70 [facility] Comment on above: Performed By: #### C BCDF ####[facility] [place] [address] Nucleated erythrocytes 0.0 /100 WBC Normal 0.0-0.0 [facility] Comment on above: Performed By: #### C BCDF ####[facility] [place] [address] Platelets 297 10*3/uL Normal 150 - 400 [facility] Comment on above: Performed By: #### C BCDF ####[facility] [place] [address] WBC (Leukocytes) 3.9 10*3/uL Low 4.5 - 13.5 [facility] Comment on above: Performed By: #### C BCDF ####[facility] [place] [address] IMMUNOGLOBULINS (G,A,M)on IgG 655 mg/dL Low 700 - 1600 [facility] Comment on above: Result Comment: MONO CLONAL PROTEINS MAY CAUSE FALSELY LOWRESULTS IN THIS ASSAY. SERUM PROTEINELECTROPHORESIS SHOULD BE DONE THEFIRST TEST TO EVALUATE MONOCLONAL GAMMOPATHY. Performed By: #### I GS ####[facility] [place] [address] IgA 116 mg/dL Normal 70 - 400 [facility] Comment on above: Result Comment: MONO CLONAL PROTEINS MAY CAUSE FALSELY LOWRESULTS IN THIS ASSAY. SERUM PROTEINELECTROPHORESIS SHOULD BE DONE THEFIRST TEST TO EVALUATE MONOCLONAL GAMMOPATHY. Performed By: #### I GS ####[facility] [place] [address] IgM 87 mg/dL Normal 40 - 230 [facility] Comment on above: Result Comment: MONO CLONAL PROTEINS MAY CAUSE FALSELY LOWRESULTS IN THIS ASSAY. SERUM PROTEINELECTROPHORESIS SHOULD BE DONE THEFIRST TEST TO EVALUATE MONOCLONAL GAMMOPATHY. Performed By: #### I GS ####[facility] [place] [address] Vital Signs Date Time Vital Sign Value Performing Clinician Facility 10-10-2024 08:43-0400 Body mass index (BMI) [Ratio] 19.61 kg/m2 Amina Kumar MANAGEMENT ENGINEER Work Phone: [facility] 10-10-2024 08:43-0400 Body weight 58.51 kg Amina Kumar MANAGEMENT ENGINEER Work Phone: [facility] 10-10-2024 08:43-0400 Diastolic blood pressure 80 mm[Hg] Amina Kumar MANAGEMENT ENGINEER Work Phone: [facility] 10-10-2024 08:43-0400 Heart rate 84 /min Amina Kumar MANAGEMENT ENGINEER Work Phone: [facility] 10-10-2024 08:43-0400 Systolic blood pressure 112 mm[Hg] Amina Kumar MANAGEMENT ENGINEER Work Phone: [facility] 05-30-2024 14:33-0400 Body mass index (BMI) [Ratio] 19.58 kg/m2 Amina Kumar MANAGEMENT ENGINEER Work Phone: [facility] 05-30-2024 14:33-0400 Body weight 58.42 kg Amina Kumar MANAGEMENT ENGINEER Work Phone: [facility] 05-30-2024 14:33-0400 Diastolic blood pressure 68 mm[Hg] Amina Kumar MANAGEMENT ENGINEER Work Phone: [facility] 05-30-2024 14:33-0400 Heart rate 72 /min Amina Kumar MANAGEMENT ENGINEER Work Phone: [facility] 05-30-2024 14:33-0400 Systolic blood pressure 120 mm[Hg] Amina Kumar NP Work Phone: [facility] 02-16-2024 10:32-0500 Body height 172.7 cm Jasson Kumar PA-C Work Phone: [facility] 02-16-2024 10:32-0500 Body mass index (BMI) [Ratio] 18.34 kg/m2 Jasson Kumar PA-C Work Phone: [facility] 02-16-2024 10:32-0500 Body weight 54.7 kg Jasson Kumar PA-C Work Phone: [facility] 02-16-2024 10:32-0500 Diastolic blood pressure 72 mm[Hg] Jasson Kumar PA-C Work Phone: [facility] 02-16-2024 10:32-0500 Heart rate 65 /min Jasson Kumar PA-C Work Phone: [facility] 02-16-2024 10:32-0500 Systolic blood pressure 128 mm[Hg] Jasson Kumar PA-C Work Phone: [facility] 01-03-2024 14:05-0400 Body height 172.7 cm Jasson Kumar PA-C Work Phone: [facility] 01-03-2024 14:05-0400 Body mass index (BMI) [Ratio] 18.09 kg/m2 Jasson Kumar PA-C Work Phone: [facility] 01-03-2024 14:05-0400 Body weight 53.98 kg Jasson Kumar PA-C Work Phone: [facility] 01-03-2024 14:05-0400 Diastolic blood pressure 68 mm[Hg] Jasson Kumar PA-C Work Phone: [facility] 01-03-2024 14:05-0400 Heart rate 89 /min Jasson Kumar PA-C Work Phone: [facility] 01-03-2024 14:05-0400 Systolic blood pressure 127 mm[Hg] Jasson Kumar PA-C Work Phone: [facility] 12-04-2023 15:08-0400 Body height 172.7 cm Ellen Hernadez MD Work Phone: [facility] 12-04-2023 15:08-0400 Body mass index (BMI) [Ratio] 18.05 kg/m2 Ellen Hernadez MD Work Phone: [facility] 12-04-2023 15:08-0400 Body weight 53.84 kg Ellen Hernadez MD Work Phone: [facility] 12-04-2023 15:08-0400 Diastolic blood pressure 65 mm[Hg] Ellen Hernadez MD Work Phone: [facility] 12-04-2023 15:08-0400 Heart rate 76 /min Ellen Hernadez MD Work Phone: [facility] 12-04-2023 15:08-0400 SaO2% (BldA) [Mass fraction] 99 % Ellen Hernadez MD Work Phone: [facility] 12-04-2023 15:08-0400 Systolic blood pressure 122 mm[Hg] Ellen Hernadez MD Work Phone: [facility] 11-16-2023 13:12-0400 Body mass index (BMI) [Ratio] 18.43 kg/m2 Amina Kumar NP Work Phone: [facility] 11-16-2023 13:12-0400 Body weight 54.98 kg Amina Kumar NP Work Phone: [facility] 11-16-2023 13:12-0400 Diastolic blood pressure 62 mm[Hg] Amina Kumar NP Work Phone: [facility] 11-16-2023 13:12-0400 Heart rate 72 /min Amina Kumar MANAGEMENT ENGINEER Work Phone: [facility] 11-16-2023 13:12-0400 Systolic blood pressure 100 mm[Hg] Amina Kumar NP Work Phone: [facility] 08-10-2023 14:04-0400 Body height 170.2 cm Norm Hernadez MD PhD Work Phone: [facility] 08-10-2023 14:04-0400 Body mass index (BMI) [Ratio] 18.48 kg/m2 Norm Hernadez MD PhD Work Phone: [facility] [facility] 08-10-2023 14:04-0400 Body weight 53.52 kg Norm Hernadez MD PhD Work Phone: [facility] 07-19-2023 10:44-0400 Body height 172.7 cm Jose Browning MD Work Phone: [facility] 07-19-2023 10:44-0400 Body mass index (BMI) [Ratio] 18.4 kg/m2 Jose Browning MD Work Phone: [facility] 07-19-2023 10:44-0400 Body temperature 98.49 [degF] Jose Browning MD Work Phone: [facility] 07-19-2023 10:44-0400 Body weight 54.88 kg Jose Browning MD Work Phone: [facility] 07-19-2023 10:44-0400 Diastolic blood pressure 99 mm[Hg] Jose Browning MD Work Phone: [facility] 07-19-2023 10:44-0400 Heart rate 84 /min Jose Browning MD Work Phone: [facility] 07-19-2023 10:44-0400 SaO2% (BldA) [Mass fraction] 99 % Jose Browning MD Work Phone: [facility] 07-19-2023 10:44-0400 Systolic blood pressure 128 mm[Hg] Jose Browning MD Work Phone: [facility] 07-03-2023 16:08-0400 Body height 170.2 cm Ellen Hernadez MD Work Phone: [facility] 07-03-2023 16:08-0400 Body mass index (BMI) [Ratio] 18.51 kg/m2 Ellen Hernadez MD Work Phone: [facility] 07-03-2023 16:08-0400 Body weight 53.62 kg Ellen Hernadez MD Work Phone: [facility] 07-03-2023 16:08-0400 Diastolic blood pressure 67 mm[Hg] Ellen Hernadez MD Work Phone: [facility] 07-03-2023 16:08-0400 Heart rate 78 /min Ellen Hernadez MD Work Phone: [facility] 07-03-2023 16:08-0400 SaO2% (BldA) [Mass fraction] 99 % Ellen Hernadez MD Work Phone: [facility] 07-03-2023 16:08-0400 Systolic blood pressure 112 mm[Hg] Ellen Hernadez MD Work Phone: [facility] 06-22-2023 14:02-0400 Body height 170.2 cm Norm Hernadez MD PhD Work Phone: [facility] 06-22-2023 14:02-0400 Body mass index (BMI) [Ratio] 18.64 kg/m2 Norm Hernadez MD PhD Work Phone: [facility] 06-22-2023 14:02-0400 Body weight 53.98 kg Norm Hernadez MD PhD Work Phone: [facility] 2023 08:32-0500 Body height 170.2 cm Tram Rodas MD Work Phone: [facility] 2023 08:32-0500 Body mass index (BMI) [Ratio] 18.81 kg/m2 Tram Rodas MD Work Phone: [facility] 2023 08:32-0500 Body weight 54.48 kg Tram Rodas MD Work Phone: [facility] 2023 08:32-0500 Diastolic blood pressure 65 mm[Hg] Tram Rodas MD Work Phone: [facility] 2023 08:32-0500 Heart rate 98 /min Tram Rodas MD Work Phone: [facility] 2023 08:32-0500 SaO2% (BldA) [Mass fraction] 99 % Tram Rodas MD Work Phone: [facility] 2023 08:32-0500 Systolic blood pressure 136 mm[Hg] Tram Rodas MD Work Phone: [facility] 05-12-2022 14:30-0500 Body height 170.2 cm Savannah Nixon MD Work Phone: [facility] 05-12-2022 14:30-0500 Body temperature 97.9 [degF] Savannah Nixon MD Work Phone: [facility] 05-12-2022 14:30-0500 Body weight 58.51 kg Savannah Nixon MD Work Phone: [facility] 05-12-2022 14:30-0500 Heart rate 70 /min Savannah Nixon MD Work Phone: [facility] 05-12-2022 14:30-0500 SaO2% (BldA) [Mass fraction] 100 % Savannah Nixon MD Work Phone: [facility] 07-15-2021 14:30-0400 Body weight 53.07 kg Ion Aragon Other [employer] Other Encounters Encounter Date Encounter Type Care Provider Facility Start: 10-16-2024 End: 10-16-2024 Refill Janina Corral MD Other Phone: [facility] Comment on above: Generalized anxiety disorder (Primary Dx) Start: 10-15-2024 End: 10-15-2024 Telephone encounter Ashley [facility] Start: 10-10-2024 End: 10-10-2024 Bamboo flowsheet Amina Kumar MANAGEMENT ENGINEER Work Phone: [facility] Start: 10-10-2024 End: 10-10-2024 Bamboo flowsheet Amina Kumar MANAGEMENT ENGINEER Work Phone: [facility] Start: 10-10-2024 End: 10-10-2024 ambulatory AMINA KUMAR Not Available Start: 10-10-2024 End: 10-10-2024 Office outpatient visit 25 minutes Amina Kumar NP Work Phone: [facility] Comment on above: Acute cough (Primary Dx); Sinus pressure; Acute non-recurrent maxillary sinusitis; Generalized anxiety disorder Start: 07-02-2024 End: 07-02-2024 Telephone encounter [facility] Mitchell [facility] Start: 05-30-2024 End: 05-30-2024 Office outpatient visit 15 minutes Amina Kumar MANAGEMENT ENGINEER Work Phone: [facility] Comment on above: Laceration of left i ndex finger without foreign body without damage to nail, subsequent encounter (Primary Dx); Visit for suture removal Start: 05-30-2024 End: 05-30-2024 ambulatory AMINA KUMAR Not Available Start: 05-30-2024 End: 05-30-2024 Bamboo flowsheet Amina Kumar MANAGEMENT ENGINEER Work Phone: [facility] Start: 05-30-2024 End: 05-30-2024 Bamboo flowsheet Amina Kumar MANAGEMENT ENGINEER Work Phone: [facility] Start: 02-16-2024 End: 02-16-2024 Office outpatient visit 15 minutes Jasson Kumar PA-C Work Phone: [facility] Comment on above: Migraine without aur a and without status migrainosus, not intractable (Primary Dx) Start: 02-16-2024 End: 02-16-2024 ambulatory [facility] Start: 01-24-2024 End: 01-24-2024 ambulatory [facility] Start: 01-03-2024 End: 01-03-2024 Office outpatient new 60 minutes Emilia Garnica [employer] Work Phone: [facility] Comment on above: Migraine without aur a and without status migrainosus, not intractable (Primary Dx); Attention deficit hyperactivity disorder (ADHD), unspecified ADHD type; Generalized anxiety disorder; Chronic fatigue; Hypersomnia; Excessive daytime sleepiness; Night sweats Start: 01-03-2024 End: 01-03-2024 ambulatory [facility] Start: 12-05-2023 End: 12-05-2023 Telephone encounter Ashley [facility] Start: 12-04-2023 End: 12-04-2023 Office outpatient visit 25 minutes Ellen Hernadez MD Work Phone: [facility] Comment on above: Intolerance of joseph nuous positive airway pressure (CPAP) ventilation (Primary Dx); Idiopathic hypersomnia with long sleep time; Obstructive sleep apnea; Delayed sleep phase syndrome Start: 12-04-2023 End: 12-04-2023 ambulatory ELLEN HERNADEZ [facility] Start: 11-16-2023 End: 11-16-2023 Bamboo flowsheet Amina Kumar NP Work Phone: [facility] Start: 11-16-2023 End: 11-16-2023 Bamboo flowsheet Amina Kumar NP Work Phone: [facility] Start: 11-16-2023 End: 11-16-2023 Office outpatient visit 15 minutes Amina Kumar NP Work Phone: [facility] Comment on above: Other non-recurrent acute nonsuppurative otitis media of left ear (Primary Dx); Sinus pressure; Acute cough Start: 11-16-2023 End: 11-16-2023 ambulatory AMINA KUMAR Not Available Start: 11-10-2023 End: 11-13-2023 Telephone encounter Meme Bunch [facility] Comment on above: NEW PATIENT REFERRAL Start: 11-09-2023 End: 11-09-2023 ambulatory [facility] Start: 09-27-2023 End: 09-27-2023 ambulatory [facility] Start: 08-10-2023 End: 08-10-2023 Office outpatient visit 15 minutes Norm Hernadez MD PhD Work Phone: [facility] Comment on above: Hx of perforation of tympanic membrane (Primary Dx) Start: 08-10-2023 End: 08-10-2023 ambulatory NORM [facility] Start: 07-25-2023 Telephone encounter Jose haque MD Work Phone: Neurology Comment on above: Medication Question Start: 07-19-2023 End: 07-19-2023 Patient encounter procedure Jose Browning MD Work Phone: Neurology Comment on above: Migraine without aur a and without status migrainosus, not intractable (Primary Dx) Start: 07-19-2023 End: 07-19-2023 ambulatory JOSE BROWNING Facility:[facility] Start: 07-03-2023 End: 07-03-2023 ambulatory [facility] Start: 07-03-2023 End: 07-03-2023 Office outpatient visit 15 minutes Ellen Hernadez MD Work Phone: [facility] Comment on above: 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); Obstructive sleep apnea Start: 07-03-2023 End: 07-03-2023 Telephone encounter Gali HANSEN [facility] Start: 06-22-2023 End: 06-22-2023 Office outpatient visit 15 minutes Norm Hernadez MD PhD Work Phone: [facility] Comment on above: History of perforati on of tympanic membrane (Primary Dx); Perforation of left tympanic membrane Start: 06-22-2023 End: 06-22-2023 ambulatory NORM Carrillo SATYA [facility] Start: 06-21-2023 End: 06-26-2023 Telephone encounter Gali Jordanter JADE [facility] Start: 05-16-2023 Documentation procedure Tram Rodas MD Work Phone: [facility] Start: 03-29-2023 End: 03-29-2023 ambulatory EMILIA Wil GARNICA [facility] Start: 03-23-2023 Telephone encounter Lucille BURCIAGA [facility] Start: 2023 End: 2023 Office outpatient visit 25 minutes Tram Rodas MD Work Phone: [facility] Comment on above: 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); Obstructive sleep apnea; Ear infection Start: 2023 End: 2023 ambulatory [facility] Start: 05-12-2022 End: 05-12-2022 Patient encounter procedure [...] 07-15-2021 End: 07-15-2021 ambulatory Ion Aragon Other [facility] Other Start: 07-15-2021 [facility] visit new patient Ion Aragon [facility] Start: 06-01-2021 End: 06-01-2021 ambulatory TREVOR PETERSEN Facility:[facility] Start: 03-19-2021 End: 03-19-2021 ambulatory AMINA KUMAR Facility:[facility] Start: 01-05-2017 Ambulatory [facility] Facility:[id number] Start: 10-13-2016 Ambulatory [facility] Facility:[facility] Procedures Date Procedure Procedure Detail Performing Clinician Start: 10-10-2024 STATUS COVID-19/FLU Skyler Kumar MANAGEMENT ENGINEER Work Phone: Start: 05-30-2024 SUTURE/STAPLE REMOVAL S dickson Kumar MANAGEMENT ENGINEER Work Phone: Start: 02-16-2024 Follow-up visit Follow-up JASSON KUMAR Start: 02-16-2024 Adult depression screening assessment Jasson Kumar PA-C Work Phone: Start: 07-03-2023 Follow-up visit Follow-up ELLEN HERNADEZ Plan of Treatment Date Care Activity Detail Author Start: 10-12-2025 DTaP,Tdap and Td Vaccines (3 - Td or Tdap) DTaP,Tdap and Td Vaccines (3 - Td or Tdap) [facility] Start: 10-12-2025 Urine microalbumin profile DTaP,Tdap,Td Vaccine (3 - Td or Tdap) [facility] Start: 02-15-2025 Adult BMI Screening Adult BMI Screen ing [facility] Start: 02-15-2025 Depression Screening Depression Scre ening [facility] Start: 02-15-2025 Tobacco Screening Tobacco Screening [facility] Start: 01-02-2025 Adult BMI Screening Adult BMI Screen ing [facility] Start: 01-02-2025 Tobacco Screening Tobacco Screening [facility] Start: 12-03-2024 Adult BMI Screening Adult BMI Screen ing [facility] Start: 12-03-2024 Tobacco Screening Tobacco Screening [facility] Start: 11-04-2024 Influenza vaccination P [facility] Start: 09-26-2024 Adult BMI Screening Adult BMI Screen ing [facility] Start: 09-02-2024 Influenza vaccination Influenza Vacc ine (#1) [facility] Comment on above: Postponed from 11/04 (Supply/Drug Shortage) Start: 08-09-2024 Tobacco Screening Tobacco Screening [facility] Start: 07-17-2024 End: 07-17-2024 Patient encounter procedure [facility] Start: 07-02-2024 Adult BMI Screening Adult BMI Screen ing [facility] Start: 07-02-2024 Tobacco Screening Tobacco Screening [facility] Start: 07-01-2024 End: 07-01-2024 Patient encounter procedure 07/01/2024 2:30 PM EDT Office Visit [facility] [address] [place] [phone] Ellen Hernadez MD [address] [place] [address] [facility] Start: 06-21-2024 Adult BMI Screening Adult BMI Screen ing [facility] Start: 06-21-2024 Tobacco Screening Tobacco Screening [facility] Start: 05-30-2024 End: 05-30-2024 Patient encounter procedure 05/30/2024 2:30 PM EDT Office Visit [facility] [address] [place] [phone] Amina Kumar NP [address] [place] [address] Arrived [facility] Comment on above: Arrived Start: 03-29-2024 Adult BMI Screening Adult BMI Screen ing [facility] Start: 2024 Adult BMI Screening Adult BMI Screen ing [facility] Start: 2024 Tobacco Screening Tobacco Screening [facility] Start: 02-16-2024 End: 02-16-2024 Patient encounter procedure 02/16/2024 10:30 AM EST Office Visit [facility] [address] [place] [address] Jasson Kumar PA-C [address] [place] [id number] [facility] Start: 01-24-2024 End: 01-24-2024 Patient encounter procedure 01/24/2024 7:45 AM EST Appointment [facility] [address] [place] [phone] [facility] Start: 01-11-2024 Influenza vaccination Influenza Vacc ine (#1) [facility] Comment on above: Postponed from 11/04 (Patient Refused) Start: 01-03-2024 End: 01-02-2025 MR Brain WO and W contrast IV MR brain with and without contrast Imaging Routine Migraine without aura and without status migrainosus, not intractable Chronic fatigue Hypersomnia Expected: 01/03/2024, Expires: 01/02/2025 [facility] Comment on above: Expected: 01/03/2024 , Expires: 01/02/2025 Start: 12-04-2023 End: 12-04-2023 Patient encounter procedure 12/04/2023 3:00 PM EDT [facility] [address] [place] [phone] Ellen Hernadez MD [address] [place] [address] [facility] Start: 11-16-2023 End: 11-16-2023 Patient encounter procedure 11/16/2023 1:00 PM EDT Office Visit [facility] [address] [place] [address] Amina Kumar NP [address] [place] [address] Arrived [facility] Comment on above: Arrived Start: 11-05-2023 [facility] Start: 09-13-2023 End: 09-13-2023 Follow-up encounter 09/13/2023 4:00 PM EDT [facility] [address] [place] [address] [place] [address] [place] [address] [facility] Comment on above: VV Follow Up Start: 08-10-2023 End: 08-10-2023 Patient encounter procedure 08/10/2023 2:00 PM EDT Office Visit [facility] [address] [place] [address] Norm Hernadez MD PhD [address] [address] [facility] Start: 07-03-2023 End: 07-03-2023 Patient encounter procedure 07/03/2023 2:00 PM EDT Office Visit [facility] [address] [place] [address] Ellen Hernadez MD [address] [address] [facility] Start: 06-22-2023 End: 06-22-2023 Patient encounter procedure 06/22/2023 2:00 PM EDT Office Visit [facility] [address] [place] [address] Norm Hernadez MD PhD [address] [address] [facility] Start: 03-06-2023 Behavioral Health Screening Behavioral Health Screening [facility] Start: 11-04-2022 Covid-19 Vaccine ( season) Covid-19 Vaccine ( season) [facility] Start: 11-04-2022 Influenza vaccination Influenza Vacc ine [facility] Start: 2022 Hepatitis B Vaccine (1 of 3 - 19+ 3-dose series) Hepatitis B Vaccine (1 of 3 - 19+ 3-dose series) [facility] Start: 2022 Urine microalbumin profile DTAP,TDAP,TD (1 - Tdap) [facility] Start: 03-06-2022 DEPRESSION ASSESSMENT DEPRESSION ASS ESSMENT [facility] Start: 2021 Adult BMI Follow Up Plan Adult BMI Follow Up Plan [facility] Start: 2021 HEPATITIS C SCREENING HEPATITIS C [facility] Start: 2021 Hepatitis C screening Hepatitis C [facility] Start: 2021 HIV SCREENING HIV SCREENING [facility] Start: 2021 HIV screening HIV Screening [facility] Start: 2019 Meningococcal B Vacc ine: Consider Based On Risk (1 of 2 - Patient Seeks Protection) Meningococcal B Vaccine: Consider Based On Risk (1 of 2 - Patient Seeks Protection) [facility] Start: 2018 HPV Vaccine (1 - Mal e 3-dose series) HPV Vaccine (1 - Male 3-dose series) [facility] Start: 2017 PEDS TO ADULT TRANSI TION ANNUAL ASSESSMENT PEDS TO ADULT TRANSITION ANNUAL ASSESSMENT [facility] Start: 2015 Depression Screening Depression Scre ening [facility] Start: 2015 PEDS TO ADULT TRANSI TION INITIAL DISCUSSION PEDS TO ADULT TRANSITION INITIAL DISCUSSION [facility] Start: 2014 HPV VACCINE (1 - Mal e 2-dose series) HPV VACCINE (1 - Male 2-dose series) [facility] Start: 2013 MENINGOCOCCAL B: Consider based on risk (1 of 2 - Risk Bexsero 2-dose series) MENINGOCOCCAL B: Consider based on risk (1 of 2 - Risk Bexsero 2-dose series) [facility] Start: 2003 COVID-19 VACCINE (#1) COVID-19 VACCI NE (#1) [facility] Start: 2003 HEPATITIS B (1 of 3 - 3-dose series) HEPATITIS B (1 of 3 - 3-dose series) [facility] End: 01-02-2025 Lactate [Moles/volume] in Serum or Plasma Lactate Lab Routine Chronic fatigue 1 Occurrences starting 01/03/2024 until 01/02/2025 [facility] Comment on above: 1 Occurrences starti ng 01/03/2024 until 01/02/2025 End: 01-02-2025 Lyme Total Lyme Total Lab Routine Generalized anxiety disorder Chronic fatigue Hypersomnia Excessive daytime sleepiness 1 Occurrences starting 01/03/2024 until 01/02/2025 [employer] Work Phone: Comment on above: 1 Occurrences starti ng 01/03/2024 until 01/02/2025 End: 01-02-2025 MG/LEMS Evaluation, S MG/LEMS Evaluation, S Lab Routine Chronic fatigue 1 Occurrences starting 01/03/2024 until 01/02/2025 [facility] Comment on above: 1 Occurrences starti ng 01/03/2024 until 01/02/2025 End: 01-02-2025 MuSK Autoantibody, S MuSK Autoantibody, S Lab Routine Chronic fatigue 1 Occurrences starting 01/03/2024 until 01/02/2025 [facility] Comment on above: 1 Occurrences starti ng 01/03/2024 until 01/02/2025 End: 01-02-2025 Pyruvic acid Pyruvic acid Lab Routine Chronic fatigue 1 Occurrences starting 01/03/2024 until 01/02/2025 [facility] Comment on above: 1 Occurrences starti ng 01/03/2024 until 01/02/2025 [facility] Immunizations Immunization Date Immunization Notes Care Provider Deana walker 05-22-2024 tetanus toxoid, redu jordana diphtheria toxoid, and acellular pertussis vaccine, adsorbed Amina Kumar NP Work Phone: [facility] 12-03-2021 influenza, injectabl e, quadrivalent, preservative free Amina Kumar NP Work Phone: [facility] 12-03-2021 influenza virus vacc ine, unspecified formulation Tram Rodas MD Work Phone: [facility] 05-31-2021 pneumococcal polysaccharide vaccine, 23 valent Amina Kumar NP Work Phone: [facility] 12-25-2020 influenza, injectabl e, quadrivalent, contains preservative Amina Kumar NP Work Phone: [facility] 11-05-2020 meningococcal polysaccharide (groups A, C, Y and W-135) diphtheria toxoid conjugate vaccine (MCV4P) Amina Kumar MANAGEMENT ENGINEER Work Phone: [facility] 01-22-2020 influenza, injectabl e, quadrivalent, contains preservative Amina Kumar MANAGEMENT ENGINEER Work Phone: [facility] 03-14-2019 influenza, injectabl e, quadrivalent, preservative free Amina Kumar MANAGEMENT ENGINEER Work Phone: [facility] 11-16-2017 influenza, injectabl e, quadrivalent, preservative free Amina Kumar MANAGEMENT ENGINEER Work Phone: [facility] 11-25-2016 influenza, injectabl e, quadrivalent, preservative free Amina Kumar MANAGEMENT ENGINEER Work Phone: [facility] 04-14-2016 pneumococcal polysaccharide vaccine, 23 valent Amina Kumar MANAGEMENT ENGINEER Work Phone: [facility] 10-13-2015 meningococcal polysaccharide (groups A, C, Y and W-135) diphtheria toxoid conjugate vaccine (MCV4P) Amina Kumar MANAGEMENT ENGINEER Work Phone: [facility] 10-13-2015 meningococcal polysaccharide vaccine (MPSV4) Amina Kumar MANAGEMENT ENGINEER Work Phone: [facility] 10-13-2015 tetanus toxoid, redu jordana diphtheria toxoid, and acellular pertussis vaccine, adsorbed Amina Kumar MANAGEMENT ENGINEER Work Phone: [facility] 11-28-2014 seasonal influenza, intradermal, preservative free Amina Kumar MANAGEMENT ENGINEER Work Phone: [facility] 09-16-2008 Diphtheria, tetanus toxoids and acellular pertussis vaccine, and poliovirus vaccine, inactivated Amina Kumar MANAGEMENT ENGINEER Work Phone: [facility] 09-16-2008 measles, mumps and rubella virus vaccine Amina Kumar MANAGEMENT ENGINEER Work Phone: [facility] 05-19-2005 pneumococcal polysaccharide vaccine, 23 valent Savannah Nixon MD Work Phone: [facility] Work Phone: Payers Date Payer Category Payer Medicaid [facility] [id number] 2019 Medicaid [id number] 2019 [facility] [id number] 2019 Medicaid [id number] 2003 Unknown [id number] 2.16.840.1.390565.3.579.2. 593 2003 Unknown [id number] 2.16.840.1.889139.3.579.2. 593 2003 Unknown [id number] 2.16.840.1.906800.3.579.2. 593 2003 Unknown [id number] 2.16.840.1.158027.3.579.2. 593 2003 Unknown [id number] 2.16.840.1.154542.3.579.2. 128 2003 Unknown [id number] 2.16.840.1.318907.3.579.2. 1285 2003 Unknown [id number] 2.16.840.1.578882.3.579.2. 1285 2003 Unknown [id number] 2.16.840.1.715096.3.579.2. 1285 2003 Unknown [id number] 2.16.840.1.530349.3.579.2. 1285 2003 Unknown [id number] 2..840.1.951969.3.579.2. 1285 2003 Unknown [id number] 2.840.1.695813.3.579.2. 1285 2003 Unknown [id number] 2.840.1.525089.3.579.2. 1285 2003 Unknown [id number] 2.840.1.142980.3.579.2. 1285 2003 Unknown [id number] 2.840.1.089932.3.579.2. 1285 2003 Unknown [id number] 2.840.1.629235.3.579.2. 1285 2003 Unknown [id number] 2.840.1.546245.3.579.2. 1285 2003 Unknown [id number] 2.16.840.1.089485.3.579.2. 9 2003 Unknown [id number] 2.16.840.1.667875.3.579.2. 1258 2003 Unknown [id number] 2.16.840.1.251099.3.579.2. 1259 1967 Unknown [id number] 2.16.840.1.847671.3.579.2. 593 1959 Unknown [id number] 2.16.840.1.957408.19 Private Health Insurance [id number] Social History Date Type Detail Facility Start: 07-19-2023 End: 10-10-2024 Sex Assigned At [facility] [employer] Other Start: 05-12-2022 End: 01-30-2023 Tobacco smoking status NHIS Never smoked tobacco [facility] Start: 05-12-2022 End: 01-30-2023 Tobacco use and exposure Smokeless tobacco non-user [facility] Start: 2005 Sex Assigned At Not on file [facility] Start: 07-19-2023 End: 10-10-2024 History of Social function [facility] Start: 11-16-2023 End: 10-10-2024 Alcoholic beverage intake Current drinker of alcohol (finding) [facility] How often to you hav e a drink containing alcohol? Monthly or less [facility] How many standard drinks containing alcohol do you have on a typical day? 1 or 2 [facility] How often do you hav e 6 or more drinks on 1 occasion? Never [facility] Childcare Unknown [facility] Start: 01-03-2024 End: 02-16-2024 Alcoholic beverage intake Lifetime non-drinker (finding) [facility] Start: 10-09-2014 Sex Male (finding) [facility] Clinical Notes 04-06-2021 to 10-15-2024 Telephone Encounter - Ashley Muñoz RN - 10/15/2024 9:43 AM EDTTelephone Encounter - Ashley Muñoz RN - 10/15/2024 9:43 AM Eran Kumar NP - 10/10/2024 8:30 AM EDTPatient Instructions Note Date & Type Note Facility 10-15-2024 Miscellaneous Notes Left message for pt to call office to schedule RV with KW. Overdue for appt, needs med refill. documented in this encounter [facility] 10-15-2024 Telephone encounter Note Left message for pt to call office to schedule RV with KW. Overdue for appt, needs med refill. [facility] 10-10-2024 History of Presen t illness Narrative Images from the original note were not included. Selvin Lala is a 19 y.o. male presents with chief complaint of Cough (Pt has had sinus congestion, cough for the last couple of days. Pt denies cough or sore throat abdominal pain nausea or diarrha) HPI: Cough Associated symptoms include headaches. Pertinent negatives include no chest pain, chills, ear pain, fever, rash, sore throat, shortness of breath or wheezing. History of Present Illness The patient is a 19-year-old male who presents for evaluation of acute concerns. He began experiencing symptoms a few days ago, including a cough, headaches, and sinus pressure around his eyes and nose. He reports no fever, sore throat, difficulty swallowing, body chills, or body aches. He feels more fatigued than usual but has not experienced any ear pain or chest pain. His cough is occasionally productive, but he has not noticed any color in the sputum. He reports no shortness of breath, wheezing, abdominal pain, nausea, vomiting, or diarrhea. His sleep pattern remains unchanged. He has not been taking any phwq-tth-nzwmmii medications such as Flonase, cough medicine, Mucinex, or allergy pills. He was previously prescribed Adderall by a psychologist, which he found helpful, but he has not been taking it recently due to time constraints. However, he reports feeling better overall and is able to maintain his job and sleep schedule. He has been in contact with his niece who was recently diagnosed with croup and admitted to the hospital. He takes propranolol as needed for headaches. SUBJECTIVE: MEDICATIONS: Current Outpatient Medications Medication Instructions azithromycin (Zithromax) 250 MG tablet Take 2 tablets (500 mg) by mouth Daily for 1 day, THEN 1 tablet (250 mg) Daily for 4 days. Ca, Mg, K, and Na Oxybates (XYWAV PO) 0.5 g cholecalciferol (VITAMIN D-3) 5,000 Units, Daily ibuprofen 600 MG tablet take 1 [...] Social History Narrative Not on file Social Drivers of Health Financial Resource Strain: Not on file Food Insecurity: No Food Insecurity (02/16/2024) Received from [facility] Hunger Screening Within the past 12 months [...] on file Housing Stability: Not on file I have reviewed and reconciled the history and medication list with the patient today. REVIEW OF SYMPTOMS: Review of Systems Constitutional: Positive for fatigue. Negative for appetite change, chills and fever. HENT: Positive for congestion, sinus pressure and sinus pain. Negative for ear pain and sore throat. Respiratory: Positive for cough. Negative for shortness of breath and wheezing. Cardiovascular: Negative for chest pain and palpitations. Gastrointestinal: Negative for abdominal pain, constipation, diarrhea, nausea and vomiting. Musculoskeletal: Negative. Skin: Negative for color change, rash and wound. Neurological: Positive for headaches. Psychiatric/Behavioral: Negative. OBJECTIVE: Results 11/21/2022 12:33 PM 01/30/2023 3:21 PM 03/17/2023 1:30 PM 10/10/2023 2:07 PM 11/16/2023 1:12 PM 05/30/2024 2:33 PM 10/10/2024 8:43 AM Vitals BMI 18.34 kg/m2 18.73 kg/m2 18.43 kg/m2 19.58 kg/m2 19.61 kg/m2 BSA (m2) 1.62 m2 1.64 m2 1.62 m2 1.67 m2 1.68 m2 Systolic 108 118 108 120 100 120 112 Diastolic 72 78 62 70 62 68 80 Heart Rate 72 100 84 84 72 72 84 Temp 98.2 F 98.5 F 97.8 F Weight (lb) 120.6 123.2 121.2 128.8 129 Visit Report Report Report Report Report Report Report Physical Exam Constitutional: General: He is not in acute distress. Appearance: Normal appearance. He is ill-appearing. He is not toxic-appearing or diaphoretic. HENT: Right Ear: Tympanic membrane, ear canal and external ear normal. Left Ear: Tympanic membrane, ear canal and external ear normal. Nose: Congestion present. No rhinorrhea. Right Turbinates: Swollen. Left Turbinates: Swollen. Right Sinus: Maxillary sinus tenderness present. Left Sinus: Maxillary sinus tenderness present. Mouth/Throat: Pharynx: Oropharynx is clear. Posterior oropharyngeal erythema present. No oropharyngeal exudate. Neck: Vascular: No carotid bruit. Cardiovascular: Rate and Rhythm: Normal rate and regular rhythm. Heart sounds: No murmur heard. Pulmonary: Effort: No respiratory distress. Breath sounds: Normal breath sounds. No wheezing, rhonchi or rales. Comments: No cough Abdominal: General: Bowel sounds are normal. There [...] and Affect: Mood normal. Behavior: Behavior normal. Physical Exam ASSESSMENT AND PLAN: Assessment/Plan Diagnoses and all orders for this visit: Acute cough - STATUS COVID-19/FLU Sinus pressure - STATUS COVID-19/FLU Acute non-recurrent maxillary sinusitis - azithromycin (Zithromax) 250 MG tablet; Take 2 tablets (500 mg) by mouth Daily for 1 day, THEN 1 tablet (250 mg) Daily for 4 days. Generalized anxiety disorder Assessment & Plan 1. Maxillary sinusitis. - Reports a cough that started a couple of days ago, sometimes productive but without any specific color. - Headaches and sinus pressure around the eyes and nose, no associated fever, sore throat, or difficulty swallowing. - No nlog-gmo-bcwfnow medications taken for symptoms; feeling more tired than usual but no trouble sleeping at night. - Not currently taking Adderall, previously prescribed by a psychologist; reports feeling better overall and managing sleep schedule well without the medication. -Covid negative today in office. -Advised patient to take antibiotic with food to avoid GI upset and encouraged fluids. Follow up if not improving. -Recommend Flonase nasal spray OTC, 1 spray to each nare twice a day or 2 sprays to each nare once a day. Educated patient on importance of not overusing medication as it can cause rebound symptoms. PVU. 2. Cough -May take OTC cough syrup such as Robitussin or Delsym. Encourage throat lozagenes and warm fluids like warm tea with honey. 3. Anxiety. -Ok for us to take over effexor, doing well on current dose. 30 minutes spent reviewing chart, assessing patient and documenting. Follow up if symptoms worsen or fail to improve. documented in this encounter [facility] 07-02-2024 Miscellaneous Notes Fire Safety Manager attempted to call patient to reschedule his missed appointment on 07/01 with ADAL. Patient will need to schedule a video visit so he will be able to get his refills for his medication. Patient needs to make sure he is not driving for appointment. documented in this encounter [facility] 07-02-2024 Telephone encounter Note Fire Safety Manager attempted to call patient to reschedule his missed appointment on 07/01 with KW. Patient will need to schedule a video visit so he will be able to get his refills for his medication. Patient needs to make sure he is not driving for appointment. [facility] 05-30-2024 History of Presen t illness Narrative Associated Order(s): Suture Removal Post-Procedure Diagnose(s): Visit for suture removal; Laceration of left index finger without foreign body without damage to nail, subsequent encounter Images from the original note were not included. Selvin Lala is a 19 y.o. male presents with chief complaint of Suture / Staple Removal (Fingers left hand) HPI: Suture / Staple Removal Patient went to ED for hand laceration on 05/22/24. 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 Normal ROM, no tendon involvement per ED notes. Tetanus was updated. ED documented 1.5cm laceration across the left PIP joint on the index finger and 1cm laceration to medial aspect of the middle finger near the PIP joint on the left. Patient had sutures placed and splint applied to help with decrease movement. He was told to follow up in 7 days for suture removal. 3 sutures removed in index finger and 2 sutures in middle finger. SUBJECTIVE: MEDICATIONS: Current Outpatient Medications Medication Instructions amphetamine-dextroamphetamine (Adderall) 10 MG tablet Every 24 hours Ca, Mg, K, and Na Oxybates (XYWAV PO) 0.5 g cholecalciferol (VITAMIN D-3) 5,000 Units, Daily ibuprofen 600 MG tablet take 1 [...] Social History Narrative Not on file Social Drivers of Health Financial Resource Strain: Not on file Food Insecurity: No Food Insecurity (02/16/2024) Received from [facility] Hunger Screening Within the past 12 months [...] on file Housing Stability: Not on file I have reviewed and reconciled the history and medication list with the patient today. REVIEW OF SYMPTOMS: Review of Systems Constitutional: Negative for appetite change, chills, fatigue and fever. HENT: Negative. Respiratory: Negative for cough, shortness of breath and wheezing. Cardiovascular: Negative for chest pain and palpitations. Gastrointestinal: Negative for abdominal pain, constipation, diarrhea, nausea and vomiting. Musculoskeletal: Negative. Skin: Positive for wound. Negative for color change and rash. Psychiatric/Behavioral: Negative. OBJECTIVE: 05/26/2022 12:00 PM 11/21/2022 12:33 PM 01/30/2023 3:21 PM 03/17/2023 1:30 PM 10/10/2023 2:07 PM 11/16/2023 1:12 PM 05/30/2024 2:33 PM Vitals BMI 19.04 kg/m2 18.34 kg/m2 18.73 kg/m2 18.43 kg/m2 19.58 kg/m2 BSA (m2) 1.65 m2 1.62 m2 1.64 m2 1.62 m2 1.67 m2 Systolic 112 108 118 108 120 100 120 Diastolic 72 72 78 62 70 62 68 Heart Rate 72 100 84 84 72 72 Temp 98.2 F 98.5 F 97.8 F Height (in) 5' 8 Weight (lb) 125.2 120.6 123.2 121.2 128.8 Visit Report Report Report Report Report Report Physical Exam Constitutional: General: He is not in acute distress. Appearance: Normal appearance. Cardiovascular: Rate and Rhythm: Normal rate and regular rhythm. Heart sounds: No murmur heard. Pulmonary: Effort: No respiratory distress. Breath sounds: Normal breath sounds. No wheezing or rhonchi. Abdominal: General: Bowel sounds are normal. There is no distension. Palpations: Abdomen is soft. Tenderness: There is no abdominal tenderness. Musculoskeletal: Right lower leg: No edema. Left lower leg: No edema. Skin: General: Skin is warm and dry. Findings: Wound present. No erythema or rash. Comments: 3 sutures noted to left index finger and 2 sutures to left middle finger. No bleeding, drainage or open area noted. No redness or warmth. Dried blood noted to both fingers. Neurological: Mental Status: He is alert. Psychiatric: Mood and Affect: Mood normal. Behavior: Behavior normal. Thought Content: Thought content normal. Judgment: Judgment normal. ASSESSMENT AND PLAN: Assessment/Plan Diagnoses and all orders for this visit: Laceration of left index finger without foreign body without damage to nail, subsequent encounter Visit for suture removal Other orders - Suture Removal -Reviewed ED documentation. 3 sutures removed from index finger and 2 from middle finger. Minimal bleeding from middle finger, likely where dry scab was. Abx ointment applied with bandaid. Discussed with patient to report to the ER if bleeding does not improve. No wound separation noted on exam. Patient ID: Selvin Lala is a 19 y.o. male. Suture Removal Date/Time: 05/30/2024 2:46 PM Performed by: Amina Kumar NP Authorized by: Amina Kumar NP Consent: Consent obtained: Verbal Consent given by: Patient Risks, benefits, and alternatives were discussed: yes Risks discussed: Bleeding, pain and wound separation Alternatives discussed: No treatment [place] protocol: Procedure explained and questions answered to patient or proxy's satisfaction: yes Relevant documents present and verified: yes Test results available: yes Patient identity confirmed: Verbally with patient Location: Location: Upper extremity Upper extremity location: left middle and index finger. Procedure details: Wound appearance: No signs of infection Number of sutures removed: 5 (3 to index finger and 2 to middle finger) Post-procedure details: Post-removal: Antibiotic ointment applied and Band-Aid applied Procedure completion: Tolerated Comments: Minimal bleeding from middle finger, likely from scab. Abx ointment and bandaid applied. Discussed with patient if bleeding worsens to go to the ER but no wound separation noted on exam. Follow up if symptoms worsen or fail to improve. documented in this encounter [facility] 02-16-2024 History of Presen t illness Narrative [facility] Neurology Office Note 02/15/2024 2:49 PM Patient info: Selvin Lala is a 18 y.o. 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 male Account No.: [id number] Acct: : 2005 PCP: Janina Corral MD Chief Complaint: Patient, 18 year old male, presents today for initial Neurological evaluation regarding headaches. Referred by Emilia Garnica APRN-BERHANE Selvin is present in the office [...] of significant head injury/trauma: (-) hx of BLOWER INSTALLER infection: (-) hx of stroke or cerebrovascular [...] weeks Electronically Signed by: Jasson Kumar PA-C 01/10/24 0907 documented in this encounter [facility] 12-05-2023 Miscellaneous Notes Faxed updated Xywav Rx form to Xywav documented in this encounter [facility] 12-05-2023 Telephone encounter Note Faxed updated Xywav Rx form to Xywav [facility] 12-04-2023 History of Presen t illness Narrative Images from the original note were not included. [address] [place] [address] Patient: Selvin Lala Date of : 2005 Encounter Date: 12/04/2023 [...] Naps- none Stimulant: Ritalin - not everyday (3/), in afternoon typically, not after 4pm Xywav [...] PM 2023 8:00 AM 12/04/2023 3:00 PM [place] Sleepiness Scale Sitting and Reading 0 2 [...] Ellen Hernadez MD Pulmonary and Sleep Medicine [facility] Past Medical, Family, and Social [...] Alcohol Use None [facility] 12-04-2023 Instructions Ellen Hernadez MD - 12/04/2023 3:00 PM EDT 1. Sample mask today 2. Xywav, work up to 4.5 mg and 4.5mg 3. Follow up in 6 months [facility] 11-16-2023 History of Presen t illness Narrative Images from the original note were not included. Selvin Lala is a 18 y.o. male presents with [...] Insecurity: No Food Insecurity (05/03/2022) Received [facility] [employer], [employer] Within the past 12 months [...] for ear recheck. documented in this encounter [facility] 11-10-2023 Miscellaneous Notes First Attempt Made from [employer] New patient referral received. Dx:Attention deficit hyperactivity [...] message for patient documented in this encounter [facility] 11-10-2023 Telephone encounter Note First Attempt Made from [employer] New patient referral received. Dx:Attention deficit hyperactivity [...] INSURANCE INFORMATION TO THEIR NEW PATIENT APPOINTMENT [facility] 11-10-2023 Telephone encounter Note 2nd attempt: Left message for patient [facility] 08-10-2023 History of Presen t illness Narrative Summary: History of perforation [facility] [address] [place] [address] SUBJECTIVE: Patient ID (2005): Selvin Lala is a 18 y.o. male presents today [...] 6 months for cerumen management. Provider Statement: I NORM HERNADEZ MD PhD [...] this chart were generated using voice recognition [employer] dictation software. Although every effort was made to ensure the accuracy of this automated mainspring fabrication supervisor, some errors in mainspring fabrication supervisor may have occurred. documented in this encounter [employer] 07-25-2023 Telephone encounter Note Pt mother phoned following up on rx for effexor with dose change that was discussed at OV on 07/18. Rx has not been sent to pharmacy [facility] in [facility]. Please advise Pt mother phone # [phone] [facility] 07-25-2023 Miscellaneous Notes Pt mother phoned following up on rx for effexor with dose change that was discussed at OV on 07/18. Rx has not been sent to pharmacy [facility] in [facility]. Please advise Pt mother phone # [phone] documented in this encounter [facility] 07-19-2023 Note HNO ID: [id number] Author: JOSE BROWNING MD Service: ? Author Type: Physician Type: Progress Notes Filed: 08/08/2023 06:50 Note Text: 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 Brain imaging: none as per patient. INITIAL CONSULT - [facility]IC[facility] SERVICE DATE: 07/19/2023 Location: [facility] Participants: Patient, mother and Provider Requesting Provider: Member Name Role and Specialty Contact Info Address Comments Janina Corral MD Referring [phone] [facility] [id number] - Recommendations of care will be communicated by shared medical record. Subjective HPI: Selvin Lala is a 18 year old year old male with a chief complaint of headache. 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 Brain imaging: none as per patient. INITIAL CONSULT - HEADACHE MEDICINE SERVICE DATE: 07/19/2023 Location: [facility] [place] Participants: Patient, mother and Provider Requesting Provider: Member Name Role and Specialty Contact Info Address Comments Janina Corral MD Referring [address] [place] [address] - Recommendations of care will be communicated by shared medical record. Subjective HPI: Selvin Lala is a 18 year old year old [...] ASSESSMENT: - 75 mg Jose Browning MD [facility] [place] documented in this encounter [facility] 07-03-2023 Instructions Ellen Hernadez MD - 07/03/2023 4:00 PM EDT 1. Continue methylphenidate and Xywav 2. Continue PAP therapy as much as possible 3. Discussed cataplexy 4. Follow up in 4 months documented in this encounter [facility] 07-03-2023 Miscellaneous Notes Fire Safety Manager called patient and left voicemail, patient was to have an appointment with KW on 07/03/2023 but called to cancel. Patient needs to be seen today for his refills. Fire Safety Manager also called patient's mother/HIPAA, Dian, and left voicemail for her in regard to this patient's appointment and refill of Xywav. Asked that they contact our office as soon as possible. Per ADAL, patient needs to be seen today. Called and spoke with mom, Dian, she said she would call Selvin and he would be on his way to be seen today at 4 pm. documented in this encounter [facility] 07-03-2023 Telephone encounter Note Fire Safety Manager called patient and left voicemail, patient was to have an appointment with KW on 07/03/2023 but called to cancel. Patient needs to be seen today for his refills. Fire Safety Manager also called patient's mother/HIPAA, Dian, and left voicemail for her in regard to this patient's appointment and refill of Xywav. Asked that they contact our office as soon as possible. Per ADAL, patient needs to be seen today. [facility] 07-03-2023 Telephone encounter Note Called and spoke with mom, Dian, she said she would call Selvin and he would be on his way to be seen today at 4 pm. [facility] 07-03-2023 History of Presen t illness Narrative Images from the original note were not included. [address] [place] [address] Patient: Selvin Lala Date of : 2005 Encounter Date: 07/03/2023 [...] PM 01/31/2023 2:00 PM 2023 8:00 AM [place] Sleepiness Scale Sitting and Reading 0 2 [...] Ellen Hernadez MD Pulmonary and Sleep Medicine [facility] Past Medical, Family, and Social [...] Alcohol Use None documented in this encounter [facility] 06-22-2023 History of Presen t illness Narrative Summary: History of tympanic membrane perforation left ear [facility], [facility]SE [facility] THROAT [address] [facility] [address] SUBJECTIVE: Patient ID (2005): Selvin Lala is a 18 y.o. male presents today [...] in ENT pending hearing test. Provider Statement: Wilfrido HERNADEZ MD PhD personally [...] this chart were generated using voice recognition [employer] dictation software. Although every effort was made to ensure the accuracy of this automated mainspring fabrication supervisor, some errors in mainspring fabrication supervisor may have occurred. documented in this encounter [facility] 06-21-2023 Miscellaneous Notes Images from the original note were not included. Received refill request for Xymav for patient, please send refill to [phone] Gali can you confirm that he's taking the medication? Fire Safety Manager called patient and spoke with patient's mother/HIPAA, Dian, who confirmed patient is still taking Xywav. I will sign for 1 month Form faxed documented in this encounter [facility] 06-21-2023 Telephone encounter Note Images from the original note were not included. Received refill request for Xymav for patient, please send refill to [phone] [facility] 06-21-2023 Telephone encounter Note Gali can you confirm that he's taking the medication? [facility] Work Phone: 06-21-2023 Telephone encounter Note Fire Safety Manager called patient and spoke with patient's mother/HIPAA, Dian, who confirmed patient is still taking Xywav. [facility] 06-21-2023 Telephone encounter Note I will sign for 1 month [facility] 06-21-2023 Telephone encounter Note Form faxed [facility] 05-16-2023 History of Presen t illness Narrative Images from the original note were not included. Received refill request from patient's pharmacy for Xywav. He has one refill remaining from Mar per OARRS though. Deferred. documented in this encounter [facility] 03-23-2023 Miscellaneous Notes Lamar a pharmacist with [facility] left a message stating patient has started taking Fioricet. She states when taking Fiorcet with Xywav is can cause excessive drowsiness. Lamar is asking for Dr. Rodas' approval. Phone number: [phone] option 3 option 4 Advise him to use a non-opioid / barbiturate for headaches. Understandably could increase risk for respiratory depression in conjunction with Xywav. I don't see that it has been filled on his OARRS? Ok to dispense Xywav. Fire Safety Manager called patient and left voicemail for patient informing him of EM's message advising him to use a non-opioid / barbiturate for headaches. Understandably could increase risk for respiratory depression in conjunction with Xywav. Asked patient to call us back if he has any other questions. Fire Safety Manager called [facility] and informed the pharmacist Peace of EM's approval to dispense Xywav, Peace verbalized understanding and stated that the medication would be dispensed to the patient. documented in this encounter [facility] 03-23-2023 Telephone encounter Note Lamar a pharmacist with [facility] left a message stating patient has started taking Fioricet. She states when taking Fiorcet with Xywav is can cause excessive drowsiness. Lamar is asking for Dr. Rodas' approval. Phone number: [phone] option 3 option 4 [facility] 03-23-2023 Telephone encounter Note Advise him to use a non-opioid / barbiturate for headaches. Understandably could increase risk for respiratory depression in conjunction with Xywav. I don't see that it has been filled on his OARRS? Ok to dispense Xywav. [facility] 03-23-2023 Telephone encounter Note Fire Safety Manager called patient and left voicemail for patient informing him of EM's message advising him to use a non-opioid / barbiturate for headaches. Understandably could increase risk for respiratory depression in conjunction with Xywav. Asked patient to call us back if he has any other questions. Fire Safety Manager called [facility] and informed the pharmacist Peace of EM's approval to dispense Xywav, Peace verbalized understanding and stated that the medication would be dispensed to the patient. [facility] [employer] [facility] 2023 History of Presen t illness Narrative Images from the original note were not included. 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 [place] Sleepiness Scale: 05/03/2022 12:00 PM 12/27/2022 1:00 PM 01/31/2023 2:00 PM 2023 8:00 AM [place] Sleepiness Scale Sitting and Reading 0 2 [...] Benzodiazepine Screen, Urine Negative^Negative Negative ASSESSMENT: Mr. Lala is a 18 y.o. male with medical [...] not to drive if sleepy, and to bleach boiler puller if sleepiness occurs while driving. Above plan as discussed with the patient who acknowledged understanding and agreement. Tram Rodas MD [facility] [address] [address] documented in this encounter [facility] 2023 Instructions Tram Rodas MD - 2023 8:30 AM EST documented in this encounter [facility] 05-12-2022 History of Presen t illness Narrative Images from the original note were not included. Allergy & Clinical Immunology Amina Kumar MACHINE SHOP SPECIALIST- has requested consultation for recurrent URI. My progress note with assessment and recommendations from today's appointment will be electronically routed to the referring provider. Selvin Lala is a 17 year old male [...] history of sleep disorders. He saw an etl data architect in [employer]. 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 PATIENT STATES THIS HAS BEEN ONGOING FOR ABOUT 6 MONTHS. WE WILL ORDER SOME LABS AT THIS TIME. July, Diarrhea (ICD-10 - R19.7) [facility] Other 02-01-2022 NotePROCEDURE: [employer] VCT 64. In the coronal projection, without [...] and signed by Parminder Burch on 04/06/2021 [facility] Specialist[facility] note* Diagnosis Chronic fatigue syndrome- Primary Nonintractable episodic headache, unspecified headache type Chronic rhinitis [facility] Diagnosis Migraine without aura and without status migrainosus, not intractable- Primary Migraine without aura, without mention of intractable migraine without mention of status migrainosus [facility] Diagnosis Other non-recurrent acute nonsuppurative otitis media of left ear- Primary Sinus pressure Other diseases of nasal cavity and sinuses Acute cough documented in this encounter [facility] HealthcareEvaluation note* Diagnosis History of perforation of tympanic membrane- Primary Perforation of left tympanic membrane documented in this encounter [facility] SystemEvaluation note* Diagnosis Idiopathic hypersomnia with long sleep time- Primary Obstructive sleep apnea Obstructive sleep apnea (adult) (pediatric) documented in this encounter [facility] SystemEvaluation note* Diagnosis Idiopathic hypersomnia with long sleep time- Primary Obstructive sleep apnea Obstructive sleep apnea (adult) (pediatric) Ear infection Unspecified otitis media 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, delayed sleep phase type documented in this encounter [facility] SystemEvaluation note* Diagnosis Migraine without aura and without status migrainosus, not intractable- Primary Attention deficit hyperactivity disorder (ADHD), unspecified ADHD type Generalized anxiety disorder Chronic fatigue Other malaise and fatigue Hypersomnia Hypersomnia, unspecified Excessive daytime sleepiness Night sweats Generalized hyperhidrosis documented in this encounter [facility] SystemEvaluation note* Diagnosis Migraine without aura and without status migrainosus, not intractable- Primary documented in this encounter [facility] SystemEvaluation note* Diagnosis Laceration of left index finger without foreign body without damage to nail, subsequent encounter- Primary Visit for suture removal documented in this encounter [facility] HealthcareEvaluation note* Diagnosis Acute cough- Primary Sinus pressure Other diseases of nasal cavity and sinuses Acute non-recurrent maxillary sinusitis Generalized anxiety disorder Generalized anxiety disorder documented in this encounter [facility] HealthcareEvaluation note* Diagnosis Generalized anxiety disorder- Primary Generalized anxiety disorder documented in this encounter [facility] HealthcareHistory general Narrative - Reported* Type Description Date Medical History ADHD Surgical History T&A Surgical History Myringotomy bilateral Surgical History Reconstructive ear drum Hospitalization History See past surgical histor y [facility] Other InstructionsNot on filedocumented in this encounter [...] EATING WILL USE THE BATHROOM. NO PREVIOUS SCOPES.[facility] Other Summary Purpose Family History No Family [...] Referred By Emely brown Referred To Contact Diagnoses History of perforation of tympanic membrane Procedures Hearing Evaluation (Audiology) Norm [place] MD PhD [id number] [address] Referral ID Status Reason Start Date Expiration Date V isits Requested Visits Authorized [id number] Pending Review 06/22/2023 06/21/2024 1 1 Specialty Diagnoses / Procedures Referred By Emely t Referred To Contact Neurology Diagnoses Chronic fatigue syndrome Nonintractable episodic headache, unspecified headache type Procedures CONSULT TO NEUROLOGY OFFICE/OUTPATIENT [facility] 60-74 MINUTES Savannah Nixon MD [address] [place] [address] Referral ID Status Reason Start Date Expiration Date Visits Requested Visits Authorized [id number] Authorized PCP Requested Referral 05/12/2022 05/12/2023 1 1 Additional Source Comments (unrecognized sect ion and content) No Status Records FoundNo Status Records FoundNo Status Records FoundNo Status Records FoundNo Status Records FoundNo Status Records FoundNo Status Records FoundNo Status Records FoundNo Status Records Found INFORMATION SOURCE (unrecogn ized section and content) DATE CREATED AUTHOR 08/29/2017 [facility] DATE CREATED AUTHOR AUTHOR'S ORGANIZ ATION 08/08/2021 [facility] DATE CREATED AUTHOR AUTHOR'S ORGANIZ ATION 08/10/2021 [facility] dical Specialist DATE CREATED AUTHOR AUTHOR'S ORGANIZ ATION 02/24/[address] [facility] DATE CREATED AUTHOR AUTHOR'S ORGANIZ ATION 08/09/2023 [facility] DATE CREATED AUTHOR AUTHOR'S ORGANIZ ATION 08/17/2023 [facility] DATE CREATED AUTHOR AUTHOR'S ORGANIZ ATION 12/05/2023 [facility] DATE CREATED AUTHOR AUTHOR'S ORGANIZ ATION 02/19/2024 [facility] DATE CREATED AUTHOR AUTHOR'S ORGANIZ ATION 10/12/2024 [facility] dical Specialists EPIC Source Comments (unrecognize d section and content) In the event this informatio n is protected by the Federal Confidentiality of Alcohol and Drug Abuse Patient Records regulations: The Federal rules restrict any use of the information to criminally investigate or prosecute any alcohol or drug abuse patient.[facility] the event this information is protected by the Federal Confidentiality of Alcohol and Drug Abuse Patient Records regulations: The Federal rules restrict any use of the information to criminally investigate or prosecute any alcohol or drug abuse patient.[facility] the event this information is protected by the Federal Confidentiality of Alcohol and Drug Abuse Patient Records regulations: The Federal rules restrict any use of the information to criminally investigate or prosecute any alcohol or drug abuse patient.[facility] Reason for Visit (unrecogniz ed [...] Excessive daytime sleepiness Chronic daily headache Emilia Garnica, SMASHER-SWEAT BAND SEWER [address] [place] [address] Phone: tel: fax: [facility] [address] [place] [address] Phone: tel: fax: Referral ID Status Reason Start Date Expiration Date Visits Requested Visits Authorized [id number] Pending Review Specialty Services Required 11/09/2023 11/08/2024 1 1 Reason Comments Follow-up Patient is here toda y for follow up on DX: Migraine without aura and without status migrainosus, not intractable Reason Comments Suture / Staple Removal Fingers left romero d Reason Comments Cough Pt has had sinus con gestion, cough for the last couple of days. Pt denies cough or sore throat abdominal pain nausea or diarrha Care Teams (unrecognized sec tion and content) Manufacturing Weaver Relationship Specialty Start Date End Date Amina Kumar [address] [place] [address] Referring Family Medicine 02/23/22 Amina Kumar [address] [place] [address] Referring 03/11/22 Manufacturing Weaver Relationship Specialty Start Date End Date Amina Kumar APRN Referring Family Medicine 02/23/22 Amina Kumar APRN Referring 03/11/22 Janina Corral MD [address] [facility] [place] [address] Referring Family Medicine 02/09/23 Manufacturing Weaver Relationship Specialty Start Date End Date Amina Kumar APRN Referring Family Medicine 02/23/22 Amina Kumar APRN Referring 03/11/22 Janina Corral MD [address] [facility] [place] [address] Referring Family Medicine 02/09/23 Manufacturing Weaver Relationship Specialty Start Date End Date Janina Corral MD [address] [place] [address] PCP - General Family Medicine 07/12/22 Amina Kumar NP [address] [place] [address] PCP - [facility] 06/05/23 Manufacturing Weaver Relationship Specialty Start Date End Date WonderJanina irwin MD [address] [facility] [place] [address] PCP - [facility] 07/12/22 Amina Kumar, LASHELL [address] [facility] [place] [address] PCP - [facility] 06/05/23 Manufacturing Weaver Relationship Specialty Start Date End Date WonderJanina irwin MD [address] [facility] [place] [address] PCP - General 08/30/13 Manufacturing Weaver Relationship Specialty Start Date End Date Janina Corral MD [address] [facility] [place] [address] PCP - General 08/30/13 Manufacturing Weaver Relationship Specialty Start Date End Date Janina Corral MD [address] [facility] [place] [address] PCP - General 08/30/13 Manufacturing Weaver Relationship Specialty Start Date End Date Janina Corral MD [address] [facility] [place] [address] PCP - General 08/30/13 Manufacturing Weaver Relationship Specialty Start Date End Date Janina Corral MD [address] [facility] [place] [address] PCP - General 08/30/13 Manufacturing Weaver Relationship Specialty Start Date End Date Janina Corral MD [address] [place] [address] PCP - General 08/30/13 Manufacturing Weaver Relationship Specialty Start Date End Date Janina Corral MD [address] [place] [address] PCP - General 08/30/13 Manufacturing Weaver Relationship Specialty Start Date End Date Janina Corral MD [address] [place] [address] PCP - General 08/30/13 Manufacturing Weaver Relationship Specialty Start Date End Date Janina Corral MD [address] [place] [address] PCP - General 08/30/13 Manufacturing Weaver Relationship Specialty Start Date End Date Janina Corral MD [address] [place] [address] PCP - General 08/30/13 Manufacturing Weaver Relationship Specialty Start Date End Date Janina Corral MD [address] [place] [address] PCP - General Family Medicine 07/12/22 Amina Kumar NP [address] [place] [address] PCP - [facility] 06/05/23 Manufacturing Weaver Relationship Specialty Start Date End Date Janina Corral MD [address] [place] [address] PCP - General Family Medicine 07/12/22 Amina Kumar, MANAGEMENT ENGINEER [address] [facility] [place] [address] PCP [facility] 06/05/23 Manufacturing Weaver Relationship Specialty Start Date End Date WonderJanina irwin MD [address] [facility] [address] PCP - General 08/30/13 Manufacturing Weaver Relationship Specialty Start Date End Date WonderJanina irwin MD PCP - [facility] 07/12/22 Amina Kumar NP [address] [place] [address] PCP [facility] [address] [facility] 06/05/23 Manufacturing Weaver Relationship Specialty Start Date End Date WonderJanina irwin MD PCP - General Family Medicine 07/12/22 Amina Kumar, MANAGEMENT ENGINEER [address] [facility] [place] [address] PCP [facility] [address] 06/05/23 Manufacturing Weaver Relationship Specialty Start Date End Date WonderJanina irwin MD [address] [facility] [place] [address] PCP - General 08/30/13 Manufacturing Weaver Relationship Specialty Start Date End Date WonderJanina irwin MD PCP - [facility] 07/12/22 Amina Kumar, MANAGEMENT ENGINEER [address] [facility] [address] PCP [facility] [address] 06/05/23 FOR RECORDS PERTAINING TO PATIENTS WHO ARE [...] BE BASED ON THE PRIMARY CLINICAL RECORDS. [facility]. provides no warranty or guarantee of the accuracy or completeness of information in this document.
--- NOTE | 2024-12-16 18:19 | ED.GENADUL1 ---
HPI HPI - General Adult General Chief complaint: Headache Stated complaint: HEADACHE Time Seen by Provider: 12/16/24 18:03 Mode of arrival: walk-in Limitations: no limitations History of Present Illness HPI narrative: 19-year-old male presented for headache. This started yesterday and was not precipitated by any trauma. It is primarily frontal and he has a history of these headaches. He has seen a neurologist once. No localized weakness or stiff neck or fever. The pain is moderate to severe and continuous. Related Data Home Medications ?Medication ?Instructions ?Recorded ?Confirmed loratadine 10 mg tablet 10 mg PO DAILY PRN allergic 01/12/23 05/22/24 (Allerclear) symptoms venlafaxine 37.5 mg 37.5 mg PO DAILY 01/12/23 05/22/24 capsule,extended release 24 hr sodium, calcium, magnesium, 0.5 g PO DAILY 05/22/24 05/22/24 potassium oxybates 0.5 gram/mL oral soln (Xywav) Previous Rx's ?Medication ?Instructions ?Recorded promethazine 25 mg tablet 25 mg PO Q6H PRN nausea and 01/12/23 vomiting #12 tabs acjgiozfar-lpqnqvhsksoiu-gkwclbxa 1 cap PO Q8H PRN headache, pain #8 03/18/23 50 mg-300 mg-40 mg capsule caps (Fioricet) loratadine 5 mg-pseudoephedrine ER 1 tab PO Q12H PRN nasal congestion 10/09/23 120 mg tablet,extended #20 tabs release,12hr (Claritin-D 12 Hour) Allergies Allergy/AdvReac Type Severity Reaction Status Date / Time No Known Drug Allergies Allergy Verified 12/16/24 18:05 Opioid HPI Opioid Management Most Recent Opioid Data: Last Pain Scale 7 Today, 18:33 Last MAR Pain Assessment Today, 18:33 Review of Systems ROS Narrative A ten point review of systems is negative except as noted above. PFSH PFSH Social History Smoking status: Never smoker Little interest or pleasure in doing things: not at all Feeling down, depressed, or hopeless: not at all Exam Narrative Exam Narrative: Nurses note and vital signs reviewed and patient is not hypoxic. General:The patient appears acute distress. Skin:Warm, dry, no pallor noted.There is no rash noted. Head:Normocephalic, atraumatic eye: Neck supple, no nuchal rigidity Eye: Normal conjunctiva, no drainage, EOMI. PERRL Ears, Nose, Mouth, and Throat: oral mucosa is moist. Nares patent. Cardiovascular:Regular Rate and Rhythm Respiratory:Patient is in no distress, no accessory muscle use, lungs are clear to auscultation, no wheezing, rales or rhonchi GI: Abdomen nontender Musculoskeletal: The patient has no evidence of calf tenderness, no pitting edema, symmetrical pulses noted bilaterally Neurological:A&O, normal speech: Upper and lower extremity strength symmetric Psychiatric:Cooperative Constitutional Vital Signs, click to edit/add: Last Vital Signs Temp 98.2 F 12/16/24 18:05 Pulse 75 12/16/24 18:05 Resp 16 12/16/24 18:05 BP 112/62 12/16/24 18:05 Pulse Ox 98 12/16/24 18:05 O2 Del Method Room Air 12/16/24 18:05 Course Vital Signs Vital signs: Vital Signs Temperature 98.2 F 12/16/24 18:05 Pulse Rate 75 12/16/24 18:05 Respiratory Rate 16 12/16/24 18:05 Blood Pressure 112/62 12/16/24 18:05 Pulse Oximetry 98 12/16/24 18:05 Oxygen Delivery Method Room Air 12/16/24 18:05 Temperature 98.2 F 12/16/24 18:05 Pulse Rate 75 12/16/24 18:05 Respiratory Rate 16 12/16/24 18:05 Blood Pressure 112/62 12/16/24 18:05 Pulse Oximetry 98 12/16/24 18:05 Oxygen Delivery Method Room Air 12/16/24 18:05 Medical Decision Making [facility] Narrative Medical decision making narrative: Medications are ordered and the patient is signed out to Dr. Vazquez at change of shift. Differential Diagnosis Differential Diagnosis: Migraine headache, nonspecific headache Discharge Plan Discharge Patient Disposition: Still a Patient
[2024-12-16] MEDS: 0.9 % SODIUM CHLORIDE 1,000 ML 1000 ML IV (18:30)
[2024-12-16] MEDS: METHYLPREDNISOLONE SOD SUCC PF 125 MG/2 ML VIAL IVP (18:31)
[2024-12-16] MEDS: KETOROLAC TROMETHAMINE 30 MG/ML VIAL IVP (18:33)
[2024-12-16] MEDS: DIPHENHYDRAMINE HCL 50 MG/ML VIAL 25 MG IVP (18:35)
[2024-12-16 18:56] VITALS: BP 108/58; PULSE 62; O2SAT 98
--- NOTE | 2024-12-16 18:59 | PC.NURSE ---
Patient report given to OVIDIO Panchal
--- NOTE | 2024-12-16 19:05 | PC.NURSE ---
i waked into this patient's room to find this patient awake and alert sitting upright on the bed looking at his cell phone. i introduced myself to this patient and his mother, this patient voices voices is headache the same this patient voices no concerns, needs and shows no signs of distress
--- NOTE | 2024-12-16 19:31 | PC.NURSE ---
i walked into this patient's room to find this patient resting with his eyes closed and this patient rate his headache at 7/10, I informed the dr of this this patient voices no concerns, needs and shows no signs of distress
--- NOTE | 2024-12-16 19:44 | PC.NURSE ---
this patient updated about new medication order
[2024-12-16] MEDS: PROCHLORPERAZINE 10 MG/2 ML VIAL 5 MG IV (19:56)
--- NOTE | 2024-12-16 20:01 | ED.GENADUL1 ---
HPI HPI - General Adult General Chief complaint: Headache Stated complaint: HEADACHE Time Seen by Provider: 12/16/24 18:03 Mode of arrival: walk-in Limitations: no limitations History of Present Illness HPI narrative: This 19-year-old male was signed out to me at shift change pending reevaluation. He presents for evaluation of migraine headache that started yesterday. He has a history of migraine headaches. This is a typical migraine for him. Prior to my arrival he was medicated with IV Toradol, Solu-Medrol, IV fluids and Benadryl. On reevaluation his headache is persistent. He was given 5 mg of IV Compazine with clinical improvement in his headache. On reevaluation he request to be discharged home. He will be discharged home with a prescription for Compazine to use as needed for recurrent headaches. He is otherwise neurologically stable and has a ride home. Related Data Home Medications ?Medication ?Instructions ?Recorded ?Confirmed loratadine 10 mg tablet 10 mg PO DAILY PRN allergic 01/12/23 05/22/24 (Allerradhaar) symptoms venlafaxine 37.5 mg 37.5 mg PO DAILY 01/12/23 05/22/24 capsule,extended release 24 hr sodium, calcium, magnesium, 0.5 g PO DAILY 05/22/24 05/22/24 potassium oxybates 0.5 gram/mL oral soln (Xywav) Previous Rx's ?Medication ?Instructions ?Recorded promethazine 25 mg tablet 25 mg PO Q6H PRN nausea and 01/12/23 vomiting #12 tabs [id number]-yhpfnlswwalrz-isdbnpan 1 cap PO Q8H PRN headache, pain #8 03/18/23 50 mg-300 mg-40 mg capsule caps (Fioricet) loratadine 5 mg-pseudoephedrine ER 1 tab PO Q12H PRN nasal congestion 10/09/23 120 mg tablet,extended #20 tabs release,12hr (Claritin-D 12 Hour) Allergies Allergy/AdvReac Type Severity Reaction Status Date / Time No Known Drug Allergies Allergy Verified 12/16/24 18:05 Opioid HPI Opioid Management Most Recent Opioid Data: Last Pain Scale 7 12/16/24, 18:33 Last MAR Pain Assessment 12/16/24, 18:33 PFSH PFSH Social History Smoking status: Never smoker Little interest or pleasure in doing things: not at all Feeling down, depressed, or hopeless: not at all Exam Constitutional Vital Signs, click to edit/add: Last Vital Signs Temp 98.2 F 12/16/24 18:05 Pulse 62 12/16/24 18:56 Resp 16 12/16/24 18:56 BP 108/58 12/16/24 18:56 Pulse Ox 98 12/16/24 18:56 O2 Del Method Room Air 12/16/24 18:56 Course Vital Signs Vital signs: Vital Signs Temperature 98.2 F 12/16/24 18:05 Pulse Rate 75 12/16/24 18:05 Respiratory Rate 16 12/16/24 18:05 Blood Pressure 112/62 12/16/24 18:05 Pulse Oximetry 98 12/16/24 18:05 Oxygen Delivery Method Room Air 12/16/24 18:05 Temperature 98.2 F 12/16/24 18:05 Pulse Rate 62 12/16/24 18:56 Respiratory Rate 16 12/16/24 18:56 Blood Pressure 108/58 12/16/24 18:56 Pulse Oximetry 98 12/16/24 18:56 Oxygen Delivery Method Room Air 12/16/24 18:56 Discharge Plan Discharge Chief Complaint: Headache Clinical Impression: Headache, Migraine Patient Disposition: Home, Self-Care Time of Disposition Decision: 20:25 Condition: Good Prescriptions / Home Meds: No Action venlafaxine 37.5 mg capsule,extended release 24hr 37.5 mg PO DAILY loratadine [Allerclear] 10 mg tablet 10 mg PO DAILY PRN (Reason: allergic symptoms) promethazine 25 mg tablet 25 mg PO Q6H PRN (Reason: nausea and vomiting) Qty: 12 0RF Claritin-D 12 Hour 5-120 mg tablet extended release 12 hr 1 tab PO Q12H PRN (Reason: nasal congestion) Qty: 20 0RF Xywav 0.5 gram/mL solution 0.5 g PO DAILY wlkgntzcei-amartmrdlxllh-hqkf [Fioricet] 50-300-40 mg capsule 1 cap PO Q8H PRN (Reason: headache, pain) Qty: 8 0RF Print Language: German Instructions: Migraine Headache (ED) Referrals: [facility] [Primary Care Provider, Family Practice] - 1 week Discharge Date/Time: 12/16/24 20:44
== END 2024-12-16 20:44 | disposition home or self-care (01) ==
PROVIDERS: Emergency Provider Emergency Medicine; PCP Family Medicine
DX: G43.909 Migraine, unspecified, not intractable, without status migrainosus (principal)
CPT/HCPCS: 96374; 96375; 99284; J0780; J1200; J1885; J2919